=== PATIENT | male | born 1945 | race African-American/Black ===

== ENCOUNTER 2016-09-15 11:54 | Inpatient (IN) | payer MEDICARE, MEDICAID ==
[2016-09-15 14:48] VITALS: BP 134/75
[2016-09-15] MEDS ORDERED: ACETAMINOPHEN PO PRN (15:07)
[2016-09-15] MEDS ORDERED: HYDROCODONE PO PRN (15:07)
[2016-09-15] MEDS ORDERED: Non-Formulary Item 1 EA (Acetaminophen [Tylenol] 650 MG) PO PRN (15:07)
[2016-09-15] MEDS ORDERED: Albuterol/Ipratropium Neb 3 ML AERS HHN PRN (15:27)
[2016-09-15] MEDS ORDERED: LORAZEPAM 1 MG PO PRN (15:31)
[2016-09-15 15:50] LABS: % BASOPHILS 0.8 % (0.0-2.0); % EOSINOPHILS 6.5 % (0.0-5.0); % LYMPHOCYTES 47.7 % (20.0-50.0); % MONOCYTES 9.8 % (2.0-10.0); % NEUTROPHILS 35.2 % (40.0-80.0); MEAN CELL VOLUME 90.8 fl (80-99); MEAN CORPUSCULAR HEMOGLOBIN 29.9 pg (27.0-31.0); MEAN PLATELET VOLUME 8.1 fl; NEUTROPHILE ABSOLUTE 2.4 Th/cmm (1.8-8.0); RED BLOOD COUNT 4.49 Mil/cmm (3.80-5.80); RED CELL DISTRIBUTION WIDTH 15.2 % (11.5-20.0)
[2016-09-15 16:00] LABS: WHITE BLOOD COUNT 6.9 Th/cmm (4.8-10.8)
[2016-09-15] MEDS ORDERED: Ipratropium Neb 0.5 mg/2.5 mL UD HHN SCH (16:00)
[2016-09-15 16:01] LABS: HEMATOCRIT 40.8 % (39.0-49.0); HEMOGLOBIN 13.4 gm/dL (12.6-17.4); PLATELET COUNT 293 Th/cmm (150-400)
[2016-09-15 16:14] LABS: INR 1.03 (0.5-1.4); PROTHROMBIN TIME (TEST) 10.2 SECONDS (9.5-11.5)
[2016-09-15 16:16] LABS: ALB/GLOB RATIO 0.9 (1.0-1.8); BILIRUBIN,TOTAL 0.4 mg/dL (0.3-1.0); BUN/CREATININE RATIO 3.6; CALCIUM SERUM 9.9 mg/dL (8.6-10.3); CARBON DIOXIDE 31.9 mEq/L (21.0-31.0); POTASSIUM SERUM 3.9 mEq/L (3.5-5.1)
[2016-09-15] MEDS ORDERED: INSULIN ASPART RECOMBINANT 1 UNIT SUBQ SCH (16:30)
[2016-09-15 16:44] LABS: CREATININE - SERUM 6.7 mg/dL (0.7-1.3)
[2016-09-15] MEDS ORDERED: SEVELAMER 800 MG PO SCH (17:00)
[2016-09-15] MEDS: Hydrocodone/APAP 10 mg/325 mg Tab PO PRN ×2 (17:01→23:29)
[2016-09-15] MEDS ORDERED: [UNRECOGNIZED DRUG - OTHER] HHN SCH (19:00)
[2016-09-15] MEDS ORDERED: IPRATROPIUM HHN SCH (19:00)
[2016-09-15] MEDS ORDERED: Vancomycin HCl 1.5 GM in Sodium Chloride 0.9% 500 ML IV ONE (20:00)
[2016-09-15] MEDS: NIFEdipine 30 mg ER Tab PO SCH (20:59)
[2016-09-15] MEDS: Atorvastatin Calcium 10 MG TAB PO SCH (21:00)
[2016-09-15] MEDS ORDERED: GABAPENTIN 300 MG PO SCH (21:00)
[2016-09-15] MEDS: INSULIN ASPART SLIDING SCALE 100 UNITS/ML UNIT SUBQ SCH (21:24)
--- NOTE | 2016-09-16 04:54 | Consultation ---
This is a 71-year-old patient who is on chronic hemodialysis for more than 5 years, on maintenance hemodialysis, Monday, Monday and Monday, last dialysis was Monday, brought in here to the hospital because of a nonhealing stump on the right lower extremity, transmetatarsal amputation, which was previously done somewhere in 07/25/2016. He was cared for at an extended care facility and was noted to have poor healing of the amputation stump and was subsequently advised hospitalization. PAST MEDICAL HISTORY: Previous history of chronic renal failure more than 5 years of dialysis, peripheral vascular disease with multiple workup of the right lower extremity, subsequently ending up with amputation of transmetatarsal on 07/25/2016 here at this facility. Diet controlled diabetes mellitus, hyperlipidemia, underlying history of hypertension, cerebrovascular history, accident history with no residual dysfunction, COPD with history of smoking, still actively smoking, cardiac disease with previous ejection fraction between 40% to 45%. REVIEW OF SYSTEMS: HEENT: No complaints of headaches, no episodes of dizziness. CARDIOVASCULAR: Denies any history of shortness of breath, denies any history of chest pain. PULMONARY: Occasional episodes of coughing, nonproductive, although denies any history of respiratory difficulty. GASTROINTESTINAL: No history of hematochezia, no history of ____ or constipation or diarrhea. MUSCULOSKELETAL: The presence of transmetatarsal amputation of the right lower extremity, which has poor healing. PHYSICAL EXAMINATION: VITAL SIGNS: Blood pressure is 134/75, awake, alert, responsive. CHEST: Clear to auscultation. HEART: Regular sinus. ABDOMEN: Soft, bowel sounds are present. No organ enlargement. EXTREMITIES: No edema in both lower extremities. There is the presence of right transmetatarsal amputation, discoloration is noted almost to the ankle area with very poor healing of the stump. LABORATORY STUDIES: Reviewed, still pending at the present time. IMPRESSION: 1.Peripheral vascular disease with very poor healing in the right transmetatarsal amputation stump 2.Chronic kidney disease, on hemodialysis, Monday, Monday and Monday. We are anticipating that this patient will need dialysis after surgery tomorrow. 3.Previous history of cerebrovascular accident and this patient is on medication of Plavix on a daily basis for which we need coagulation profile prior to plan surgical intervention of this patient. 4.Status post cerebrovascular accident, hyperlipidemia, diet controlled diabetes. PLAN: At this time, we will continue his medication in terms of Coreg 6.25 mg daily, lisinopril 20 mg 3 times a day and Procardia 60 mg at bedtime for blood pressure control. ____ this will be adjusted to get serum phosphate during the hospital course of this patient ____ Renagel 800 mg 3 times a day. We will follow this patient with you. JOB# [id number]
[2016-09-16] MEDS: INSULIN ASPART SLIDING SCALE 100 UNITS/ML UNIT SUBQ SCH ×4 (06:37→20:45)
[2016-09-16] MEDS ORDERED: Midazolam 1mg/ml 2 ml vial IV ONE (07:31)
[2016-09-16] MEDS ORDERED: fentaNYL Citrate 100 mcg/2mL Vial ONE (07:46)
[2016-09-16] MEDS ORDERED: Meperidine 25 mg/mL 1mL Syr IVP PRN (08:27)
[2016-09-16] MEDS ORDERED: Lactated Ringer 1,000 ML IV SCH (08:30)
[2016-09-16] MEDS ORDERED: HYDROCODONE PO PRN (08:42)
[2016-09-16] MEDS ORDERED: NOREPINEPHRINE IV PRN (08:42)
[2016-09-16] MEDS ORDERED: ACETAMINOPHEN PO PRN (08:42)
[2016-09-16] MEDS ORDERED: Morphine Sulfate 2 mg/mL 1mL Syr IVP PRN ×2 (08:42→14:18)
[2016-09-16] MEDS ORDERED: PIPERACILLIN SODIUM IV SCH (08:45)
[2016-09-16] MEDS ORDERED: TAZOBACTAM IV SCH (08:45)
[2016-09-16] MEDS ORDERED: NIFEdipine 30 mg ER Tab PO SCH (09:00)
[2016-09-16] MEDS ORDERED: Non-Formulary Item 1 EA (Tiotropium Bromide [Spiriva] 18 MCG) IH SCH (09:00)
[2016-09-16] MEDS ORDERED: Non-Formulary Item 1 EA (Fluticasone/Vilanterol [Breo Ellipta 200-25 Mcg Inh] 1 EACH) IH SCH (09:00)
[2016-09-16] MEDS ORDERED: Aspirin 81mg Chewable Tab PO SCH (09:00)
[2016-09-16] MEDS ORDERED: Lactobacillus Rhamnosus 10 Billion CFU Capsule PO SCH (09:00)
[2016-09-16] MEDS ORDERED: Meperidine 25 mg/mL 1mL Syr ONE ×3 (09:10→09:46)
--- NOTE | 2016-09-16 09:34 | Diagnostic Imaging Report ---
CHEST X-RAY: AP view INDICATION: Cough, preop COMPARISON: Chest x-ray 07/25/2016 FINDINGS: Areas of scarring of the right lung are noted with mild chronic changes. No focal consolidation or pleural effusions. Heart size is normal. Atherosclerosis is noted. The osseous structures are intact. IMPRESSION: No focal airspace consolidation identified. Atherosclerotic vascular disease.
[2016-09-16] MEDS: Ascorbic Acid/Vit B Complex Tab PO SCH (09:55)
[2016-09-16] MEDS: Aspirin 81mg Chewable Tab PO SCH (09:55)
[2016-09-16] MEDS: NIFEdipine 30 mg ER Tab PO SCH ×2 (09:56→20:44)
[2016-09-16] MEDS: Lactobacillus Rhamnosus 10 Billion CFU Capsule PO SCH (09:56)
[2016-09-16] MEDS: FLUTICASONE PROPIONATE NS SCH (09:56)
--- NOTE | 2016-09-16 10:17 | History & Physical ---
CHIEF COMPLAINT: Poor healing of right transmetatarsal amputation with necrotic tissue. HISTORY OF PRESENT ILLNESS: A 71-year-old gentleman with multiple medical problems including PAD, diabetes, hyperlipidemia, CVA, end-stage renal disease on hemodialysis, history of COPD who was recently admitted to this facility where he underwent a transmetatarsal amputation of his right foot given poor healing of his recently done right fem-pop bypass, which was done a couple of months prior at [facility]. At the time of his previous admission, he was complaining of severe pain and the graft appeared to be somewhat infected. As mentioned above, he underwent the amputation and was then transferred to [facility] for LTAC where his hospital stay was unremarkable with healing of his stump. Apparently, the patient had a followup with Dr. Irizarry who sent the patient to be admitted given poor healing and necrotic tissue as mentioned above. He denies any other significant clinical symptomatology at this time. PAST MEDICAL HISTORY: As noted above. PAST SURGICAL HISTORY: As noted above. He underwent a fem-pop a few months back at [facility] and transmetatarsal amputation 2 months or so ago. He also has a history of AV shunt. FAMILY HISTORY: Noncontributory to this admission. SOCIAL HISTORY: Tobacco, does not smoke at this time. In the past, he was a heavy smoker, unable to quantify at this time. Denies any ETOH or any IVDA. He currently resides at [facility]. ALLERGIES: CLONIDINE AND CODEINE. OUTPATIENT MEDICATIONS: Tylenol 650 q. 12 p.r.n. for mild pain, [place] 10/325 one tab q. 4 p.r.n. for severe pain, DuoNeb 3 mL q. 4 hours p.r.n. for wheezing, Lipitor 10 at bedtime, Coreg 6.25 every day, Neurontin 300 mg t.i.d., insulin sliding scale, Atrovent 0.5 mg q. 6 p.r.n. for SOB, lactobacillus/Culturelle 1 tab every day, Zestril 20 mg t.i.d., Ativan 1 mg q. 8 p.r.n. for anxiety, Procardia 60 mg q. 12, Renagel 800 mg t.i.d., vitamin B complex 1 tab every day. REVIEW OF SYSTEMS: CONSTITUTIONAL: He denies any fever, chills, any headaches. CARDIAC: No chest pain, palpitations, angina type symptomatology. PULMONARY: He does have a history of chronic cough, but denies any shortness of breath. GASTROINTESTINAL: No bowel habit changes including no hematochezia, no melena, constipation or diarrhea. GENITOURINARY: He is not able to produce any urine. PHYSICAL EXAMINATION: VITAL SIGNS: Temperature 99.3, pulse 75, respirations 18, BP 154/84, satting 95% on room air. GENERAL: He is a well-developed, well-nourished gentleman in acute distress. Awake, alert and oriented x 3. CARDIAC: Regular rate and rhythm without any murmurs. LUNGS: Clear to auscultation bilaterally. ABDOMEN: Soft, supple. There is no organomegaly, nontender, nondistended, normoactive bowel sounds. EXTREMITIES: There is discoloration of the stump up to the ankle area. NEUROLOGIC: Grossly intact. LABORATORY DATA: White count 6.9, H and H 13/40 with a platelet count of 293. ESR 18. INR 1.03. Sodium 135, potassium 3.9, chloride 97, CO2 31, creatinine 6.7, glucose 129. LFTs were essentially within normal limits. C-reactive protein is 3. Albumin 3.6. DIAGNOSTICS: None currently. IMPRESSION: 1. Severe peripheral arterial disease with recent right transmetatarsal amputation with poor healing. 2. Recent history of fem-pop bypass, right lower extremity 3. History of cerebrovascular accident. 4. History of chronic renal disease, on hemodialysis. 5. History of dyslipidemia. 6. Hypertension. 7. Chronic obstructive pulmonary disease, currently stable. PLAN: The patient has been admitted to telemetry for further management and care. He has been placed on antibiotics, namely vancomycin and Zosyn as well as pain control. He has been scheduled for possible Syme's amputation vs. BKA later today by Dr. Irizarry. He will remain on his own medications schedule. The patient will be monitored post-op with labs and he will receive PT once stable JOB# [id number] [facility]
--- NOTE | 2016-09-16 10:42 | Operative Report ---
PREOPERATIVE DIAGNOSES: 1. Gangrene of the right foot transmetatarsal amputation stump. 2. End-stage renal disease, on dialysis. 3. Peripheral vascular disease. 4. Diabetes mellitus. 5. Hypertension. POSTOPERATIVE DIAGNOSES: 1. Gangrene of the right foot transmetatarsal amputation stump. 2. End-stage renal disease, on dialysis. 3. Peripheral vascular disease. 4. Diabetes mellitus. 5. Hypertension. OPERATION DONE: Syme's amputation. SURGEON: Juan C Cobos M.D. ANESTHESIA: General. ANESTHESIOLOGIST: Carol Ann Sr M.D. ESTIMATED BLOOD LOSS: 100 mL. Informed consent discussed with the patient and next of kin regarding the gangrene of the stump. We will require amputation for more proximal side. We will start with Syme's amputation, possible below knee amputation if blood supply is not adequate. OPERATIVE FINDINGS: The navicular bones were transected and part of the calcaneus was transected at its inferior margin to allow for closure of the stump. There appear to be decent blood supply at this level. DETAILS OF PROCEDURE: The patient was given general anesthesia. The right lower extremity was prepped with Betadine and draped in appropriate manner. The stump was isolated with OpSite. An incision was made on the dorsal aspect of the foot and this was carried all the way down to the fascia and the tendons and muscle transected sharply with knife. A posterior plantar incision was done in the similar fashion. The metatarsal bones were removed from the adjoining calcaneus and tibia and fibula. The inferior aspect of the calcaneus was transected with a saw to allow for a closure of the stump. Cautery was used for hemostasis and Grecia was further utilized for additional capillary bleeding. Tin-Castro drain was left in the operative site. The incision was closed with interrupted sutures of #1 Vicryl for the fascia and the skin was closed with moon. Compression dressing was used with Coban. The patient tolerated the procedure well. [facility]# [id number]
[2016-09-16] MEDS ORDERED: SEVELAMER CARBONATE 800 MG PO SCH (11:30)
[2016-09-16] MEDS ORDERED: VTE Chemical Prophylaxis Screen/Admission MC PRN (13:29)
--- NOTE | 2016-09-16 16:12 | General Progress Note ---
Subjective - Review of Systems Service Date: 09/16/16 (c/o painof the amputation site still with PRASANTH drain) Events since last encounter: Amputation of the stump above thr ankle right pain management isusse hemodialysis done regulasr dialysis schedule Mon and Mon Objective - Results Result Diagrams: 09/15/16 15:32 09/15/16 15:32 Recent Labs: Laboratory Last Values WBC 6.9 Th/cmm (4.8-10.8) D 09/15/16 15:32 RBC 4.49 Mil/cmm (3.80-5.80) 09/15/16 15:32 Hgb 13.4 gm/dL (12.6-17.4) D 09/15/16 15:32 Hct 40.8 % (39.0-49.0) D 09/15/16 15:32 MCV 90.8 fl (80-99) 09/15/16 15: MCH 29.9 pg (27.0-31.0) 09/15/16 15: MCHC Differential 33.0 pg (28.0-36.0) 09/15/16 15:32 RDW 15.2 % (11.5-20.0) 09/15/16 15:32 Plt Count 293 Th/cmm (150-400) D 09/15/16 15:32 MPV 8.1 fl 09/15/16 15:32 Neutrophils % 35.2 % (40.0-80.0) L 09/15/16 15: Lymphocytes % 47.7 % (20.0-50.0) 09/15/16 15: Monocytes % 9.8 % (2.0-10.0) 09/15/16 15:32 Eosinophils % 6.5 % (0.0-5.0) H 09/15/16 15:32 Basophils % 0.8 % (0.0-2.0) 09/15/16 15:32 ESR 18 mm/hr (0-20) 09/15/16 15:32 PT 10.2 SECONDS (9.5-11.5) 09/15/16 15:32 INR 1.03 (0.5-1.4) 09/15/16 15:32 PTT (Actin FS) 34.1 SECONDS (26.0-38.0) 09/15/16 15:32 Sodium 135 mEq/L (136-145) L 09/15/16 15:32 Potassium 3.9 mEq/L (3.5-5.1) 09/15/16 15:32 Chloride 97 mEq/L (98-107) L 09/15/16 15:32 Carbon Dioxide 31.9 mEq/L (21.0-31.0) H 09/15/16 15:32 Anion Gap 10.0 (7.0-16.0) 09/15/16 15:32 BUN 24 mg/dL (7-25) 09/15/16 15:32 Creatinine 6.7 mg/dL (0.7-1.3) H* 09/15/16 15:32 Est GFR ( Amer) 10.6 ml/min 09/15/16 15:32 Est GFR (Non-Af Amer) 8.8 ml/min 09/15/16 15:32 BUN/Creatinine Ratio 3.6 09/15/16 15:32 Glucose 129 mg/dL (70-105) H 09/15/16 15:32 POC Glucose 116 MG/DL (70 - 105) H 09/16/16 11:48 Calcium 9.9 mg/dL (8.6-10.3) 09/15/16 15:32 Magnesium 2.3 mg/dL (1.9-2.7) 09/15/16 15:32 Total Bilirubin 0.4 mg/dL (0.3-1.0) 09/15/16 15:32 AST 30 U/L (13-39) 09/15/16 15:32 ALT 24 U/L (7-52) 09/15/16 15:32 Alkaline Phosphatase 81 U/L (34-104) 09/15/16 15:32 C-Reactive Protein 3.00 mg/dL (0.00-1.00) H 09/15/16 15:32 Total Protein 7.7 gm/dL (6.0-8.3) 09/15/16 15:32 Albumin 3.6 gm/dL (4.2-5.5) L 09/15/16 15:32 Globulin 4.1 gm/dL 09/15/16 15:32 Albumin/Globulin Ratio 0.9 (1.0-1.8) L 09/15/16 15:32 - Physical Exam Vitals and I&O: Vital Signs Temp 96.6 F 09/16/16 12:00 Pulse 63 09/16/16 12:00 Resp 18 09/16/16 12:00 BP 142/83 09/16/16 12:00 Pulse Ox 18 09/16/16 12:00 Intake & Output 09/15/16 09/16/16 09/16/16 18:59 06:59 18:59 Intake Total 920 Output Total 2 Balance 918 Intake: Intake, IV Amount 600 Piperacillin Sodium/ 100 Tazobact 2.25 gm In Sodium Chloride 0.9% 50 ml @ 100 mls/hr IV Q8HR [facility] Rx#:[id number] Vancomycin HCl 1.5 gm In 500 Sodium Chloride 0.9% 500 ml @ 250 mls/hr IV 2000 ONE Rx#:[id number] Oral 320 Output: Stool 2 Other: # Voids 2 Stool Characteristics Soft Active Medications: Current Medications Acetaminophen (Tylenol) 650 mg PO Q12HR [facility] Stop: 11/14/16 20:59 Last Admin: 09/16/16 09:57 Dose: Not Given Acetaminophen/Hydrocodone Bitart ([place] 10 Mg/325 Mg) 1 tab PO Q4H PRN PRN Reason: PAIN Stop: 11/14/16 15:47 Last Admin: 09/15/16 23:29 Dose: 1 tab Albuterol Sulfate (Albuterol 2.5mg/3ml Neb Ud) 2.5 mg HHN Q6HRT [facility] Stop: 11/15/16 12:59 Albuterol/Ipratropium (Duoneb Neb) 3 ml HHN Q4H PRN PRN Reason: Wheezing Stop: 11/14/16 15:26 Aspirin (Aspirin Chewable) 81 mg PO DAILY [facility] Stop: 11/15/16 08:59 Last Admin: 09/16/16 09:55 Dose: Not Given Atorvastatin Calcium (Lipitor) 10 mg PO HS MELLISA PRN Reason: Protocol Stop: 11/14/16 20:59 Last Admin: 09/15/16 21:00 Dose: 10 mg Budesonide (Pulmicort) 0.5 mg HHN BIDRT [facility] Stop: 11/15/16 09:59 Carvedilol (Coreg) 3.125 mg PO DAILY [facility] Stop: 11/15/16 08:59 Last Admin: 09/16/16 09:55 Dose: Not Given Clopidogrel Bisulfate (Plavix) 75 mg PO DAILY [facility] Stop: 11/15/16 08:59 Last Admin: 09/16/16 09:56 Dose: Not Given Epoetin Kike (Epogen) 10,000 units SUBQ MoWeFr [facility] Stop: 11/18/16 11:59 Fluticasone Propionate (Flonase) 1 gm NS DAILY [facility] Stop: 11/15/16 08:59 Last Admin: 09/16/16 09:56 Dose: Not Given Gabapentin (Neurontin) 300 mg PO TID [facility] Stop: 11/14/16 20:59 Last Admin: 09/16/16 14:31 Dose: 300 mg Piperacillin Sod/Tazobactam (Sod 2.25 gm/ Sodium Chloride) 50 mls @ 100 mls/hr IV Q8HR [facility] Stop: 11/14/16 20:59 Last Admin: 09/16/16 14:34 Dose: 100 mls/hr Lactated Ringer's (Lactated Ringer) 1,000 mls @ 0 mls/hr IV .Q0M [facility] PRN Reason: TKO Stop: 09/17/16 08:29 Insulin Aspart (Novolog Insulin Sliding Scale) 0 units SUBQ ACHS [facility] PRN Reason: Protocol Stop: 11/14/16 20:59 Last Admin: 09/16/16 11:57 Dose: Not Given Ipratropium [place] (Atrovent Neb 0.5mg/2.5ml) 0.5 mg HHN Q6HRT [facility] Stop: 11/14/16 15:59 Lactobacillus Rhamnosus (Culturelle) 1 each PO DAILY [facility] Stop: 11/15/16 08:59 Last Admin: 09/16/16 09:56 Dose: Not Given Lisinopril (Zestril) 10 mg PO DAILY [facility] Stop: 11/15/16 08:59 Last Admin: 09/16/16 09:56 Dose: Not Given Lorazepam (Ativan) 1 mg PO Q8H PRN PRN Reason: ANXIETY Stop: 11/14/16 15:49 Meperidine HCl (Demerol) 25 mg IVP Q5MIN PRN PRN Reason: POST-OP PAIN Stop: 09/16/16 21:00 Last Admin: 09/16/16 09:48 Dose: 25 mg Miscellaneous (Vancomycin Iv Per Pharmacy) 1 ea MC PRN [facility] Stop: 11/14/16 16:59 Miscellaneous (Vte Chemical Prophylaxis Screen/ Admission) 1 ea PRN PRN PRN Reason: PROTOCOL Stop: 11/15/16 13:28 Morphine Sulfate (Morphine) 2 mg IVP Q4HR PRN PRN Reason: Pain (Severe) Stop: 11/15/16 14:17 Last Admin: 09/16/16 14:29 Dose: 2 mg Nifedipine (Procardia Xl) 60 mg PO Q12HR [facility] Stop: 11/14/16 20:59 Last Admin: 09/16/16 09:56 Dose: Not Given Ondansetron HCl (Zofran) 4 mg IV PRN PRN PRN Reason: Nausea / Vomiting Stop: 09/16/16 21:00 Sevelamer HCl (Renagel) 800 mg PO TID [facility] Stop: 11/14/16 20:59 Last Admin: 09/16/16 14:31 Dose: 800 mg Vitamin B Complex/Vitamin C (Vitamin B Complex W/C) 1 tab PO DAILY [facility] Stop: 11/15/16 08:59 Last Admin: 09/16/16 09:55 Dose: Not Given General: Alert Neck: Supple Cardiovascular: Regular rate Abdomen: Bowel sounds - Procedures Procedures: Procedures Procedure Code Date AMPUTATION OF FOOT AT ANKLE 80743 09/15/16 AMPUTATION THRU METATARSAL 76169 07/22/16 BYPASS L AXILLA VEIN TO UP VEIN W SYNTH SUB, OPEN [id number] 07/22/16 DETACHMENT AT RIGHT FOOT, COMPLETE, OPEN APPROACH [id number] 09/15/16 DETACHMENT AT RIGHT FOOT, PARTIAL 2ND RAY, OPEN APPROACH [id number] 07/22/16 DETACHMENT AT RIGHT FOOT, PARTIAL 3RD RAY, OPEN APPROACH [id number] 07/22/16 DETACHMENT AT RIGHT FOOT, PARTIAL 4TH RAY, OPEN APPROACH [id number] 07/22/16 DETACHMENT AT RIGHT FOOT, PARTIAL 5TH RAY, OPEN APPROACH [id number] 07/22/16 EXTIRPATION OF MATTER FROM LEFT AXILLARY VEIN, OPEN APPROACH [id number] 07/22/16 HEMODIALYSIS REPEATED EVAL [id number] 07/22/16 INSERT TUNNELED CV CATH [id number] 07/22/16 INSERTION OF INFUSION DEV INTO R SUBCLAV VEIN, PERC APPROACH [id number] 07/22/16 INSERTION OF INFUSION DEV INTO SUP VENA CAVA, PERC APPROACH [id number] 07/22/16 OPEN THROMBECT AV FISTULA 69846 07/22/16 PERFORMANCE OF URINARY FILTRATION, MULTIPLE [id number] 07/22/16 ULTRASONOGRAPHY OF RIGHT SUBCLAVIAN VEIN, GUIDANCE [id number] 07/22/16 ULTRASONOGRAPHY OF SUPERIOR VENA CAVA, GUIDANCE [id number] 07/22/16 US GUIDE VASCULAR ACCESS [id number] 07/22/16 Assessment/Plan - Problem List Patient Problems: All Active Problems Clotted dialysis access (Acute) T82.49XA Hypotension (Acute) clotted access (Acute) clotted access (Acute) resolved hypotensionn0 (Acute) transmetatarsal amputation right foot (Acute) - Plan Plan: to supiort hemo every MWF pain mangement
[2016-09-16] MEDS: HYDROmorphone 2 mg/mL 1mL Vial IVP PRN (17:13)
[2016-09-16] MEDS: Hydrocodone/APAP 10 mg/325 mg Tab PO PRN (20:43)
[2016-09-16] MEDS: Atorvastatin Calcium 10 MG TAB PO SCH (20:43)
[2016-09-17] MEDS: INSULIN ASPART SLIDING SCALE 100 UNITS/ML UNIT SUBQ SCH ×4 (06:37→20:42)
[2016-09-17 07:04] LABS: % BASOPHILS 0.3 % (0.0-2.0); % EOSINOPHILS 2.2 % (0.0-5.0); % NEUTROPHILS 58.5 % (40.0-80.0); HEMATOCRIT 38.7 % (39.0-49.0); HEMOGLOBIN 12.8 gm/dL (12.6-17.4); MEAN CELL VOLUME 89.9 fl (80-99); MEAN CORPUSCULAR HEMOGLOBIN 29.7 pg (27.0-31.0); MEAN CORPUSCULAR HGB CONC 33.1 pg (28.0-36.0); MEAN PLATELET VOLUME 8.1 fl; NEUTROPHILE ABSOLUTE 5.7 Th/cmm (1.8-8.0); PLATELET COUNT 309 Th/cmm (150-400); RED CELL DISTRIBUTION WIDTH 14.4 % (11.5-20.0)
[2016-09-17 07:20] LABS: WHITE BLOOD COUNT 9.7 Th/cmm (4.8-10.8)
[2016-09-17 07:31] LABS: ANION GAP 14.9 (7.0-16.0); BUN/CREATININE RATIO 3.5; CALCIUM SERUM 9.5 mg/dL (8.6-10.3); CARBON DIOXIDE 28.8 mEq/L (21.0-31.0); MAGNESIUM 1.9 mg/dL (1.9-2.7); POTASSIUM SERUM 4.7 mEq/L (3.5-5.1)
[2016-09-17 07:44] LABS: CREATININE - SERUM 5.7 mg/dL (0.7-1.3)
[2016-09-17] MEDS: FLUTICASONE PROPIONATE NS SCH (09:51)
[2016-09-17] MEDS: Ascorbic Acid/Vit B Complex Tab PO SCH (09:51)
[2016-09-17] MEDS: NIFEdipine 30 mg ER Tab PO SCH ×2 (09:52→20:38)
[2016-09-17] MEDS: Aspirin 81mg Chewable Tab PO SCH (09:52)
[2016-09-17] MEDS: Lactobacillus Rhamnosus 10 Billion CFU Capsule PO SCH (09:54)
[2016-09-17] MEDS: HYDROmorphone 2 mg/mL 1mL Vial IVP PRN (10:00)
--- NOTE | 2016-09-17 10:35 | General Progress Note ---
Subjective - Review of Systems Service Date: 09/17/16 Subjective: alert, still has right leg pain Objective - Results Result Diagrams: 09/17/16 06:28 09/17/16 06:28 Recent Labs: Laboratory Last Values WBC 9.7 Th/cmm (4.8-10.8) D 09/17/16 06:28 RBC 4.30 Mil/cmm (3.80-5.80) 09/17/16 06:28 Hgb 12.8 gm/dL (12.6-17.4) 09/17/16 06:28 Hct 38.7 % (39.0-49.0) L 09/17/16 06:28 MCV 89.9 fl (80-99) 09/17/16 06:28 MCH 29.7 pg (27.0-31.0) 09/17/16 06:28 MCHC Differential 33.1 pg (28.0-36.0) 09/17/16 06:28 RDW 14.4 % (11.5-20.0) 09/17/16 06:28 Plt Count 309 Th/cmm (150-400) 09/17/16 06:28 MPV 8.1 fl 09/17/16 06:28 Neutrophils % 58.5 % (40.0-80.0) 09/17/16 06:28 Lymphocytes % 30.0 % (20.0-50.0) 09/17/16 06:28 Monocytes % 9.0 % (2.0-10.0) 09/17/16 06:28 Eosinophils % 2.2 % (0.0-5.0) 09/17/16 06:28 Basophils % 0.3 % (0.0-2.0) 09/17/16 06:28 ESR 18 mm/hr (0-20) 09/15/16 15:32 PT 10.2 SECONDS (9.5-11.5) 09/15/16 15:32 INR 1.03 (0.5-1.4) 09/15/16 15:32 PTT (Actin FS) 34.1 SECONDS (26.0-38.0) 09/15/16 15:32 Sodium 138 mEq/L (136-145) 09/17/16 06:28 Potassium 4.7 mEq/L (3.5-5.1) 09/17/16 06:28 Chloride 99 mEq/L (98-107) 09/17/16 06:28 Carbon Dioxide 28.8 mEq/L (21.0-31.0) 09/17/16 06:28 Anion Gap 14.9 (7.0-16.0) 09/17/16 06:28 BUN 20 mg/dL (7-25) 09/17/16 06:28 Creatinine 5.7 mg/dL (0.7-1.3) H* 09/17/16 06:28 Est GFR ( Amer) 12.8 ml/min 09/17/16 06:28 Est GFR (Non-Af Amer) 10.6 ml/min 09/17/16 06:28 BUN/Creatinine Ratio 3.5 09/17/16 06:28 Glucose 100 mg/dL (70-105) 09/17/16 06:28 POC Glucose 91 MG/DL (70 - 105) 09/17/16 05:29 Calcium 9.5 mg/dL (8.6-10.3) 09/17/16 06:28 Magnesium 1.9 mg/dL (1.9-2.7) 09/17/16 06:28 Total Bilirubin 0.4 mg/dL (0.3-1.0) 09/15/16 15:32 AST 30 U/L (13-39) 09/15/16 15:32 ALT 24 U/L (7-52) 09/15/16 15:32 Alkaline Phosphatase 81 U/L (34-104) 09/15/16 15:32 C-Reactive Protein 3.00 mg/dL (0.00-1.00) H 09/15/16 15:32 Total Protein 7.7 gm/dL (6.0-8.3) 09/15/16 15:32 Albumin 3.6 gm/dL (4.2-5.5) L 09/15/16 15:32 Globulin 4.1 gm/dL 09/15/16 15:32 Albumin/Globulin Ratio 0.9 (1.0-1.8) L 09/15/16 15:32 Random Vancomycin 17.0 ug/mL (5.0-40.0) 09/17/16 06:28 - Physical Exam Vitals and I&O: Vital Signs Temp 99.9 F 09/17/16 04:00 Pulse 87 09/17/16 09:54 Resp 18 09/17/16 08:00 BP 143/85 09/17/16 09:54 Pulse Ox 97 09/17/16 08:00 Intake & Output 09/16/16 09/17/16 09/17/16 18:59 06:59 18:59 Intake Total 250 340 Output Total 130 110 Balance 120 230 Intake: Intake, IV Amount 50 100 Piperacillin Sodium/ 50 100 Tazobact 2.25 gm In Sodium Chloride 0.9% 50 ml @ 100 mls/hr IV Q8HR [facility] Rx#:[id number] Oral 200 240 Output: Drainage 130 110 Right Foot 130 110 Other: # Voids 2 2 Stool Characteristics Soft Soft Active Medications: Current Medications Acetaminophen (Tylenol) 650 mg PO Q12HR [facility] Stop: 11/14/16 20:59 Last Admin: 09/16/16 20:44 Dose: Not Given Acetaminophen/Hydrocodone Bitart ([place] 10 Mg/325 Mg) 1 tab PO Q4H PRN PRN Reason: PAIN Stop: 11/14/16 15:47 Last Admin: 09/16/16 20:43 Dose: 1 tab Albuterol Sulfate (Albuterol 2.5mg/3ml Neb Ud) 2.5 mg HHN Q6HRT [facility] Stop: 11/15/16 12:59 Albuterol/Ipratropium (Duoneb Neb) 3 ml HHN Q4H PRN PRN Reason: Wheezing Stop: 11/14/16 15:26 Aspirin (Aspirin Chewable) 81 mg PO DAILY [facility] Stop: 11/15/16 08:59 Last Admin: 09/17/16 09:52 Dose: 81 mg Atorvastatin Calcium (Lipitor) 10 mg PO HS [facility] PRN Reason: Protocol Stop: 11/14/16 20:59 Last Admin: 09/16/16 20:43 Dose: 10 mg Budesonide (Pulmicort) 0.5 mg HHN BIDRT [facility] Stop: 11/15/16 09:59 Carvedilol (Coreg) 3.125 mg PO DAILY [facility] Stop: 11/15/16 08:59 Last Admin: 09/17/16 09:54 Dose: 3.125 mg Clopidogrel Bisulfate (Plavix) 75 mg PO DAILY [facility] Stop: 11/15/16 08:59 Last Admin: 09/17/16 09:54 Dose: 75 mg Epoetin Kike (Epogen) 10,000 units SUBQ MoWeFr [facility] Stop: 11/18/16 11:59 Fluticasone Propionate (Flonase) 1 gm NS DAILY [facility] Stop: 11/15/16 08:59 Last Admin: 09/17/16 09:51 Dose: 1 gm Gabapentin (Neurontin) 300 mg PO TID [facility] Stop: 11/14/16 20:59 Last Admin: 09/17/16 09:52 Dose: 300 mg Hydromorphone HCl (Dilaudid) 2 mg IVP Q4HR PRN PRN Reason: Pain (Severe) Stop: 11/15/16 16:25 Last Admin: 09/17/16 10:00 Dose: 2 mg Piperacillin Sod/Tazobactam (Sod 2.25 gm/ Sodium Chloride) 50 mls @ 100 mls/hr IV Q8HR [facility] Stop: 11/14/16 20:59 Last Infusion: 09/17/16 06:09 Dose: Infused Vancomycin HCl 1.5 gm/ Sodium (Chloride) 500 mls @ 250 mls/hr IV Q24H [facility] Stop: 09/17/16 13:59 Insulin Aspart (Novolog Insulin Sliding Scale) 0 units SUBQ ACHS [facility] PRN Reason: Protocol Stop: 11/14/16 20:59 Last Admin: 09/17/16 06:37 Dose: Not Given Ipratropium [place] (Atrovent Neb 0.5mg/2.5ml) 0.5 mg HHN Q6HRT [facility] Stop: 11/14/16 15:59 Lactobacillus Rhamnosus (Culturelle) 1 each PO DAILY [facility] Stop: 11/15/16 08:59 Last Admin: 09/17/16 09:54 Dose: 1 each Lisinopril (Zestril) 10 mg PO DAILY [facility] Stop: 11/15/16 08:59 Last Admin: 09/17/16 09:53 Dose: 10 mg Lorazepam (Ativan) 1 mg PO Q8H PRN PRN Reason: ANXIETY Stop: 11/14/16 15:49 Miscellaneous (Vancomycin Iv Per Pharmacy) 1 ea [facility] PRN [facility] Stop: 11/14/16 16:59 Miscellaneous (Vte Chemical Prophylaxis Screen/ Admission) 1 ea PRN PRN PRN Reason: PROTOCOL Stop: 11/15/16 13:28 Nifedipine (Procardia Xl) 60 mg PO Q12HR [facility] Stop: 11/14/16 20:59 Last Admin: 09/17/16 09:52 Dose: 60 mg Sevelamer HCl (Renagel) 800 mg PO TID [facility] Stop: 11/14/16 20:59 Last Admin: 09/17/16 09:54 Dose: 800 mg Vitamin B Complex/Vitamin C (Vitamin B Complex W/C) 1 tab PO DAILY [facility] Stop: 11/15/16 08:59 Last Admin: 09/17/16 09:51 Dose: 1 tab General: Alert, Mild distress HEENT: Atraumatic, EOMI, Mucous membr. moist/pink Neck: Supple, +2 carotid pulse wo bruit Cardiovascular: Regular rate, Normal S1, Normal S2 Lungs: Clear to auscultation Abdomen: Bowel sounds, Soft Extremities: Other (dressing right leg, (+) PRASANTH drain), no Edema Neurological: Strength at 5/5 X4 ext, Sensation intact Skin: no Rash - Procedures Procedures: Procedures Procedure Code Date AMPUTATION OF FOOT AT ANKLE 64433 09/15/16 AMPUTATION THRU METATARSAL 06522 07/22/16 BYPASS L AXILLA VEIN TO UP VEIN W SYNTH SUB, OPEN [id number] 07/22/16 DETACHMENT AT RIGHT FOOT, COMPLETE, OPEN APPROACH [id number] 09/15/16 DETACHMENT AT RIGHT FOOT, PARTIAL 2ND RAY, OPEN APPROACH [id number] 07/22/16 DETACHMENT AT RIGHT FOOT, PARTIAL 3RD RAY, OPEN APPROACH [id number] 07/22/16 DETACHMENT AT RIGHT FOOT, PARTIAL 4TH RAY, OPEN APPROACH [id number] 07/22/16 DETACHMENT AT RIGHT FOOT, PARTIAL 5TH RAY, OPEN APPROACH [id number] 07/22/16 EXTIRPATION OF MATTER FROM LEFT AXILLARY VEIN, OPEN APPROACH [id number] 07/22/16 HEMODIALYSIS REPEATED EVAL 26317 07/22/16 INSERT TUNNELED CV CATH [id number] 07/22/16 INSERTION OF INFUSION DEV INTO R SUBCLAV VEIN, PERC APPROACH [id number] 07/22/16 INSERTION OF INFUSION DEV INTO SUP VENA CAVA, PERC APPROACH [id number] 07/22/16 OPEN THROMBECT AV FISTULA 21311 11/18/16 PERFORMANCE OF URINARY FILTRATION, MULTIPLE [id number] 07/22/16 ULTRASONOGRAPHY OF RIGHT SUBCLAVIAN VEIN, GUIDANCE [id number] 07/22/16 ULTRASONOGRAPHY OF SUPERIOR VENA CAVA, GUIDANCE [id number] 07/22/16 US GUIDE VASCULAR ACCESS [id number] 07/22/16 Assessment/Plan - Problem List Patient Problems: All Active Problems Clotted dialysis access (Acute) T82.49XA Hypotension (Acute) clotted access (Acute) clotted access (Acute) resolved hypotensionn0 (Acute) transmetatarsal amputation right foot (Acute) - Assessment Assessment: ESRD on HD PAD, S/P right Syme's amp ess htn COPD chf - Plan Plan: HD as scheduled wound care Dilip White
[2016-09-17] MEDS ORDERED: Vancomycin HCl 1.5 GM in Sodium Chloride 0.9% 500 ML IV ONE (12:00)
[2016-09-17] MEDS: Atorvastatin Calcium 10 MG TAB PO SCH (20:38)
[2016-09-18 05:42] LABS: % BASOPHILS 0.5 % (0.0-2.0); % EOSINOPHILS 2.2 % (0.0-5.0); % LYMPHOCYTES 27.1 % (20.0-50.0); % MONOCYTES 10.8 % (2.0-10.0); % NEUTROPHILS 59.4 % (40.0-80.0); HEMATOCRIT 35.6 % (39.0-49.0); MEAN CELL VOLUME 88.7 fl (80-99); MEAN CORPUSCULAR HGB CONC 33.8 pg (28.0-36.0); NEUTROPHILE ABSOLUTE 6.4 Th/cmm (1.8-8.0); PLATELET COUNT 286 Th/cmm (150-400); RED BLOOD COUNT 4.01 Mil/cmm (3.80-5.80); RED CELL DISTRIBUTION WIDTH 14.8 % (11.5-20.0); WHITE BLOOD COUNT 10.8 Th/cmm (4.8-10.8)
[2016-09-18 06:03] LABS: ALB/GLOB RATIO 0.8 (1.0-1.8); ANION GAP 15.8 (7.0-16.0); BILIRUBIN,TOTAL 0.5 mg/dL (0.3-1.0); BUN/CREATININE RATIO 3.9; CALCIUM SERUM 9.8 mg/dL (8.6-10.3); CARBON DIOXIDE 25.9 mEq/L (21.0-31.0); POTASSIUM SERUM 4.7 mEq/L (3.5-5.1)
[2016-09-18] MEDS: INSULIN ASPART SLIDING SCALE 100 UNITS/ML UNIT SUBQ SCH ×3 (06:32→17:30)
[2016-09-18 06:49] LABS: CREATININE - SERUM 7.9 mg/dL (0.7-1.3)
[2016-09-18] MEDS: Albuterol Nebulizer 2.5mg/3mL HHN SCH ×2 (07:52→12:17)
[2016-09-18] MEDS: Budesonide 0.5 Mg/2 mL Ud HHN SCH (07:52)
[2016-09-18] MEDS: Ipratropium Neb 0.5 mg/2.5 mL UD HHN SCH ×2 (07:52→12:18)
[2016-09-18] MEDS: HYDROmorphone 2 mg/mL 1mL Vial IVP PRN (09:18)
[2016-09-18] MEDS: NIFEdipine 30 mg ER Tab PO SCH ×2 (09:20→22:21)
[2016-09-18] MEDS: Lactobacillus Rhamnosus 10 Billion CFU Capsule PO SCH (09:20)
[2016-09-18] MEDS: Aspirin 81mg Chewable Tab PO SCH (09:21)
[2016-09-18] MEDS: Ascorbic Acid/Vit B Complex Tab PO SCH (09:22)
[2016-09-18] MEDS: FLUTICASONE PROPIONATE NS SCH (09:29)
--- NOTE | 2016-09-18 15:24 | General Progress Note ---
Subjective - Review of Systems Service Date: 09/18/16 Subjective: alert, still has right leg pain Objective - Results Result Diagrams: 09/18/16 05:10 09/18/16 05:10 Recent Labs: Laboratory Last Values WBC 10.8 Th/cmm (4.8-10.8) 09/18/16 05:10 RBC 4.01 Mil/cmm (3.80-5.80) 09/18/16 05:10 Hgb 12.0 gm/dL (12.6-17.4) L 09/18/16 05:10 Hct 35.6 % (39.0-49.0) L 09/18/16 05:10 MCV 88.7 fl (80-99) 09/18/16 05:10 MCH 30.0 pg (27.0-31.0) 09/18/16 05:10 MCHC Differential 33.8 pg (28.0-36.0) 09/18/16 05:10 RDW 14.8 % (11.5-20.0) 09/18/16 05:10 Plt Count 286 Th/cmm (150-400) 09/18/16 05:10 MPV 8.0 fl 09/18/16 05:10 Neutrophils % 59.4 % (40.0-80.0) 09/18/16 05:10 Lymphocytes % 27.1 % (20.0-50.0) 09/18/16 05:10 Monocytes % 10.8 % (2.0-10.0) H 09/18/16 05:10 Eosinophils % 2.2 % (0.0-5.0) 09/18/16 05:10 Basophils % 0.5 % (0.0-2.0) 09/18/16 05:10 ESR 18 mm/hr (0-20) 09/15/16 15:32 PT 10.2 SECONDS (9.5-11.5) 09/15/16 15:32 INR 1.03 (0.5-1.4) 09/15/16 15:32 PTT (Actin FS) 34.1 SECONDS (26.0-38.0) 09/15/16 15:32 Sodium 137 mEq/L (136-145) 09/18/16 05:10 Potassium 4.7 mEq/L (3.5-5.1) 09/18/16 05:10 Chloride 100 mEq/L (98-107) 09/18/16 05:10 Carbon Dioxide 25.9 mEq/L (21.0-31.0) 09/18/16 05:10 Anion Gap 15.8 (7.0-16.0) 09/18/16 05:10 BUN 31 mg/dL (7-25) H 09/18/16 05:10 Creatinine 7.9 mg/dL (0.7-1.3) H* 09/18/16 05:10 Est GFR ( Amer) 8.8 ml/min 09/18/16 05:10 Est GFR (Non-Af Amer) 7.3 ml/min 09/18/16 05:10 BUN/Creatinine Ratio 3.9 09/18/16 05:10 Glucose 95 mg/dL (70-105) 09/18/16 05:10 POC Glucose 113 MG/DL (70 - 105) H 09/18/16 11:56 Calcium 9.8 mg/dL (8.6-10.3) 09/18/16 05:10 Magnesium 1.9 mg/dL (1.9-2.7) 09/17/16 06:28 Total Bilirubin 0.5 mg/dL (0.3-1.0) 09/18/16 05:10 AST 29 U/L (13-39) 09/18/16 05:10 ALT 23 U/L (7-52) 09/18/16 05:10 Alkaline Phosphatase 60 U/L (34-104) 09/18/16 05:10 C-Reactive Protein 3.00 mg/dL (0.00-1.00) H 09/15/16 15:32 Total Protein 7.1 gm/dL (6.0-8.3) 09/18/16 05:10 Albumin 3.2 gm/dL (4.2-5.5) L 09/18/16 05:10 Globulin 3.9 gm/dL 09/18/16 05:10 Albumin/Globulin Ratio 0.8 (1.0-1.8) L 09/18/16 05:10 Random Vancomycin 17.0 ug/mL (5.0-40.0) 09/17/16 06:28 - Physical Exam Vitals and I&O: Vital Signs Temp 99.0 F 09/18/16 04:00 Pulse 85 09/18/16 12:19 Resp 16 09/18/16 12:19 BP 135/75 09/18/16 09:22 Pulse Ox 97 09/18/16 12:19 Intake & Output 09/17/16 09/18/16 09/18/16 18:59 06:59 18:59 Intake Total 50 520 Output Total 20 Balance 50 500 Intake: Intake, IV Amount 50 100 Piperacillin Sodium/ 50 100 Tazobact 2.25 gm In Sodium Chloride 0.9% 50 ml @ 100 mls/hr IV Q8HR [facility] Rx#:[id number] Oral 420 Output: Drainage 20 Right Foot 20 Other: # Voids 2 # Bowel Movements 1 Active Medications: Current Medications Acetaminophen (Tylenol) 650 mg PO Q12HR [facility] Stop: 11/14/16 20:59 Last Admin: 09/17/16 20:39 Dose: 650 mg Acetaminophen/Hydrocodone Bitart ([place] 10 Mg/325 Mg) 1 tab PO Q4H PRN PRN Reason: PAIN Stop: 11/14/16 15:47 Last Admin: 09/16/16 20:43 Dose: 1 tab Albuterol Sulfate (Albuterol 2.5mg/3ml Neb Ud) 2.5 mg HHN Q6HRT [facility] Stop: 11/15/16 12:59 Last Admin: 09/18/16 12:17 Dose: Not Given Albuterol/Ipratropium (Duoneb Neb) 3 ml HHN Q4H PRN PRN Reason: Wheezing Stop: 11/14/16 15:26 Aspirin (Aspirin Chewable) 81 mg PO DAILY [facility] Stop: 11/15/16 08:59 Last Admin: 09/18/16 09:21 Dose: 81 mg Atorvastatin Calcium (Lipitor) 10 mg PO HS [facility] PRN Reason: Protocol Stop: 11/14/16 20:59 Last Admin: 09/17/16 20:38 Dose: 10 mg Budesonide (Pulmicort) 0.5 mg HHN BIDRT [facility] Stop: 11/15/16 09:59 Last Admin: 09/18/16 07:52 Dose: Not Given Carvedilol (Coreg) 3.125 mg PO DAILY [facility] Stop: 11/15/16 08:59 Last Admin: 09/18/16 09:22 Dose: 3.125 mg Clopidogrel Bisulfate (Plavix) 75 mg PO DAILY [facility] Stop: 11/15/16 08:59 Last Admin: 09/18/16 09:21 Dose: 75 mg Epoetin [place] (Epogen) 10,000 units SUBQ MoWeFr [facility] Stop: 11/18/16 11:59 Fluticasone Propionate (Flonase) 1 gm NS DAILY [facility] Stop: 11/15/16 08:59 Last Admin: 09/18/16 09:29 Dose: 1 gm Gabapentin (Neurontin) 300 mg PO TID [facility] Stop: 11/14/16 20:59 Last Admin: 09/18/16 13:33 Dose: 300 mg Hydromorphone HCl (Dilaudid) 2 mg IVP Q4HR PRN PRN Reason: Pain (Severe) Stop: 11/15/16 16:25 Last Admin: 09/18/16 09:18 Dose: 2 mg Piperacillin Sod/Tazobactam (Sod 2.25 gm/ Sodium Chloride) 50 mls @ 100 mls/hr IV Q8HR [facility] Stop: 11/14/16 20:59 Last Admin: 09/18/16 13:33 Dose: 100 mls/hr Insulin Aspart (Novolog Insulin Sliding Scale) 0 units SUBQ ACHS [facility] PRN Reason: Protocol Stop: 11/14/16 20:59 Last Admin: 09/18/16 12:00 Dose: Not Given Ipratropium [place] (Atrovent Neb 0.5mg/2.5ml) 0.5 mg HHN Q6HRT [facility] Stop: 11/14/16 15:59 Last Admin: 09/18/16 12:18 Dose: Not Given Lactobacillus Rhamnosus (Culturelle) 1 each PO DAILY [facility] Stop: 11/15/16 08:59 Last Admin: 09/18/16 09:20 Dose: 1 each Lisinopril (Zestril) 10 mg PO DAILY [facility] Stop: 11/15/16 08:59 Last Admin: 09/18/16 09:21 Dose: 10 mg Lorazepam (Ativan) 1 mg PO Q8H PRN PRN Reason: ANXIETY Stop: 11/14/16 15:49 Miscellaneous (Vancomycin Iv Per Pharmacy) 1 ea MC PRN [facility] Stop: 11/14/16 16:59 Miscellaneous (Vte Chemical Prophylaxis Screen/ Admission) 1 [facility] PRN PRN PRN Reason: PROTOCOL Stop: 11/15/16 13:28 Nifedipine (Procardia Xl) 60 mg PO Q12HR [facility] Stop: 11/14/16 20:59 Last Admin: 09/18/16 09:20 Dose: 60 mg Sevelamer HCl (Renagel) 800 mg PO TID [facility] Stop: 11/14/16 20:59 Last Admin: 09/18/16 13:33 Dose: 800 mg Vitamin B Complex/Vitamin C (Vitamin B Complex W/C) 1 tab PO DAILY [facility] Stop: 11/15/16 08:59 Last Admin: 09/18/16 09:22 Dose: 1 tab General: Alert, Mild distress HEENT: Atraumatic, EOMI, Mucous membr. moist/pink Neck: Supple, +2 carotid pulse wo bruit Cardiovascular: Regular rate, Normal S1, Normal S2 Lungs: Clear to auscultation Abdomen: Bowel sounds, Soft Extremities: Other (right leg dressing intact), no Edema Neurological: Sensation intact Skin: no Rash - Procedures Procedures: Procedures Procedure Code Date AMPUTATION OF FOOT AT ANKLE 80602 09/15/16 AMPUTATION THRU METATARSAL 61887 07/22/16 BYPASS L AXILLA VEIN TO UP VEIN W SYNTH SUB, OPEN [id number] 07/22/16 DETACHMENT AT RIGHT FOOT, COMPLETE, OPEN APPROACH [id number] 09/15/16 DETACHMENT AT RIGHT FOOT, PARTIAL 2ND RAY, OPEN APPROACH [id number] 07/22/16 DETACHMENT AT RIGHT FOOT, PARTIAL 3RD RAY, OPEN APPROACH [id number] 07/22/16 DETACHMENT AT RIGHT FOOT, PARTIAL 4TH RAY, OPEN APPROACH [id number] 07/22/16 DETACHMENT AT RIGHT FOOT, PARTIAL 5TH RAY, OPEN APPROACH [id number] 07/22/16 EXTIRPATION OF MATTER FROM LEFT AXILLARY VEIN, OPEN APPROACH [id number] 07/22/16 HEMODIALYSIS REPEATED EVAL 44787 07/22/16 INSERT TUNNELED CV CATH [id number] 07/22/16 INSERTION OF INFUSION DEV INTO R SUBCLAV VEIN, PERC APPROACH [id number] 07/22/16 INSERTION OF INFUSION DEV INTO SUP VENA CAVA, PERC APPROACH [id number] 07/22/16 OPEN THROMBECT AV FISTULA 95398 07/22/16 PERFORMANCE OF URINARY FILTRATION, MULTIPLE [id number] 07/22/16 ULTRASONOGRAPHY OF RIGHT SUBCLAVIAN VEIN, GUIDANCE [id number] 07/22/16 ULTRASONOGRAPHY OF SUPERIOR VENA CAVA, GUIDANCE [id number] 07/22/16 US GUIDE VASCULAR ACCESS [id number] 07/22/16 Assessment/Plan - Problem List Patient Problems: All Active Problems Clotted dialysis access (Acute) T82.49XA Hypotension (Acute) clotted access (Acute) clotted access (Acute) resolved hypotensionn0 (Acute) transmetatarsal amputation right foot (Acute) - Assessment Assessment: ESRD on HD PAD, S/P right Syme's amp ess htn COPD chf - Plan Plan: HD scheduled for am wound care Dilip White
[2016-09-18] MEDS: Atorvastatin Calcium 10 MG TAB PO SCH (22:20)
[2016-09-19] MEDS: Hydrocodone/APAP 10 mg/325 mg Tab PO PRN (05:30)
[2016-09-19 06:47] LABS: % BASOPHILS 0.5 % (0.0-2.0); % EOSINOPHILS 5.2 % (0.0-5.0); % LYMPHOCYTES 30.5 % (20.0-50.0); % MONOCYTES 11.4 % (2.0-10.0); % NEUTROPHILS 52.4 % (40.0-80.0); HEMATOCRIT 32.5 % (39.0-49.0); HEMOGLOBIN 10.9 gm/dL (12.6-17.4); MEAN CELL VOLUME 89.6 fl (80-99); MEAN CORPUSCULAR HEMOGLOBIN 30.1 pg (27.0-31.0); MEAN CORPUSCULAR HGB CONC 33.6 pg (28.0-36.0); MEAN PLATELET VOLUME 8.2 fl; NEUTROPHILE ABSOLUTE 5.6 Th/cmm (1.8-8.0); PLATELET COUNT 254 Th/cmm (150-400); RED BLOOD COUNT 3.62 Mil/cmm (3.80-5.80); RED CELL DISTRIBUTION WIDTH 14.7 % (11.5-20.0); WHITE BLOOD COUNT 10.8 Th/cmm (4.8-10.8)
[2016-09-19 06:48] LABS: ANION GAP 15.9 (7.0-16.0); BUN/CREATININE RATIO 4.5; CALCIUM SERUM 9.4 mg/dL (8.6-10.3); CARBON DIOXIDE 24.9 mEq/L (21.0-31.0); POTASSIUM SERUM 4.8 mEq/L (3.5-5.1)
[2016-09-19 06:58] LABS: CREATININE - SERUM 9.9 mg/dL (0.7-1.3)
[2016-09-19] MEDS: Budesonide 0.5 Mg/2 mL Ud HHN SCH ×2 (07:17→19:25)
[2016-09-19] MEDS: Ipratropium Neb 0.5 mg/2.5 mL UD HHN SCH ×3 (07:17→19:24)
[2016-09-19] MEDS: Albuterol Nebulizer 2.5mg/3mL HHN SCH ×3 (07:17→19:22)
[2016-09-19] MEDS: HYDROmorphone 2 mg/mL 1mL Vial IVP PRN ×2 (08:54→23:04)
[2016-09-19] MEDS: Aspirin 81mg Chewable Tab PO SCH (11:22)
[2016-09-19] MEDS ORDERED: Epoetin Alfa 20000 Units/mL Vial SUBQ SCH (12:00)
[2016-09-19] MEDS: INSULIN ASPART SLIDING SCALE 100 UNITS/ML UNIT SUBQ SCH ×3 (12:15→22:58)
[2016-09-19] MEDS: FLUTICASONE PROPIONATE NS SCH (13:19)
[2016-09-19] MEDS: Ascorbic Acid/Vit B Complex Tab PO SCH (13:22)
[2016-09-19] MEDS: NIFEdipine 30 mg ER Tab PO SCH (13:24)
[2016-09-19] MEDS: metroNIDAZOLE 500mg/NS 100mL 500 MG/100 ML BAG IV SCH ×2 (13:33→22:54)
--- NOTE | 2016-09-19 14:21 | Diagnostic Imaging Report ---
Right lower extremity Doppler venous ultrasound exam HISTORY: Pain/swelling Sonographic sector images were obtained through the deep venous systems of the right leg. Associated Doppler data was obtained. The exam demonstrates patency of the common femoral, superficial femoral, popliteal, and posterior tibial veins. Specifically, no thrombus is seen. There are normal compressibility and augmentation responses. There is an approximate 3.2 x 1.0 x 1.3 cm sonolucent focus within the soft tissues near the junction of the right common femoral and proximal right superficial femoral veins. Findings suggest a fluid collection. Etiology uncertain. Clinical relation is needed. IMPRESSION: 1. No evidence of deep vein thrombophlebitis 2. Findings suggesting a loculated fluid collection within the soft tissues of the right thigh as noted above. Etiology uncertain. If necessary, a CT scan may provide additional assessment.
--- NOTE | 2016-09-19 16:39 | General Progress Note ---
Subjective - Review of Systems Service Date: 09/19/16 (no complaints other than pain and discomfort of stump) Subjective: no new complaints hemo sched today Objective - Results Result Diagrams: 09/19/16 05:40 09/19/16 05:40 Recent Labs: Laboratory Last Values WBC 10.8 Th/cmm (4.8-10.8) 09/19/16 05:40 RBC 3.62 Mil/cmm (3.80-5.80) L 09/19/16 05:40 Hgb 10.9 gm/dL (12.6-17.4) L 09/19/16 05:40 Hct 32.5 % (39.0-49.0) L 09/19/16 05:40 MCV 89.6 fl (80-99) 09/19/16 05:40 MCH 30.1 pg (27.0-31.0) 09/19/16 05:40 MCHC Differential 33.6 pg (28.0-36.0) 09/19/16 05:40 RDW 14.7 % (11.5-20.0) 09/19/16 05:40 Plt Count 254 Th/cmm (150-400) 09/19/16 05:40 MPV 8.2 fl 09/19/16 05:40 Neutrophils % 52.4 % (40.0-80.0) 09/19/16 05:40 Lymphocytes % 30.5 % (20.0-50.0) 09/19/16 05:40 Monocytes % 11.4 % (2.0-10.0) H 09/19/16 05:40 Eosinophils % 5.2 % (0.0-5.0) H 09/19/16 05:40 Basophils % 0.5 % (0.0-2.0) 09/19/16 05:40 ESR 18 mm/hr (0-20) 09/15/16 15:32 PT 10.2 SECONDS (9.5-11.5) 09/15/16 15:32 INR 1.03 (0.5-1.4) 09/15/16 15:32 PTT (Actin FS) 34.1 SECONDS (26.0-38.0) 09/15/16 15:32 Sodium 136 mEq/L (136-145) 09/19/16 05:40 Potassium 4.8 mEq/L (3.5-5.1) 09/19/16 05:40 Chloride 100 mEq/L (98-107) 09/19/16 05:40 Carbon Dioxide 24.9 mEq/L (21.0-31.0) 09/19/16 05:40 Anion Gap 15.9 (7.0-16.0) 09/19/16 05:40 BUN 45 mg/dL (7-25) H 09/19/16 05:40 Creatinine 9.9 mg/dL (0.7-1.3) H* 09/19/16 05:40 Est GFR ( Amer) 6.8 ml/min 09/19/16 05:40 Est GFR (Non-Af Amer) 5.6 ml/min 09/19/16 05:40 BUN/Creatinine Ratio 4.5 09/19/16 05:40 Glucose 90 mg/dL (70-105) 09/19/16 05:40 POC Glucose 112 MG/DL (70 - 105) H 09/19/16 12:09 Calcium 9.4 mg/dL (8.6-10.3) 09/19/16 05:40 Magnesium 2.3 mg/dL (1.9-2.7) 09/19/16 05:40 Total Bilirubin 0.5 mg/dL (0.3-1.0) 09/18/16 05:10 AST 29 U/L (13-39) 09/18/16 05:10 ALT 23 U/L (7-52) 09/18/16 05:10 Alkaline Phosphatase 60 U/L (34-104) 09/18/16 05:10 C-Reactive Protein 3.00 mg/dL (0.00-1.00) H 09/15/16 15:32 Total Protein 7.1 gm/dL (6.0-8.3) 09/18/16 05:10 Albumin 3.2 gm/dL (4.2-5.5) L 09/18/16 05:10 Globulin 3.9 gm/dL 09/18/16 05:10 Albumin/Globulin Ratio 0.8 (1.0-1.8) L 09/18/16 05:10 Random Vancomycin 29.6 ug/mL (5.0-40.0) 09/19/16 05:40 - Physical Exam Vitals and I&O: Vital Signs Temp 97.6 F 09/19/16 08:00 Pulse 76 09/19/16 13:24 Resp 16 09/19/16 12:49 BP 127/85 09/19/16 13:24 Pulse Ox 95 09/19/16 12:49 Intake & Output 09/18/16 09/19/16 09/19/16 18:59 06:59 18:59 Intake Total 450 50 Output Total 5 Balance 445 50 Intake: Intake, IV Amount 50 50 Piperacillin Sodium/ 50 50 Tazobact 2.25 gm In Sodium Chloride 0.9% 50 ml @ 100 mls/hr IV Q8HR [facility] Rx#:[id number] Oral 400 Output: Drainage 5 Right Foot 5 Urine 0 Other: # Voids 0 Stool Characteristics Soft Formed Brown Active Medications: Current Medications Acetaminophen (Tylenol) 650 mg PO Q12HR [facility] Stop: 11/14/16 20:59 Last Admin: 09/19/16 13:22 Dose: 650 mg Acetaminophen/Hydrocodone Bitart ([place] 10 Mg/325 Mg) 1 tab PO Q4H PRN PRN Reason: PAIN Stop: 11/14/16 15:47 Last Admin: 09/19/16 05:30 Dose: 1 tab Albuterol Sulfate (Albuterol 2.5mg/3ml Neb Ud) 2.5 mg HHN Q6HRT [facility] Stop: 11/15/16 12:59 Last Admin: 09/19/16 12:48 Dose: Not Given Albuterol/Ipratropium (Duoneb Neb) 3 ml HHN Q4H PRN PRN Reason: Wheezing Stop: 11/14/16 15:26 Aspirin (Aspirin Chewable) 81 mg PO DAILY [facility] Stop: 11/15/16 08:59 Last Admin: 09/19/16 11:22 Dose: 81 mg Atorvastatin Calcium (Lipitor) 10 mg PO HS [facility] PRN Reason: Protocol Stop: 11/14/16 20:59 Last Admin: 09/18/16 22:20 Dose: 10 mg Budesonide (Pulmicort) 0.5 mg HHN BIDRT [facility] Stop: 11/15/16 09:59 Last Admin: 09/19/16 07:17 Dose: Not Given Carvedilol (Coreg) 3.125 mg PO DAILY [facility] Stop: 11/15/16 08:59 Last Admin: 09/19/16 11:23 Dose: 3.125 mg Clopidogrel Bisulfate (Plavix) 75 mg PO DAILY [facility] Stop: 11/15/16 08:59 Last Admin: 09/19/16 11:22 Dose: 75 mg Epoetin Kike (Epogen) 10,000 units SUBQ MoWeFr [facility] Stop: 11/18/16 11:59 Fluticasone Propionate (Flonase) 1 gm NS DAILY [facility] Stop: 11/15/16 08:59 Last Admin: 09/19/16 13:19 Dose: 1 gm Gabapentin (Neurontin) 300 mg PO TID [facility] Stop: 11/14/16 20:59 Last Admin: 09/19/16 11:23 Dose: 300 mg Hydromorphone HCl (Dilaudid) 2 mg IVP Q4HR PRN PRN Reason: Pain (Severe) Stop: 11/15/16 16:25 Last Admin: 09/19/16 08:54 Dose: 2 mg Piperacillin Sod/Tazobactam (Sod 2.25 gm/ Sodium Chloride) 50 mls @ 100 mls/hr IV Q8HR [facility] Stop: 11/14/16 20:59 Last Admin: 09/19/16 05:22 Dose: 100 mls/hr Metronidazole (Flagyl) 500 mg in 100 mls @ 100 mls/hr IV Q8HR [facility] Stop: 11/18/16 12:59 Last Admin: 09/19/16 13:33 Dose: 100 mls/hr Insulin Aspart (Novolog Insulin Sliding Scale) 0 units SUBQ ACHS [facility] PRN Reason: Protocol Stop: 11/14/16 20:59 Last Admin: 09/19/16 12:15 Dose: Not Given Ipratropium [place] (Atrovent Neb 0.5mg/2.5ml) 0.5 mg HHN Q6HRT [facility] Stop: 11/14/16 15:59 Last Admin: 09/19/16 12:49 Dose: Not Given Lactobacillus Rhamnosus (Culturelle) 1 each PO DAILY [facility] Stop: 11/15/16 08:59 Last Admin: 09/18/16 09:20 Dose: 1 each Lisinopril (Zestril) 10 mg PO DAILY [facility] Stop: 11/15/16 08:59 Last Admin: 09/19/16 13:24 Dose: 10 mg Lorazepam (Ativan) 1 mg PO Q8H PRN PRN Reason: ANXIETY Stop: 11/14/16 15:49 Miscellaneous (Vancomycin Iv Per Pharmacy) 1 [facility] PRN [facility] Stop: 11/14/16 16:59 Miscellaneous (Vte Chemical Prophylaxis Screen/ Admission) 1 [facility] PRN PRN PRN Reason: PROTOCOL Stop: 11/15/16 13:28 Nifedipine (Procardia Xl) 60 mg PO Q12HR [facility] Stop: 11/14/16 20:59 Last Admin: 09/19/16 13:24 Dose: 60 mg Sevelamer HCl (Renagel) 800 mg PO TID [facility] Stop: 11/14/16 20:59 Last Admin: 09/19/16 13:32 Dose: 800 mg Vitamin B Complex/Vitamin C (Vitamin B Complex W/C) 1 tab PO DAILY [facility] Stop: 11/15/16 08:59 Last Admin: 09/19/16 13:22 Dose: 1 tab General: Alert, Oriented x3, Cooperative, No acute distress Neck: Supple Cardiovascular: Regular rate Lungs: Clear to auscultation Abdomen: Bowel sounds (normal ) Extremities: Other (access for dialysis left upper arm bruit audible) Psych/Mental Status: Mental status NL (normal cognitive function ok) - Procedures Procedures: Procedures Procedure Code Date AMPUTATION OF FOOT AT ANKLE 71425 09/15/16 AMPUTATION THRU METATARSAL 95022 07/22/16 BYPASS L AXILLA VEIN TO UP VEIN W SYNTH SUB, OPEN [id number] 07/22/16 DETACHMENT AT RIGHT FOOT, COMPLETE, OPEN APPROACH [id number] 09/15/16 DETACHMENT AT RIGHT FOOT, PARTIAL 2ND RAY, OPEN APPROACH [id number] 07/22/16 DETACHMENT AT RIGHT FOOT, PARTIAL 3RD RAY, OPEN APPROACH [id number] 07/22/16 DETACHMENT AT RIGHT FOOT, PARTIAL 4TH RAY, OPEN APPROACH [id number] 07/22/16 DETACHMENT AT RIGHT FOOT, PARTIAL 5TH RAY, OPEN APPROACH [id number] 07/22/16 EXTIRPATION OF MATTER FROM LEFT AXILLARY VEIN, OPEN APPROACH [id number] 07/22/16 HEMODIALYSIS REPEATED EVAL [id number] 07/22/16 INSERT TUNNELED CV CATH [id number] 07/22/16 INSERTION OF INFUSION DEV INTO R SUBCLAV VEIN, PERC APPROACH [id number] 07/22/16 INSERTION OF INFUSION DEV INTO SUP VENA CAVA, PERC APPROACH [id number] 07/22/16 OPEN THROMBECT AV FISTULA 43164 07/22/16 PERFORMANCE OF URINARY FILTRATION, MULTIPLE [id number] 07/22/16 ULTRASONOGRAPHY OF RIGHT SUBCLAVIAN VEIN, GUIDANCE [id number] 07/22/16 ULTRASONOGRAPHY OF SUPERIOR VENA CAVA, GUIDANCE [id number] 07/22/16 US GUIDE VASCULAR ACCESS [id number] 07/22/16 Assessment/Plan - Problem List Patient Problems: All Active Problems reamputation of the right leg above the (Acute) Clotted dialysis access (Acute) T82.49XA Hypotension (Acute) clotted access (Acute) clotted access (Acute) resolved hypotensionn0 (Acute) transmetatarsal amputation right foot (Acute) - Plan Plan: to supiort hemo every MWF pain mangement continued
[2016-09-19] MEDS: Atorvastatin Calcium 10 MG TAB PO SCH (22:55)
[2016-09-20] MEDS: Ipratropium Neb 0.5 mg/2.5 mL UD HHN SCH ×3 (00:33→19:50)
[2016-09-20] MEDS: Albuterol Nebulizer 2.5mg/3mL HHN SCH ×4 (00:33→19:50)
[2016-09-20] MEDS: NIFEdipine 30 mg ER Tab PO SCH ×3 (00:39→21:21)
[2016-09-20] MEDS: HYDROmorphone 2 mg/mL 1mL Vial IVP PRN (03:57)
[2016-09-20] MEDS: metroNIDAZOLE 500mg/NS 100mL 500 MG/100 ML BAG IV SCH ×2 (05:37→12:31)
[2016-09-20] MEDS: INSULIN ASPART SLIDING SCALE 100 UNITS/ML UNIT SUBQ SCH ×3 (06:45→16:49)
[2016-09-20] MEDS: Budesonide 0.5 Mg/2 mL Ud HHN SCH ×2 (07:15→19:51)
[2016-09-20 09:10] LABS: ANION GAP 18.5 (7.0-16.0); BUN/CREATININE RATIO 3.8; CARBON DIOXIDE 25.7 mEq/L (21.0-31.0); MAGNESIUM 1.9 mg/dL (1.9-2.7); POTASSIUM SERUM 4.2 mEq/L (3.5-5.1)
[2016-09-20 09:13] LABS: CREATININE - SERUM 7.7 mg/dL (0.7-1.3)
[2016-09-20] MEDS: Lactobacillus Rhamnosus 10 Billion CFU Capsule PO SCH (09:54)
[2016-09-20] MEDS: Ascorbic Acid/Vit B Complex Tab PO SCH (09:55)
[2016-09-20] MEDS: Aspirin 81mg Chewable Tab PO SCH (09:55)
[2016-09-20] MEDS: FLUTICASONE PROPIONATE NS SCH (09:56)
[2016-09-20] MEDS: Hydrocodone/APAP 10 mg/325 mg Tab PO PRN ×2 (11:25→15:11)
--- NOTE | 2016-09-20 12:53 | General Progress Note ---
Subjective - Review of Systems Service Date: 09/20/16 (no complaints wants to know plan post acute care ) Subjective: stump right lower extremity clear no drain wnating to onw post acute care plans Objective - Results Result Diagrams: 09/19/16 05:40 09/20/16 05:15 Recent Labs: Laboratory Last Values WBC 10.8 Th/cmm (4.8-10.8) 09/19/16 05:40 RBC 3.62 Mil/cmm (3.80-5.80) L 09/19/16 05:40 Hgb 10.9 gm/dL (12.6-17.4) L 09/19/16 05:40 Hct 32.5 % (39.0-49.0) L 09/19/16 05:40 MCV 89.6 fl (80-99) 09/19/16 05:40 MCH 30.1 pg (27.0-31.0) 09/19/16 05:40 MCHC Differential 33.6 pg (28.0-36.0) 09/19/16 05:40 RDW 14.7 % (11.5-20.0) 09/19/16 05:40 Plt Count 254 Th/cmm (150-400) 09/19/16 05:40 MPV 8.2 fl 09/19/16 05:40 Neutrophils % 52.4 % (40.0-80.0) 09/19/16 05:40 Lymphocytes % 30.5 % (20.0-50.0) 09/19/16 05:40 Monocytes % 11.4 % (2.0-10.0) H 09/19/16 05:40 Eosinophils % 5.2 % (0.0-5.0) H 09/19/16 05:40 Basophils % 0.5 % (0.0-2.0) 09/19/16 05:40 ESR 18 mm/hr (0-20) 09/15/16 15:32 PT 10.2 SECONDS (9.5-11.5) 09/15/16 15:32 INR 1.03 (0.5-1.4) 09/15/16 15:32 PTT (Actin FS) 34.1 SECONDS (26.0-38.0) 09/15/16 15:32 Sodium 137 mEq/L (136-145) 09/20/16 05:15 Potassium 4.2 mEq/L (3.5-5.1) 09/20/16 05:15 Chloride 97 mEq/L (98-107) L 09/20/16 05:15 Carbon Dioxide 25.7 mEq/L (21.0-31.0) 09/20/16 05:15 Anion Gap 18.5 (7.0-16.0) H 09/20/16 05:15 BUN 29 mg/dL (7-25) H 09/20/16 05:15 Creatinine 7.7 mg/dL (0.7-1.3) H* 09/20/16 05:15 Est GFR ( Amer) 9.0 ml/min 09/20/16 05:15 Est GFR (Non-Af Amer) 7.5 ml/min 09/20/16 05:15 BUN/Creatinine Ratio 3.8 09/20/16 05:15 Glucose 77 mg/dL (70-105) 09/20/16 05:15 POC Glucose 149 MG/DL (70 - 105) H 09/20/16 11:28 Calcium 9.0 mg/dL (8.6-10.3) 09/20/16 05:15 Magnesium 1.9 mg/dL (1.9-2.7) 09/20/16 05:15 Total Bilirubin 0.5 mg/dL (0.3-1.0) 09/18/16 05:10 AST 29 U/L (13-39) 09/18/16 05:10 ALT 23 U/L (7-52) 09/18/16 05:10 Alkaline Phosphatase 60 U/L (34-104) 09/18/16 05:10 C-Reactive Protein 3.00 mg/dL (0.00-1.00) H 09/15/16 15:32 Total Protein 7.1 gm/dL (6.0-8.3) 09/18/16 05:10 Albumin 3.2 gm/dL (4.2-5.5) L 09/18/16 05:10 Globulin 3.9 gm/dL 09/18/16 05:10 Albumin/Globulin Ratio 0.8 (1.0-1.8) L 09/18/16 05:10 Random Vancomycin 25.6 ug/mL (5.0-40.0) 09/20/16 05:15 - Physical Exam Vitals and I&O: Vital Signs Temp 97.4 F 09/20/16 08:00 Pulse 86 09/20/16 12:28 Resp 20 09/20/16 12:28 BP 125/76 09/20/16 09:57 Pulse Ox 95 09/20/16 12:28 Intake & Output 09/19/16 09/20/16 09/20/16 18:59 06:59 18:59 Intake Total 600 200 Output Total 300 Balance 300 200 Intake: Intake, IV Amount 100 200 metroNIDAZOLE 500mg/NS 100 200 100mL 500 mg In 100 ml @ 100 mls/hr IV Q8HR [facility] Rx #:[id number] Oral 500 Output: Urine 300 Active Medications: Current Medications Acetaminophen (Tylenol) 650 mg PO Q12HR [facility] Stop: 11/14/16 20:59 Last Admin: 09/20/16 09:52 Dose: 650 mg Acetaminophen/Hydrocodone Bitart ([place] 10 Mg/325 Mg) 1 tab PO Q4H PRN PRN Reason: PAIN Stop: 11/14/16 15:47 Last Admin: 09/20/16 11:25 Dose: 1 tab Albuterol Sulfate (Albuterol 2.5mg/3ml Neb Ud) 2.5 mg HHN Q6HRT [facility] Stop: 11/15/16 12:59 Last Admin: 09/20/16 12:20 Dose: 2.5 mg Albuterol/Ipratropium (Duoneb Neb) 3 ml HHN Q4H PRN PRN Reason: Wheezing Stop: 11/14/16 15:26 Last Admin: 09/20/16 07:15 Dose: 3 ml Aspirin (Aspirin Chewable) 81 mg PO DAILY [facility] Stop: 11/15/16 08:59 Last Admin: 09/20/16 09:55 Dose: 81 mg Atorvastatin Calcium (Lipitor) 10 mg PO HS [facility] PRN Reason: Protocol Stop: 11/14/16 20:59 Last Admin: 09/19/16 22:55 Dose: 10 mg Budesonide (Pulmicort) 0.5 mg HHN BIDRT [facility] Stop: 11/15/16 09:59 Last Admin: 09/20/16 07:15 Dose: 0.5 mg Carvedilol (Coreg) 3.125 mg PO DAILY [facility] Stop: 11/15/16 08:59 Last Admin: 09/20/16 09:56 Dose: 3.125 mg Clopidogrel Bisulfate (Plavix) 75 mg PO DAILY [facility] Stop: 11/15/16 08:59 Last Admin: 09/20/16 09:56 Dose: 75 mg Epoetin [place] (Epogen) 10,000 units SUBQ MoWeFr [facility] Stop: 11/18/16 11:59 Fluticasone Propionate (Flonase) 1 gm NS DAILY [facility] Stop: 11/15/16 08:59 Last Admin: 09/20/16 09:56 Dose: 1 gm Gabapentin (Neurontin) 300 mg PO TID [facility] Stop: 11/14/16 20:59 Last Admin: 09/20/16 09:54 Dose: 300 mg Hydromorphone HCl (Dilaudid) 2 mg IVP Q4HR PRN PRN Reason: Pain (Severe) Stop: 11/15/16 16:25 Last Admin: 09/20/16 03:57 Dose: 2 mg Piperacillin Sod/Tazobactam (Sod 2.25 gm/ Sodium Chloride) 50 mls @ 100 mls/hr IV Q8HR [facility] Stop: 11/14/16 20:59 Last Admin: 09/19/16 05:22 Dose: 100 mls/hr Metronidazole (Flagyl) 500 mg in 100 mls @ 100 mls/hr IV Q8HR [facility] Stop: 11/18/16 12:59 Last Admin: 09/20/16 12:31 Dose: 100 mls/hr Insulin Aspart (Novolog Insulin Sliding Scale) 0 units SUBQ ACHS [facility] PRN Reason: Protocol Stop: 11/14/16 20:59 Last Admin: 09/20/16 11:49 Dose: 2 units Ipratropium [place] (Atrovent Neb 0.5mg/2.5ml) 0.5 mg HHN Q6HRT [facility] Stop: 11/14/16 15:59 Last Admin: 09/20/16 12:19 Dose: 0.5 mg Lactobacillus Rhamnosus (Culturelle) 1 each PO DAILY [facility] Stop: 11/15/16 08:59 Last Admin: 09/20/16 09:54 Dose: 1 each Lisinopril (Zestril) 10 mg PO DAILY [facility] Stop: 11/15/16 08:59 Last Admin: 09/20/16 09:56 Dose: Not Given Lorazepam (Ativan) 1 mg PO Q8H PRN PRN Reason: ANXIETY Stop: 11/14/16 15:49 Miscellaneous (Vte Chemical Prophylaxis Screen/ Admission) 1 [facility] PRN PRN PRN Reason: PROTOCOL Stop: 11/15/16 13:28 Miscellaneous (Vancomycin Iv Per Pharmacy) 1 [facility] PRN [facility] Stop: 11/18/16 17:44 Nifedipine (Procardia Xl) 60 mg PO Q12HR [facility] Stop: 11/14/16 20:59 Last Admin: 09/20/16 09:57 Dose: 60 mg Sevelamer HCl (Renagel) 800 mg PO TID [facility] Stop: 11/14/16 20:59 Last Admin: 09/20/16 09:58 Dose: 800 mg Vitamin B Complex/Vitamin C (Vitamin B Complex W/C) 1 tab PO DAILY [facility] Stop: 11/15/16 08:59 Last Admin: 09/20/16 09:55 Dose: 1 tab General: Alert, Oriented x3, Cooperative, No acute distress Neck: Supple Cardiovascular: Regular rate Lungs: Clear to auscultation Abdomen: Soft Psych/Mental Status: Mental status NL - Procedures Procedures: Procedures Procedure Code Date AMPUTATION OF FOOT AT ANKLE 70119 09/15/16 AMPUTATION THRU METATARSAL 26526 07/22/16 BYPASS L AXILLA VEIN TO UP VEIN W SYNTH SUB, OPEN [id number] 07/22/16 DETACHMENT AT RIGHT FOOT, COMPLETE, OPEN APPROACH [id number] 09/15/16 DETACHMENT AT RIGHT FOOT, PARTIAL 2ND RAY, OPEN APPROACH [id number] 07/22/16 DETACHMENT AT RIGHT FOOT, PARTIAL 3RD RAY, OPEN APPROACH [id number] 07/22/16 DETACHMENT AT RIGHT FOOT, PARTIAL 4TH RAY, OPEN APPROACH [id number] 07/22/16 DETACHMENT AT RIGHT FOOT, PARTIAL 5TH RAY, OPEN APPROACH [id number] 07/22/16 EXTIRPATION OF MATTER FROM LEFT AXILLARY VEIN, OPEN APPROACH [id number] 07/22/16 HEMODIALYSIS REPEATED EVAL 53753 07/22/16 INSERT TUNNELED CV CATH [id number] 07/22/16 INSERTION OF INFUSION DEV INTO R SUBCLAV VEIN, PERC APPROACH [id number] 07/22/16 INSERTION OF INFUSION DEV INTO SUP VENA CAVA, PERC APPROACH [id number] 07/22/16 OPEN THROMBECT AV FISTULA 72757 07/22/16 PERFORMANCE OF URINARY FILTRATION, MULTIPLE [id number] 07/22/16 ULTRASONOGRAPHY OF RIGHT SUBCLAVIAN VEIN, GUIDANCE [id number] 07/22/16 ULTRASONOGRAPHY OF SUPERIOR VENA CAVA, GUIDANCE [id number] 07/22/16 US GUIDE VASCULAR ACCESS 77832 07/22/16 Assessment/Plan - Problem List Patient Problems: All Active Problems reamputation of the right leg above the (Acute) Clotted dialysis access (Acute) T82.49XA Hypotension (Acute) clotted access (Acute) clotted access (Acute) resolved hypotensionn0 (Acute) transmetatarsal amputation right foot (Acute) - Plan Plan: to supiort hemo every MWF pain mangement continued schedule for hemo here tomorrow
--- NOTE | 2016-09-20 14:19 | Pathology Report ---
[id number] Collection date: 09/16/16 Surgeon: Dr. Dee Dee Irizarry. Specimen Description: Right foot stump. Gross Description: Received from surgery without fixative is a revision of a right foot amputation specimen measuring 15 x 10 x 6 cm. There is a surgical staple line measuring 10 cm at the site of the prior transmetatarsal amputation. Dark telles and black gangrenous discoloration is seen surrounding this staple line, and there is a dusky grayish-purple discoloration seen throughout the remainder of the specimen. Sectioning shows partially ulcerated necrotic skin and subcutaneous soft tissues. Practice Lead sections are submitted in one cassette. Microscopic Description: The histologic sections show necrotic skin and subcutaneous tissue with extensive suppurative inflammation present consisting of large collections of neutrophils with a necrotic background. The peripheral vessels show calcification and narrowing consistent with peripheral vascular disease. Diagnosis: Necrotic skin and subcutaneous tissues consistent with gangrene (right foot stump). [facility]# [id number] [facility]
--- NOTE | 2016-09-20 21:10 | Admit Criteria Form ---
Admit Criteria Forms - Admit Criteria Diagnosis: VASCULAR DISEASE GR Clinical Indications for Admission to Inpatient Care (Place 'X' for any and all applicable criteria): Hospital admission is needed for appropriate care of the patient because of ANY ONE of the following (1)(2)(3)(4): [ ]I. Life-threatening or limb-threatening skin ulcer as indicated by ANY ONE of the following(5): [ ]a) Surrounding cellulitis unresponsive to outpatient treatment [ ]b) Wet gangrene [ ]c) Lymphangitis [ ]d) Bacteremia [ ]II. Gangrene requiring intensity and frequency of care not manageable to outpatient, emergency, or observation level of care(5) [x ]III. Severe pain requiring acute inpatient management [ ]IV. Interventional revascularization (eg, surgery, thrombolysis) needed (eg , critical limb ischemia)(21) [ ]V. Urgent inpatient IV anticoagulation needed due to ALL of the following: [ ]a) Temporary subtherapeutic anticoagulation unacceptable because of high risk of short-term venous or arterial thromboembolism due to ANY ONE of the following(7)(8)(9): [ ]i) Venous thromboembolism within the past 12 months [ ]ii) Underlying malignancy [ ]iii) Patient with mechanical cardiac valve(10)(11) [ ]iv) Underlying hypercoagulable state (eg, protein C or protein S deficiency, antithrombin deficiency, antiphospholipid antibodies) [ ]v) Patient at high risk of thromboembolism (eg, status post orthopedic surgery, history of recurrent venous thromboembolism) [ ]vi) Atrial fibrillation with rheumatic valvular heart disease [ ]vii) Atrial fibrillation with 3 or MORE of the following : [ ]1) Congestive heart failure [ ]2) Hypertension [ ]3) Age 65 years or older [ ]4) Diabetes mellitus [ ]5) History of thromboembolism (eg, stroke, TIA , or systemic embolization) more than 3 months ago [ ]6) Female gender [ ]b) Contraindications to outpatient use of "bridging" agent or alternative oral anticoagulant as indicated by ALL of the following: [ ]i) Contraindication to outpatient use of low-molecular -weight heparin as "bridging" agent as indicated by ANY ONE of the following(8) : [ ]1) Documented current or history of heparin- induced thrombocytopenia(12) [ ]2) Severe thrombocytopenia (eg, platelet count less than 50,000/mm3 (50 x109/L)) [ ]3) Documented allergy to heparin, low- molecular-weight heparin, or pork products [ ]4) Renal failure (creatinine clearance < 30 mL /min/1.73m2 (0.50 mL/sec/1.73m2) or on dialysis) [ ]5) Inability to manage self-injection (eg, by patient, caregiver, or visiting nurse) [ ]ii) Contraindication to outpatient use of fondaparinux as "bridging" agent as indicated by ANY ONE of the following(13)(14)(15)(16): [ ]1) Severe thrombocytopenia (eg, platelet count less than 50,000/mm3 (50 x109/L)) [ ]2) Hypersensitivity to fondaparinux, related drugs, or product components [ ]3) Renal failure (creatinine clearance less than 30 mL/min/1.73m2 (0.50 mL/sec/1.73m2) or on dialysis) [ ]4) Inability to manage self-injection (eg, by patient, caregiver, or visiting nurse) [ ]iii) Oral direct thrombin inhibitor (eg, dabigatran) or oral coagulation factor Xa inhibitor (eg, rivaroxaban) not appropriate as oral anticoagulation (eg, indication not appropriate) or contraindicated (eg, hypersensitivity, renal failure)(13)(16)(17)(18)(19)(20) [ ]. Suspected severe acute ischemia due to peripheral vascular disease as indicated by ANY ONE of the following(5)(6): [ ]a) Tissue necrosis [ ]b) Severe pain [ ]c) Acute pulselessness [ ]d) Other evidence of acute severe ischemia (eg, lactic acidosis, motor dysfunction) [ ]VII. Acute or newly diagnosed major vessel (eg, aorta) dissection, rupture, or leakage(5)(6)(22)(23) [ ]VIII.Vascular Disease and ALL of the following: [ ]a) Symptom or finding for which emergency and observation care have failed or are not considered appropriate (Use General Criteria: Observation Care as appropriate) [ ]b) Presence of ANY ONE of the following: [ ]i) A General Admission Criteria [ ]ii) A Pediatric General Admission Criteria The original [facility] content created by [facility] has been revised. The portions of the content which have been revised are identified through the use of italic text or in bold, and [facility] has neither reviewed nor approved the modified material. All other unmodified content is copyright [facility]. Please see references footnoted in the original [facility] edition 2016 Admit Criteria Met?: Yes
[2016-09-20] MEDS: Atorvastatin Calcium 10 MG TAB PO SCH (21:27)
--- NOTE | 2016-09-21 00:49 | Consultation ---
PRIMARY CARE PHYSICIAN: Ha Sampson M.D. HISTORY OF PRESENT ILLNESS: This is a 71-year-old male who was brought to the Emergency Room with complaint of wound on the right transmetatarsal site with necrotic tissue. The patient was seen by Dr. Irizarry and underwent Syme's amputation, and infectious consultation was called for further treatment. PAST MEDICAL HISTORY: Diabetes, hypertension, hyperlipidemia, CVA, and peripheral vascular disease. FAMILY HISTORY: Negative. SOCIAL HISTORY: Ex-smoker. ALLERGIES: CODEINE AND CLONIDINE. REVIEW OF SYSTEMS: A 14-point review of systems negative except above. PHYSICAL EXAMINATION: GENERAL: The patient is alert and awake, underlying dialysis. VITAL SIGNS: Temperature 97.4, maximum temperature 100.2, pulse 78, respirations 18, blood pressure . HEENT: Mild pallor. No icterus. No plaque. NECK: Supple. LUNGS: Breath sounds bilateral vesicular. CARDIOVASCULAR: S1, S2. ABDOMEN: Soft, bowel sounds present. EXTREMITIES: The patient's right leg has cellulitis. LYMPHATIC: No thyroid, no cervical lymph nodes. LABORATORY DATA: White count 10,000, hemoglobin is 10 g, and platelets 254,000. DIAGNOSES: 1. Right leg cellulitis. The patient was started on Zosyn, vancomycin. Pharmacy to adjust the dose. Supportive care. 2. End-stage renal disease, dialysis with AV fistula left. 3. Diabetes and hypertension, stable at this time. 4. Peripheral vascular disease. Thank you Dr. Sampson for this consultation. JOB# [id number]
[2016-09-21] MEDS: Albuterol Nebulizer 2.5mg/3mL HHN SCH ×4 (01:22→19:23)
[2016-09-21] MEDS: Ipratropium Neb 0.5 mg/2.5 mL UD HHN SCH ×4 (01:22→19:23)
[2016-09-21] MEDS: INSULIN ASPART SLIDING SCALE 100 UNITS/ML UNIT SUBQ SCH ×4 (01:30→22:13)
[2016-09-21] MEDS: metroNIDAZOLE 500mg/NS 100mL 500 MG/100 ML BAG IV SCH ×2 (01:52→12:54)
[2016-09-21] MEDS: HYDROmorphone 2 mg/mL 1mL Vial IVP PRN ×3 (06:56→22:02)
[2016-09-21] MEDS: Budesonide 0.5 Mg/2 mL Ud HHN SCH ×2 (07:06→19:23)
[2016-09-21 07:33] LABS: % BASOPHILS 0.1 % (0.0-2.0); % EOSINOPHILS 4.5 % (0.0-5.0); % LYMPHOCYTES 29.4 % (20.0-50.0); % MONOCYTES 8.4 % (2.0-10.0); % NEUTROPHILS 57.6 % (40.0-80.0); HEMATOCRIT 35.4 % (39.0-49.0); HEMOGLOBIN 11.8 gm/dL (12.6-17.4); MEAN CELL VOLUME 89.2 fl (80-99); MEAN CORPUSCULAR HEMOGLOBIN 29.6 pg (27.0-31.0); MEAN CORPUSCULAR HGB CONC 33.2 pg (28.0-36.0); MEAN PLATELET VOLUME 8.4 fl; NEUTROPHILE ABSOLUTE 6.3 Th/cmm (1.8-8.0); RED BLOOD COUNT 3.97 Mil/cmm (3.80-5.80); RED CELL DISTRIBUTION WIDTH 14.7 % (11.5-20.0); WHITE BLOOD COUNT 10.9 Th/cmm (4.8-10.8)
[2016-09-21 07:39] LABS: PLATELET COUNT 393 Th/cmm (150-400)
[2016-09-21 07:44] LABS: ANION GAP 19.7 (7.0-16.0); BUN/CREATININE RATIO 4.3; CALCIUM SERUM 9.5 mg/dL (8.6-10.3); CARBON DIOXIDE 26.8 mEq/L (21.0-31.0); POTASSIUM SERUM 4.5 mEq/L (3.5-5.1)
[2016-09-21 07:55] LABS: CREATININE - SERUM 9.5 mg/dL (0.7-1.3)
[2016-09-21] MEDS: NIFEdipine 30 mg ER Tab PO SCH ×2 (09:42→22:12)
[2016-09-21] MEDS: Lactobacillus Rhamnosus 10 Billion CFU Capsule PO SCH (09:44)
[2016-09-21] MEDS: Aspirin 81mg Chewable Tab PO SCH (09:44)
[2016-09-21] MEDS: FLUTICASONE PROPIONATE NS SCH (09:59)
[2016-09-21] MEDS: Ascorbic Acid/Vit B Complex Tab PO SCH (09:59)
[2016-09-21] MEDS: Piperacillin/Tazobact 2.25 gm in 0.9% NS 50 ML IV SCH ×2 (10:00→17:20)
--- NOTE | 2016-09-21 10:00 | Diagnostic Imaging Report ---
CHEST X-RAY: AP view INDICATION: Fever COMPARISON: Chest x-ray 09/15/2016 FINDINGS: Right midlung subsegmental atelectasis is noted. Left basal atelectasis is also noted. No focal consolidation identified. Heart size is borderline prominent. Note the patient is rotated. IMPRESSION: Right mid lung subsegmental atelectasis. Pneumonia in this region is considered less likely. Left basal atelectasis.
[2016-09-21] MEDS: Hydrocodone/APAP 10 mg/325 mg Tab PO PRN (14:54)
--- NOTE | 2016-09-21 16:27 | General Progress Note ---
Subjective - Review of Systems Service Date: 09/21/16 Events since last encounter: no complaints anxious re post acute hospital care Subjective: stump right lower extremity clear no drain wnating to onw post acute care plans Objective - Results Result Diagrams: 09/21/16 06:45 09/21/16 06:45 Recent Labs: Laboratory Last Values WBC 10.9 Th/cmm (4.8-10.8) H 09/21/16 06:45 RBC 3.97 Mil/cmm (3.80-5.80) 09/21/16 06:45 Hgb 11.8 gm/dL (12.6-17.4) L 09/21/16 06:45 Hct 35.4 % (39.0-49.0) L 09/21/16 06:45 MCV 89.2 fl (80-99) 09/21/16 06:45 MCH 29.6 pg (27.0-31.0) 09/21/16 06:45 MCHC Differential 33.2 pg (28.0-36.0) 09/21/16 06:45 RDW 14.7 % (11.5-20.0) 09/21/16 06:45 Plt Count 393 Th/cmm (150-400) D 09/21/16 06:45 MPV 8.4 fl 09/21/16 06:45 Neutrophils % 57.6 % (40.0-80.0) 09/21/16 06:45 Lymphocytes % 29.4 % (20.0-50.0) 09/21/16 06:45 Monocytes % 8.4 % (2.0-10.0) 09/21/16 06:45 Eosinophils % 4.5 % (0.0-5.0) 09/21/16 06:45 Basophils % 0.1 % (0.0-2.0) 09/21/16 06:45 ESR 18 mm/hr (0-20) 09/15/16 15:32 PT 10.2 SECONDS (9.5-11.5) 09/15/16 15:32 INR 1.03 (0.5-1.4) 09/15/16 15:32 PTT (Actin FS) 34.1 SECONDS (26.0-38.0) 09/15/16 15:32 Sodium 139 mEq/L (136-145) 09/21/16 06:45 Potassium 4.5 mEq/L (3.5-5.1) 09/21/16 06:45 Chloride 97 mEq/L (98-107) L 09/21/16 06:45 Carbon Dioxide 26.8 mEq/L (21.0-31.0) 09/21/16 06:45 Anion Gap 19.7 (7.0-16.0) H 09/21/16 06:45 BUN 41 mg/dL (7-25) H 09/21/16 06:45 Creatinine 9.5 mg/dL (0.7-1.3) H* 09/21/16 06:45 Est GFR ( Amer) 7.1 ml/min 09/21/16 06:45 Est GFR (Non-Af Amer) 5.9 ml/min 09/21/16 06:45 BUN/Creatinine Ratio 4.3 09/21/16 06:45 Glucose 93 mg/dL (70-105) 09/21/16 06:45 POC Glucose 81 MG/DL (70 - 105) 09/21/16 06:48 Calcium 9.5 mg/dL (8.6-10.3) 09/21/16 06:45 Magnesium 1.9 mg/dL (1.9-2.7) 09/20/16 05:15 Total Bilirubin 0.5 mg/dL (0.3-1.0) 09/18/16 05:10 AST 29 U/L (13-39) 09/18/16 05:10 ALT 23 U/L (7-52) 09/18/16 05:10 Alkaline Phosphatase 60 U/L (34-104) 09/18/16 05:10 C-Reactive Protein 3.00 mg/dL (0.00-1.00) H 09/15/16 15:32 Total Protein 7.1 gm/dL (6.0-8.3) 09/18/16 05:10 Albumin 3.2 gm/dL (4.2-5.5) L 09/18/16 05:10 Globulin 3.9 gm/dL 09/18/16 05:10 Albumin/Globulin Ratio 0.8 (1.0-1.8) L 09/18/16 05:10 Random Vancomycin 25.6 ug/mL (5.0-40.0) 09/20/16 05:15 - Physical Exam Vitals and I&O: Vital Signs Temp 97.3 F 09/21/16 12:06 Pulse 98 09/21/16 12:06 Resp 18 09/21/16 12:06 BP 139/87 09/21/16 12:06 Pulse Ox 99 09/21/16 12:06 Intake & Output 09/20/16 09/21/16 09/21/16 18:59 06:59 18:59 Intake Total 1300 400 Output Total 500 Balance 1300 -100 Intake: Intake, IV Amount 150 100 Piperacillin Sodium/ 50 Tazobact 2.25 gm In Sodium Chloride 0.9% 50 ml @ 100 mls/hr IV Q8HR [facility] Rx#:[id number] metroNIDAZOLE 500mg/NS 100 100 100mL 500 mg In 100 ml @ 100 mls/hr IV Q8HR [facility] Rx #:[id number] Oral 1000 300 Other 150 Output: Urine 500 Active Medications: Current Medications Acetaminophen (Tylenol) 650 mg PO Q12HR [facility] Stop: 11/14/16 20:59 Last Admin: 09/21/16 09:43 Dose: 650 mg Acetaminophen/Hydrocodone Bitart ([place] 10 Mg/325 Mg) 1 tab PO Q4H PRN PRN Reason: PAIN Stop: 11/14/16 15:47 Last Admin: 09/21/16 14:54 Dose: 1 tab Albuterol Sulfate (Albuterol 2.5mg/3ml Neb Ud) 2.5 mg HHN Q6HRT [facility] Stop: 11/15/16 12:59 Last Admin: 09/21/16 13:00 Dose: Not Given Albuterol/Ipratropium (Duoneb Neb) 3 ml HHN Q4H PRN PRN Reason: Wheezing Stop: 11/14/16 15:26 Last Admin: 09/20/16 07:15 Dose: 3 ml Aspirin (Aspirin Chewable) 81 mg PO DAILY [facility] Stop: 11/15/16 08:59 Last Admin: 09/21/16 09:44 Dose: 81 mg Atorvastatin Calcium (Lipitor) 10 mg PO HS [facility] PRN Reason: Protocol Stop: 11/14/16 20:59 Last Admin: 09/20/16 21:27 Dose: 10 mg Budesonide (Pulmicort) 0.5 mg HHN BIDRT [facility] Stop: 11/15/16 09:59 Last Admin: 09/21/16 07:06 Dose: 0.5 mg Carvedilol (Coreg) 3.125 mg PO DAILY [facility] Stop: 11/15/16 08:59 Last Admin: 09/21/16 09:44 Dose: Not Given Clopidogrel Bisulfate (Plavix) 75 mg PO DAILY [facility] Stop: 11/15/16 08:59 Last Admin: 09/21/16 09:44 Dose: 75 mg Epoetin Kike (Epogen) 10,000 units SUBQ MoWeFr [facility] Stop: 11/18/16 11:59 Fluticasone Propionate (Flonase) 1 gm NS DAILY [facility] Stop: 11/15/16 08:59 Last Admin: 09/21/16 09:59 Dose: 1 gm Gabapentin (Neurontin) 300 mg PO TID [facility] Stop: 11/14/16 20:59 Last Admin: 09/21/16 14:54 Dose: 300 mg Hydromorphone HCl (Dilaudid) 2 mg IVP Q4HR PRN PRN Reason: Pain (Severe) Stop: 11/15/16 16:25 Last Admin: 09/21/16 06:56 Dose: 2 mg Metronidazole (Flagyl) 500 mg in 100 mls @ 100 mls/hr IV Q8HR [facility] Stop: 11/18/16 12:59 Last Admin: 09/21/16 12:54 Dose: 100 mls/hr Piperacillin Sod/Tazobactam (Sod 2.25 gm/ Sodium Chloride) 50 mls @ 100 mls/hr IV Q8H [facility] Stop: 11/20/16 09:59 Last Admin: 09/21/16 10:00 Dose: 100 mls/hr Insulin Aspart (Novolog Insulin Sliding Scale) 0 units SUBQ ACHS [facility] PRN Reason: Protocol Stop: 11/14/16 20:59 Last Admin: 09/21/16 12:15 Dose: Not Given Ipratropium [place] (Atrovent Neb 0.5mg/2.5ml) 0.5 mg HHN Q6HRT [facility] Stop: 11/14/16 15:59 Last Admin: 09/21/16 13:00 Dose: Not Given Lactobacillus Rhamnosus (Culturelle) 1 each PO DAILY [facility] Stop: 11/15/16 08:59 Last Admin: 09/21/16 09:44 Dose: 1 each Lisinopril (Zestril) 10 mg PO DAILY [facility] Stop: 11/15/16 08:59 Last Admin: 09/21/16 09:42 Dose: Not Given Lorazepam (Ativan) 1 mg PO Q8H PRN PRN Reason: ANXIETY Stop: 11/14/16 15:49 Last Admin: 09/20/16 15:11 Dose: 1 mg Miscellaneous (Vte Chemical Prophylaxis Screen/ Admission) 1 [facility] PRN PRN PRN Reason: PROTOCOL Stop: 11/15/16 13:28 Miscellaneous (Vancomycin Iv Per Pharmacy) 1 [facility] PRN [facility] Stop: 11/18/16 17:44 Miscellaneous (Clinical Monitoring) 1 [facility] PRN PRN PRN Reason: RENAL DOSING Stop: 11/20/16 08:10 Nifedipine (Procardia Xl) 60 mg PO Q12HR [facility] Stop: 11/14/16 20:59 Last Admin: 09/21/16 09:42 Dose: Not Given Sevelamer HCl (Renagel) 800 mg PO TID [facility] Stop: 11/14/16 20:59 Last Admin: 09/21/16 14:53 Dose: 800 mg Vitamin B Complex/Vitamin C (Vitamin B Complex W/C) 1 tab PO DAILY [facility] Stop: 11/15/16 08:59 Last Admin: 09/21/16 09:59 Dose: 1 tab General: Alert, Oriented x3, Cooperative HEENT: Atraumatic Neck: Supple Cardiovascular: Regular rate Abdomen: Bowel sounds (normal) Psych/Mental Status: Mental status NL (ok cognitive function ok) - Procedures Procedures: Procedures Procedure Code Date AMPUTATION OF FOOT AT ANKLE 57276 09/15/16 AMPUTATION THRU METATARSAL 21347 07/22/16 BYPASS L AXILLA VEIN TO UP VEIN W SYNTH SUB, OPEN [id number] 07/22/16 DETACHMENT AT RIGHT FOOT, COMPLETE, OPEN APPROACH [id number] 09/15/16 DETACHMENT AT RIGHT FOOT, PARTIAL 2ND RAY, OPEN APPROACH [id number] 07/22/16 DETACHMENT AT RIGHT FOOT, PARTIAL 3RD RAY, OPEN APPROACH [id number] 07/22/16 DETACHMENT AT RIGHT FOOT, PARTIAL 4TH RAY, OPEN APPROACH [id number] 07/22/16 DETACHMENT AT RIGHT FOOT, PARTIAL 5TH RAY, OPEN APPROACH [id number] 07/22/16 EXTIRPATION OF MATTER FROM LEFT AXILLARY VEIN, OPEN APPROACH [id number] 07/22/16 HEMODIALYSIS REPEATED EVAL 52401 07/22/16 INSERT TUNNELED CV CATH [id number] 07/22/16 INSERTION OF INFUSION DEV INTO R SUBCLAV VEIN, PERC APPROACH [id number] 07/22/16 INSERTION OF INFUSION DEV INTO SUP VENA CAVA, PERC APPROACH [id number] 07/22/16 OPEN THROMBECT AV FISTULA 42706 07/22/16 PERFORMANCE OF URINARY FILTRATION, MULTIPLE [id number] 07/22/16 ULTRASONOGRAPHY OF RIGHT SUBCLAVIAN VEIN, GUIDANCE [id number] 07/22/16 ULTRASONOGRAPHY OF SUPERIOR VENA CAVA, GUIDANCE [id number] 07/22/16 US GUIDE VASCULAR ACCESS [id number] 07/22/16 Assessment/Plan - Problem List Patient Problems: All Active Problems reamputation of the right leg above the (Acute) Clotted dialysis access (Acute) T82.49XA Hypotension (Acute) clotted access (Acute) clotted access (Acute) resolved hypotensionn0 (Acute) transmetatarsal amputation right foot (Acute) - Plan Plan: to supiort hemo every MWF pain mangement continued schedule for hemo today antibiotice coverage with vancomycin
[2016-09-21] MEDS: Atorvastatin Calcium 10 MG TAB PO SCH (22:09)
[2016-09-22] MEDS: Albuterol Nebulizer 2.5mg/3mL HHN SCH ×4 (01:12→19:34)
[2016-09-22] MEDS: Piperacillin/Tazobact 2.25 gm in 0.9% NS 50 ML IV SCH ×3 (01:53→18:28)
[2016-09-22] MEDS: Ipratropium Neb 0.5 mg/2.5 mL UD HHN SCH ×4 (04:12→19:34)
[2016-09-22] MEDS: metroNIDAZOLE 500mg/NS 100mL 500 MG/100 ML BAG IV SCH ×2 (05:34→12:45)
[2016-09-22] MEDS: HYDROmorphone 2 mg/mL 1mL Vial IVP PRN ×2 (06:29→14:19)
[2016-09-22] MEDS: INSULIN ASPART SLIDING SCALE 100 UNITS/ML UNIT SUBQ SCH ×3 (06:31→17:38)
[2016-09-22 07:37] LABS: % BASOPHILS 0.3 % (0.0-2.0); % EOSINOPHILS 4.6 % (0.0-5.0); % LYMPHOCYTES 32.2 % (20.0-50.0); % MONOCYTES 10.5 % (2.0-10.0); % NEUTROPHILS 52.4 % (40.0-80.0); HEMATOCRIT 34.8 % (39.0-49.0); HEMOGLOBIN 11.6 gm/dL (12.6-17.4); MEAN CELL VOLUME 90.1 fl (80-99); MEAN CORPUSCULAR HGB CONC 33.3 pg (28.0-36.0); NEUTROPHILE ABSOLUTE 4.8 Th/cmm (1.8-8.0); PLATELET COUNT 388 Th/cmm (150-400); RED BLOOD COUNT 3.87 Mil/cmm (3.80-5.80); RED CELL DISTRIBUTION WIDTH 14.3 % (11.5-20.0); WHITE BLOOD COUNT 9.2 Th/cmm (4.8-10.8)
[2016-09-22 07:55] LABS: ANION GAP 15.4 (7.0-16.0); BUN/CREATININE RATIO 3.5; CALCIUM SERUM 8.8 mg/dL (8.6-10.3); CARBON DIOXIDE 26.2 mEq/L (21.0-31.0); POTASSIUM SERUM 3.6 mEq/L (3.5-5.1)
[2016-09-22 08:04] LABS: CREATININE - SERUM 6.5 mg/dL (0.7-1.3)
[2016-09-22] MEDS: Budesonide 0.5 Mg/2 mL Ud HHN SCH ×2 (08:24→19:34)
[2016-09-22] MEDS: Lactobacillus Rhamnosus 10 Billion CFU Capsule PO SCH (09:56)
[2016-09-22] MEDS: Aspirin 81mg Chewable Tab PO SCH (09:57)
[2016-09-22] MEDS: NIFEdipine 30 mg ER Tab PO SCH (09:58)
[2016-09-22] MEDS: FLUTICASONE PROPIONATE NS SCH (09:58)
[2016-09-22] MEDS: Ascorbic Acid/Vit B Complex Tab PO SCH (10:01)
[2016-09-22] MEDS: Hydrocodone/APAP 10 mg/325 mg Tab PO PRN (10:41)
--- NOTE | 2016-09-22 18:19 | General Progress Note ---
Subjective - Review of Systems Service Date: 09/22/16 (no new complaints) Subjective: stump right lower extremity clear no drain wnating to onw post acute care plans Objective - Results Result Diagrams: 09/22/16 07:00 09/22/16 07:00 Recent Labs: Laboratory Last Values WBC 9.2 Th/cmm (4.8-10.8) 09/22/16 07:00 RBC 3.87 Mil/cmm (3.80-5.80) 09/22/16 07:00 Hgb 11.6 gm/dL (12.6-17.4) L 09/22/16 07:00 Hct 34.8 % (39.0-49.0) L 09/22/16 07:00 MCV 90.1 fl (80-99) 09/22/16 07:00 MCH 30.0 pg (27.0-31.0) 09/22/16 07:00 MCHC Differential 33.3 pg (28.0-36.0) 09/22/16 07:00 RDW 14.3 % (11.5-20.0) 09/22/16 07:00 Plt Count 388 Th/cmm (150-400) 09/22/16 07:00 MPV 8.0 fl 09/22/16 07:00 Neutrophils % 52.4 % (40.0-80.0) 09/22/16 07:00 Lymphocytes % 32.2 % (20.0-50.0) 09/22/16 07:00 Monocytes % 10.5 % (2.0-10.0) H 09/22/16 07:00 Eosinophils % 4.6 % (0.0-5.0) 09/22/16 07:00 Basophils % 0.3 % (0.0-2.0) 09/22/16 07:00 ESR 18 mm/hr (0-20) 09/15/16 15:32 PT 10.2 SECONDS (9.5-11.5) 09/15/16 15:32 INR 1.03 (0.5-1.4) 09/15/16 15:32 PTT (Actin FS) 34.1 SECONDS (26.0-38.0) 09/15/16 15:32 Sodium 138 mEq/L (136-145) 09/22/16 07:00 Potassium 3.6 mEq/L (3.5-5.1) 09/22/16 07:00 Chloride 100 mEq/L (98-107) 09/22/16 07:00 Carbon Dioxide 26.2 mEq/L (21.0-31.0) 09/22/16 07:00 Anion Gap 15.4 (7.0-16.0) 09/22/16 07:00 BUN 23 mg/dL (7-25) 09/22/16 07:00 Creatinine 6.5 mg/dL (0.7-1.3) H* 09/22/16 07:00 Est GFR ( Amer) 11.0 ml/min 09/22/16 07:00 Est GFR (Non-Af Amer) 9.1 ml/min 09/22/16 07:00 BUN/Creatinine Ratio 3.5 09/22/16 07:00 Glucose 77 mg/dL (70-105) 09/22/16 07:00 POC Glucose 86 MG/DL (70 - 105) 09/22/16 17:29 Calcium 8.8 mg/dL (8.6-10.3) 09/22/16 07:00 Magnesium 1.9 mg/dL (1.9-2.7) 09/20/16 05:15 Total Bilirubin 0.5 mg/dL (0.3-1.0) 09/18/16 05:10 AST 29 U/L (13-39) 09/18/16 05:10 ALT 23 U/L (7-52) 09/18/16 05:10 Alkaline Phosphatase 60 U/L (34-104) 09/18/16 05:10 C-Reactive Protein 3.00 mg/dL (0.00-1.00) H 09/15/16 15:32 Total Protein 7.1 gm/dL (6.0-8.3) 09/18/16 05:10 Albumin 3.2 gm/dL (4.2-5.5) L 09/18/16 05:10 Globulin 3.9 gm/dL 09/18/16 05:10 Albumin/Globulin Ratio 0.8 (1.0-1.8) L 09/18/16 05:10 Random Vancomycin 25.6 ug/mL (5.0-40.0) 09/20/16 05:15 - Physical Exam Vitals and I&O: Vital Signs Temp 98.2 F 09/22/16 11:24 Pulse 85 09/22/16 12:33 Resp 18 09/22/16 12:33 BP 132/76 09/22/16 11:24 Pulse Ox 95 09/22/16 12:33 Intake & Output 09/21/16 09/22/16 09/22/16 18:59 06:59 18:59 Intake Total 200 100 50 Output Total 2600 Balance 200 -2500 50 Intake: Intake, IV Amount 200 100 50 Piperacillin Sodium/ 100 50 Tazobact 2.25 gm In Sodium Chloride 0.9% 50 ml @ 100 mls/hr IV Q8H [facility] Rx#:[id number] metroNIDAZOLE 500mg/NS 100 100 100mL 500 mg In 100 ml @ 100 mls/hr IV Q8HR [facility] Rx #:[id number] Output: Hemodialysis 2600 Active Medications: Current Medications Acetaminophen (Tylenol) 650 mg PO Q12HR [facility] Stop: 11/14/16 20:59 Last Admin: 09/21/16 22:06 Dose: 650 mg Acetaminophen/Hydrocodone Bitart ([place] 10 Mg/325 Mg) 1 tab PO Q4H PRN PRN Reason: PAIN Stop: 11/14/16 15:47 Last Admin: 09/22/16 10:41 Dose: 1 tab Albuterol Sulfate (Albuterol 2.5mg/3ml Neb Ud) 2.5 mg HHN Q6HRT [facility] Stop: 11/15/16 12:59 Last Admin: 09/22/16 12:32 Dose: Not Given Albuterol/Ipratropium (Duoneb Neb) 3 ml HHN Q4H PRN PRN Reason: Wheezing Stop: 11/14/16 15:26 Last Admin: 09/20/16 07:15 Dose: 3 ml Aspirin (Aspirin Chewable) 81 mg PO DAILY [facility] Stop: 11/15/16 08:59 Last Admin: 09/22/16 09:57 Dose: 81 mg Atorvastatin Calcium (Lipitor) 10 mg PO HS [facility] PRN Reason: Protocol Stop: 11/14/16 20:59 Last Admin: 09/21/16 22:09 Dose: 10 mg Budesonide (Pulmicort) 0.5 mg HHN BIDRT [facility] Stop: 11/15/16 09:59 Last Admin: 09/22/16 08:24 Dose: Not Given Carvedilol (Coreg) 3.125 mg PO DAILY [facility] Stop: 11/15/16 08:59 Last Admin: 09/22/16 09:57 Dose: Not Given Clopidogrel Bisulfate (Plavix) 75 mg PO DAILY [facility] Stop: 11/15/16 08:59 Last Admin: 09/22/16 09:56 Dose: 75 mg Epoetin [place] (Epogen) 10,000 units SUBQ MoWeFr [facility] Stop: 11/18/16 11:59 Last Admin: 09/21/16 16:00 Dose: Not Given Fluticasone Propionate (Flonase) 1 gm NS DAILY [facility] Stop: 11/15/16 08:59 Last Admin: 09/22/16 09:58 Dose: 1 gm Gabapentin (Neurontin) 300 mg PO TID [facility] Stop: 11/14/16 20:59 Last Admin: 09/22/16 14:17 Dose: 300 mg Hydromorphone HCl (Dilaudid) 2 mg IVP Q4HR PRN PRN Reason: Pain (Severe) Stop: 11/15/16 16:25 Last Admin: 09/22/16 14:19 Dose: 2 mg Metronidazole (Flagyl) 500 mg in 100 mls @ 100 mls/hr IV Q8HR [facility] Stop: 11/18/16 12:59 Last Admin: 09/22/16 12:45 Dose: 100 mls/hr Piperacillin Sod/Tazobactam (Sod 2.25 gm/ Sodium Chloride) 50 mls @ 100 mls/hr IV Q8H [facility] Stop: 11/20/16 09:59 Last Admin: 09/22/16 09:59 Dose: 100 mls/hr Insulin Aspart (Novolog Insulin Sliding Scale) 0 units SUBQ ACHS [facility] PRN Reason: Protocol Stop: 11/14/16 20:59 Last Admin: 09/22/16 17:38 Dose: Not Given Ipratropium [place] (Atrovent Neb 0.5mg/2.5ml) 0.5 mg HHN Q6HRT [facility] Stop: 11/14/16 15:59 Last Admin: 09/22/16 12:32 Dose: Not Given Lactobacillus Rhamnosus (Culturelle) 1 each PO DAILY [facility] Stop: 11/15/16 08:59 Last Admin: 09/22/16 09:56 Dose: 1 each Lisinopril (Zestril) 10 mg PO DAILY [facility] Stop: 11/15/16 08:59 Last Admin: 09/22/16 09:58 Dose: Not Given Lorazepam (Ativan) 1 mg PO Q8H PRN PRN Reason: ANXIETY Stop: 11/14/16 15:49 Last Admin: 09/20/16 15:11 Dose: 1 mg Miscellaneous (Vte Chemical Prophylaxis Screen/ Admission) 1 [facility] PRN PRN PRN Reason: PROTOCOL Stop: 11/15/16 13:28 Miscellaneous (Vancomycin Iv Per Pharmacy) 1 [facility] PRN [facility] Stop: 11/18/16 17:44 Miscellaneous (Clinical Monitoring) 1 [facility] PRN PRN PRN Reason: RENAL DOSING Stop: 11/20/16 08:10 Nifedipine (Procardia Xl) 60 mg PO Q12HR [facility] Stop: 11/14/16 20:59 Last Admin: 09/22/16 09:58 Dose: Not Given Sevelamer HCl (Renagel) 800 mg PO TID [facility] Stop: 11/14/16 20:59 Last Admin: 09/22/16 14:14 Dose: 800 mg Vitamin B Complex/Vitamin C (Vitamin B Complex W/C) 1 tab PO DAILY [facility] Stop: 11/15/16 08:59 Last Admin: 09/22/16 10:01 Dose: 1 tab General: Alert HEENT: Atraumatic Neck: Supple Cardiovascular: Regular rate Lungs: Clear to auscultation Abdomen: Bowel sounds (normal) - Procedures Procedures: Procedures Procedure Code Date AMPUTATION OF FOOT AT ANKLE 36907 09/15/16 AMPUTATION THRU METATARSAL 01184 07/22/16 BYPASS L AXILLA VEIN TO UP VEIN W SYNTH SUB, OPEN [id number] 07/22/16 DETACHMENT AT RIGHT FOOT, COMPLETE, OPEN APPROACH [id number] 09/15/16 DETACHMENT AT RIGHT FOOT, PARTIAL 2ND RAY, OPEN APPROACH [id number] 07/22/16 DETACHMENT AT RIGHT FOOT, PARTIAL 3RD RAY, OPEN APPROACH [id number] 07/22/16 DETACHMENT AT RIGHT FOOT, PARTIAL 4TH RAY, OPEN APPROACH [id number] 07/22/16 DETACHMENT AT RIGHT FOOT, PARTIAL 5TH RAY, OPEN APPROACH [id number] 07/22/16 EXTIRPATION OF MATTER FROM LEFT AXILLARY VEIN, OPEN APPROACH [id number] 07/22/16 HEMODIALYSIS REPEATED EVAL 36119 07/22/16 INSERT TUNNELED CV CATH [id number] 07/22/16 INSERTION OF INFUSION DEV INTO R SUBCLAV VEIN, PERC APPROACH [id number] 07/22/16 INSERTION OF INFUSION DEV INTO SUP VENA CAVA, PERC APPROACH [id number] 07/22/16 OPEN THROMBECT AV FISTULA 36530 07/22/16 PERFORMANCE OF URINARY FILTRATION, MULTIPLE [id number] 07/22/16 ULTRASONOGRAPHY OF RIGHT SUBCLAVIAN VEIN, GUIDANCE [id number] 07/22/16 ULTRASONOGRAPHY OF SUPERIOR VENA CAVA, GUIDANCE [id number] 07/22/16 US GUIDE VASCULAR ACCESS [id number] 07/22/16 Assessment/Plan - Problem List Patient Problems: All Active Problems reamputation of the right leg above the (Acute) Clotted dialysis access (Acute) T82.49XA Hypotension (Acute) clotted access (Acute) clotted access (Acute) resolved hypotensionn0 (Acute) transmetatarsal amputation right foot (Acute) - Plan Plan: to supiort hemo every MWF pain mangement continued schedule for hemo tomorrow will do at [facility] antibiotice coverage with vancomycin
--- NOTE | 2016-09-23 21:59 | Discharge Summary ---
ADMITTING DIAGNOSES: 1. Right transmetatarsal stump necrosis/infection. 2. Recent history of transmetatarsal amputation, secondary to severe peripheral artery disease. 3. Recent history of a fem-pop bypass. 4. History of peripheral artery disease. SECONDARY DIAGNOSES: 1. History of cerebrovascular accident. 2. History of chronic renal insufficiency, on hemodialysis. 3. History of hypertension. 4. History of dyslipidemia. 5. History of chronic obstructive pulmonary disease. DISCHARGE DIAGNOSES: 1. Status post Syme's amputation of the right foot. 2. Right transmetatarsal stump necrosis/infection. 3. Recent history of transmetatarsal amputation, secondary to severe peripheral artery disease. 4. Recent history of a fem-pop bypass. 5. History of peripheral artery disease. CONSULTANTS: Dr. Irizarry of Surgery, Dr. Amrit Holt of ID, and Dr. Temple of Renal. PROCEDURES: On 09/16/2016. the patient had a Syme's amputation with no complications. On 09/19/2016, he had a right lower extremity duplex venous ultrasound showing no evidence of DVT, findings suggestive of loculated fluid collection within the soft tissues of the right thigh, etiology uncertain. It is approximately 3.2 x 1.0 x 1.3 cm sonolucent foci within the soft tissues near the junction of the right common femoral and proximal right superficial femoral veins. BRIEF HOSPITAL COURSE: A 71-year-old gentleman who presented from [facility] after being seen by General Surgery, i.e., Dr. Irizarry, for a followup. As mentioned above, he recently underwent a transmetatarsal amputation given necrosis and poor healing. Apparently, the stump had necrotic tissue and the patient was electively admitted to the Telemetry for further management and care. He was placed on broad-spectrum IV antibiotics and underwent the above-mentioned procedure without any difficulties. He has had low-grade fevers postop, but overall his course has been uncomplicated. He was also seen initially by Nephrology for his hemodialysis, which has remained in schedule and was also eventually seen by ID for further management and care. On the stump, there was a small amount of discharge, which has been cultured. CONDITION ON DISCHARGE: Stable. DISPOSITION: The patient was transferred to [facility] for long-term acute care. JOB# [id number]
== END 2016-09-22 20:30 | DRG 474 ==
LOC: MSI 11:54 → MERGE 11:54
PROVIDERS: ADMIT Internal Medicine; ATTEND Internal Medicine
PROC: 0Y6M0Z0 Detachment at Right Foot, Complete, Open Approach (ICD-10-PCS; principal; 2016-09-16)
PROC: 5A1D60Z (ICD-10-PCS; 2016-09-16)
DX: T87.53 Necrosis of amputation stump, right lower extremity (principal); N18.6 End stage renal disease; I13.2 Hypertensive heart and chronic kidney disease with heart failure and with stage 5 chronic kidney disease, or end stage renal disease; E11.22 Type 2 diabetes mellitus with diabetic chronic kidney disease; I95.9 Hypotension, unspecified; E11.52 Type 2 diabetes mellitus with diabetic peripheral angiopathy with gangrene; L03.115 Cellulitis of right lower limb; J44.9 Chronic obstructive pulmonary disease, unspecified; Z86.73 Personal history of transient ischemic attack (TIA), and cerebral infarction without residual deficits; E78.5 Hyperlipidemia, unspecified; D63.1 Anemia in chronic kidney disease; I50.9 Heart failure, unspecified; Y83.8 Other surgical procedures as the cause of abnormal reaction of the patient, or of later complication, without mention of misadventure at the time of the procedure; Y92.89 Other specified places as the place of occurrence of the external cause; Z87.891 Personal history of nicotine dependence; Z88.8 Allergy status to other drugs, medicaments and biological substances; Z88.5 Allergy status to narcotic agent; Z99.2 Dependence on renal dialysis
CPT/HCPCS: 36415-UA; 71010-TC; 80048-TC; 80053-TC; 80202-TC; 82948-90; 83735-TC; 85025-TC; 85610-TC; 85652-TC; 86141-TC; 87070-90; 87075-90; 87205-90; 88304-TC; 90779; 90799; 90937; 93005; 93971-TC-RT; 94760; 97530; J0885; J1170; J1815; J2001; J2250; J2270; J2543; J2704; J3370; J7030; J7040; J7613; X3904; X6026; X6206; Z7610

== ENCOUNTER 2016-10-31 13:45 | Inpatient (IN) | payer MEDICARE, MEDICAID ==
[2016-10-31 14:46] VITALS: BP 160/61
[2016-10-31] MEDS ORDERED: DARBEPOETIN ALFA IN POLYSORBAT 40 MCG SUBQ SCH (16:30)
[2016-10-31] MEDS: Ipratropium Neb 0.5 mg/2.5 mL UD HHN ONE ×2 (16:35)
[2016-10-31] MEDS ORDERED: Lactulose 10 Gm/15 mL 30mL UDC PO PRN (17:00)
[2016-10-31] MEDS: INSULIN ASPART SLIDING SCALE 100 UNITS/ML UNIT SUBQ SCH ×2 (17:39→20:41)
[2016-10-31] MEDS: NIFEdipine 30 mg ER Tab PO SCH (17:40)
--- NOTE | 2016-10-31 17:59 | General Progress Note ---
Subjective - Review of Systems Service Date: 10/31/16 Subjective: labs not all in informed consent for right BKA discussed POA to sign consent Objective - Results Recent Labs: Laboratory Last Values POC Glucose 181 MG/DL (70 - 105) H 10/31/16 16:44 - Physical Exam Vitals and I&O: Vital Signs Temp Pulse 88 10/31/16 17:41 Resp 14 10/31/16 16:41 BP 187/98 10/31/16 17:41 Pulse Ox 99 10/31/16 16:40 Intake & Output 10/30/16 10/31/16 10/31/16 18:59 06:59 18:59 Weight (lbs) 71.214 kg Active Medications: Current Medications Acetaminophen (Tylenol) 650 mg PO Q6HR PRN PRN Reason: MILD PAIN Stop: 12/30/16 17:59 Acetaminophen/Hydrocodone Bitart ([place] 10 Mg/325 Mg) 1 tab PO Q4H PRN PRN Reason: Severe Pain Stop: 12/30/16 16:17 Acetaminophen/Hydrocodone Bitart ([place] 5mg/325mg) 1 tab PO Q6H PRN PRN Reason: Pain (Moderate) Stop: 12/30/16 16:17 Ascorbic Acid (Vitamin C) 500 mg PO DAILY [facility] Stop: 12/31/16 08:59 Aspirin (Aspirin Chewable) 81 mg PO DAILY [facility] Stop: 12/31/16 08:59 Atorvastatin Calcium (Lipitor) 10 mg PO HS [facility] PRN Reason: Protocol Stop: 12/30/16 20:59 Bisacodyl (Dulcolax 10 Mg Supp) 10 mg RC DAILY PRN PRN Reason: Constipation Stop: 12/30/16 16:17 Carvedilol (Coreg) 3.125 mg PO BID [facility] Stop: 12/30/16 16:59 Last Admin: 10/31/16 17:40 Dose: 3.125 mg Clopidogrel Bisulfate (Plavix) 75 mg PO DAILY [facility] Stop: 12/31/16 08:59 Docusate Sodium (Colace) 250 mg PO BID [facility] Stop: 12/30/16 16:59 Last Admin: 10/31/16 17:40 Dose: 250 mg Gabapentin (Neurontin) 300 mg PO Q8H [facility] Stop: 12/30/16 15:59 Last Admin: 10/31/16 17:40 Dose: 300 mg Hydralazine HCl (Apresoline) 10 mg PO Q6H PRN PRN Reason: SBP ABOVE 160 Stop: 12/30/16 16:17 Hydralazine HCl (Apresoline) 25 mg PO Q12H [facility] Stop: 12/30/16 16:59 Last Admin: 10/31/16 17:40 Dose: 25 mg Insulin Aspart (Novolog Insulin Sliding Scale) 0 units SUBQ ACHS [facility] PRN Reason: Protocol Stop: 12/30/16 16:29 Last Admin: 10/31/16 17:39 Dose: 3 units Ipratropium [place] (Atrovent Neb 0.5mg/2.5ml) 0.5 mg HHN Q6HRT MELLISA Stop: 12/30/16 18:59 Lactobacillus Rhamnosus (Culturelle) 1 each PO DAILY [facility] Stop: 12/31/16 08:59 Lactulose (Cephulac) 30 gm PO DAILY PRN PRN Reason: Constipation Stop: 12/30/16 16:59 Linezolid (Zyvox) mg PO BID [facility] Stop: 12/30/16 16:59 Lisinopril (Zestril) 20 mg PO BID MELLISA Stop: 12/30/16 16:59 Last Admin: 10/31/16 17:41 Dose: 20 mg Lorazepam (Ativan) 1 mg PO Q12HR PRN; Protocol PRN Reason: Anxiety Stop: 12/30/16 16:17 Miscellaneous (Darbepoetin [place] [Aranesp]) 40 mcg SUBQ QFRI MELLISA Stop: 12/30/16 16:29 Miscellaneous (Lanthanum Carbonate [Fosrenol]) 1 cap PO TID MELLISA Stop: 12/30/16 20:59 Miscellaneous (Tiotropium [place] [Spiriva]) 1 cap INH DAILY MELLISA Stop: 12/31/16 08:59 Nifedipine (Procardia Xl) 60 mg PO Q12H MELLISA Stop: 12/30/16 16:59 Last Admin: 10/31/16 17:40 Dose: 60 mg Vitamin B Complex/Vit C/Folic Acid (Vitamin B Complex W/Vitamin C) 1 tab PO DAILY MELLISA Stop: 12/31/16 08:59 Zinc Sulfate (Zinc Sulfate) 220 mg PO DAILY MELLISA Stop: 12/31/16 08:59
[2016-10-31] MEDS: Ipratropium Neb 0.5 mg/2.5 mL UD HHN SCH (19:10)
[2016-10-31] MEDS: Atorvastatin Calcium 10 MG TAB PO SCH (20:40)
[2016-10-31] MEDS: Hydrocodone/APAP 10 mg/325 mg Tab PO PRN (20:45)
[2016-10-31] MEDS ORDERED: LANTHANUM CARBONATE PO SCH (21:00)
[2016-10-31 22:32] LABS: % BASOPHILS 0.3 % (0.0-2.0); % EOSINOPHILS 3.5 % (0.0-5.0); % MONOCYTES 4.8 % (2.0-10.0); % NEUTROPHILS 68.4 % (40.0-80.0); HEMATOCRIT 31.9 % (39.0-49.0); HEMOGLOBIN 10.6 gm/dL (12.6-17.4); MEAN CELL VOLUME 88.4 fl (80-99); MEAN CORPUSCULAR HEMOGLOBIN 29.2 pg (27.0-31.0); MEAN CORPUSCULAR HGB CONC 33.1 pg (28.0-36.0); MEAN PLATELET VOLUME 6.6 fl; NEUTROPHILE ABSOLUTE 7.9 Th/cmm (1.8-8.0); PLATELET COUNT 229 Th/cmm (150-400); RED BLOOD COUNT 3.61 Mil/cmm (3.80-5.80); WHITE BLOOD COUNT 11.5 Th/cmm (4.8-10.8)
[2016-10-31 22:42] LABS: INR 0.98 (0.5-1.4); PROTHROMBIN TIME (TEST) 9.7 SECONDS (9.5-11.5)
[2016-10-31 22:46] LABS: ALB/GLOB RATIO 0.9 (1.0-1.8); ANION GAP 12.7 (7.0-16.0); BILIRUBIN,TOTAL 0.4 mg/dL (0.3-1.0); BUN/CREATININE RATIO 4.4; CALCIUM SERUM 9.3 mg/dL (8.6-10.3); MAGNESIUM 2.2 mg/dL (1.9-2.7); POTASSIUM SERUM 3.7 mEq/L (3.5-5.1)
[2016-10-31 23:09] LABS: CREATININE - SERUM 7.9 mg/dL (0.7-1.3)
[2016-11-01] MEDS: Ipratropium Neb 0.5 mg/2.5 mL UD HHN SCH ×6 (00:51→19:10)
[2016-11-01] MEDS: NIFEdipine 30 mg ER Tab PO SCH (04:26)
[2016-11-01] MEDS: INSULIN ASPART SLIDING SCALE 100 UNITS/ML UNIT SUBQ SCH ×3 (06:34→20:37)
[2016-11-01 07:23] LABS: % BASOPHILS 0.3 % (0.0-2.0); % EOSINOPHILS 2.4 % (0.0-5.0); % LYMPHOCYTES 27.2 % (20.0-50.0); % MONOCYTES 6.2 % (2.0-10.0); % NEUTROPHILS 63.9 % (40.0-80.0); HEMATOCRIT 29.5 % (39.0-49.0); HEMOGLOBIN 9.9 gm/dL (12.6-17.4); MEAN CELL VOLUME 87.9 fl (80-99); MEAN CORPUSCULAR HEMOGLOBIN 29.5 pg (27.0-31.0); MEAN CORPUSCULAR HGB CONC 33.6 pg (28.0-36.0); NEUTROPHILE ABSOLUTE 6.7 Th/cmm (1.8-8.0); PLATELET COUNT 213 Th/cmm (150-400); RED BLOOD COUNT 3.36 Mil/cmm (3.80-5.80); RED CELL DISTRIBUTION WIDTH 17.5 % (11.5-20.0); WHITE BLOOD COUNT 10.3 Th/cmm (4.8-10.8)
[2016-11-01 07:26] LABS: ALB/GLOB RATIO 0.8 (1.0-1.8); ANION GAP 16.8 (7.0-16.0); BILIRUBIN,TOTAL 0.4 mg/dL (0.3-1.0); BUN/CREATININE RATIO 4.4; CALCIUM SERUM 9.2 mg/dL (8.6-10.3); CARBON DIOXIDE 28.3 mEq/L (21.0-31.0); MAGNESIUM 2.3 mg/dL (1.9-2.7); POTASSIUM SERUM 4.1 mEq/L (3.5-5.1)
[2016-11-01 07:44] LABS: CREATININE - SERUM 8.4 mg/dL (0.7-1.3)
[2016-11-01] MEDS ORDERED: Non-Formulary Item 1 EA (Arginine/Ascorbate Sod/Vite Ac [Arginaid Powder] 1 PACKET) PO SCH (09:00)
[2016-11-01] MEDS ORDERED: TIOTROPIUM BROMIDE INH SCH (09:00)
[2016-11-01] MEDS ORDERED: Midazolam 1mg/ml 2 ml vial IV ONE (09:21)
[2016-11-01] MEDS ORDERED: Meperidine 50 mg/mL 1mL Syr ONE (09:22)
[2016-11-01] MEDS ORDERED: Lidocaine 2% Gel 5 mL TP ONE (09:22)
[2016-11-01] MEDS ORDERED: Vancomycin HCl 1.5 GM in Sodium Chloride 0.9% 500 ML IV ONE (10:00)
[2016-11-01] MEDS ORDERED: Lactated Ringer 1,000 ML IV SCH (10:30)
--- NOTE | 2016-11-01 10:44 | Diagnostic Imaging Report ---
CHEST X-RAY: AP view INDICATION: pain COMPARISON: None FINDINGS: Mild chronic lung changes are seen with no focal consolidation identified. Right lower lung zone linear marking is noted. No gross effusions. Heart size is normal. Atherosclerotic vascular disease is noted. IMPRESSION: Mild chronic lung changes with right lower lung zone subsegmental atelectasis versus scarring. No focal consolidation identified Atherosclerosis.
--- NOTE | 2016-11-01 10:50 | Diagnostic Imaging Report ---
Right foot 2 views Indication: Infection Comparison: none Findings: There is evidence of amputation of the level of the hindfoot with associated postsurgical changes. Assessment for fracture is limited on this exam. Severe atherosclerotic vascular disease noted. Osteopenia is noted. Impression: Evidence of prior amputation at level of the hindfoot with postsurgical changes noted in this region. If there is clinical concern for recurrent osteomyelitis, MRI may be obtained for further assessment. Severe atherosclerotic vascular disease. In the setting of trauma, if clinical symptoms persist and there is continued concern for an occult fracture, follow up exams in 5-7 days is suggested.
--- NOTE | 2016-11-01 10:52 | History & Physical ---
CHIEF COMPLAINT: Nonhealing right Syme's amputation. HISTORY OF PRESENT ILLNESS: This is a 71-year-old -[place] gentleman who has a history of severe PAD, end-stage renal disease, chronic kidney disease on hemodialysis, diabetes, hypertension, COPD, who has been admitted to this facility couple times in the last perhaps 4-6 months for right foot gangrene and PAD. He had a fem-pop bypass a few months ago at [facility], but soon after started developing some necrosis on his toes, eventually requiring a transmetatarsal amputation; however, this did not improve postop given that his stump was noted to be necrotic and eventually required Syme's amputation done at this facility roughly about a month ago. The patient is currently residing at [facility] where followup visit with Dr. Irizarry showed recurrence of the necrotic tissue. The patient has been treated extensively with IV antibiotics and has received wound care. He denies any fever or chills. He denies any severe pain and now he has been admitted for a BKA. PAST MEDICAL HISTORY: As noted above. PAST SURGICAL HISTORY: He underwent a right transmetatarsal surgery and right Syme's surgery. As noted above, previously he had a fem-pop bypass a few months ago. He also has had AV shunt placed. FAMILY HISTORY: Noncontributory to this admission. ALLERGIES: CODEINE AND PENICILLIN. OUTPATIENT MEDICATIONS: Tylenol 650 q. 6 p.r.n. for moderate pain, alginate powder daily, ascorbic acid 1 tablet every day, aspirin 81 every day, atorvastatin 10 every day, bisacodyl suppository 10 mg every day, Coreg 3.125 b.i.d., Plavix 75 daily, Aranesp 40 mcg subcu every Monday, docusate sodium 250 b.i.d., gabapentin 300 mg q. 8, hydralazine 10 mg q. 6, [place] 5/325 one tab q. 6 for moderate pain and 10/325 for severe pain, insulin sliding scale, Atrovent nebulizer q. 6 p.r.n. for SOB, lactobacillus acidophilus 1 tab every day, lactulose 30 mL every day p.r.n. for constipation, Fosrenol 500 mg t.i.d., Zyvox 600 mg b.i.d., lisinopril 20 b.i.d., lorazepam 1 mg q. 12 p.r.n. for anxiety, nifedipine 60 mg q. 12, Spiriva inhaler 1-2 puffs every day, multivitamins every day, zinc sulfate 220 mg every day. REVIEW OF SYSTEMS: CONSTITUTIONAL: He denies any fever or chills. CARDIOVASCULAR: No chest pain, palpitations. PULMONARY: No cough or phlegm production. GASTROINTESTINAL: No bowel habit changes including no diarrhea, constipation, abdominal pain, nausea, vomiting. GENITOURINARY: Denies any suprapubic abdominal pain. NEUROLOGIC: No changes in vision, no headaches. PHYSICAL EXAMINATION: VITAL SIGNS: Temperature 97.6, pulse 72, respirations 19, BP 122/70, satting 97% on room air. GENERAL: He is a well-developed, well-nourished male, awake, alert and oriented x 3, not in acute distress. HEAD AND NECK: Normocephalic, atraumatic. Pupils reactive to light. Extraocular movements are intact. Oropharynx is moist and clear. CARDIAC: Regular rate and rhythm with distant sounds. S1 and S2 are present. LUNGS: Clear to auscultation bilaterally, decreased at the bases. ABDOMEN: Soft, supple, nontender, nondistended, normoactive bowel sounds. EXTREMITIES: Lower extremities, on the right lower extremity, he has a low level BKA consistent with Syme's that has necrotic tissue on the stump. NEUROLOGIC: Nonfocal. Cranial nerves within normal. LABORATORY DATA: On admission, white count 11.5, H and H 10/31 and a platelet count of 229. Sodium 134, potassium 3.7, chloride 97, BUN 35, creatinine 7.9 and glucose level 117. LFTs were essentially within normal limits. Albumin 3.2. IMPRESSION: 1. Failed right-sided amputation. 2. Severe peripheral arterial disease. 3. Leukocytosis. 4. End-stage renal disease, on hemodialysis. 5. History of hypertension. 6. History of diabetes. 7. History of chronic obstructive pulmonary disease. PLAN: The patient has been admitted electively to the medical/surgical floor for right BKA, which the patient is agreeable to have. Vascular or Surgical consult has already been done and the patient has been cleared for the proposed above-mentioned surgery. The patient has been placed on IV antibiotics and will receive postop care including wound care. He will be kept on his other medications as scheduled and will anticipate SNF placement for continuation of PT and rehab. [facility]# [id number]
[2016-11-01] MEDS ORDERED: Meperidine 25 mg/mL 1mL Syr ONE ×2 (11:41→12:34)
[2016-11-01] MEDS: Meperidine 25 mg/mL 1mL Syr IVP PRN ×3 (11:42→12:34)
[2016-11-01] MEDS: Hydrocodone/APAP 10 mg/325 mg Tab PO PRN (15:05)
--- NOTE | 2016-11-01 16:55 | Operative Report ---
PREOPERATIVE DIAGNOSES: 1. Gangrene of right Syme's amputation stump. 2. Peripheral vascular disease, severe. 3. Diabetes mellitus. 4. End-stage renal disease. POSTOPERATIVE DIAGNOSES: 1. Gangrene of right Syme's amputation stump. 2. Peripheral vascular disease, severe. 3. Diabetes mellitus. 4. End-stage renal disease. OPERATION DONE: 1. Right below knee amputation. 2. Application of a posterior split. SURGEON: Juan C Cobos MD ANESTHESIA: General. ANESTHESIOLOGIST: Carol Ann Sr M.D. ESTIMATED BLOOD LOSS: 50 mL. INDICATIONS FOR SURGERY: The patient with previous fem-pop bypass and Syme's amputation, which did not heal. DESCRIPTION OF PROCEDURE: The patient was given general anesthesia. The right lower extremity was prepped with Betadine and draped in appropriate manner. An incision was made on the anterior aspect of the proximal one-third of the leg below the knee. This incision was carried all the way down to the fascia and the muscles. The tibia was transected 1-inch above the initial skin incision and the fibula 1 cm above this. The posterior muscle layers, were then transected with a knife. There were dense calcifications of arterial vessels. Bleeders were suture ligated with #1 Vicryl. Additional hemostasis was achieved with cautery. Following satisfactory hemostasis and the reshaping of the anterior aspect of the tibia and irrigation, the incision was closed with interrupted sutures of #1 Vicryl for the fascia. A Tin-Castro drain was left in the operative site. The skin was closed with moon. Compression dressing with Coban was applied over the stump. Posterior split was held in place to prevent contracture. The patient tolerated the procedure well. JOB# [id number]
--- NOTE | 2016-11-01 18:36 | Consultation ---
HISTORY OF PRESENT ILLNESS: This 71-year-old patient who has been on chronic hemodialysis for more than 5 years, on maintenance dialysis, Monday, and Monday, last dialyzed Monday and subsequently brought in here to the hospital because of a non-healing stump on the right lower extremity. Note, this patient had a transmetatarsal amputation, which was done somewhere in 07/25/2016, cared for at an extended care facility and was subsequently noted to have poor healing of the amputation stump and the same reason why the patient was brought in here to the hospital for further evaluation and treatment. This patient was evaluated multiple times at [facility] in the later part of 2015, where he had a history of femoral popliteal bypass that was done up at that hospital, which was not successful and did have multiple vascular workup in the past from November to July with angiographic studies done with stenosis of bilateral iliac and high grade stenosis at the long segment of the right superficial femoral on this patient. With these findings the patient was treated conservatively up to a point that he ended up for ischemic changes of the right lower extremity. PAST MEDICAL HISTORY: Previous chronic kidney failure 5 years duration, on dialysis; peripheral vascular disease, workup since 07/24 and the last amputation of this patient was on 09/15/2016, transmetatarsal; diabetes mellitus; hypertension; cerebrovascular accident with ____ no residual dysfunction; COPD with history of smoking actively in the presence cardiac disease with poor ejection fraction between 40% to 45%. PHYSICAL EXAMINATION: VITAL SIGNS: Temperature is 97.2, pulse rate of 72, 108/82 blood pressure, respiratory rate of 17, O2 sat of 98%. HEENT: Normocephalic, ____ tenderness, there is no evidence of external trauma. CHEST: Resonant. LUNG: Rodriguez normal parameters, no rales heard on auscultation. HEART: Regular sinus. ABDOMEN: Soft. Bowel sounds are present. No organ enlargement. EXTREMITIES: No edema, both lower extremities. There is a presence of re-amputation of the right lower extremity below the knee at the present time. IMPRESSION: 1.Chronic kidney disease, on maintenance hemodialysis, dialysis schedule is Monday, and Monday. He is scheduled for dialysis today postoperatively. 2.Status post amputation below the knee of the right lower extremity after failure of healing of the transmetatarsal amputation of the right lower extremity. 3.Diabetes mellitus. 4.Hypertension. 5.Chronic obstructive pulmonary disease with history of chronic smoking, active. PLAN: At this time, we will have to continue to manage ____ stump at this point whether healing is potential. He will probably need intensive physical therapy which we will try to consider placement for intensive physical therapy as an inpatient or outpatient, antibiotic coverage empirically at this time and maintenance hemodialysis will be continued and be done during his hospital course. [facility]# [id number]
[2016-11-01] MEDS: Morphine Sulfate 2 mg/mL 1mL Syr IVP PRN (20:27)
[2016-11-01] MEDS: Atorvastatin Calcium 10 MG TAB PO SCH (20:28)
[2016-11-01] MEDS: HYDROmorphone 1 mg/mL 1mL Syr IVP PRN (23:33)
--- NOTE | 2016-11-01 23:34 | Admit Criteria Form ---
Admit Criteria Forms - Admit Criteria Admit Criteria Met?: Yes
[2016-11-02] MEDS: Ipratropium Neb 0.5 mg/2.5 mL UD HHN SCH ×4 (03:48→19:25)
[2016-11-02] MEDS: NIFEdipine 30 mg ER Tab PO SCH ×2 (05:42→17:30)
[2016-11-02] MEDS: HYDROmorphone 1 mg/mL 1mL Syr IVP PRN ×2 (05:43→11:41)
[2016-11-02] MEDS: INSULIN ASPART SLIDING SCALE 100 UNITS/ML UNIT SUBQ SCH ×4 (06:50→23:40)
[2016-11-02 07:37] LABS: % BASOPHILS 0.5 % (0.0-2.0); % LYMPHOCYTES 21.8 % (20.0-50.0); % MONOCYTES 5.8 % (2.0-10.0); % NEUTROPHILS 69.9 % (40.0-80.0); HEMATOCRIT 27.5 % (39.0-49.0); HEMOGLOBIN 9.1 gm/dL (12.6-17.4); MEAN CELL VOLUME 87.5 fl (80-99); MEAN CORPUSCULAR HGB CONC 33.2 pg (28.0-36.0); MEAN PLATELET VOLUME 6.9 fl; NEUTROPHILE ABSOLUTE 7.2 Th/cmm (1.8-8.0); PLATELET COUNT 200 Th/cmm (150-400); RED BLOOD COUNT 3.15 Mil/cmm (3.80-5.80); RED CELL DISTRIBUTION WIDTH 17.2 % (11.5-20.0); WHITE BLOOD COUNT 10.4 Th/cmm (4.8-10.8)
[2016-11-02 07:39] LABS: ANION GAP 13.7 (7.0-16.0); CALCIUM SERUM 8.9 mg/dL (8.6-10.3); CARBON DIOXIDE 31.1 mEq/L (21.0-31.0); MAGNESIUM 1.9 mg/dL (1.9-2.7); POTASSIUM SERUM 3.8 mEq/L (3.5-5.1)
[2016-11-02 07:56] LABS: VANCOMYCIN RANDOM 10.8 ug/mL (5.0-40.0)
[2016-11-02] MEDS: Lactobacillus Rhamnosus 10 Billion CFU Capsule PO SCH (09:09)
[2016-11-02] MEDS: Aspirin 81mg Chewable Tab PO SCH (09:10)
[2016-11-02] MEDS: Vitamin B Complex w/Vitamin C Tab PO SCH (09:36)
--- NOTE | 2016-11-02 11:16 | General Progress Note ---
Subjective - Review of Systems Service Date: 11/02/16 Events since last encounter: POD # 1 labs ok vs stable pain control good PRASANTH drainage minimal change dressings in AM Subjective: labs not all in informed consent for right BKA discussed POA to sign consent Objective - Results Result Diagrams: 11/02/16 06:38 11/02/16 06:38 Recent Labs: Laboratory Last Values WBC 10.4 Th/cmm (4.8-10.8) 11/02/16 06:38 RBC 3.15 Mil/cmm (3.80-5.80) L 11/02/16 06:38 Hgb 9.1 gm/dL (12.6-17.4) L 11/02/16 06:38 Hct 27.5 % (39.0-49.0) L 11/02/16 06:38 MCV 87.5 fl (80-99) 11/02/16 06:38 MCH 29.0 pg (27.0-31.0) 11/02/16 06:38 MCHC Differential 33.2 pg (28.0-36.0) 11/02/16 06:38 RDW 17.2 % (11.5-20.0) 11/02/16 06:38 Plt Count 200 Th/cmm (150-400) 11/02/16 06:38 MPV 6.9 fl 11/02/16 06:38 Neutrophils % 69.9 % (40.0-80.0) 11/02/16 06:38 Lymphocytes % 21.8 % (20.0-50.0) 11/02/16 06:38 Monocytes % 5.8 % (2.0-10.0) 11/02/16 06:38 Eosinophils % 2.0 % (0.0-5.0) 11/02/16 06:38 Basophils % 0.5 % (0.0-2.0) 11/02/16 06:38 PT 9.7 SECONDS (9.5-11.5) 10/31/16 22:23 INR 0.98 (0.5-1.4) 10/31/16 22:23 PTT (Actin FS) 31.0 SECONDS (26.0-38.0) 10/31/16 22:23 Sodium 140 mEq/L (136-145) 11/02/16 06:38 Potassium 3.8 mEq/L (3.5-5.1) 11/02/16 06:38 Chloride 99 mEq/L (98-107) 11/02/16 06:38 Carbon Dioxide 31.1 mEq/L (21.0-31.0) H 11/02/16 06:38 Anion Gap 13.7 (7.0-16.0) 11/02/16 06:38 BUN 24 mg/dL (7-25) 11/02/16 06:38 Creatinine 6.0 mg/dL (0.7-1.3) H* 11/02/16 06:38 Est GFR ( Amer) 12.1 ml/min (>90) 11/02/16 06:38 Est GFR (Non-Af Amer) 10.0 ml/min 11/02/16 06:38 BUN/Creatinine Ratio 4.0 11/02/16 06:38 Glucose 85 mg/dL (70-105) 11/02/16 06:38 POC Glucose 91 MG/DL (70 - 105) 11/02/16 06:47 Hemoglobin A1c % 5.2 % (4.0-6.0) 10/31/16 22:23 Calcium 8.9 mg/dL (8.6-10.3) 11/02/16 06:38 Magnesium 1.9 mg/dL (1.9-2.7) 11/02/16 06:38 Total Bilirubin 0.4 mg/dL (0.3-1.0) 11/01/16 05:55 AST 23 U/L (13-39) 11/01/16 05:55 ALT 28 U/L (7-52) 11/01/16 05:55 Alkaline Phosphatase 71 U/L (34-104) 11/01/16 05:55 Total Protein 6.6 gm/dL (6.0-8.3) 11/01/16 05:55 Albumin 3.0 gm/dL (4.2-5.5) L 11/01/16 05:55 Globulin 3.6 gm/dL 11/01/16 05:55 Albumin/Globulin Ratio 0.8 (1.0-1.8) L 11/01/16 05:55 Random Vancomycin 10.8 ug/mL (5.0-40.0) 11/02/16 06:38 - Physical Exam Vitals and I&O: Vital Signs Temp 98.8 F 11/02/16 08:00 Pulse 92 11/02/16 09:10 Resp 20 11/02/16 08:06 BP 154/79 11/02/16 09:10 Pulse Ox 97 11/02/16 08:06 Active Medications: Current Medications Acetaminophen (Tylenol) 650 mg PO Q6HR PRN PRN Reason: MILD PAIN Stop: 12/30/16 17:59 Last Admin: 11/01/16 04:31 Dose: 650 mg Acetaminophen/Hydrocodone Bitart ([place] 10 Mg/325 Mg) 1 tab PO Q4H PRN PRN Reason: Severe Pain Stop: 12/30/16 16:17 Last Admin: 11/01/16 15:05 Dose: 1 tab Acetaminophen/Hydrocodone Bitart ([place] 5mg/325mg) 1 tab PO Q6H PRN PRN Reason: Pain (Moderate) Stop: 12/30/16 16:17 Ascorbic Acid (Vitamin C) 500 mg PO DAILY [facility] Stop: 12/31/16 08:59 Last Admin: 11/02/16 09:09 Dose: 500 mg Aspirin (Aspirin Chewable) 81 mg PO DAILY [facility] Stop: 12/31/16 08:59 Last Admin: 11/02/16 09:10 Dose: 81 mg Atorvastatin Calcium (Lipitor) 10 mg PO HS [facility] PRN Reason: Protocol Stop: 12/30/16 20:59 Last Admin: 11/01/16 20:28 Dose: 10 mg Bisacodyl (Dulcolax 10 Mg Supp) 10 mg RC DAILY PRN PRN Reason: Constipation Stop: 12/30/16 16:17 Carvedilol (Coreg) 3.125 mg PO BID [facility] Stop: 12/30/16 16:59 Last Admin: 11/02/16 09:10 Dose: 3.125 mg Clonidine HCl (Catapres) 0.1 mg PO Q6HR PRN PRN Reason: SBP >160 Stop: 12/30/16 21:42 Clopidogrel Bisulfate (Plavix) 75 mg PO DAILY [facility] Stop: 12/31/16 08:59 Last Admin: 11/02/16 09:09 Dose: 75 mg Docusate Sodium (Colace) 250 mg PO BID [facility] Stop: 12/30/16 16:59 Last Admin: 11/02/16 09:09 Dose: 250 mg Epoetin Kike (Epogen) 10,000 units SUBQ QFRI [facility] Stop: 01/03/17 14:59 Gabapentin (Neurontin) 300 mg PO Q8H [facility] Stop: 12/30/16 15:59 Last Admin: 11/02/16 09:09 Dose: 300 mg Hydralazine HCl (Apresoline) 10 mg PO Q6H PRN PRN Reason: SBP ABOVE 160 Stop: 12/30/16 16:17 Last Admin: 10/31/16 21:57 Dose: 10 mg Hydralazine HCl (Apresoline) 25 mg PO Q12H [facility] Stop: 12/30/16 16:59 Last Admin: 11/02/16 05:43 Dose: 25 mg Hydromorphone HCl (Dilaudid) 1 mg IVP Q6HR PRN PRN Reason: Pain (Severe) Stop: 12/31/16 16:07 Last Admin: 11/02/16 05:43 Dose: 1 mg Piperacillin Sod/Tazobactam (Sod 2.25 gm/ Sodium Chloride) 50 mls @ 100 mls/hr IV Q8HR [facility] Stop: 12/31/16 12:59 Vancomycin HCl 1.25 gm/ Sodium (Chloride) 250 mls @ 165 mls/hr IV ONCE ONE Stop: 11/02/16 11:30 Last Admin: 11/02/16 10:20 Dose: 165 mls/hr Insulin Aspart (Novolog Insulin Sliding Scale) 0 units SUBQ ACHS [facility] PRN Reason: Protocol Stop: 12/30/16 16:29 Last Admin: 11/02/16 06:50 Dose: Not Given Ipratropium [place] (Atrovent Neb 0.5mg/2.5ml) 0.5 mg HHN Q6HRT [facility] Stop: 12/30/16 18:59 Last Admin: 11/02/16 08:05 Dose: 0.5 mg Lactobacillus Rhamnosus (Culturelle) 1 each PO DAILY [facility] Stop: 12/31/16 08:59 Last Admin: 11/02/16 09:09 Dose: 1 each Lactulose (Cephulac) 30 gm PO DAILY PRN PRN Reason: Constipation Stop: 12/30/16 16:59 Linezolid (Zyvox) 600 mg PO BID [facility] Stop: 12/30/16 16:59 Last Admin: 11/02/16 09:09 Dose: 600 mg Lisinopril (Zestril) 20 mg PO BID [facility] Stop: 12/30/16 16:59 Last Admin: 11/02/16 09:10 Dose: 20 mg Lorazepam (Ativan) 1 mg PO Q12HR PRN; Protocol PRN Reason: Anxiety Stop: 12/30/16 16:17 Miscellaneous (Vancomycin Iv Per Pharmacy) 1 ea [facility] PRN PRN PRN Reason: VANCOMYCIN Stop: 12/31/16 09:35 Morphine Sulfate (Morphine) 1 mg IVP Q3HR PRN PRN Reason: Pain (Moderate) Stop: 12/31/16 16:05 Last Admin: 11/01/16 20:27 Dose: 1 mg Nifedipine (Procardia Xl) 60 mg PO Q12H [facility] Stop: 12/30/16 16:59 Last Admin: 11/02/16 05:42 Dose: 60 mg Sevelamer HCl (Renagel) 800 mg PO TID [facility] Stop: 12/31/16 09:59 Last Admin: 11/02/16 09:09 Dose: 800 mg Vitamin B Complex/Vit C/Folic Acid (Vitamin B Complex W/Vitamin C) 1 tab PO DAILY [facility] Stop: 12/31/16 08:59 Zinc Sulfate (Zinc Sulfate) 220 mg PO DAILY [facility] Stop: 12/31/16 08:59 Last Admin: 11/02/16 09:09 Dose: 220 mg - Procedures Procedures: Procedures Procedure Code Date AMPUTATION OF FOOT AT ANKLE 28457 09/15/16 AMPUTATION THRU METATARSAL 38178 07/22/16 BYPASS L AXILLA VEIN TO UP VEIN W SYNTH SUB, OPEN [id number] 07/22/16 DETACHMENT AT RIGHT FOOT, COMPLETE, OPEN APPROACH [id number] 09/15/16 DETACHMENT AT RIGHT FOOT, PARTIAL 2ND RAY, OPEN APPROACH [id number] 07/22/16 DETACHMENT AT RIGHT FOOT, PARTIAL 3RD RAY, OPEN APPROACH [id number] 07/22/16 DETACHMENT AT RIGHT FOOT, PARTIAL 4TH RAY, OPEN APPROACH [id number] 07/22/16 DETACHMENT AT RIGHT FOOT, PARTIAL 5TH RAY, OPEN APPROACH [id number] 07/22/16 EXTIRPATION OF MATTER FROM LEFT AXILLARY VEIN, OPEN APPROACH [id number] 07/22/16 HEMODIALYSIS 39.95 07/31/12 HEMODIALYSIS REPEATED EVAL 93047 07/22/16 INSERT TUNNELED CV CATH 30251 07/22/16 INSERTION OF INFUSION DEV INTO R SUBCLAV VEIN, PERC APPROACH [id number] 07/22/16 INSERTION OF INFUSION DEV INTO SUP VENA CAVA, PERC APPROACH [id number] 07/22/16 OPEN THROMBECT AV FISTULA 64842 07/22/16 PERFORMANCE OF URINARY FILTRATION, MULTIPLE [id number] 09/15/16 ULTRASONOGRAPHY OF RIGHT SUBCLAVIAN VEIN, GUIDANCE [id number] 07/22/16 ULTRASONOGRAPHY OF SUPERIOR VENA CAVA, GUIDANCE [id number] 07/22/16 US GUIDE VASCULAR ACCESS [id number] 07/22/16 Assessment/Plan - Problem List Patient Problems: All Active Problems Clotted dialysis access (Acute) T82.49XA Hypotension (Acute) clotted access (Acute) clotted access (Acute) reamputation of the right leg above the (Acute) resolved hypotensionn0 (Acute) transmetatarsal amputation right foot (Acute) Nutritional Asmnt/Malnutr-PDOC - Dietary Evaluation Malnutrition Findings (Please click <Entered> for more info): Nutritional Asmnt/Malnutrition Start: 11/01/16 12: 46 Text: Status: Complete Freq: Document 11/01/16 12:46 GSUN (Rec: 11/01/16 12:52 GSUN [id number]) Nutritional Asmnt/Malnutrition Patient General Information Nutritional Screening Consult Diagnosis Failed right-sided amputation Pertinent Medical Hx/Surgical Hx Severe PAD, ESRD, CKD on HD, DM, HTN, COPD Subjective Information 71 year old male on HD. RD consult for wound. 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 Discussed with Dr. Sampson regarding diet recommendations . Current Diet Order/ Nutrition Support Renal, 1 Arginaid, 1 Prosource Pertinent Medications Vitamin C, Lipitor, Dulcolax, Catapres, Colace, Epogen, Novolog sliding scale, Culturelle, Cephulac, Vancomycin, Renagel, Vitamin B Complex W/Vitamin C, Zinc Sulfate Pertinent Labs 10/31: A1c 5.2, glucose 117H, BUN 35H, creatomome 7.9H 11/01: BUN 37H, creatinine 8.4H , potassium 4.1 Nutritional Hx/Data Height 1.75 m Height (Calculated Centimeters) 175.3 Current Weight (lbs) 71.214 kg Weight (Calculated Kilograms) 71.2 Weight (Calculated Grams) 53063.0 [place] Body Weight 160lb Weight Status Approriate GI Symptoms Cultural/Ethnic/Sikhism Belief Unknown. Usual diet at home Unknown. Skin Integrity/Comment: Marco Reyes. nurse practitioner home assessments: left food decubitus ulcer, right foot amputation Estimated Nutritional Goals BEE in Kcals: Using Current wt Calories/Kcals/Kg 25-30kcal/kg Kcals Calculated 1780-2136kcal Protein: Using Current wt Protein g/k.2-1.6g/kg Protein Calculated 85-114g Fluid: ml Per MD (on HD) Nutritional Problem 2. Problem Problem Impaired nutrient utilization related to Etiology renal dysfunction aeb Signs/Symptoms: BUN 37H, creatinine 8.4H, HD dependent 1. Problem Problem Increased protein needs related to Etiology hypermetabolic stated aeb Signs/Symptoms: on HD, R BKA, left foot ulceration Intervention/Recommendation Comments 1. Recommend Renal diet to aid in renal dysfunction. 2. Recommend 1 Prosource and 1 Arginaid to aid in wound healing. Expected Outcomes/Goals Expected Outcomes/Goals 1. PO intake to meet 100% of estimated nutritional needs. 2. Improved skin integrity. Physician Parameters for PEM Serum Albumin (g/dl) 2.4 - 3.0 (Moderate)
--- NOTE | 2016-11-02 14:45 | General Progress Note ---
Subjective - Review of Systems Service Date: 11/02/16 (complaining of pain of the right leg stump) Events since last encounter: healing Objective - Results Result Diagrams: 11/02/16 06:38 11/02/16 06:38 Recent Labs: Laboratory Last Values WBC 10.4 Th/cmm (4.8-10.8) 11/02/16 06:38 RBC 3.15 Mil/cmm (3.80-5.80) L 11/02/16 06:38 Hgb 9.1 gm/dL (12.6-17.4) L 11/02/16 06:38 Hct 27.5 % (39.0-49.0) L 11/02/16 06:38 MCV 87.5 fl (80-99) 11/02/16 06:38 MCH 29.0 pg (27.0-31.0) 11/02/16 06:38 MCHC Differential 33.2 pg (28.0-36.0) 11/02/16 06:38 RDW 17.2 % (11.5-20.0) 11/02/16 06:38 Plt Count 200 Th/cmm (150-400) 11/02/16 06:38 MPV 6.9 fl 11/02/16 06:38 Neutrophils % 69.9 % (40.0-80.0) 11/02/16 06:38 Lymphocytes % 21.8 % (20.0-50.0) 11/02/16 06:38 Monocytes % 5.8 % (2.0-10.0) 11/02/16 06:38 Eosinophils % 2.0 % (0.0-5.0) 11/02/16 06:38 Basophils % 0.5 % (0.0-2.0) 11/02/16 06:38 PT 9.7 SECONDS (9.5-11.5) 10/31/16 22:23 INR 0.98 (0.5-1.4) 10/31/16 22:23 PTT (Actin FS) 31.0 SECONDS (26.0-38.0) 10/31/16 22:23 Sodium 140 mEq/L (136-145) 11/02/16 06:38 Potassium 3.8 mEq/L (3.5-5.1) 11/02/16 06:38 Chloride 99 mEq/L (98-107) 11/02/16 06:38 Carbon Dioxide 31.1 mEq/L (21.0-31.0) H 11/02/16 06:38 Anion Gap 13.7 (7.0-16.0) 11/02/16 06:38 BUN 24 mg/dL (7-25) 11/02/16 06:38 Creatinine 6.0 mg/dL (0.7-1.3) H* 11/02/16 06:38 Est GFR ( Amer) 12.1 ml/min (>90) 11/02/16 06:38 Est GFR (Non-Af Amer) 10.0 ml/min 11/02/16 06:38 BUN/Creatinine Ratio 4.0 11/02/16 06:38 Glucose 85 mg/dL (70-105) 11/02/16 06:38 POC Glucose 116 MG/DL (70 - 105) H 11/02/16 12:31 Hemoglobin A1c % 5.2 % (4.0-6.0) 10/31/16 22:23 Calcium 8.9 mg/dL (8.6-10.3) 11/02/16 06:38 Magnesium 1.9 mg/dL (1.9-2.7) 11/02/16 06:38 Total Bilirubin 0.4 mg/dL (0.3-1.0) 11/01/16 05:55 AST 23 U/L (13-39) 11/01/16 05:55 ALT 28 U/L (7-52) 11/01/16 05:55 Alkaline Phosphatase 71 U/L (34-104) 11/01/16 05:55 Total Protein 6.6 gm/dL (6.0-8.3) 11/01/16 05:55 Albumin 3.0 gm/dL (4.2-5.5) L 11/01/16 05:55 Globulin 3.6 gm/dL 11/01/16 05:55 Albumin/Globulin Ratio 0.8 (1.0-1.8) L 11/01/16 05:55 Random Vancomycin 10.8 ug/mL (5.0-40.0) 11/02/16 06:38 - Physical Exam Vitals and I&O: Vital Signs Temp 98.8 F 11/02/16 08:00 Pulse 92 11/02/16 12:18 Resp 20 11/02/16 12:18 BP 154/79 11/02/16 09:10 Pulse Ox 97 11/02/16 12:18 Active Medications: Current Medications Acetaminophen (Tylenol) 650 mg PO Q6HR PRN PRN Reason: MILD PAIN Stop: 12/30/16 17:59 Last Admin: 11/01/16 04:31 Dose: 650 mg Acetaminophen/Hydrocodone Bitart ([place] 10 Mg/325 Mg) 1 tab PO Q4H PRN PRN Reason: Severe Pain Stop: 12/30/16 16:17 Last Admin: 11/01/16 15:05 Dose: 1 tab Acetaminophen/Hydrocodone Bitart ([place] 5mg/325mg) 1 tab PO Q6H PRN PRN Reason: Pain (Moderate) Stop: 12/30/16 16:17 Ascorbic Acid (Vitamin C) 500 mg PO DAILY [facility] Stop: 12/31/16 08:59 Last Admin: 11/02/16 09:09 Dose: 500 mg Aspirin (Aspirin Chewable) 81 mg PO DAILY [facility] Stop: 12/31/16 08:59 Last Admin: 11/02/16 09:10 Dose: 81 mg Atorvastatin Calcium (Lipitor) 10 mg PO HS [facility] PRN Reason: Protocol Stop: 12/30/16 20:59 Last Admin: 11/01/16 20:28 Dose: 10 mg Bisacodyl (Dulcolax 10 Mg Supp) 10 mg RC DAILY PRN PRN Reason: Constipation Stop: 12/30/16 16:17 Carvedilol (Coreg) 3.125 mg PO BID [facility] Stop: 12/30/16 16:59 Last Admin: 11/02/16 09:10 Dose: 3.125 mg Clonidine HCl (Catapres) 0.1 mg PO Q6HR PRN PRN Reason: SBP >160 Stop: 12/30/16 21:42 Clopidogrel Bisulfate (Plavix) 75 mg PO DAILY [facility] Stop: 12/31/16 08:59 Last Admin: 11/02/16 09:09 Dose: 75 mg Docusate Sodium (Colace) 250 mg PO BID [facility] Stop: 12/30/16 16:59 Last Admin: 11/02/16 09:09 Dose: 250 mg Epoetin Kike (Epogen) 10,000 units SUBQ QFRI [facility] Stop: 01/03/17 14:59 Gabapentin (Neurontin) 300 mg PO Q8H [facility] Stop: 12/30/16 15:59 Last Admin: 11/02/16 09:09 Dose: 300 mg Hydralazine HCl (Apresoline) 10 mg PO Q6H PRN PRN Reason: SBP ABOVE 160 Stop: 12/30/16 16:17 Last Admin: 10/31/16 21:57 Dose: 10 mg Hydralazine HCl (Apresoline) 25 mg PO Q12H [facility] Stop: 12/30/16 16:59 Last Admin: 11/02/16 05:43 Dose: 25 mg Hydromorphone HCl (Dilaudid) 1 mg IVP Q6HR PRN PRN Reason: Pain (Severe) Stop: 12/31/16 16:07 Last Admin: 11/02/16 11:41 Dose: 1 mg Piperacillin Sod/Tazobactam (Sod 2.25 gm/ Sodium Chloride) 50 mls @ 100 mls/hr IV Q8HR [facility] Stop: 12/31/16 12:59 Last Admin: 11/02/16 14:09 Dose: 100 mls/hr Insulin Aspart (Novolog Insulin Sliding Scale) 0 units SUBQ ACHS [facility] PRN Reason: Protocol Stop: 12/30/16 16:29 Last Admin: 11/02/16 06:50 Dose: Not Given Ipratropium [place] (Atrovent Neb 0.5mg/2.5ml) 0.5 mg HHN Q6HRT [facility] Stop: 12/30/16 18:59 Last Admin: 11/02/16 12:18 Dose: Not Given Lactobacillus Rhamnosus (Culturelle) 1 each PO DAILY [facility] Stop: 12/31/16 08:59 Last Admin: 11/02/16 09:09 Dose: 1 each Lactulose (Cephulac) 30 gm PO DAILY PRN PRN Reason: Constipation Stop: 12/30/16 16:59 Linezolid (Zyvox) 600 mg PO BID [facility] Stop: 12/30/16 16:59 Last Admin: 11/02/16 09:09 Dose: 600 mg Lisinopril (Zestril) 20 mg PO BID [facility] Stop: 12/30/16 16:59 Last Admin: 11/02/16 09:10 Dose: 20 mg Lorazepam (Ativan) 1 mg PO Q12HR PRN; Protocol PRN Reason: Anxiety Stop: 12/30/16 16:17 Miscellaneous (Vancomycin Iv Per Pharmacy) 1 ea MC PRN PRN PRN Reason: VANCOMYCIN Stop: 12/31/16 09:35 Morphine Sulfate (Morphine) 1 mg IVP Q3HR PRN PRN Reason: Pain (Moderate) Stop: 12/31/16 16:05 Last Admin: 11/01/16 20:27 Dose: 1 mg Nifedipine (Procardia Xl) 60 mg PO Q12H [facility] Stop: 12/30/16 16:59 Last Admin: 11/02/16 05:42 Dose: 60 mg Sevelamer HCl (Renagel) 800 mg PO TID [facility] Stop: 12/31/16 09:59 Last Admin: 11/02/16 09:09 Dose: 800 mg Vitamin B Complex/Vit C/Folic Acid (Vitamin B Complex W/Vitamin C) 1 tab PO DAILY [facility] Stop: 12/31/16 08:59 Zinc Sulfate (Zinc Sulfate) 220 mg PO DAILY [facility] Stop: 12/31/16 08:59 Last Admin: 11/02/16 09:09 Dose: 220 mg General: Alert, Oriented x3, Cooperative, Mild distress HEENT: Atraumatic Neck: Supple Cardiovascular: Regular rate Lungs: Clear to auscultation - Procedures Procedures: Procedures Procedure Code Date AMPUTATION FOLLOW-UP SURGERY 06177 10/31/16 AMPUTATION OF FOOT AT ANKLE 04686 09/15/16 AMPUTATION THRU METATARSAL 32778 07/22/16 BYPASS L AXILLA VEIN TO UP VEIN W SYNTH SUB, OPEN [id number] 07/22/16 DETACHMENT AT RIGHT FOOT, COMPLETE, OPEN APPROACH [id number] 09/15/16 DETACHMENT AT RIGHT FOOT, PARTIAL 2ND RAY, OPEN APPROACH [id number] 07/22/16 DETACHMENT AT RIGHT FOOT, PARTIAL 3RD RAY, OPEN APPROACH [id number] 07/22/16 DETACHMENT AT RIGHT FOOT, PARTIAL 4TH RAY, OPEN APPROACH [id number] 07/22/16 DETACHMENT AT RIGHT FOOT, PARTIAL 5TH RAY, OPEN APPROACH [id number] 07/22/16 DETACHMENT AT RIGHT LOWER LEG, HIGH, OPEN APPROACH [id number] 10/31/16 EXTIRPATION OF MATTER FROM LEFT AXILLARY VEIN, OPEN APPROACH [id number] 07/22/16 HEMODIALYSIS 39.95 07/31/12 HEMODIALYSIS REPEATED EVAL 07195 07/22/16 INSERT TUNNELED CV CATH 58363 07/22/16 INSERTION OF INFUSION DEV INTO R SUBCLAV VEIN, PERC APPROACH [id number] 07/22/16 INSERTION OF INFUSION DEV INTO SUP VENA CAVA, PERC APPROACH [id number] 07/22/16 OPEN THROMBECT AV FISTULA 51411 07/22/16 PERFORMANCE OF URINARY FILTRATION, MULTIPLE [id number] 09/15/16 ULTRASONOGRAPHY OF RIGHT SUBCLAVIAN VEIN, GUIDANCE [id number] 07/22/16 ULTRASONOGRAPHY OF SUPERIOR VENA CAVA, GUIDANCE [id number] 07/22/16 US GUIDE VASCULAR ACCESS [id number] 07/22/16 Assessment/Plan - Problem List Patient Problems: All Active Problems Clotted dialysis access (Acute) T82.49XA Hypotension (Acute) clotted access (Acute) clotted access (Acute) reamputation of the right leg above the (Acute) resolved hypotensionn0 (Acute) transmetatarsal amputation right foot (Acute) - Assessment Assessment: hemodialysis tomorrow Nutritional Asmnt/Malnutr-PDOC - Dietary Evaluation Malnutrition Findings (Please click <Entered> for more info): Nutritional Asmnt/Malnutrition Start: 11/01/16 12: 46 Text: Status: Complete Freq: Document 11/01/16 12:46 GSUN (Rec: 11/01/16 12:52 GSUN [email or web address]) Nutritional Asmnt/Malnutrition Patient General Information Nutritional Screening Consult Diagnosis Failed right-sided amputation Pertinent Medical Hx/Surgical Hx Severe PAD, ESRD, CKD on HD, DM, HTN, COPD Subjective Information 71 year old male on HD. RD consult for wound. 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 Discussed with Dr. Sampson regarding diet recommendations . Current Diet Order/ Nutrition Support Renal, 1 Arginaid, 1 Prosource Pertinent Medications Vitamin C, Lipitor, Dulcolax, Catapres, Colace, Epogen, Novolog sliding scale, Culturelle, Cephulac, Vancomycin, Renagel, Vitamin B Complex W/Vitamin C, Zinc Sulfate Pertinent Labs 10/31: A1c 5.2, glucose 117H, BUN 35H, creatomome 7.9H 11/01: BUN 37H, creatinine 8.4H , potassium 4.1 Nutritional Hx/Data Height 1.75 m Height (Calculated Centimeters) 175.3 Current Weight (lbs) 71.214 kg Weight (Calculated Kilograms) 71.2 Weight (Calculated Grams) 17196.0 [place] Body Weight 160lb Weight Status Approriate GI Symptoms Cultural/Ethnic/Advent Belief Unknown. Usual diet at home Unknown. Skin Integrity/Comment: Marco Reyes. glory hole tender: left food decubitus ulcer, right foot amputation Estimated Nutritional Goals BEE in Kcals: Using Current wt Calories/Kcals/Kg 25-30kcal/kg Kcals Calculated 1780-2136kcal Protein: Using Current wt Protein g/k.2-1.6g/kg Protein Calculated 85-114g Fluid: ml Per MD (on HD) Nutritional Problem 2. Problem Problem Impaired nutrient utilization related to Etiology renal dysfunction aeb Signs/Symptoms: BUN 37H, creatinine 8.4H, HD dependent 1. Problem Problem Increased protein needs related to Etiology hypermetabolic stated aeb Signs/Symptoms: on HD, R BKA, left foot ulceration Intervention/Recommendation Comments 1. Recommend Renal diet to aid in renal dysfunction. 2. Recommend 1 Prosource and 1 Arginaid to aid in wound healing. Expected Outcomes/Goals Expected Outcomes/Goals 1. PO intake to meet 100% of estimated nutritional needs. 2. Improved skin integrity. Physician Parameters for PEM Serum Albumin (g/dl) 2.4 - 3.0 (Moderate)
[2016-11-02] MEDS: Hydrocodone/APAP 10 mg/325 mg Tab PO PRN (17:29)
[2016-11-02] MEDS: Atorvastatin Calcium 10 MG TAB PO SCH (20:10)
[2016-11-03] MEDS: Ipratropium Neb 0.5 mg/2.5 mL UD HHN SCH ×4 (00:44→19:26)
[2016-11-03] MEDS: HYDROmorphone 1 mg/mL 1mL Syr IVP PRN ×4 (01:10→20:55)
[2016-11-03] MEDS: NIFEdipine 30 mg ER Tab PO SCH ×2 (05:20→17:39)
[2016-11-03 07:12] LABS: % BASOPHILS 0.2 % (0.0-2.0); % EOSINOPHILS 1.8 % (0.0-5.0); % LYMPHOCYTES 20.6 % (20.0-50.0); % MONOCYTES 8.1 % (2.0-10.0); % NEUTROPHILS 69.3 % (40.0-80.0); HEMOGLOBIN 8.6 gm/dL (12.6-17.4); MEAN CELL VOLUME 87.7 fl (80-99); MEAN CORPUSCULAR HEMOGLOBIN 29.1 pg (27.0-31.0); MEAN CORPUSCULAR HGB CONC 33.2 pg (28.0-36.0); MEAN PLATELET VOLUME 7.2 fl; NEUTROPHILE ABSOLUTE 8.1 Th/cmm (1.8-8.0); PLATELET COUNT 182 Th/cmm (150-400); RED BLOOD COUNT 2.96 Mil/cmm (3.80-5.80); RED CELL DISTRIBUTION WIDTH 16.7 % (11.5-20.0); WHITE BLOOD COUNT 11.6 Th/cmm (4.8-10.8)
[2016-11-03 07:25] LABS: ANION GAP 16.8 (7.0-16.0); BUN/CREATININE RATIO 4.2; CARBON DIOXIDE 29.6 mEq/L (21.0-31.0); POTASSIUM SERUM 4.4 mEq/L (3.5-5.1)
[2016-11-03 07:39] LABS: CREATININE - SERUM 7.9 mg/dL (0.7-1.3)
[2016-11-03] MEDS: INSULIN ASPART SLIDING SCALE 100 UNITS/ML UNIT SUBQ SCH ×4 (07:40→21:25)
[2016-11-03] MEDS: Lactobacillus Rhamnosus 10 Billion CFU Capsule PO SCH (08:56)
[2016-11-03] MEDS: Aspirin 81mg Chewable Tab PO SCH (08:57)
--- NOTE | 2016-11-03 13:58 | General Progress Note ---
Subjective - Review of Systems Service Date: 11/03/16 Events since last encounter: redressed, PRASANTH drain out stump healing appears good start PT Subjective: labs not all in informed consent for right BKA discussed POA to sign consent Objective - Results Result Diagrams: 11/03/16 06:30 11/03/16 06:30 Recent Labs: Laboratory Last Values WBC 11.6 Th/cmm (4.8-10.8) H 11/03/16 06:30 RBC 2.96 Mil/cmm (3.80-5.80) L 11/03/16 06:30 Hgb 8.6 gm/dL (12.6-17.4) L 11/03/16 06:30 Hct 26.0 % (39.0-49.0) L 11/03/16 06:30 MCV 87.7 fl (80-99) 11/03/16 06:30 MCH 29.1 pg (27.0-31.0) 11/03/16 06:30 MCHC Differential 33.2 pg (28.0-36.0) 11/03/16 06:30 RDW 16.7 % (11.5-20.0) 11/03/16 06:30 Plt Count 182 Th/cmm (150-400) 11/03/16 06:30 MPV 7.2 fl 11/03/16 06:30 Neutrophils % 69.3 % (40.0-80.0) 11/03/16 06:30 Lymphocytes % 20.6 % (20.0-50.0) 11/03/16 06:30 Monocytes % 8.1 % (2.0-10.0) 11/03/16 06:30 Eosinophils % 1.8 % (0.0-5.0) 11/03/16 06:30 Basophils % 0.2 % (0.0-2.0) 11/03/16 06:30 PT 9.7 SECONDS (9.5-11.5) 10/31/16 22:23 INR 0.98 (0.5-1.4) 10/31/16 22:23 PTT (Actin FS) 31.0 SECONDS (26.0-38.0) 10/31/16 22:23 Sodium 141 mEq/L (136-145) 11/03/16 06:30 Potassium 4.4 mEq/L (3.5-5.1) 11/03/16 06:30 Chloride 99 mEq/L (98-107) 11/03/16 06:30 Carbon Dioxide 29.6 mEq/L (21.0-31.0) 11/03/16 06:30 Anion Gap 16.8 (7.0-16.0) H 11/03/16 06:30 BUN 33 mg/dL (7-25) H 11/03/16 06:30 Creatinine 7.9 mg/dL (0.7-1.3) H* 11/03/16 06:30 Est GFR ( Amer) 8.8 ml/min (>90) 11/03/16 06:30 Est GFR (Non-Af Amer) 7.3 ml/min 11/03/16 06:30 BUN/Creatinine Ratio 4.2 11/03/16 06:30 Glucose 105 mg/dL (70-105) 11/03/16 06:30 POC Glucose 140 MG/DL (70 - 105) H 11/03/16 11:59 Hemoglobin A1c % 5.2 % (4.0-6.0) 10/31/16 22:23 Calcium 9.0 mg/dL (8.6-10.3) 11/03/16 06:30 Magnesium 1.9 mg/dL (1.9-2.7) 11/02/16 06:38 Total Bilirubin 0.4 mg/dL (0.3-1.0) 11/01/16 05:55 AST 23 U/L (13-39) 11/01/16 05:55 ALT 28 U/L (7-52) 11/01/16 05:55 Alkaline Phosphatase 71 U/L (34-104) 11/01/16 05:55 Total Protein 6.6 gm/dL (6.0-8.3) 11/01/16 05:55 Albumin 3.0 gm/dL (4.2-5.5) L 11/01/16 05:55 Globulin 3.6 gm/dL 11/01/16 05:55 Albumin/Globulin Ratio 0.8 (1.0-1.8) L 11/01/16 05:55 Random Vancomycin 10.8 ug/mL (5.0-40.0) 11/02/16 06:38 - Physical Exam Vitals and I&O: Vital Signs Temp 99.7 F 11/03/16 11:44 Pulse 93 11/03/16 13:36 Resp 18 11/03/16 13:36 BP 155/81 11/03/16 11:44 Pulse Ox 95 11/03/16 13:36 Intake & Output 11/02/16 11/03/16 11/03/16 18:59 06:59 18:59 Intake Total 1020 200 100 Output Total 20 Balance 1000 200 100 Intake: Intake, IV Amount 300 50 Piperacillin Sodium/ 50 50 Tazobact 2.25 gm In Sodium Chloride 0.9% 50 ml @ 100 mls/hr IV Q8HR [facility] Rx#:[id number] Oral 720 150 100 Output: Other 20 Other: # Voids 0 3 # Bowel Movements 1 1 Active Medications: Current Medications Acetaminophen (Tylenol) 650 mg PO Q6HR PRN PRN Reason: MILD PAIN Stop: 12/30/16 17:59 Last Admin: 11/02/16 20:16 Dose: 650 mg Acetaminophen/Hydrocodone Bitart ([place] 10 Mg/325 Mg) 1 tab PO Q4H PRN PRN Reason: Severe Pain Stop: 12/30/16 16:17 Last Admin: 11/02/16 17:29 Dose: 1 tab Acetaminophen/Hydrocodone Bitart ([place] 5mg/325mg) 1 tab PO Q6H PRN PRN Reason: Pain (Moderate) Stop: 12/30/16 16:17 Ascorbic Acid (Vitamin C) 500 mg PO DAILY [facility] Stop: 12/31/16 08:59 Last Admin: 11/03/16 08:58 Dose: 500 mg Aspirin (Aspirin Chewable) 81 mg PO DAILY [facility] Stop: 12/31/16 08:59 Last Admin: 11/03/16 08:57 Dose: 81 mg Atorvastatin Calcium (Lipitor) 10 mg PO HS [facility] PRN Reason: Protocol Stop: 12/30/16 20:59 Last Admin: 11/02/16 20:10 Dose: 10 mg Bisacodyl (Dulcolax 10 Mg Supp) 10 mg RC DAILY PRN PRN Reason: Constipation Stop: 12/30/16 16:17 Carvedilol (Coreg) 3.125 mg PO BID [facility] Stop: 12/30/16 16:59 Last Admin: 11/03/16 08:58 Dose: Not Given Clonidine HCl (Catapres) 0.1 mg PO Q6HR PRN PRN Reason: SBP >160 Stop: 12/30/16 21:42 Clopidogrel Bisulfate (Plavix) 75 mg PO DAILY [facility] Stop: 12/31/16 08:59 Last Admin: 11/03/16 08:56 Dose: 75 mg Docusate Sodium (Colace) 250 mg PO BID [facility] Stop: 12/30/16 16:59 Last Admin: 11/02/16 17:29 Dose: 250 mg Epoetin [place] (Epogen) 10,000 units SUBQ QFRI [facility] Stop: 01/03/17 14:59 Gabapentin (Neurontin) 300 mg PO Q8H [facility] Stop: 12/30/16 15:59 Last Admin: 11/03/16 08:57 Dose: 300 mg Hydralazine HCl (Apresoline) 10 mg PO Q6H PRN PRN Reason: SBP ABOVE 160 Stop: 12/30/16 16:17 Last Admin: 10/31/16 21:57 Dose: 10 mg Hydralazine HCl (Apresoline) 25 mg PO Q12H [facility] Stop: 12/30/16 16:59 Last Admin: 11/02/16 17:30 Dose: 25 mg Hydromorphone HCl (Dilaudid) 1 mg IVP Q6HR PRN PRN Reason: Pain (Severe) Stop: 12/31/16 16:07 Last Admin: 11/03/16 08:53 Dose: 1 mg Piperacillin Sod/Tazobactam (Sod 2.25 gm/ Sodium Chloride) 50 mls @ 100 mls/hr IV Q8HR [facility] Stop: 12/31/16 12:59 Last Admin: 11/03/16 05:00 Dose: 100 mls/hr Insulin Aspart (Novolog Insulin Sliding Scale) 0 units SUBQ ACHS [facility] PRN Reason: Protocol Stop: 12/30/16 16:29 Last Admin: 11/03/16 07:40 Dose: Not Given Ipratropium [place] (Atrovent Neb 0.5mg/2.5ml) 0.5 mg HHN Q6HRT [facility] Stop: 12/30/16 18:59 Last Admin: 11/03/16 13:35 Dose: Not Given Lactobacillus Rhamnosus (Culturelle) 1 each PO DAILY [facility] Stop: 12/31/16 08:59 Last Admin: 11/03/16 08:56 Dose: 1 each Lactulose (Cephulac) 30 gm PO DAILY PRN PRN Reason: Constipation Stop: 12/30/16 16:59 Linezolid (Zyvox) 600 mg PO BID [facility] Stop: 12/30/16 16:59 Last Admin: 11/03/16 08:57 Dose: 600 mg Lisinopril (Zestril) 20 mg PO BID [facility] Stop: 12/30/16 16:59 Last Admin: 11/03/16 08:57 Dose: 20 mg Lorazepam (Ativan) 1 mg PO Q12HR PRN; Protocol PRN Reason: Anxiety Stop: 12/30/16 16:17 Miscellaneous (Vancomycin Iv Per Pharmacy) 1 ea [facility] PRN PRN PRN Reason: VANCOMYCIN Stop: 12/31/16 09:35 Morphine Sulfate (Morphine) 1 mg IVP Q3HR PRN PRN Reason: Pain (Moderate) Stop: 12/31/16 16:05 Last Admin: 11/01/16 20:27 Dose: 1 mg Nifedipine (Procardia Xl) 60 mg PO Q12H [facility] Stop: 12/30/16 16:59 Last Admin: 11/03/16 05:20 Dose: 60 mg Sevelamer HCl (Renagel) 800 mg PO TID [facility] Stop: 12/31/16 09:59 Last Admin: 11/03/16 08:56 Dose: 800 mg Vitamin B Complex/Vit C/Folic Acid (Vitamin B Complex W/Vitamin C) 1 tab PO DAILY [facility] Stop: 12/31/16 08:59 Last Admin: 11/02/16 09:36 Dose: 1 tab Zinc Sulfate (Zinc Sulfate) 220 mg PO DAILY [facility] Stop: 12/31/16 08:59 Last Admin: 11/03/16 08:57 Dose: 220 mg - Procedures Procedures: Procedures Procedure Code Date AMPUTATION FOLLOW-UP SURGERY 44509 10/31/16 AMPUTATION OF FOOT AT ANKLE 11883 09/15/16 AMPUTATION THRU METATARSAL 87918 07/22/16 BYPASS L AXILLA VEIN TO UP VEIN W SYNTH SUB, OPEN [id number] 07/22/16 DETACHMENT AT RIGHT FOOT, COMPLETE, OPEN APPROACH [id number] 09/15/16 DETACHMENT AT RIGHT FOOT, PARTIAL 2ND RAY, OPEN APPROACH [id number] 07/22/16 DETACHMENT AT RIGHT FOOT, PARTIAL 3RD RAY, OPEN APPROACH [id number] 07/22/16 DETACHMENT AT RIGHT FOOT, PARTIAL 4TH RAY, OPEN APPROACH [id number] 07/22/16 DETACHMENT AT RIGHT FOOT, PARTIAL 5TH RAY, OPEN APPROACH [id number] 07/22/16 DETACHMENT AT RIGHT LOWER LEG, HIGH, OPEN APPROACH [id number] 10/31/16 EXTIRPATION OF MATTER FROM LEFT AXILLARY VEIN, OPEN APPROACH [id number] 07/22/16 HEMODIALYSIS 39.95 07/31/12 HEMODIALYSIS REPEATED EVAL 31888 07/22/16 INSERT TUNNELED CV CATH [id number] 07/22/16 INSERTION OF INFUSION DEV INTO R SUBCLAV VEIN, PERC APPROACH [id number] 07/22/16 INSERTION OF INFUSION DEV INTO SUP VENA CAVA, PERC APPROACH [id number] 07/22/16 OPEN THROMBECT AV FISTULA 62210 07/22/16 PERFORMANCE OF URINARY FILTRATION, MULTIPLE [id number] 09/15/16 ULTRASONOGRAPHY OF RIGHT SUBCLAVIAN VEIN, GUIDANCE [id number] 07/22/16 ULTRASONOGRAPHY OF SUPERIOR VENA CAVA, GUIDANCE [id number] 07/22/16 US GUIDE VASCULAR ACCESS [id number] 07/22/16 Assessment/Plan - Problem List Patient Problems: All Active Problems Clotted dialysis access (Acute) T82.49XA Hypotension (Acute) clotted access (Acute) clotted access (Acute) reamputation of the right leg above the (Acute) resolved hypotensionn0 (Acute) transmetatarsal amputation right foot (Acute) Nutritional Asmnt/Malnutr-PDOC - Dietary Evaluation Malnutrition Findings (Please click <Entered> for more info): Nutritional Asmnt/Malnutrition Start: 11/01/16 12: 46 Text: Status: Complete Freq: Document 11/01/16 12:46 GSUN (Rec: 11/01/16 12:52 GSUN [id number]) Nutritional Asmnt/Malnutrition Patient General Information Nutritional Screening Consult Diagnosis Failed right-sided amputation Pertinent Medical Hx/Surgical Hx Severe PAD, ESRD, CKD on HD, DM, HTN, COPD Subjective Information 71 year old male on HD. RD consult for wound. 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 Discussed with Dr. Sampson regarding diet recommendations . Current Diet Order/ Nutrition Support Renal, 1 Arginaid, 1 Prosource Pertinent Medications Vitamin C, Lipitor, Dulcolax, Catapres, Colace, Epogen, Novolog sliding scale, Culturelle, Cephulac, Vancomycin, Renagel, Vitamin B Complex W/Vitamin C, Zinc Sulfate Pertinent Labs 10/31: A1c 5.2, glucose 117H, BUN 35H, creatomome 7.9H 11/01: BUN 37H, creatinine 8.4H , potassium 4.1 Nutritional Hx/Data Height 1.75 m Height (Calculated Centimeters) 175.3 Current Weight (lbs) 71.214 kg Weight (Calculated Kilograms) 71.2 Weight (Calculated Grams) 60168.0 [place] Body Weight 160lb Weight Status Approriate GI Symptoms 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 Usual diet at home Unknown. 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 Problem Problem Impaired nutrient utilization related to Etiology renal dysfunction aeb Signs/Symptoms: BUN 37H, creatinine 8.4H, HD dependent 1. Problem Problem Increased protein needs related to Etiology hypermetabolic stated aeb Signs/Symptoms: on HD, R BKA, left foot ulceration Intervention/Recommendation Comments 1. Recommend Renal diet to aid in renal dysfunction. 2. Recommend 1 Prosource and 1 Arginaid to aid in wound healing. Expected Outcomes/Goals Expected Outcomes/Goals 1. PO intake to meet 100% of estimated nutritional needs. 2. Improved skin integrity. Physician Parameters for PEM Serum Albumin (g/dl) 2.4 - 3.0 (Moderate)
--- NOTE | 2016-11-03 14:15 | Pathology Report ---
[id number] Collection date: 11/01/2016 Surgeon: Dr. Dee Dee Irizarry Specimen Description: Right below the knee amputation Gross Description: Received in the unfixed state is a partial right below the knee amputation specimen consisting of a prior amputation stump and the distal lower leg with both fibula and tibia bones seen at the proximal margin. The skin and soft tissue at the proximal margin is intact and shows no evidence for gangrene. The prior surgical site and stump does show extensive brownish black discoloration surrounding the prior surgical staple line, which measures 11 cm in length. Sectioning of this area shows necrotic appearing ulcerated skin and soft tissue. Examination of the proximal blood vessels shows calcification and narrowing of the arteries. [employer] sections are submitted in two cassettes labeled A1 and A2. Microscopic Description: The histologic sections show ulcerated necrotic skin and soft tissue consistent with gangrene. The skin and soft tissue at the margins is intact without degenerative changes. The arterial vessels show calcification and narrowing of the lumen. Diagnosis: 1. Prior surgical stump with ulcerated skin and necrosis consistent with gangrene (right leg below the knee amputation). 2. The arterial vessels show calcification and narrowing, consistent with peripheral vascular disease. [facility]# [id number]
--- NOTE | 2016-11-03 15:03 | General Progress Note ---
Subjective - Review of Systems Service Date: 11/03/16 (low grade temp no distress comfortable) Objective - Results Result Diagrams: 11/03/16 06:30 11/03/16 06:30 Recent Labs: Laboratory Last Values WBC 11.6 Th/cmm (4.8-10.8) H 11/03/16 06:30 RBC 2.96 Mil/cmm (3.80-5.80) L 11/03/16 06:30 Hgb 8.6 gm/dL (12.6-17.4) L 11/03/16 06:30 Hct 26.0 % (39.0-49.0) L 11/03/16 06:30 MCV 87.7 fl (80-99) 11/03/16 06:30 MCH 29.1 pg (27.0-31.0) 11/03/16 06:30 MCHC Differential 33.2 pg (28.0-36.0) 11/03/16 06:30 RDW 16.7 % (11.5-20.0) 11/03/16 06:30 Plt Count 182 Th/cmm (150-400) 11/03/16 06:30 MPV 7.2 fl 11/03/16 06:30 Neutrophils % 69.3 % (40.0-80.0) 11/03/16 06:30 Lymphocytes % 20.6 % (20.0-50.0) 11/03/16 06:30 Monocytes % 8.1 % (2.0-10.0) 11/03/16 06:30 Eosinophils % 1.8 % (0.0-5.0) 11/03/16 06:30 Basophils % 0.2 % (0.0-2.0) 11/03/16 06:30 PT 9.7 SECONDS (9.5-11.5) 10/31/16 22:23 INR 0.98 (0.5-1.4) 10/31/16 22:23 PTT (Actin FS) 31.0 SECONDS (26.0-38.0) 10/31/16 22:23 Sodium 141 mEq/L (136-145) 11/03/16 06:30 Potassium 4.4 mEq/L (3.5-5.1) 11/03/16 06:30 Chloride 99 mEq/L (98-107) 11/03/16 06:30 Carbon Dioxide 29.6 mEq/L (21.0-31.0) 11/03/16 06:30 Anion Gap 16.8 (7.0-16.0) H 11/03/16 06:30 BUN 33 mg/dL (7-25) H 11/03/16 06:30 Creatinine 7.9 mg/dL (0.7-1.3) H* 11/03/16 06:30 Est GFR ( Amer) 8.8 ml/min (>90) 11/03/16 06:30 Est GFR (Non-Af Amer) 7.3 ml/min 11/03/16 06:30 BUN/Creatinine Ratio 4.2 11/03/16 06:30 Glucose 105 mg/dL (70-105) 11/03/16 06:30 POC Glucose 140 MG/DL (70 - 105) H 11/03/16 11:59 Hemoglobin A1c % 5.2 % (4.0-6.0) 10/31/16 22:23 Calcium 9.0 mg/dL (8.6-10.3) 11/03/16 06:30 Magnesium 1.9 mg/dL (1.9-2.7) 11/02/16 06:38 Total Bilirubin 0.4 mg/dL (0.3-1.0) 11/01/16 05:55 AST 23 U/L (13-39) 11/01/16 05:55 ALT 28 U/L (7-52) 11/01/16 05:55 Alkaline Phosphatase 71 U/L (34-104) 11/01/16 05:55 Total Protein 6.6 gm/dL (6.0-8.3) 11/01/16 05:55 Albumin 3.0 gm/dL (4.2-5.5) L 11/01/16 05:55 Globulin 3.6 gm/dL 11/01/16 05:55 Albumin/Globulin Ratio 0.8 (1.0-1.8) L 11/01/16 05:55 Random Vancomycin 10.8 ug/mL (5.0-40.0) 11/02/16 06:38 - Physical Exam Vitals and I&O: Vital Signs Temp 99.7 F 11/03/16 11:44 Pulse 93 11/03/16 13:36 Resp 18 11/03/16 13:36 BP 155/81 11/03/16 11:44 Pulse Ox 95 11/03/16 13:36 Intake & Output 11/02/16 11/03/16 11/03/16 18:59 06:59 18:59 Intake Total 1020 200 150 Output Total 20 Balance 1000 200 150 Intake: Intake, IV Amount 300 50 50 Piperacillin Sodium/ 50 50 50 Tazobact 2.25 gm In Sodium Chloride 0.9% 50 ml @ 100 mls/hr IV Q8HR [facility] Rx#:[id number] Oral 720 150 100 Output: Other 20 Other: # Voids 0 3 # Bowel Movements 1 1 Active Medications: Current Medications Acetaminophen (Tylenol) 650 mg PO Q6HR PRN PRN Reason: MILD PAIN Stop: 12/30/16 17:59 Last Admin: 11/02/16 20:16 Dose: 650 mg Acetaminophen/Hydrocodone Bitart ([place] 10 Mg/325 Mg) 1 tab PO Q4H PRN PRN Reason: Severe Pain Stop: 12/30/16 16:17 Last Admin: 11/02/16 17:29 Dose: 1 tab Acetaminophen/Hydrocodone Bitart ([place] 5mg/325mg) 1 tab PO Q6H PRN PRN Reason: Pain (Moderate) Stop: 12/30/16 16:17 Ascorbic Acid (Vitamin C) 500 mg PO DAILY [facility] Stop: 12/31/16 08:59 Last Admin: 11/03/16 08:58 Dose: 500 mg Aspirin (Aspirin Chewable) 81 mg PO DAILY [facility] Stop: 12/31/16 08:59 Last Admin: 11/03/16 08:57 Dose: 81 mg Atorvastatin Calcium (Lipitor) 10 mg PO HS [facility] PRN Reason: Protocol Stop: 12/30/16 20:59 Last Admin: 11/02/16 20:10 Dose: 10 mg Bisacodyl (Dulcolax 10 Mg Supp) 10 mg RC DAILY PRN PRN Reason: Constipation Stop: 12/30/16 16:17 Carvedilol (Coreg) 3.125 mg PO BID [facility] Stop: 12/30/16 16:59 Last Admin: 11/03/16 08:58 Dose: Not Given Clonidine HCl (Catapres) 0.1 mg PO Q6HR PRN PRN Reason: SBP >160 Stop: 12/30/16 21:42 Clopidogrel Bisulfate (Plavix) 75 mg PO DAILY [facility] Stop: 12/31/16 08:59 Last Admin: 11/03/16 08:56 Dose: 75 mg Docusate Sodium (Colace) 250 mg PO BID [facility] Stop: 12/30/16 16:59 Last Admin: 11/03/16 09:08 Dose: Not Given Epoetin Kike (Epogen) 10,000 units SUBQ QFRI [facility] Stop: 01/03/17 14:59 Gabapentin (Neurontin) 300 mg PO Q8H [facility] Stop: 12/30/16 15:59 Last Admin: 11/03/16 08:57 Dose: 300 mg Hydralazine HCl (Apresoline) 10 mg PO Q6H PRN PRN Reason: SBP ABOVE 160 Stop: 12/30/16 16:17 Last Admin: 10/31/16 21:57 Dose: 10 mg Hydralazine HCl (Apresoline) 25 mg PO Q12H [facility] Stop: 12/30/16 16:59 Last Admin: 11/02/16 17:30 Dose: 25 mg Hydromorphone HCl (Dilaudid) 1 mg IVP Q6HR PRN PRN Reason: Pain (Severe) Stop: 12/31/16 16:07 Last Admin: 11/03/16 14:00 Dose: 1 mg Piperacillin Sod/Tazobactam (Sod 2.25 gm/ Sodium Chloride) 50 mls @ 100 mls/hr IV Q8HR [facility] Stop: 12/31/16 12:59 Last Admin: 11/03/16 14:06 Dose: 100 mls/hr Insulin Aspart (Novolog Insulin Sliding Scale) 0 units SUBQ ACHS [facility] PRN Reason: Protocol Stop: 12/30/16 16:29 Last Admin: 11/03/16 12:30 Dose: Not Given Ipratropium [place] (Atrovent Neb 0.5mg/2.5ml) 0.5 mg HHN Q6HRT [facility] Stop: 12/30/16 18:59 Last Admin: 11/03/16 13:35 Dose: Not Given Lactobacillus Rhamnosus (Culturelle) 1 each PO DAILY [facility] Stop: 12/31/16 08:59 Last Admin: 11/03/16 08:56 Dose: 1 each Lactulose (Cephulac) 30 gm PO DAILY PRN PRN Reason: Constipation Stop: 12/30/16 16:59 Lisinopril (Zestril) 20 mg PO BID [facility] Stop: 12/30/16 16:59 Last Admin: 11/03/16 08:57 Dose: 20 mg Lorazepam (Ativan) 1 mg PO Q12HR PRN; Protocol PRN Reason: Anxiety Stop: 12/30/16 16:17 Miscellaneous (Vancomycin Iv Per Pharmacy) 1 ea MC PRN PRN PRN Reason: VANCOMYCIN Stop: 12/31/16 09:35 Morphine Sulfate (Morphine) 1 mg IVP Q3HR PRN PRN Reason: Pain (Moderate) Stop: 12/31/16 16:05 Last Admin: 11/01/16 20:27 Dose: 1 mg Nifedipine (Procardia Xl) 60 mg PO Q12H [facility] Stop: 12/30/16 16:59 Last Admin: 11/03/16 05:20 Dose: 60 mg Sevelamer HCl (Renagel) 800 mg PO TID [facility] Stop: 12/31/16 09:59 Last Admin: 11/03/16 14:09 Dose: Not Given Vitamin B Complex/Vit C/Folic Acid (Vitamin B Complex W/Vitamin C) 1 tab PO DAILY [facility] Stop: 12/31/16 08:59 Last Admin: 11/02/16 09:36 Dose: 1 tab Zinc Sulfate (Zinc Sulfate) 220 mg PO DAILY [facility] Stop: 12/31/16 08:59 Last Admin: 11/03/16 08:57 Dose: 220 mg General: Alert, Oriented x3, Cooperative Neck: Supple Cardiovascular: Regular rate Lungs: Clear to auscultation Abdomen: Bowel sounds Extremities: Cyanosis - Procedures Procedures: Procedures Procedure Code Date AMPUTATION FOLLOW-UP SURGERY 77002 10/31/16 AMPUTATION OF FOOT AT ANKLE 92002 09/15/16 AMPUTATION THRU METATARSAL 39390 07/22/16 BYPASS L AXILLA VEIN TO UP VEIN W SYNTH SUB, OPEN [id number] 07/22/16 DETACHMENT AT RIGHT FOOT, COMPLETE, OPEN APPROACH [id number] 09/15/16 DETACHMENT AT RIGHT FOOT, PARTIAL 2ND RAY, OPEN APPROACH [id number] 07/22/16 DETACHMENT AT RIGHT FOOT, PARTIAL 3RD RAY, OPEN APPROACH [id number] 07/22/16 DETACHMENT AT RIGHT FOOT, PARTIAL 4TH RAY, OPEN APPROACH [id number] 07/22/16 DETACHMENT AT RIGHT FOOT, PARTIAL 5TH RAY, OPEN APPROACH [id number] 07/22/16 DETACHMENT AT RIGHT LOWER LEG, HIGH, OPEN APPROACH [id number] 10/31/16 EXTIRPATION OF MATTER FROM LEFT AXILLARY VEIN, OPEN APPROACH [id number] 07/22/16 HEMODIALYSIS 39.95 07/31/12 HEMODIALYSIS REPEATED EVAL 58629 07/22/16 INSERT TUNNELED CV CATH 06133 07/22/16 INSERTION OF INFUSION DEV INTO R SUBCLAV VEIN, PERC APPROACH [id number] 07/22/16 INSERTION OF INFUSION DEV INTO SUP VENA CAVA, PERC APPROACH [id number] 07/22/16 OPEN THROMBECT AV FISTULA 84139 07/22/16 PERFORMANCE OF URINARY FILTRATION, MULTIPLE [id number] 09/15/16 ULTRASONOGRAPHY OF RIGHT SUBCLAVIAN VEIN, GUIDANCE [id number] 07/22/16 ULTRASONOGRAPHY OF SUPERIOR VENA CAVA, GUIDANCE [id number] 07/22/16 US GUIDE VASCULAR ACCESS [id number] 07/22/16 Assessment/Plan - Problem List Patient Problems: All Active Problems Clotted dialysis access (Acute) T82.49XA Hypotension (Acute) clotted access (Acute) clotted access (Acute) reamputation of the right leg above the (Acute) resolved hypotensionn0 (Acute) transmetatarsal amputation right foot (Acute) - Assessment Assessment: hemodialysis just finish sytble foe the whole dialysis monitor low grade temperature m if persist reculture and reevaluate cultures antibiotic review Nutritional Asmnt/Malnutr-PDOC - Dietary Evaluation Malnutrition Findings (Please click <Entered> for more info): Nutritional Asmnt/Malnutrition Start: 11/01/16 12: 46 Text: Status: Complete Freq: Document 11/01/16 12:46 GSUN (Rec: 11/01/16 12:52 GSUN [id number]) Nutritional Asmnt/Malnutrition Patient General Information Nutritional Screening Consult Diagnosis Failed right-sided amputation Pertinent Medical Hx/Surgical Hx Severe PAD, ESRD, CKD on HD, DM, HTN, COPD Subjective Information 71 year old male on HD. RD consult for wound. 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 Discussed with Dr. Sampson regarding diet recommendations . Current Diet Order/ Nutrition Support Renal, 1 Arginaid, 1 Prosource Pertinent Medications Vitamin C, Lipitor, Dulcolax, Catapres, Colace, Epogen, Novolog sliding scale, Culturelle, Cephulac, Vancomycin, Renagel, Vitamin B Complex W/Vitamin C, Zinc Sulfate Pertinent Labs 10/31: A1c 5.2, glucose 117H, BUN 35H, creatomome 7.9H 11/01: BUN 37H, creatinine 8.4H , potassium 4.1 Nutritional Hx/Data Height 1.75 m Height (Calculated Centimeters) 175.3 Current Weight (lbs) 71.214 kg Weight (Calculated Kilograms) 71.2 Weight (Calculated Grams) 92659.0 [place] Body Weight 160lb Weight Status Approriate GI Symptoms 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 Usual diet at home Unknown. 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 Problem Problem Impaired nutrient utilization related to Etiology renal dysfunction aeb Signs/Symptoms: BUN 37H, creatinine 8.4H, HD dependent 1. Problem Problem Increased protein needs related to Etiology hypermetabolic stated aeb Signs/Symptoms: on HD, R BKA, left foot ulceration Intervention/Recommendation Comments 1. Recommend Renal diet to aid in renal dysfunction. 2. Recommend 1 Prosource and 1 Arginaid to aid in wound healing. Expected Outcomes/Goals Expected Outcomes/Goals 1. PO intake to meet 100% of estimated nutritional needs. 2. Improved skin integrity. Physician Parameters for PEM Serum Albumin (g/dl) 2.4 - 3.0 (Moderate)
[2016-11-03] MEDS: Vitamin B Complex w/Vitamin C Tab PO SCH (15:24)
[2016-11-03] MEDS: Atorvastatin Calcium 10 MG TAB PO SCH (20:54)
[2016-11-04] MEDS: Ipratropium Neb 0.5 mg/2.5 mL UD HHN SCH ×6 (01:15→19:36)
[2016-11-04] MEDS: HYDROmorphone 1 mg/mL 1mL Syr IVP PRN (01:20)
[2016-11-04 06:52] LABS: % BASOPHILS 0.3 % (0.0-2.0)
[2016-11-04 07:03] LABS: ALB/GLOB RATIO 0.8 (1.0-1.8); ANION GAP 12.3 (7.0-16.0); BILIRUBIN,TOTAL 0.3 mg/dL (0.3-1.0); BUN/CREATININE RATIO 3.8; CALCIUM SERUM 8.9 mg/dL (8.6-10.3); CARBON DIOXIDE 30.6 mEq/L (21.0-31.0); POTASSIUM SERUM 3.9 mEq/L (3.5-5.1)
[2016-11-04 07:11] LABS: % EOSINOPHILS 1.3 % (0.0-5.0); % LYMPHOCYTES 22.9 % (20.0-50.0); % MONOCYTES 10.4 % (2.0-10.0); % NEUTROPHILS 65.1 % (40.0-80.0); HEMATOCRIT 24.1 % (39.0-49.0); HEMOGLOBIN 8.1 gm/dL (12.6-17.4); MEAN CELL VOLUME 87.5 fl (80-99); MEAN CORPUSCULAR HEMOGLOBIN 29.5 pg (27.0-31.0); MEAN CORPUSCULAR HGB CONC 33.7 pg (28.0-36.0); MEAN PLATELET VOLUME 7.5 fl; NEUTROPHILE ABSOLUTE 6.7 Th/cmm (1.8-8.0); PLATELET COUNT 178 Th/cmm (150-400); RED BLOOD COUNT 2.75 Mil/cmm (3.80-5.80); RED CELL DISTRIBUTION WIDTH 17.1 % (11.5-20.0); WHITE BLOOD COUNT 10.2 Th/cmm (4.8-10.8)
[2016-11-04 07:22] LABS: CREATININE - SERUM 5.3 mg/dL (0.7-1.3); VANCOMYCIN RANDOM 19.1 ug/mL (5.0-40.0)
[2016-11-04] MEDS: Vitamin B Complex w/Vitamin C Tab PO SCH (09:25)
[2016-11-04] MEDS: Lactobacillus Rhamnosus 10 Billion CFU Capsule PO SCH (09:26)
[2016-11-04] MEDS: Aspirin 81mg Chewable Tab PO SCH (09:26)
[2016-11-04] MEDS: INSULIN ASPART SLIDING SCALE 100 UNITS/ML UNIT SUBQ SCH ×4 (09:27→21:58)
[2016-11-04] MEDS ORDERED: Epoetin Alfa 20000 Units/mL Vial SUBQ SCH (15:00)
[2016-11-04] MEDS: NIFEdipine 30 mg ER Tab PO SCH (16:34)
--- NOTE | 2016-11-04 17:39 | General Progress Note ---
Subjective - Review of Systems Service Date: 11/04/16 (complaining of pain of the stump given pain meds now sleepy) Objective - Results Result Diagrams: 11/04/16 05:40 11/04/16 05:40 Recent Labs: Laboratory Last Values WBC 10.2 Th/cmm (4.8-10.8) 11/04/16 05:40 RBC 2.75 Mil/cmm (3.80-5.80) L 11/04/16 05:40 Hgb 8.1 gm/dL (12.6-17.4) L 11/04/16 05:40 Hct 24.1 % (39.0-49.0) L 11/04/16 05:40 MCV 87.5 fl (80-99) 11/04/16 05:40 MCH 29.5 pg (27.0-31.0) 11/04/16 05:40 MCHC Differential 33.7 pg (28.0-36.0) 11/04/16 05:40 RDW 17.1 % (11.5-20.0) 11/04/16 05:40 Plt Count 178 Th/cmm (150-400) 11/04/16 05:40 MPV 7.5 fl 11/04/16 05:40 Neutrophils % 65.1 % (40.0-80.0) 11/04/16 05:40 Lymphocytes % 22.9 % (20.0-50.0) 11/04/16 05:40 Monocytes % 10.4 % (2.0-10.0) H 11/04/16 05:40 Eosinophils % 1.3 % (0.0-5.0) 11/04/16 05:40 Basophils % 0.3 % (0.0-2.0) 11/04/16 05:40 PT 9.7 SECONDS (9.5-11.5) 10/31/16 22:23 INR 0.98 (0.5-1.4) 10/31/16 22:23 PTT (Actin FS) 31.0 SECONDS (26.0-38.0) 10/31/16 22:23 Sodium 140 mEq/L (136-145) 11/04/16 05:40 Potassium 3.9 mEq/L (3.5-5.1) 11/04/16 05:40 Chloride 101 mEq/L (98-107) 11/04/16 05:40 Carbon Dioxide 30.6 mEq/L (21.0-31.0) 11/04/16 05:40 Anion Gap 12.3 (7.0-16.0) 11/04/16 05:40 BUN 20 mg/dL (7-25) 11/04/16 05:40 Creatinine 5.3 mg/dL (0.7-1.3) H* 11/04/16 05:40 Est GFR ( Amer) 13.9 ml/min (>90) 11/04/16 05:40 Est GFR (Non-Af Amer) 11.5 ml/min 11/04/16 05:40 BUN/Creatinine Ratio 3.8 11/04/16 05:40 Glucose 133 mg/dL (70-105) H 11/04/16 05:40 POC Glucose 114 MG/DL (70 - 105) H 11/04/16 16:08 Hemoglobin A1c % 5.2 % (4.0-6.0) 10/31/16 22:23 Calcium 8.9 mg/dL (8.6-10.3) 11/04/16 05:40 Phosphorus 3.0 mg/dL (2.5-5.0) 11/04/16 05:40 Magnesium 1.9 mg/dL (1.9-2.7) 11/02/16 06:38 Total Bilirubin 0.3 mg/dL (0.3-1.0) 11/04/16 05:40 AST 26 U/L (13-39) 11/04/16 05:40 ALT 20 U/L (7-52) 11/04/16 05:40 Alkaline Phosphatase 52 U/L (34-104) 11/04/16 05:40 Total Protein 6.7 gm/dL (6.0-8.3) 11/04/16 05:40 Albumin 2.9 gm/dL (4.2-5.5) L 11/04/16 05:40 Globulin 3.8 gm/dL 11/04/16 05:40 Albumin/Globulin Ratio 0.8 (1.0-1.8) L 11/04/16 05:40 Random Vancomycin 19.1 ug/mL (5.0-40.0) 11/04/16 05:40 - Physical Exam Vitals and I&O: Vital Signs Temp 97.9 F 11/04/16 17:00 Pulse 83 11/04/16 17:00 Resp 20 11/04/16 17:00 BP 120/58 11/04/16 17:00 Pulse Ox 97 11/04/16 17:00 Intake & Output 11/03/16 11/04/16 11/04/16 18:59 06:59 18:59 Intake Total 680 250 Output Total 1 Balance 680 249 Intake: Intake, IV Amount 100 50 Piperacillin Sodium/ 100 50 Tazobact 2.25 gm In Sodium Chloride 0.9% 50 ml @ 100 mls/hr IV Q8HR [facility] Rx#:[id number] Oral 580 200 Output: Stool 1 Other: # Voids 0 1 # Bowel Movements 1 Active Medications: Current Medications Acetaminophen (Tylenol) 650 mg PO Q6HR PRN PRN Reason: MILD PAIN Stop: 12/30/16 17:59 Last Admin: 11/02/16 20:16 Dose: 650 mg Acetaminophen/Hydrocodone Bitart ([place] 10 Mg/325 Mg) 1 tab PO Q4H PRN PRN Reason: Severe Pain Stop: 12/30/16 16:17 Last Admin: 11/02/16 17:29 Dose: 1 tab Acetaminophen/Hydrocodone Bitart ([place] 5mg/325mg) 1 tab PO Q6H PRN PRN Reason: Pain (Moderate) Stop: 12/30/16 16:17 Ascorbic Acid (Vitamin C) 500 mg PO DAILY [facility] Stop: 12/31/16 08:59 Last Admin: 11/04/16 09:26 Dose: 500 mg Aspirin (Aspirin Chewable) 81 mg PO DAILY [facility] Stop: 12/31/16 08:59 Last Admin: 11/04/16 09:26 Dose: 81 mg Atorvastatin Calcium (Lipitor) 10 mg PO HS [facility] PRN Reason: Protocol Stop: 12/30/16 20:59 Last Admin: 11/03/16 20:54 Dose: 10 mg Bisacodyl (Dulcolax 10 Mg Supp) 10 mg RC DAILY PRN PRN Reason: Constipation Stop: 12/30/16 16:17 Carvedilol (Coreg) 3.125 mg PO BID [facility] Stop: 12/30/16 16:59 Last Admin: 11/04/16 16:34 Dose: 3.125 mg Clonidine HCl (Catapres) 0.1 mg PO Q6HR PRN PRN Reason: SBP >160 Stop: 12/30/16 21:42 Last Admin: 11/04/16 02:57 Dose: 0.1 mg Clopidogrel Bisulfate (Plavix) 75 mg PO DAILY [facility] Stop: 12/31/16 08:59 Last Admin: 11/04/16 09:26 Dose: 75 mg Docusate Sodium (Colace) 250 mg PO BID [facility] Stop: 12/30/16 16:59 Last Admin: 11/04/16 16:32 Dose: 250 mg Epoetin [place] (Epogen) 10,000 units SUBQ QFRI [facility] Stop: 01/03/17 14:59 Last Admin: 11/04/16 16:38 Dose: 10,000 units Gabapentin (Neurontin) 300 mg PO Q8H [facility] Stop: 12/30/16 15:59 Last Admin: 11/04/16 16:32 Dose: 300 mg Hydralazine HCl (Apresoline) 10 mg PO Q6H PRN PRN Reason: SBP ABOVE 160 Stop: 12/30/16 16:17 Last Admin: 10/31/16 21:57 Dose: 10 mg Hydralazine HCl (Apresoline) 25 mg PO Q12H [facility] Stop: 12/30/16 16:59 Last Admin: 11/04/16 16:37 Dose: Not Given Hydromorphone HCl (Dilaudid) 1 mg IVP Q6HR PRN PRN Reason: Pain (Severe) Stop: 12/31/16 16:07 Last Admin: 11/04/16 01:20 Dose: 1 mg Piperacillin Sod/Tazobactam (Sod 2.25 gm/ Sodium Chloride) 50 mls @ 100 mls/hr IV Q8HR [facility] Stop: 12/31/16 12:59 Last Admin: 11/04/16 12:26 Dose: 100 mls/hr Vancomycin HCl 1 gm/ Sodium (Chloride) 250 mls @ 165 mls/hr IV ONCE ONE Stop: 11/04/16 22:30 Insulin Aspart (Novolog Insulin Sliding Scale) 0 units SUBQ ACHS [facility] PRN Reason: Protocol Stop: 12/30/16 16:29 Last Admin: 11/04/16 16:34 Dose: Not Given Ipratropium [place] (Atrovent Neb 0.5mg/2.5ml) 0.5 mg HHN Q6HRT [facility] Stop: 12/30/16 18:59 Last Admin: 11/04/16 14:45 Dose: Not Given Lactobacillus Rhamnosus (Culturelle) 1 each PO DAILY [facility] Stop: 12/31/16 08:59 Last Admin: 11/04/16 09:26 Dose: 1 each Lactulose (Cephulac) 30 gm PO DAILY PRN PRN Reason: Constipation Stop: 12/30/16 16:59 Lisinopril (Zestril) 20 mg PO BID [facility] Stop: 12/30/16 16:59 Last Admin: 11/04/16 16:33 Dose: 20 mg Lorazepam (Ativan) 1 mg PO Q12HR PRN; Protocol PRN Reason: Anxiety Stop: 12/30/16 16:17 Miscellaneous (Vancomycin Iv Per Pharmacy) 1 ea [facility] PRN PRN PRN Reason: VANCOMYCIN Stop: 12/31/16 09:35 Morphine Sulfate (Morphine) 1 mg IVP Q3HR PRN PRN Reason: Pain (Moderate) Stop: 12/31/16 16:05 Last Admin: 11/01/16 20:27 Dose: 1 mg Nifedipine (Procardia Xl) 60 mg PO Q12H [facility] Stop: 12/30/16 16:59 Last Admin: 11/04/16 16:34 Dose: Not Given Sevelamer HCl (Renagel) 800 mg PO TID [facility] Stop: 12/31/16 09:59 Last Admin: 11/04/16 14:48 Dose: 800 mg Vitamin B Complex/Vit C/Folic Acid (Vitamin B Complex W/Vitamin C) 1 tab PO DAILY [facility] Stop: 12/31/16 08:59 Last Admin: 11/04/16 09:25 Dose: 1 tab Zinc Sulfate (Zinc Sulfate) 220 mg PO DAILY [facility] Stop: 12/31/16 08:59 Last Admin: 11/04/16 09:25 Dose: 220 mg General: Alert, Oriented x3, Cooperative, Other (sleepy med induced) HEENT: Atraumatic Neck: Supple Cardiovascular: Regular rate Lungs: Clear to auscultation Abdomen: Bowel sounds Neurological: Normal speech Psych/Mental Status: Mental status NL, Mood NL - Procedures Procedures: Procedures Procedure Code Date AMPUTATION FOLLOW-UP SURGERY 55479 10/31/16 AMPUTATION OF FOOT AT ANKLE 06590 09/15/16 AMPUTATION THRU METATARSAL 33065 07/22/16 BYPASS L AXILLA VEIN TO UP VEIN W SYNTH SUB, OPEN [id number] 07/22/16 DETACHMENT AT RIGHT FOOT, COMPLETE, OPEN APPROACH [id number] 09/15/16 DETACHMENT AT RIGHT FOOT, PARTIAL 2ND RAY, OPEN APPROACH [id number] 07/22/16 DETACHMENT AT RIGHT FOOT, PARTIAL 3RD RAY, OPEN APPROACH [id number] 07/22/16 DETACHMENT AT RIGHT FOOT, PARTIAL 4TH RAY, OPEN APPROACH [id number] 07/22/16 DETACHMENT AT RIGHT FOOT, PARTIAL 5TH RAY, OPEN APPROACH [id number] 07/22/16 DETACHMENT AT RIGHT LOWER LEG, HIGH, OPEN APPROACH [id number] 10/31/16 EXTIRPATION OF MATTER FROM LEFT AXILLARY VEIN, OPEN APPROACH [id number] 07/22/16 HEMODIALYSIS 39.95 07/31/12 HEMODIALYSIS REPEATED EVAL 97976 07/22/16 INSERT TUNNELED CV CATH 95085 07/22/16 INSERTION OF INFUSION DEV INTO R SUBCLAV VEIN, PERC APPROACH [id number] 07/22/16 INSERTION OF INFUSION DEV INTO SUP VENA CAVA, PERC APPROACH [id number] 07/22/16 OPEN THROMBECT AV FISTULA 06367 07/22/16 PERFORMANCE OF URINARY FILTRATION, MULTIPLE [id number] 09/15/16 ULTRASONOGRAPHY OF RIGHT SUBCLAVIAN VEIN, GUIDANCE [id number] 07/22/16 ULTRASONOGRAPHY OF SUPERIOR VENA CAVA, GUIDANCE [id number] 07/22/16 US GUIDE VASCULAR ACCESS 03254 07/22/16 Assessment/Plan - Problem List Patient Problems: All Active Problems Clotted dialysis access (Acute) T82.49XA Hypotension (Acute) clotted access (Acute) clotted access (Acute) reamputation of the right leg above the (Acute) resolved hypotensionn0 (Acute) transmetatarsal amputation right foot (Acute) - Assessment Assessment: hemodialysis for tomorrow afebrile better on multiple duplicate antibi antibiotic review will D/czyvox Nutritional Asmnt/Malnutr-PDOC - Dietary Evaluation Malnutrition Findings (Please click <Entered> for more info): Nutritional Asmnt/Malnutrition Start: 11/01/16 12: 46 Text: Status: Complete Freq: Document 11/01/16 12:46 GSUN (Rec: 11/01/16 12:52 GSUN [email or web address]) Nutritional Asmnt/Malnutrition Patient General Information Nutritional Screening Consult Diagnosis Failed right-sided amputation Pertinent Medical Hx/Surgical Hx Severe PAD, ESRD, CKD on HD, DM, HTN, COPD Subjective Information 71 year old male on HD. RD consult for wound. 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 Discussed with Dr. Sampson regarding diet recommendations . Current Diet Order/ Nutrition Support Renal, 1 Arginaid, 1 Prosource Pertinent Medications Vitamin C, Lipitor, Dulcolax, Catapres, Colace, Epogen, Novolog sliding scale, Culturelle, Cephulac, Vancomycin, Renagel, Vitamin B Complex W/Vitamin C, Zinc Sulfate Pertinent Labs 10/31: A1c 5.2, glucose 117H, BUN 35H, creatomome 7.9H 11/01: BUN 37H, creatinine 8.4H , potassium 4.1 Nutritional Hx/Data Height 1.75 m Height (Calculated Centimeters) 175.3 Current Weight (lbs) 71.214 kg Weight (Calculated Kilograms) 71.2 Weight (Calculated Grams) 10607.0 [place] Body Weight 160lb Weight Status Approriate GI Symptoms Cultural/Ethnic/Sabianism Belief Unknown. Usual diet at home Unknown. 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 Problem Problem Impaired nutrient utilization related to Etiology renal dysfunction aeb Signs/Symptoms: BUN 37H, creatinine 8.4H, HD dependent 1. Problem Problem Increased protein needs related to Etiology hypermetabolic stated aeb Signs/Symptoms: on HD, R BKA, left foot ulceration Intervention/Recommendation Comments 1. Recommend Renal diet to aid in renal dysfunction. 2. Recommend 1 Prosource and 1 Arginaid to aid in wound healing. Expected Outcomes/Goals Expected Outcomes/Goals 1. PO intake to meet 100% of estimated nutritional needs. 2. Improved skin integrity. Physician Parameters for PEM Serum Albumin (g/dl) 2.4 - 3.0 (Moderate)
[2016-11-04] MEDS: Atorvastatin Calcium 10 MG TAB PO SCH (21:56)
[2016-11-05] MEDS: NIFEdipine 30 mg ER Tab PO SCH ×2 (05:37→17:36)
[2016-11-05] MEDS: Ipratropium Neb 0.5 mg/2.5 mL UD HHN SCH ×4 (05:44→19:07)
[2016-11-05] MEDS: INSULIN ASPART SLIDING SCALE 100 UNITS/ML UNIT SUBQ SCH ×4 (06:40→22:00)
[2016-11-05 07:19] LABS: WHITE BLOOD COUNT 9.2 Th/cmm (4.8-10.8)
[2016-11-05 07:30] LABS: MEAN CELL VOLUME 87.8 fl (80-99); MEAN CORPUSCULAR HEMOGLOBIN 29.2 pg (27.0-31.0); MEAN CORPUSCULAR HGB CONC 33.2 pg (28.0-36.0); MEAN PLATELET VOLUME 7.2 fl; PLATELET COUNT 180 Th/cmm (150-400); RED BLOOD COUNT 2.62 Mil/cmm (3.80-5.80); RED CELL DISTRIBUTION WIDTH 17.2 % (11.5-20.0)
[2016-11-05 07:39] LABS: BUN/CREATININE RATIO 4.3; CARBON DIOXIDE 27.3 mEq/L (21.0-31.0); MAGNESIUM 2.1 mg/dL (1.9-2.7); POTASSIUM SERUM 4.3 mEq/L (3.5-5.1)
[2016-11-05 08:00] LABS: CREATININE - SERUM 6.7 mg/dL (0.7-1.3)
[2016-11-05 08:03] LABS: HEMOGLOBIN 7.7 gm/dL (12.6-17.4)
[2016-11-05 08:44] LABS: TOTAL CELLS COUNTED 100
[2016-11-05 08:45] LABS: ANISOCYTOSIS 1+; EOSINOPHIL 4 % (0-5); NEUTROPHILS 63 % (40-80); PLATELET ESTIMATE ADEQUATE (NORMAL); PLATELET MORPHOLOGY NORMAL (NORMAL)
[2016-11-05] MEDS: Vitamin B Complex w/Vitamin C Tab PO SCH (09:19)
[2016-11-05] MEDS: Lactobacillus Rhamnosus 10 Billion CFU Capsule PO SCH (09:19)
[2016-11-05] MEDS: Aspirin 81mg Chewable Tab PO SCH (09:20)
--- NOTE | 2016-11-05 10:08 | General Progress Note ---
Subjective - Review of Systems Service Date: 11/05/16 Events since last encounter: dressings dry on HD Subjective: labs not all in informed consent for right BKA discussed POA to sign consent Objective - Results Result Diagrams: 11/05/16 06:42 11/05/16 06:42 Recent Labs: Laboratory Last Values WBC 9.2 Th/cmm (4.8-10.8) 11/05/16 06:42 RBC 2.62 Mil/cmm (3.80-5.80) L 11/05/16 06:42 Hgb 7.7 gm/dL (12.6-17.4) L* 11/05/16 06:42 Hct 23.0 % (39.0-49.0) L* 11/05/16 06:42 MCV 87.8 fl (80-99) 11/05/16 06:42 MCH 29.2 pg (27.0-31.0) 11/05/16 06:42 MCHC Differential 33.2 pg (28.0-36.0) 11/05/16 06:42 RDW 17.2 % (11.5-20.0) 11/05/16 06:42 Plt Count 180 Th/cmm (150-400) 11/05/16 06:42 MPV 7.2 fl 11/05/16 06:42 Neutrophils % 65.1 % (40.0-80.0) 11/04/16 05:40 Lymphocytes % 22.9 % (20.0-50.0) 11/04/16 05:40 Monocytes % 10.4 % (2.0-10.0) H 11/04/16 05:40 Eosinophils % 1.3 % (0.0-5.0) 11/04/16 05:40 Basophils % 0.3 % (0.0-2.0) 11/04/16 05:40 Neutrophils (Manual) 63 % (40-80) 11/05/16 06:42 Lymphocytes 24 % (20-50) 11/05/16 06:42 Monocytes 9 % (2-10) 11/05/16 06:42 Eosinophils 4 % (0-5) 11/05/16 06:42 Nucleated RBCs 1.0 % (0-0) H 11/05/16 06:42 Platelet Estimate ADEQUATE (NORMAL) 11/05/16 06:42 Platelet Morphology NORMAL (NORMAL) 11/05/16 06:42 Anisocytosis 1+ 11/05/16 06:42 RBC Morph Micro Appear ABNORMAL (NORMAL) 11/05/16 06:42 PT 9.7 SECONDS (9.5-11.5) 10/31/16 22:23 INR 0.98 (0.5-1.4) 10/31/16 22:23 PTT (Actin FS) 31.0 SECONDS (26.0-38.0) 10/31/16 22:23 Sodium 139 mEq/L (136-145) 11/05/16 06:42 Potassium 4.3 mEq/L (3.5-5.1) 11/05/16 06:42 Chloride 101 mEq/L (98-107) 11/05/16 06:42 Carbon Dioxide 27.3 mEq/L (21.0-31.0) 11/05/16 06:42 Anion Gap 15.0 (7.0-16.0) 11/05/16 06:42 BUN 29 mg/dL (7-25) H 11/05/16 06:42 Creatinine 6.7 mg/dL (0.7-1.3) H* 03 06:42 Est GFR ( Amer) 10.6 ml/min (>90) 11/05/16 06:42 Est GFR (Non-Af Amer) 8.8 ml/min 11/05/16 06:42 BUN/Creatinine Ratio 4.3 11/05/16 06:42 Glucose 90 mg/dL (70-105) 11/05/16 06:42 POC Glucose 83 MG/DL (70 - 105) 11/05/16 05:22 Hemoglobin A1c % 5.2 % (4.0-6.0) 10/31/16 22:23 Calcium 9.0 mg/dL (8.6-10.3) 11/05/16 06:42 Phosphorus 3.0 mg/dL (2.5-5.0) 11/04/16 05:40 Magnesium 2.1 mg/dL (1.9-2.7) 11/05/16 06:42 Total Bilirubin 0.3 mg/dL (0.3-1.0) 11/04/16 05:40 AST 26 U/L (13-39) 11/04/16 05:40 ALT 20 U/L (7-52) 11/04/16 05:40 Alkaline Phosphatase 52 U/L (34-104) 11/04/16 05:40 Total Protein 6.7 gm/dL (6.0-8.3) 11/04/16 05:40 Albumin 2.9 gm/dL (4.2-5.5) L 11/04/16 05:40 Globulin 3.8 gm/dL 11/04/16 05:40 Albumin/Globulin Ratio 0.8 (1.0-1.8) L 11/04/16 05:40 Random Vancomycin 19.1 ug/mL (5.0-40.0) 11/04/16 05:40 - Physical Exam Vitals and I&O: Vital Signs Temp 97.5 F 11/05/16 04:00 Pulse 85 11/05/16 07:30 Resp 14 11/05/16 07:30 BP 136/72 11/05/16 05:38 Pulse Ox 94 11/05/16 07:30 Intake & Output 11/04/16 11/05/16 11/05/16 18:59 06:59 18:59 Intake Total 350 250 Output Total 0 Balance 350 250 Weight (lbs) 78.925 kg Intake: Intake, IV Amount 50 50 Piperacillin Sodium/ 50 50 Tazobact 2.25 gm In Sodium Chloride 0.9% 50 ml @ 100 mls/hr IV Q8HR [facility] Rx#:[id number] Oral 300 200 Output: Urine 0 Other: # Voids 2 2 # Bowel Movements 1 Active Medications: Current Medications Acetaminophen (Tylenol) 650 mg PO Q6HR PRN PRN Reason: MILD PAIN Stop: 12/30/16 17:59 Last Admin: 11/05/16 09:18 Dose: 650 mg Acetaminophen/Hydrocodone Bitart ([place] 5mg/325mg) 1 tab PO Q6H PRN PRN Reason: Pain (Moderate) Stop: 12/30/16 16:17 Ascorbic Acid (Vitamin C) 500 mg PO DAILY [facility] Stop: 12/31/16 08:59 Last Admin: 11/05/16 09:19 Dose: 500 mg Aspirin (Aspirin Chewable) 81 mg PO DAILY [facility] Stop: 12/31/16 08:59 Last Admin: 11/05/16 09:20 Dose: 81 mg Atorvastatin Calcium (Lipitor) 10 mg PO HS MELLISA PRN Reason: Protocol Stop: 12/30/16 20:59 Last Admin: 11/04/16 21:56 Dose: 10 mg Bisacodyl (Dulcolax 10 Mg Supp) 10 mg RC DAILY PRN PRN Reason: Constipation Stop: 12/30/16 16:17 Carvedilol (Coreg) 3.125 mg PO BID [facility] Stop: 12/30/16 16:59 Last Admin: 11/05/16 09:20 Dose: Not Given Clonidine HCl (Catapres) 0.1 mg PO Q6HR PRN PRN Reason: SBP >160 Stop: 12/30/16 21:42 Last Admin: 11/04/16 02:57 Dose: 0.1 mg Clopidogrel Bisulfate (Plavix) 75 mg PO DAILY [facility] Stop: 12/31/16 08:59 Last Admin: 11/05/16 09:19 Dose: 75 mg Docusate Sodium (Colace) 250 mg PO BID [facility] Stop: 12/30/16 16:59 Last Admin: 11/05/16 09:20 Dose: 250 mg Epoetin Kike (Epogen) 10,000 units SUBQ QFRI [facility] Stop: 01/03/17 14:59 Last Admin: 11/04/16 16:38 Dose: 10,000 units Gabapentin (Neurontin) 300 mg PO Q8H [facility] Stop: 12/30/16 15:59 Last Admin: 11/05/16 09:23 Dose: 300 mg Hydralazine HCl (Apresoline) 10 mg PO Q6H PRN PRN Reason: SBP ABOVE 160 Stop: 12/30/16 16:17 Last Admin: 10/31/16 21:57 Dose: 10 mg Hydralazine HCl (Apresoline) 25 mg PO Q12H [facility] Stop: 12/30/16 16:59 Last Admin: 11/05/16 05:38 Dose: Not Given Piperacillin Sod/Tazobactam (Sod 2.25 gm/ Sodium Chloride) 50 mls @ 100 mls/hr IV Q8HR [facility] Stop: 12/31/16 12:59 Last Admin: 11/05/16 04:39 Dose: 100 mls/hr Insulin Aspart (Novolog Insulin Sliding Scale) 0 units SUBQ ACHS MELLISA PRN Reason: Protocol Stop: 12/30/16 16:29 Last Admin: 11/05/16 06:40 Dose: Not Given Ipratropium [place] (Atrovent Neb 0.5mg/2.5ml) 0.5 mg HHN Q6HRT [facility] Stop: 12/30/16 18:59 Last Admin: 11/05/16 07:33 Dose: Not Given Lactobacillus Rhamnosus (Culturelle) 1 each PO DAILY [facility] Stop: 12/31/16 08:59 Last Admin: 11/05/16 09:19 Dose: 1 each Lactulose (Cephulac) 30 gm PO DAILY PRN PRN Reason: Constipation Stop: 12/30/16 16:59 Lisinopril (Zestril) 20 mg PO BID [facility] Stop: 12/30/16 16:59 Last Admin: 11/05/16 09:23 Dose: Not Given Lorazepam (Ativan) 1 mg PO Q12HR PRN; Protocol PRN Reason: Anxiety Stop: 12/30/16 16:17 Miscellaneous (Vancomycin Iv Per Pharmacy) 1 ea MC PRN PRN PRN Reason: VANCOMYCIN Stop: 12/31/16 09:35 Morphine Sulfate (Morphine) 1 mg IVP Q3HR PRN PRN Reason: Pain (Moderate) Stop: 12/31/16 16:05 Last Admin: 11/01/16 20:27 Dose: 1 mg Nifedipine (Procardia Xl) 60 mg PO Q12H [facility] Stop: 12/30/16 16:59 Last Admin: 11/05/16 05:37 Dose: Not Given Sevelamer HCl (Renagel) 800 mg PO TID [facility] Stop: 12/31/16 09:59 Last Admin: 11/05/16 09:20 Dose: 800 mg Vitamin B Complex/Vit C/Folic Acid (Vitamin B Complex W/Vitamin C) 1 tab PO DAILY [facility] Stop: 12/31/16 08:59 Last Admin: 11/05/16 09:19 Dose: 1 tab Zinc Sulfate (Zinc Sulfate) 220 mg PO DAILY [facility] Stop: 12/31/16 08:59 Last Admin: 11/05/16 09:19 Dose: 220 mg - Procedures Procedures: Procedures Procedure Code Date AMPUTATION FOLLOW-UP SURGERY 73524 10/31/16 AMPUTATION OF FOOT AT ANKLE 11636 09/15/16 AMPUTATION THRU METATARSAL 23307 07/22/16 BYPASS L AXILLA VEIN TO UP VEIN W SYNTH SUB, OPEN [id number] 07/22/16 DETACHMENT AT RIGHT FOOT, COMPLETE, OPEN APPROACH [id number] 09/15/16 DETACHMENT AT RIGHT FOOT, PARTIAL 2ND RAY, OPEN APPROACH [id number] 07/22/16 DETACHMENT AT RIGHT FOOT, PARTIAL 3RD RAY, OPEN APPROACH [id number] 07/22/16 DETACHMENT AT RIGHT FOOT, PARTIAL 4TH RAY, OPEN APPROACH [id number] 07/22/16 DETACHMENT AT RIGHT FOOT, PARTIAL 5TH RAY, OPEN APPROACH [id number] 07/22/16 DETACHMENT AT RIGHT LOWER LEG, HIGH, OPEN APPROACH [id number] 10/31/16 EXTIRPATION OF MATTER FROM LEFT AXILLARY VEIN, OPEN APPROACH [id number] 07/22/16 HEMODIALYSIS 39.95 07/31/12 HEMODIALYSIS REPEATED EVAL 35744 07/22/16 INSERT TUNNELED CV CATH 36506 07/22/16 INSERTION OF INFUSION DEV INTO R SUBCLAV VEIN, PERC APPROACH [id number] 07/22/16 INSERTION OF INFUSION DEV INTO SUP VENA CAVA, PERC APPROACH [id number] 07/22/16 OPEN THROMBECT AV FISTULA 69201 07/22/16 PERFORMANCE OF URINARY FILTRATION, MULTIPLE [id number] 09/15/16 ULTRASONOGRAPHY OF RIGHT SUBCLAVIAN VEIN, GUIDANCE C187MTH 07/22/16 ULTRASONOGRAPHY OF SUPERIOR VENA CAVA, GUIDANCE [id number] 07/22/16 US GUIDE VASCULAR ACCESS [id number] 07/22/16 Assessment/Plan - Problem List Patient Problems: All Active Problems Clotted dialysis access (Acute) T82.49XA Hypotension (Acute) clotted access (Acute) clotted access (Acute) reamputation of the right leg above the (Acute) resolved hypotensionn0 (Acute) transmetatarsal amputation right foot (Acute) Nutritional Asmnt/Malnutr-PDOC - Dietary Evaluation Malnutrition Findings (Please click <Entered> for more info): Nutritional Asmnt/Malnutrition Start: 11/01/16 12: 46 Text: Status: Complete Freq: Document 11/01/16 12:46 GSUN (Rec: 11/01/16 12:52 [email or web address] [email or web address]) Nutritional Asmnt/Malnutrition Patient General Information Nutritional Screening Consult Diagnosis Failed right-sided amputation Pertinent Medical Hx/Surgical Hx Severe PAD, ESRD, CKD on HD, DM, HTN, COPD Subjective Information 71 year old male on HD. RD consult for wound. 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 Discussed with Dr. Sampson regarding diet recommendations . Current Diet Order/ Nutrition Support Renal, 1 Arginaid, 1 Prosource Pertinent Medications Vitamin C, Lipitor, Dulcolax, Catapres, Colace, Epogen, Novolog sliding scale, Culturelle, Cephulac, Vancomycin, Renagel, Vitamin B Complex W/Vitamin C, Zinc Sulfate Pertinent Labs 10/31: A1c 5.2, glucose 117H, BUN 35H, creatomome 7.9H 11/01: BUN 37H, creatinine 8.4H , potassium 4.1 Nutritional Hx/Data Height 1.75 m Height (Calculated Centimeters) 175.3 Current Weight (lbs) 71.214 kg Weight (Calculated Kilograms) 71.2 Weight (Calculated Grams) 06048.0 [place] Body Weight 160lb Weight Status Approriate GI Symptoms Cultural/Ethnic/Alevism Belief Unknown. Usual diet at home Unknown. 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 Problem Problem Impaired nutrient utilization related to Etiology renal dysfunction aeb Signs/Symptoms: BUN 37H, creatinine 8.4H, HD dependent 1. Problem Problem Increased protein needs related to Etiology hypermetabolic stated aeb Signs/Symptoms: on HD, R BKA, left foot ulceration Intervention/Recommendation Comments 1. Recommend Renal diet to aid in renal dysfunction. 2. Recommend 1 Prosource and 1 Arginaid to aid in wound healing. Expected Outcomes/Goals Expected Outcomes/Goals 1. PO intake to meet 100% of estimated nutritional needs. 2. Improved skin integrity. Physician Parameters for PEM Serum Albumin (g/dl) 2.4 - 3.0 (Moderate)
[2016-11-05] MEDS: Atorvastatin Calcium 10 MG TAB PO SCH (21:32)
[2016-11-05] MEDS: Morphine Sulfate 2 mg/mL 1mL Syr IVP PRN (22:27)
[2016-11-06] MEDS: Hydrocodone/APAP 5mg/325mg Tab PO PRN (00:42)
[2016-11-06] MEDS: NIFEdipine 30 mg ER Tab PO SCH ×2 (05:37→16:24)
[2016-11-06] MEDS: Morphine Sulfate 2 mg/mL 1mL Syr IVP PRN ×4 (05:38→21:48)
[2016-11-06 07:13] LABS: HEMOGLOBIN 8.5 gm/dL (12.6-17.4); RED CELL DISTRIBUTION WIDTH 17.3 % (11.5-20.0)
[2016-11-06] MEDS: INSULIN ASPART SLIDING SCALE 100 UNITS/ML UNIT SUBQ SCH ×3 (07:13→16:29)
[2016-11-06] MEDS: Ipratropium Neb 0.5 mg/2.5 mL UD HHN SCH ×3 (07:24→19:42)
[2016-11-06 07:26] LABS: % BASOPHILS 0.5 % (0.0-2.0); % EOSINOPHILS 3.1 % (0.0-5.0); % LYMPHOCYTES 30.6 % (20.0-50.0); % MONOCYTES 14.3 % (2.0-10.0); % NEUTROPHILS 51.5 % (40.0-80.0); MEAN CELL VOLUME 88.5 fl (80-99); MEAN CORPUSCULAR HEMOGLOBIN 29.2 pg (27.0-31.0); MEAN CORPUSCULAR HGB CONC 33.1 pg (28.0-36.0); MEAN PLATELET VOLUME 7.6 fl; NEUTROPHILE ABSOLUTE 4.8 Th/cmm (1.8-8.0); PLATELET COUNT 198 Th/cmm (150-400); WHITE BLOOD COUNT 9.2 Th/cmm (4.8-10.8)
[2016-11-06 07:29] LABS: ANION GAP 12.8 (7.0-16.0); BUN/CREATININE RATIO 3.9; CALCIUM SERUM 9.1 mg/dL (8.6-10.3); CARBON DIOXIDE 28.8 mEq/L (21.0-31.0); POTASSIUM SERUM 3.6 mEq/L (3.5-5.1)
[2016-11-06 08:16] LABS: CREATININE - SERUM 5.1 mg/dL (0.7-1.3)
[2016-11-06] MEDS: Aspirin 81mg Chewable Tab PO SCH (08:35)
[2016-11-06] MEDS: Lactobacillus Rhamnosus 10 Billion CFU Capsule PO SCH (08:35)
[2016-11-06] MEDS: Vitamin B Complex w/Vitamin C Tab PO SCH (08:50)
[2016-11-06 09:06] LABS: HEMATOCRIT 25.7 % (39.0-49.0)
[2016-11-06] MEDS: Atorvastatin Calcium 10 MG TAB PO SCH (21:31)
[2016-11-07] MEDS: Ipratropium Neb 0.5 mg/2.5 mL UD HHN SCH ×4 (01:30→19:48)
[2016-11-07] MEDS: Morphine Sulfate 2 mg/mL 1mL Syr IVP PRN ×3 (02:53→17:03)
[2016-11-07] MEDS: Hydrocodone/APAP 5mg/325mg Tab PO PRN (02:59)
[2016-11-07] MEDS: NIFEdipine 30 mg ER Tab PO SCH ×3 (05:12→17:02)
[2016-11-07 07:33] LABS: MEAN CELL VOLUME 88.7 fl (80-99); MEAN CORPUSCULAR HEMOGLOBIN 30.1 pg (27.0-31.0); MEAN PLATELET VOLUME 7.4 fl; PLATELET COUNT 244 Th/cmm (150-400); RED BLOOD COUNT 2.59 Mil/cmm (3.80-5.80); RED CELL DISTRIBUTION WIDTH 17.7 % (11.5-20.0); WHITE BLOOD COUNT 9.9 Th/cmm (4.8-10.8)
[2016-11-07 07:59] LABS: ANION GAP 16.5 (7.0-16.0); BUN/CREATININE RATIO 4.6; CALCIUM SERUM 8.9 mg/dL (8.6-10.3); CARBON DIOXIDE 27.2 mEq/L (21.0-31.0); POTASSIUM SERUM 3.7 mEq/L (3.5-5.1)
[2016-11-07] MEDS: INSULIN ASPART SLIDING SCALE 100 UNITS/ML UNIT SUBQ SCH ×3 (08:03→21:05)
[2016-11-07 08:06] LABS: HEMOGLOBIN 7.8 gm/dL (12.6-17.4)
[2016-11-07 08:26] LABS: CREATININE - SERUM 6.8 mg/dL (0.7-1.3)
[2016-11-07] MEDS: Aspirin 81mg Chewable Tab PO SCH (08:29)
[2016-11-07] MEDS: Vitamin B Complex w/Vitamin C Tab PO SCH (08:30)
[2016-11-07] MEDS: Lactobacillus Rhamnosus 10 Billion CFU Capsule PO SCH (08:32)
[2016-11-07 09:32] LABS: ANISOCYTOSIS 1+; BAND NEUTROPHILE 5 % (0-10); EOSINOPHIL 1 % (0-5); NEUTROPHILS 55 % (40-80); PLATELET ESTIMATE ADEQUATE (NORMAL); PLATELET MORPHOLOGY NORMAL (NORMAL); TOTAL CELLS COUNTED 100
--- NOTE | 2016-11-07 14:01 | General Progress Note ---
Subjective - Review of Systems Service Date: 11/07/16 Objective - Results Result Diagrams: 11/07/16 07:00 11/07/16 07:00 Recent Labs: Laboratory Last Values WBC 9.9 Th/cmm (4.8-10.8) 11/07/16 07:00 RBC 2.59 Mil/cmm (3.80-5.80) L 11/07/16 07:00 Hgb 7.8 gm/dL (12.6-17.4) L* 11/07/16 07:00 Hct 23.0 % (39.0-49.0) L* D 11/07/16 07:00 MCV 88.7 fl (80-99) 11/07/16 07:00 MCH 30.1 pg (27.0-31.0) 11/07/16 07:00 MCHC Differential 34.0 pg (28.0-36.0) 11/07/16 07:00 RDW 17.7 % (11.5-20.0) 11/07/16 07:00 Plt Count 244 Th/cmm (150-400) D 11/07/16 07:00 MPV 7.4 fl 11/07/16 07:00 Neutrophils % 51.5 % (40.0-80.0) 11/06/16 06:51 Band Neutrophils % 5 % (0-10) 11/07/16 07:00 Lymphocytes % 30.6 % (20.0-50.0) 11/06/16 06:51 Monocytes % 14.3 % (2.0-10.0) H 11/06/16 06:51 Eosinophils % 3.1 % (0.0-5.0) 11/06/16 06:51 Basophils % 0.5 % (0.0-2.0) 11/06/16 06:51 Neutrophils (Manual) 55 % (40-80) 11/07/16 07:00 Lymphocytes 24 % (20-50) 11/07/16 07:00 Monocytes 11 % (2-10) H 11/07/16 07:00 Eosinophils 1 % (0-5) 11/07/16 07:00 Nucleated RBCs 1.0 % (0-0) H 11/05/16 06:42 Atypical Lymphocytes 4 % 11/07/16 07:00 Platelet Estimate ADEQUATE (NORMAL) 11/07/16 07:00 Platelet Morphology NORMAL (NORMAL) 11/07/16 07:00 Anisocytosis 1+ 11/07/16 07:00 RBC Morph Micro Appear ABNORMAL (NORMAL) 11/07/16 07:00 PT 9.7 SECONDS (9.5-11.5) 10/31/16 22:23 INR 0.98 (0.5-1.4) 10/31/16 22:23 PTT (Actin FS) 31.0 SECONDS (26.0-38.0) 10/31/16 22:23 Sodium 138 mEq/L (136-145) 11/07/16 07:00 Potassium 3.7 mEq/L (3.5-5.1) 11/07/16 07:00 Chloride 98 mEq/L (98-107) 11/07/16 07:00 Carbon Dioxide 27.2 mEq/L (21.0-31.0) 11/07/16 07:00 Anion Gap 16.5 (7.0-16.0) H 11/07/16 07:00 BUN 31 mg/dL (7-25) H 11/07/16 07:00 Creatinine 6.8 mg/dL (0.7-1.3) H* 11/07/16 07:00 Est GFR ( Amer) 10.4 ml/min (>90) 11/07/16 07:00 Est GFR (Non-Af Amer) 8.6 ml/min 11/07/16 07:00 BUN/Creatinine Ratio 4.6 11/07/16 07:00 Glucose 107 mg/dL (70-105) H 11/07/16 07:00 POC Glucose 123 MG/DL (70 - 105) H 11/07/16 11:25 Hemoglobin A1c % 5.2 % (4.0-6.0) 10/31/16 22:23 Calcium 8.9 mg/dL (8.6-10.3) 11/07/16 07:00 Phosphorus 3.0 mg/dL (2.5-5.0) 11/04/16 05:40 Magnesium 2.1 mg/dL (1.9-2.7) 11/05/16 06:42 Total Bilirubin 0.3 mg/dL (0.3-1.0) 11/04/16 05:40 AST 26 U/L (13-39) 11/04/16 05:40 ALT 20 U/L (7-52) 11/04/16 05:40 Alkaline Phosphatase 52 U/L (34-104) 11/04/16 05:40 Total Protein 6.7 gm/dL (6.0-8.3) 11/04/16 05:40 Albumin 2.9 gm/dL (4.2-5.5) L 11/04/16 05:40 Globulin 3.8 gm/dL 11/04/16 05:40 Albumin/Globulin Ratio 0.8 (1.0-1.8) L 11/04/16 05:40 Stool Occult Blood NEGATIVE (NEGATIVE) 11/05/16 17:15 Random Vancomycin 20.4 ug/mL (5.0-40.0) 11/07/16 07:00 - Physical Exam Vitals and I&O: Vital Signs Temp 98 F 11/07/16 11:59 Pulse 75 11/07/16 12:15 Resp 16 11/07/16 12:15 BP 131/69 11/07/16 11:59 Pulse Ox 96 11/07/16 12:15 Intake & Output 11/06/16 11/07/16 11/07/16 18:59 06:59 18:59 Intake Total 800 550 120 Balance 800 550 120 Intake: Intake, IV Amount 50 Piperacillin Sodium/ 50 Tazobact 2.25 gm In Sodium Chloride 0.9% 50 ml @ 100 mls/hr IV Q8HR [facility] Rx#:[id number] Oral 800 500 120 Other: # Voids 0 0 # Bowel Movements 0 0 Active Medications: Current Medications Acetaminophen (Tylenol) 650 mg PO Q6HR PRN PRN Reason: MILD PAIN Stop: 12/30/16 17:59 Last Admin: 11/05/16 17:09 Dose: 650 mg Acetaminophen/Hydrocodone Bitart ([place] 5mg/325mg) 1 tab PO Q6H PRN PRN Reason: Pain (Moderate) Stop: 12/30/16 16:17 Last Admin: 11/07/16 02:59 Dose: 1 tab Ascorbic Acid (Vitamin C) 500 mg PO DAILY [facility] Stop: 12/31/16 08:59 Last Admin: 11/07/16 08:30 Dose: 500 mg Aspirin (Aspirin Chewable) 81 mg PO DAILY [facility] Stop: 12/31/16 08:59 Last Admin: 11/07/16 08:29 Dose: 81 mg Atorvastatin Calcium (Lipitor) 10 mg PO HS MELLISA PRN Reason: Protocol Stop: 12/30/16 20:59 Last Admin: 11/06/16 21:31 Dose: 10 mg Bisacodyl (Dulcolax 10 Mg Supp) 10 mg RC DAILY PRN PRN Reason: Constipation Stop: 12/30/16 16:17 Carvedilol (Coreg) 3.125 mg PO BID [facility] Stop: 12/30/16 16:59 Last Admin: 11/07/16 08:31 Dose: 3.125 mg Clonidine HCl (Catapres) 0.1 mg PO Q6HR PRN PRN Reason: SBP >160 Stop: 12/30/16 21:42 Last Admin: 11/04/16 02:57 Dose: 0.1 mg Clopidogrel Bisulfate (Plavix) 75 mg PO DAILY [facility] Stop: 12/31/16 08:59 Last Admin: 11/07/16 08:31 Dose: 75 mg Docusate Sodium (Colace) 250 mg PO BID [facility] Stop: 12/30/16 16:59 Last Admin: 11/07/16 08:32 Dose: Not Given Epoetin [place] (Epogen) 10,000 units SUBQ QFRI [facility] Stop: 01/03/17 14:59 Last Admin: 11/04/16 16:38 Dose: 10,000 units Gabapentin (Neurontin) 300 mg PO Q8H [facility] Stop: 12/30/16 15:59 Last Admin: 11/07/16 08:28 Dose: 300 mg Hydralazine HCl (Apresoline) 10 mg PO Q6H PRN PRN Reason: SBP ABOVE 160 Stop: 12/30/16 16:17 Last Admin: 11/06/16 01:07 Dose: 10 mg Hydralazine HCl (Apresoline) 25 mg PO Q12H [facility] Stop: 12/30/16 16:59 Last Admin: 11/07/16 05:11 Dose: 25 mg Piperacillin Sod/Tazobactam (Sod 2.25 gm/ Sodium Chloride) 50 mls @ 100 mls/hr IV Q8HR [facility] Stop: 12/31/16 12:59 Last Admin: 11/07/16 05:11 Dose: 100 mls/hr Insulin Aspart (Novolog Insulin Sliding Scale) 0 units SUBQ ACHS MELL[facility] PRN Reason: Protocol Stop: 12/30/16 16:29 Last Admin: 11/07/16 12:18 Dose: 2 units Ipratropium [place] (Atrovent Neb 0.5mg/2.5ml) 0.5 mg HHN Q6HRT [facility] Stop: 12/30/16 18:59 Last Admin: 11/07/16 12:14 Dose: Not Given Lactobacillus Rhamnosus (Culturelle) 1 each PO DAILY [facility] Stop: 12/31/16 08:59 Last Admin: 11/07/16 08:32 Dose: 1 each Lactulose (Cephulac) 30 gm PO DAILY PRN PRN Reason: Constipation Stop: 12/30/16 16:59 Lisinopril (Zestril) 20 mg PO BID [facility] Stop: 12/30/16 16:59 Last Admin: 11/07/16 08:31 Dose: 20 mg Lorazepam (Ativan) 1 mg PO Q12HR PRN; Protocol PRN Reason: Anxiety Stop: 12/30/16 16:17 Miscellaneous (Vancomycin Iv Per Pharmacy) 1 ea [facility] PRN PRN PRN Reason: VANCOMYCIN Stop: 12/31/16 09:35 Morphine Sulfate (Morphine) 1 mg IVP Q3HR PRN PRN Reason: Pain (Moderate) Stop: 12/31/16 16:05 Last Admin: 11/07/16 08:37 Dose: 1 mg Nifedipine (Procardia Xl) 60 mg PO Q12H [facility] Stop: 12/30/16 16:59 Last Admin: 11/07/16 05:13 Dose: 60 mg Sevelamer HCl (Renagel) 800 mg PO TID [facility] Stop: 12/31/16 09:59 Last Admin: 11/07/16 13:03 Dose: 800 mg Vitamin B Complex/Vit C/Folic Acid (Vitamin B Complex W/Vitamin C) 1 tab PO DAILY [facility] Stop: 12/31/16 08:59 Last Admin: 11/07/16 08:30 Dose: 1 tab Zinc Sulfate (Zinc Sulfate) 220 mg PO DAILY [facility] Stop: 12/31/16 08:59 Last Admin: 11/07/16 08:29 Dose: 220 mg General: Alert, Oriented x3, Cooperative HEENT: Atraumatic Cardiovascular: Regular rate Abdomen: Bowel sounds, Rebound Neurological: Normal gait, Normal tone (s/p amputation of the stump non healing) - Procedures Procedures: Procedures Procedure Code Date AMPUTATION FOLLOW-UP SURGERY 60146 10/31/16 AMPUTATION OF FOOT AT ANKLE 45810 09/15/16 AMPUTATION THRU METATARSAL 47652 07/22/16 BYPASS L AXILLA VEIN TO UP VEIN W SYNTH SUB, OPEN 61734TH 07/22/16 DETACHMENT AT RIGHT FOOT, COMPLETE, OPEN APPROACH [id number] 09/15/16 DETACHMENT AT RIGHT FOOT, PARTIAL 2ND RAY, OPEN APPROACH [id number] 07/22/16 DETACHMENT AT RIGHT FOOT, PARTIAL 3RD RAY, OPEN APPROACH [id number] 07/22/16 DETACHMENT AT RIGHT FOOT, PARTIAL 4TH RAY, OPEN APPROACH [id number] 07/22/16 DETACHMENT AT RIGHT FOOT, PARTIAL 5TH RAY, OPEN APPROACH [id number] 07/22/16 DETACHMENT AT RIGHT LOWER LEG, HIGH, OPEN APPROACH 8G4M6B8 10/31/16 EXTIRPATION OF MATTER FROM LEFT AXILLARY VEIN, OPEN APPROACH [id number] 07/22/16 HEMODIALYSIS 39.95 07/31/12 HEMODIALYSIS REPEATED EVAL 97682 07/22/16 INSERT TUNNELED CV CATH 43896 07/22/16 INSERTION OF INFUSION DEV INTO R SUBCLAV VEIN, PERC APPROACH [id number] 07/22/16 INSERTION OF INFUSION DEV INTO SUP VENA CAVA, PERC APPROACH [id number] 07/22/16 OPEN THROMBECT AV FISTULA 64952 07/22/16 PERFORMANCE OF URINARY FILTRATION, MULTIPLE [id number] 09/15/16 ULTRASONOGRAPHY OF RIGHT SUBCLAVIAN VEIN, GUIDANCE [id number] 07/22/16 ULTRASONOGRAPHY OF SUPERIOR VENA CAVA, GUIDANCE [id number] 07/22/16 US GUIDE VASCULAR ACCESS [id number] 07/22/16 Assessment/Plan - Problem List Patient Problems: All Active Problems Clotted dialysis access (Acute) T82.49XA Hypotension (Acute) clotted access (Acute) clotted access (Acute) reamputation of the right leg above the (Acute) resolved hypotensionn0 (Acute) transmetatarsal amputation right foot (Acute) - Assessment Assessment: hemodialysis for tomorrow will arrange for out patient for discharge to [facility] Nutritional Asmnt/Malnutr-PDOC - Dietary Evaluation Malnutrition Findings (Please click <Entered> for more info): Nutritional Asmnt/Malnutrition Start: 11/01/16 12: 46 Text: Status: Complete Freq: Document 11/01/16 12:46 GSUN (Rec: 11/01/16 12:52 [email or web address] [email or web address]) Nutritional Asmnt/Malnutrition Patient General Information Nutritional Screening Consult Diagnosis Failed right-sided amputation Pertinent Medical Hx/Surgical Hx Severe PAD, ESRD, CKD on HD, DM, HTN, COPD Subjective Information 71 year old male on HD. RD consult for wound. 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 Discussed with Dr. Sampson regarding diet recommendations . Current Diet Order/ Nutrition Support Renal, 1 Arginaid, 1 Prosource Pertinent Medications Vitamin C, Lipitor, Dulcolax, Catapres, Colace, Epogen, Novolog sliding scale, Culturelle, Cephulac, Vancomycin, Renagel, Vitamin B Complex W/Vitamin C, Zinc Sulfate Pertinent Labs 10/31: A1c 5.2, glucose 117H, BUN 35H, creatomome 7.9H 11/01: BUN 37H, creatinine 8.4H , potassium 4.1 Nutritional Hx/Data Height 1.75 m Height (Calculated Centimeters) 175.3 Current Weight (lbs) 71.214 kg Weight (Calculated Kilograms) 71.2 Weight (Calculated Grams) 79179.0 [place]es Body Weight 160lb Weight Status Approriate GI Symptoms Cultural/Ethnic/[employer] Belief Unknown. Usual diet at home Unknown. Skin Integrity/Comment: Marco Castro clinical assessment manager: left food decubitus ulcer, right foot amputation Estimated Nutritional Goals BEE in Kcals: Using Current wt Calories/Kcals/Kg 25-30kcal/kg Kcals Calculated 1780-2136kcal Protein: Using Current wt Protein g/k.2-1.6g/kg Protein Calculated 85-114g Fluid: ml Per MD (on HD) Nutritional Problem 2. Problem Problem Impaired nutrient utilization related to Etiology renal dysfunction aeb Signs/Symptoms: BUN 37H, creatinine 8.4H, HD dependent 1. Problem Problem Increased protein needs related to Etiology hypermetabolic stated aeb Signs/Symptoms: on HD, R BKA, left foot ulceration Intervention/Recommendation Comments 1. Recommend Renal diet to aid in renal dysfunction. 2. Recommend 1 Prosource and 1 Arginaid to aid in wound healing. Expected Outcomes/Goals Expected Outcomes/Goals 1. PO intake to meet 100% of estimated nutritional needs. 2. Improved skin integrity. Physician Parameters for PEM Serum Albumin (g/dl) 2.4 - 3.0 (Moderate)
--- NOTE | 2016-11-07 23:52 | Discharge Summary ---
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 SECONDARY DIAGNOSES: Include history of right transmetatarsal amputation; history of peripheral arterial disease, status post femoropopliteal bypass; end-stage renal disease; chronic anemia; chronic obstructive pulmonary disease; hypertension; diabetes; chronic kidney disease, on hemodialysis. DISCHARGE DIAGNOSES: Status post below-knee amputation and non-healing right Syme amputation with necrotic tissue formation. CONSULTANTS: Dr. Temple, Nephrology and Dr. Irizarry, Surgery. MAJOR PROCEDURES: On 11/01/2016, he underwent a right [id number] amputation and application of a posterior splint, this was done by Dr. Irizarry with no complications. BRIEF HOSPITAL COURSE: A 71-year-old gentleman with the above-mentioned conditions, who a few months ago underwent a fem-pop bypass at [facility] with no improvement of his right necrotic toes. He was transferred to this facility and eventually underwent a transmetatarsal amputation and this did not improve as well and he had to undergo a low BKA/Syme amputation and has been residing at [facility] with IV antibiotics, but again he started developing necrotic tissue and he was referred by Dr. Irizarry's clinic to have a [id number] amputation. Therefore, he was admitted on the above-mentioned date and underwent a BKA without any complications. He has been kept on vancomycin IV as well as Zosyn and Zyvox. He has remained stable throughout his hospital stay and has actually received hemodialysis as scheduled. His vital signs and his labs have also remained stable. He has been able to receive physical therapy and at this time, the patient is ready to go back to a usp facility for further management and care. CONDITION ON DISCHARGE: Stable. DISPOSITION: The patient will be transferred back to [facility] under the care of Dr. Beach. He will follow up with Dr. Irizarry as an outpatient within the next couple of weeks. His hemodialysis will be scheduled accordingly as well. MEDICATIONS ON DISCHARGE: Acetaminophen p.r.n.; Arginaid powder daily; vitamin C daily; aspirin 81 daily; atorvastatin 10 daily; bisacodyl 10 mg daily; Coreg 3.125 b.i.d.; Plavix 75 daily; Aranesp 400 mcg q. Monday; docusate sodium 250 b.i.d.; gabapentin 100mg every 8 hours; hydralazine 10 mg p.r.n., q.6 p.r.n. for SBP greater than 160; [place] 10/325 q.4 p.r.n. for severe pain; insulin sliding scale; Atrovent q.4 p.r.n.; Lactobacillus acidophilus 1 tablet daily; Zyvox 600 b.i.d. x 10 more days; lisinopril 20 mg b.i.d.; lorazepam 1 mg q.12; nifedipine 60 mg every 24 hours; Spiriva 18 mcg daily; Ashley-Micah daily; zinc sulfate 220 daily; vancomycin 1 g q.24 hours x 2 more weeks; Zosyn 2.275 q.8 hours x 14 days. OVIDIO# [id number] [facility]
[2016-11-08] MEDS: Ipratropium Neb 0.5 mg/2.5 mL UD HHN SCH ×4 (01:08→20:02)
[2016-11-08] MEDS: NIFEdipine 30 mg ER Tab PO SCH ×2 (05:35→16:19)
[2016-11-08 07:24] LABS: HEMOGLOBIN 8.4 gm/dL (12.6-17.4)
[2016-11-08] MEDS: Vitamin B Complex w/Vitamin C Tab PO SCH (08:33)
[2016-11-08] MEDS: Lactobacillus Rhamnosus 10 Billion CFU Capsule PO SCH (08:34)
[2016-11-08] MEDS: Aspirin 81mg Chewable Tab PO SCH (08:34)
[2016-11-08] MEDS: Morphine Sulfate 2 mg/mL 1mL Syr IVP PRN ×2 (08:35→18:30)
[2016-11-08] MEDS: INSULIN ASPART SLIDING SCALE 100 UNITS/ML UNIT SUBQ SCH (12:20)
== END 2016-11-08 18:55 | DRG 474 ==
LOC: MERGE 13:45 → MSI 13:45
PROVIDERS: ADMIT Internal Medicine; ATTEND Internal Medicine
PROC: 0Y6H0Z1 Detachment at Right Lower Leg, High, Open Approach (ICD-10-PCS; principal; 2016-11-01)
PROC: 5A1D60Z (ICD-10-PCS; 2016-11-01)
PROC: 30233N1 Transfusion of Nonautologous Red Blood Cells into Peripheral Vein, Percutaneous Approach (ICD-10-PCS; 2016-11-08)
DX: T87.53 Necrosis of amputation stump, right lower extremity (principal); N18.6 End stage renal disease; I12.0 Hypertensive chronic kidney disease with stage 5 chronic kidney disease or end stage renal disease; E11.22 Type 2 diabetes mellitus with diabetic chronic kidney disease; J44.9 Chronic obstructive pulmonary disease, unspecified; F17.210 Nicotine dependence, cigarettes, uncomplicated; Y83.8 Other surgical procedures as the cause of abnormal reaction of the patient, or of later complication, without mention of misadventure at the time of the procedure; Y92.89 Other specified places as the place of occurrence of the external cause; Z88.5 Allergy status to narcotic agent; Z88.0 Allergy status to penicillin; Z99.2 Dependence on renal dialysis; Z88.8 Allergy status to other drugs, medicaments and biological substances
CPT/HCPCS: 36415-UA; 71010-TC; 73620-TC-RT; 80048-TC; 80053-TC; 80202-TC; 82270-TC; 82948-90; 83036-90; 83735-TC; 84100-TC; 85007-TC; 85014-TC; 85018-TC; 85025-TC; 85027-TC; 85610-TC; 86850-TC; 86870-TC; 86900-TC; 86901-TC; 86905-TC; 86922-TC; 88305-90; 90779; 90937; 93005; 94640; 94760; 97530; J0885; J1170; J1815; J2001; J2250; J2270; J2543; J2704; J3370; J7030; J7040; P9016; V2790; X3904; X6024; X6026; Z7610

== ENCOUNTER 2017-01-05 08:50 | Inpatient (IN) | payer MEDICARE, MEDICAID ==
[2017-01-05] MEDS ORDERED: Non-Formulary Item 1 EA (Lactulose [Lactulose] 30 ML) PO PRN (10:01)
[2017-01-05] MEDS: Ipratropium Neb 0.5 mg/2.5 mL UD HHN SCH ×2 (12:06→18:57)
[2017-01-05] MEDS: INSULIN ASPART SLIDING SCALE 100 UNITS/ML UNIT SUBQ SCH ×3 (13:00→20:25)
[2017-01-05] MEDS ORDERED: Venelex 60gm Tube TP ONE (13:17)
[2017-01-05] MEDS: Vitamin B Complex w/Vitamin C Tab PO SCH (13:28)
[2017-01-05] MEDS: Lactobacillus Rhamnosus 10 Billion CFU Capsule PO SCH (13:28)
[2017-01-05] MEDS: NIFEdipine 30 mg ER Tab PO SCH ×2 (13:28→21:27)
--- NOTE | 2017-01-05 15:14 | History & Physical ---
ADMIT DATE: 01/05/2017 CHIEF COMPLAINT: Left heel decubitus ulcer. HISTORY OF PRESENT ILLNESS: This is a 71-year-old -[place] gentleman with history of end-stage renal disease, hypertension, COPD, nicotine dependence, and history of severe PAD. He has over the last few months undergone a right trans-metatarsal amputation f/b Syme's amputation,and eventually BKA Dr. Irizarry at this facility a few months ago. He also underwent a fem-pop bypass at [facility] few months prior to that. The patient presented to Dr. Irizarry's office last week for a left heel ulcer and the patient now has been admitted to the hospital for debridement. The patient states that the ulcer started perhaps 2-4 weeks ago, but is not quite sure. He denies any other complaints of fever, chills or claudication symptomatology. PAST MEDICAL HISTORY: As noted above. He has also of end-stage renal disease, on hemodialysis. PAST SURGICAL HISTORY: Includes AV shunts and the above-mentioned procedures done recently. FAMILY HISTORY: Noncontributory. SOCIAL HISTORY: He smokes occasionally, unable to quantify and is currently living at [facility] under the care of Dr. Beach. ALLERGIES: CLONIDINE, CODEINE AND IODINE. MEDICATIONS: Currently not available. Please refer to the MAR. PHYSICAL EXAMINATION: VITAL SIGNS: BP 162/80, temperature 97.4, pulse 68, respirations 19, satting 98% on room air. GENERAL: Well developed, well nourished, not in acute distress. CARDIOVASCULAR: Regular rate and rhythm without any murmurs. LUNGS: Decreased @ bases, clear to auscultation bilaterally. ABDOMEN: Soft, supple, nontender, nondistended, normoactive bowel sounds. The right stump looks clean, dry and intact. The left heel area is currently covered with gauze. There is 1+ pedal pulse. LABORATORY DATA: No current episode available. DIAGNOSTICS: No diagnostics are available. IMPRESSION: 1. Left heel decubitus ulcer. 2. History of severe peripheral arterial disease. 3. History of right BKA. 4. End-stage renal disease, on hemodialysis. 5. History of hypertension. 6. History of chronic obstructive pulmonary disease. PLAN: The patient has been admitted to the medical/surgical floor for further management and care. He will be kept on his current medications as scheduled. I will add vancomycin and Rocephin for coverage and consult with Dr. Irizarry has been asked for. Preop labs and EKGs will also be ordered. JOB# [id number] MTDD
[2017-01-05] MEDS: cefTRIAXone 1 GM in Sodium Chloride 0.9% 50 ML IV SCH (15:26)
--- NOTE | 2017-01-05 16:34 | Admit Criteria Form ---
Admit Criteria Forms - Admit Criteria Diagnosis: SKIN AND WOUND CARE Clinical Indications for Inpatient Care (Place 'X' for any and all applicable criteria): Ongoing inpatient care may be indicated for pressure, venous, arterial, or neuropathic ulcers, with ANY ONE of the following (2)(3)(8)(9)(21)(25): [X ]I. Need for ANY ONE of the following(26) [ ]a) Pressure ulcer closure procedures [ ]b) Skin grafting [X ]c) Wound debridement [ ]d) Dressing change under general anesthesia [ ]e) Arterial revascularization procedures(19) (Also use Aortofemoral or Aortoiliac Bypass or Femoral Popliteal Bypass Criteria as appropriate) [ ]f) Amputation (Also use Foot: Transmetatarsal Amputation or Knee: Amputation Above or Below Knee Criteria as appropriate) [ ]g) Diverting colostomy [ ]h) Other significant surgical treatment [ ]II. Infection requiring inpatient care as indicated by ALL of the following( 27) [ ]a) ANY ONE of the following signs of infection: [ ]i) Poorly approximated incision line. [ ]ii) Excessive drainage [ ]iii) Foul odor [ ]iv) Pus [ ]v) Increased redness [ ]vi) Breakdown in tissue after suture removal [ ]vii) Fever [ ]b) ANY ONE of the following findings: [ ]i) Mental status changes [ ]ii) Dehydration [ ]iii) Bacteremia [ ]iv) Perineal infection [ ]v) Hemodynamic instability [ ]vi) High-risk conditions, such as ANY ONE of the following: [ ]1) Poorly controlled diabetes [ ]2) Cirrhosis [ ]3) Neutropenia [ ]4) Asplenia [ ]5) HIV infection [ ]6) Immunosuppression Extended stay beyond goal length of stay for primary condition may be needed until ALL of the following are present(1)(2)(13)(21)(27): [ ]a) Tissue necrosis absent or treatment plan manageable at lower level of care [ ]b) Fistulas, tunneling, or underlying deep tissue infection absent or treated [ ]c) Purulence and tissue breakdown absent or improved [ ]d) Ulcer surgical repair absent or healing without complications [ ]e) Wound infection absent or manageable at lower level of care [ ]f) Comorbidities absent or manageable at lower level of care The original [facility] [employer] content created by Nolberto Nettles has been revised. The portions of the content which have been revised are identified through the use of italic text or in bold, and Nolberto Nettles has neither reviewed nor approved the modified material. All other unmodified content is copyright [employer]olber[employer] Nettles. Please see references footnoted in the original [employer]ettles edition 2016 Admit Criteria Met?: Yes
[2017-01-05] MEDS: Morphine Sulfate 2 mg/mL 1mL Syr IVP PRN ×2 (18:30→21:33)
--- NOTE | 2017-01-05 18:56 | Operative Report ---
DATE OF SURGERY: 01/05/2017 PREOPERATIVE DIAGNOSES: Decubitus ulcer, left heel, size 8 x 6 cm depth, two subcutaneous tissues. POSTOPERATIVE DIAGNOSES: Decubitus ulcer, left heel, size 8 x 6 cm depth, two subcutaneous tissues. OPERATION DONE: 1. Excisional debridement of left heel ulcer. 2. Culture and sensitivity. 3. Application of Venelex ointment. SURGEON: Juan C Cobos MD ANESTHESIA: MAC. ANESTHESIOLOGIST: Carol Ann Sr M.D. DESCRIPTION OF PROCEDURE: The patient was given IV sedation. The left heel was prepped with Betadine and draped in appropriate manner. A 1% lidocaine was used to infiltrate around the area of the ulcer. Excisional debridement was done removing all necrotic tissues. ____Venelex was applied following culture. A sterile dressing was placed over this. The patient tolerated the procedure well. JOB# [id number]
[2017-01-05] MEDS: Atorvastatin Calcium 10 MG TAB PO SCH (20:19)
[2017-01-06] MEDS: Ipratropium Neb 0.5 mg/2.5 mL UD HHN SCH ×3 (00:59→13:12)
[2017-01-06] MEDS: Morphine Sulfate 2 mg/mL 1mL Syr IVP PRN (05:41)
[2017-01-06 06:46] LABS: % BASOPHILS 0.1 % (0.0-2.0); % EOSINOPHILS 3.4 % (0.0-5.0); % LYMPHOCYTES 31.8 % (20.0-50.0); % MONOCYTES 6.9 % (2.0-10.0); % NEUTROPHILS 57.8 % (40.0-80.0); HEMATOCRIT 40.1 % (39.0-49.0); MEAN CELL VOLUME 88.2 fl (80-99); MEAN CORPUSCULAR HEMOGLOBIN 28.7 pg (27.0-31.0); MEAN CORPUSCULAR HGB CONC 32.6 pg (28.0-36.0); MEAN PLATELET VOLUME 8.5 fl; NEUTROPHILE ABSOLUTE 3.9 Th/cmm (1.8-8.0); PLATELET COUNT 284 Th/cmm (150-400); RED BLOOD COUNT 4.54 Mil/cmm (3.80-5.80); WHITE BLOOD COUNT 6.7 Th/cmm (4.8-10.8)
[2017-01-06] MEDS: INSULIN ASPART SLIDING SCALE 100 UNITS/ML UNIT SUBQ SCH ×4 (06:58→20:20)
[2017-01-06 07:05] LABS: ANION GAP 13.3 (7.0-16.0); BUN/CREATININE RATIO 5.4; CALCIUM SERUM 9.6 mg/dL (8.6-10.3); CARBON DIOXIDE 26.3 mEq/L (21.0-31.0); POTASSIUM SERUM 4.6 mEq/L (3.5-5.1)
[2017-01-06] MEDS: Lactobacillus Rhamnosus 10 Billion CFU Capsule PO SCH (08:19)
[2017-01-06 08:20] LABS: HEMOGLOBIN 13.1 gm/dL (12.6-17.4)
[2017-01-06] MEDS: Vitamin B Complex w/Vitamin C Tab PO SCH (08:20)
[2017-01-06] MEDS: cefTRIAXone 1 GM in Sodium Chloride 0.9% 50 ML IV SCH (10:09)
[2017-01-06] MEDS ORDERED: Lactulose 10 Gm/15 mL 30mL UDC PO PRN (10:40)
[2017-01-06] MEDS: NIFEdipine 30 mg ER Tab PO SCH ×2 (10:56→21:17)
[2017-01-06] MEDS ORDERED: VTE Chemical Prophylaxis Screen/Admission MC PRN (14:03)
--- NOTE | 2017-01-06 16:36 | General Progress Note ---
Subjective - Review of Systems Service Date: 01/06/17 Events since last encounter: local wound care ordered may DC back to SNF Objective - Results Result Diagrams: 01/06/17 06:25 01/06/17 06:25 Recent Labs: Laboratory Last Values WBC 6.7 Th/cmm (4.8-10.8) D 01/06/17 06:25 RBC 4.54 Mil/cmm (3.80-5.80) 01/06/17 06:25 Hgb 13.1 gm/dL (12.6-17.4) D 01/06/17 06:25 Hct 40.1 % (39.0-49.0) D 01/06/17 06:25 MCV 88.2 fl (80-99) 01/06/17 06:25 MCH 28.7 pg (27.0-31.0) 01/06/17 06:25 MCHC Differential 32.6 pg (28.0-36.0) 01/06/17 06:25 RDW 18.0 % (11.5-20.0) 01/06/17 06:25 Plt Count 284 Th/cmm (150-400) 01/06/17 06:25 MPV 8.5 fl 01/06/17 06:25 Neutrophils % 57.8 % (40.0-80.0) 01/06/17 06:25 Lymphocytes % 31.8 % (20.0-50.0) 01/06/17 06:25 Monocytes % 6.9 % (2.0-10.0) 01/06/17 06:25 Eosinophils % 3.4 % (0.0-5.0) 01/06/17 06:25 Basophils % 0.1 % (0.0-2.0) 01/06/17 06:25 Sodium 136 mEq/L (136-145) 01/06/17 06:25 Potassium 4.6 mEq/L (3.5-5.1) 01/06/17 06:25 Chloride 101 mEq/L (98-107) 01/06/17 06:25 Carbon Dioxide 26.3 mEq/L (21.0-31.0) 01/06/17 06:25 Anion Gap 13.3 (7.0-16.0) 01/06/17 06:25 BUN 43 mg/dL (7-25) H 01/06/17 06:25 Creatinine 8.0 mg/dL (0.7-1.3) H* 01/06/17 06:25 Est GFR ( Amer) 8.6 ml/min (>90) 01/06/17 06:25 Est GFR (Non-Af Amer) 7.1 ml/min 01/06/17 06:25 BUN/Creatinine Ratio 5.4 01/06/17 06:25 Glucose 93 mg/dL (70-105) 01/06/17 06:25 POC Glucose 104 MG/DL (70 - 105) 01/06/17 05:32 Calcium 9.6 mg/dL (8.6-10.3) 01/06/17 06:25 Magnesium 2.5 mg/dL (1.9-2.7) 01/06/17 06:25 - Physical Exam Vitals and I&O: Vital Signs Temp 98.5 F 01/06/17 11:54 Pulse 67 01/06/17 11:54 Resp 18 01/06/17 11:54 BP 132/70 01/06/17 11:54 Pulse Ox 99 01/06/17 11:54 Intake & Output 01/05/17 01/06/17 01/06/17 18:59 06:59 18:59 Intake Total 1500 Balance 1500 Intake: Intake, IV Amount 300 Vancomycin HCl 1 gm In 250 Sodium Chloride 0.9% 250 ml @ 166.667 mls/hr IV Q24H [facility] Rx#:[id number] cefTRIAXone 1 gm In 50 Sodium Chloride 0.9% 50 ml @ 100 mls/hr IV Q24HR [facility] Rx#:[id number] Oral 1200 Other: # Voids 1 1 # Bowel Movements 1 1 Active Medications: Current Medications Acetaminophen (Tylenol) 650 mg PO Q6HR PRN PRN Reason: MILD PAIN Stop: 03/06/17 10:00 Ascorbic Acid (Vitamin C) 500 mg PO DAILY MELLISA Stop: 03/06/17 10:14 Last Admin: 01/06/17 08:19 Dose: 500 mg Atorvastatin Calcium (Lipitor) 10 mg PO HS MELLISA PRN Reason: Protocol Stop: 03/06/17 20:59 Last Admin: 01/05/17 20:19 Dose: 10 mg Bisacodyl (Dulcolax 10 Mg Supp) 10 mg RC DAILY PRN PRN Reason: Constipation Stop: 03/06/17 10:00 Carvedilol (Coreg) 3.125 mg PO BID [facility] Stop: 03/06/17 10:14 Last Admin: 01/06/17 08:21 Dose: Not Given Docusate Sodium (Colace) 250 mg PO BID [facility] Stop: 03/06/17 16:59 Last Admin: 01/06/17 08:19 Dose: 250 mg Gabapentin (Neurontin) 300 mg PO Q8H [facility] Stop: 03/06/17 10:14 Last Admin: 01/06/17 10:10 Dose: 300 mg Heparin Sodium (Porcine) (Heparin) 5,000 units SUBQ Q12HR [facility] Stop: 03/07/17 20:59 Hydralazine HCl (Apresoline) 10 mg PO Q6H PRN PRN Reason: SBP ABOVE 160 Stop: 03/06/17 10:00 Hydralazine HCl (Apresoline) 25 mg PO Q12H [facility] Stop: 03/06/17 10:14 Last Admin: 01/06/17 10:56 Dose: Not Given Piperacillin Sod/Tazobactam (Sod 2.25 gm/ Sodium Chloride) 50 mls @ 100 mls/hr IV Q8HR [facility] Stop: 03/07/17 12:59 Last Admin: 01/06/17 14:08 Dose: 100 mls/hr Vancomycin HCl 500 mg/ Sodium (Chloride) 100 mls @ 100 mls/hr IV ONCE ONE Stop: 01/06/17 18:59 Insulin Aspart (Novolog Insulin Sliding Scale) 0 units SUBQ ACHS [facility] PRN Reason: Protocol Stop: 03/06/17 11:29 Last Admin: 01/06/17 12:01 Dose: Not Given Ipratropium [place] (Atrovent Neb 0.5mg/2.5ml) 0.5 mg HHN Q6HRT [facility] Stop: 03/06/17 12:59 Last Admin: 01/06/17 13:12 Dose: Not Given Lactobacillus Rhamnosus (Culturelle) 1 each PO DAILY [facility] Stop: 03/06/17 10:14 Last Admin: 01/06/17 08:19 Dose: 1 each Lactulose (Cephulac) 20 gm PO DAILY PRN PRN Reason: Constipation Lisinopril (Zestril) 20 mg PO BID [facility] Stop: 03/06/17 10:14 Last Admin: 01/06/17 08:20 Dose: Not Given Miscellaneous (Vancomycin Iv Per Pharmacy) 1 ea PRN PRN PRN Reason: VANCOMYCIN PER RX Stop: 03/07/17 10:45 Miscellaneous (Vte Chemical Prophylaxis Screen/ Admission) 1 ea PRN PRN PRN Reason: PROTOCOL Stop: 03/07/17 14:02 Morphine Sulfate (Morphine) 1 mg IVP Q3HR PRN PRN Reason: Pain (Moderate) Stop: 03/06/17 10:00 Last Admin: 01/06/17 05:41 Dose: 1 mg Nifedipine (Procardia Xl) 60 mg PO Q12H [facility] Stop: 03/06/17 10:14 Last Admin: 01/06/17 10:56 Dose: Not Given Sevelamer HCl (Renagel) 800 mg PO TID [facility] Stop: 03/06/17 13:59 Last Admin: 01/06/17 13:41 Dose: 800 mg Vitamin B Complex/Vit C/Folic Acid (Vitamin B Complex W/Vitamin C) 1 tab PO DAILY [facility] Stop: 03/06/17 10:14 Last Admin: 01/06/17 08:20 Dose: 1 tab Zinc Sulfate (Zinc Sulfate) 220 mg PO DAILY [facility] Stop: 03/06/17 10:14 Last Admin: 01/06/17 08:19 Dose: 220 mg - Procedures Procedures: Procedures Procedure Code Date AMPUTATION FOLLOW-UP SURGERY 21765 10/31/16 AMPUTATION OF FOOT AT ANKLE 88973 09/15/16 AMPUTATION THRU METATARSAL 82037 07/22/16 BYPASS L AXILLA VEIN TO UP VEIN W SYNTH SUB, OPEN [id number] 07/22/16 DETACHMENT AT RIGHT FOOT, COMPLETE, OPEN APPROACH [id number] 09/15/16 DETACHMENT AT RIGHT FOOT, PARTIAL 2ND RAY, OPEN APPROACH [id number] 07/22/16 DETACHMENT AT RIGHT FOOT, PARTIAL 3RD RAY, OPEN APPROACH [id number] 07/22/16 DETACHMENT AT RIGHT FOOT, PARTIAL 4TH RAY, OPEN APPROACH [id number] 07/22/16 DETACHMENT AT RIGHT FOOT, PARTIAL 5TH RAY, OPEN APPROACH [id number] 07/22/16 DETACHMENT AT RIGHT LOWER LEG, HIGH, OPEN APPROACH [id number] 10/31/16 EXTIRPATION OF MATTER FROM LEFT AXILLARY VEIN, OPEN APPROACH [id number] 07/22/16 HEMODIALYSIS 39.95 07/31/12 HEMODIALYSIS REPEATED EVAL 10546 07/22/16 INSERT TUNNELED CV CATH 12123 07/22/16 INSERTION OF INFUSION DEV INTO R SUBCLAV VEIN, PERC APPROACH [id number] 07/22/16 INSERTION OF INFUSION DEV INTO SUP VENA CAVA, PERC APPROACH [id number] 07/22/16 OPEN THROMBECT AV FISTULA 11384 07/22/16 PERFORMANCE OF URINARY FILTRATION, MULTIPLE [id number] 10/31/16 TRANSFUSE NONAUT RED BLOOD CELLS IN PERIPH VEIN, PERC [id number] 10/31/16 ULTRASONOGRAPHY OF RIGHT SUBCLAVIAN VEIN, GUIDANCE [id number] 07/22/16 ULTRASONOGRAPHY OF SUPERIOR VENA CAVA, GUIDANCE [id number] 07/22/16 US GUIDE VASCULAR ACCESS [id number] 07/22/16 Assessment/Plan - Problem List Patient Problems: All Active Problems Clotted dialysis access (Acute) T82.49XA Hypotension (Acute) clotted access (Acute) clotted access (Acute) reamputation of the right leg above the (Acute) resolved hypotensionn0 (Acute) transmetatarsal amputation right foot (Acute) Nutritional Asmnt/Malnutr-PDOC - Dietary Evaluation Malnutrition Findings (Please click <Entered> for more info): Nutritional Asmnt/Malnutrition Start: 01/05/17 16: 50 Text: Status: Complete Freq: Document 01/05/17 16:50 GSUN (Rec: 01/05/17 17:05 GSUN [email or web address]) Nutritional Asmnt/Malnutrition Patient General Information Nutritional Screening Consult Diagnosis Left heel decubitus ulcer Pertinent Medical Hx/Surgical Hx ESRD on HD, HTN, COPD, nicotine dependence, hx severe PAD, hx right BKA Subjective Information 71 year old male from SNF. RD consult for wounds, debridement compelted today. Pt has been admitted to this hospital 3 times within past [address] has spoken to pt several times. CBW via bedscale 164.3lb, pt stated recent weight around 160lb. RD noted pt has lost weight since previous adms this year 2016, pt stated he is not sure but he smight have. Explained curret diet order to pt, offered further edu on diet, pt refused at this time. Pt expressed hunger. Blankets covered up to neck, no significant wasting noted to face. Current Diet Order/ Nutrition Support [id number], low sodium Pertinent Medications Vitamin C, Lipitor, Dulcolax, Colace, Novolog, Culturelle, Morphine, Renagel, Vancomycin, Vitamin B Complex w/Vitamin C , Zinc Sulfate Pertinent Labs POC 123H Nutritional Hx/Data Height 1.75 m Height (Calculated Centimeters) 175.3 Current Weight (lbs) 74.525 kg Weight (Calculated Kilograms) 74.5 Weight (Calculated Grams) 78646.2 Usual body Weight (lbs) 175 [place] Body Weight 160 Recent Weight Change Yes Weight Status Approriate GI Symptoms Skin Integrity/Comment: Left medial heel chronic unstageable pressure ulcer Estimated Nutritional Goals BEE in Kcals: Using Current wt Calories/Kcals/Kg CBW 74.5kg, ESRD on HD, pressure ulcer Kcals Calculated 2235-2608kcal (30-35kcal/kg) Protein: Using Current wt Protein Calculated 89-112g (1.2-1.5g/kg) Fluid: ml 2235-2608ml (1ml/kcal) Nutritional Problem 1. Problem Problem Increase kcal and prot needs related to Etiology hypermetabolic state, possible recent weight loss aeb Signs/Symptoms: ESRD on HD, ulcers, 178.8lb on 11/03/16 admission Intervention/Recommendation Comments 1. Continue with current diet order. 2. Offered nutrition edu on renal and [facility] diet, pt declined at this time. 3. Monitor weight, possible weight loss since previous admissions. 01/05/17: 164.3lb, : 178.8lb, 09/16/16: 175. 5lb. Expected Outcomes/Goals Expected Outcomes/Goals 1. PO intake to meet at least 75% of estimated nutritional needs.
[2017-01-06] MEDS: Vancomycin HCl 500 MG in Sodium Chloride 0.9% 100 ML IV ONE ×2 (18:10→18:29)
[2017-01-06] MEDS: Atorvastatin Calcium 10 MG TAB PO SCH (20:18)
--- NOTE | 2017-01-06 23:10 | Discharge Summary ---
DATE OF DISCHARGE: 01/09/2017 ADMITTING DIAGNOSIS: Left heel infected decubitus ulcer. DISCHARGE DIAGNOSIS: Status post excisional debridement of the left heel ulcer. MRSA positive screen SECONDARY DIAGNOSES: Include; 1. History of peripheral artery disease, status post right below the knee amputation. 2. End-stage renal disease, on hemodialysis. 3. History of hypertension. 4. History of chronic obstructive pulmonary disease. 5. History of nicotine dependence. CONSULTANTS: Dr. Irizarry. MAJOR PROCEDURES: As noted above, he underwent an excisional debridement of the left heel decubitus ulcer on 01/05/2017 without any complications. BRIEF HOSPITAL COURSE: A 71-year-old -[place] gentleman with the above-mentioned past medical history, who was diagnosed with a left heel ulcer which appeared to be necrotic few weeks ago by Dr. Irizarry. 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 He has been residing at [facility] and doing relatively well until about 2-3 weeks ago when he first noticed a left heel ulcer for which Dr. Irizarry saw him and schedule him to be admitted here for the resection. He has remained stable since admission. He will undergo dialysis as scheduled and he will be discharged home. DISCHARGE MEDICATIONS: Zosyn per pharm; aspirin 81 every day; Plavix 75 every day; clonidine p.r.n.; Tylenol p.r.n.; ascorbic acid 500 mg every day; atorvastatin 10 mg every day; Dulcolax 10 mg per rectum p.r.n. for severe constipation; Coreg 3.125 b.i.d.; docusate sodium 250 b.i.d.; gabapentin 300 mg q.8h; hydralazine 10 mg q. 6h p.r.n. for SBP greater than 160; insulin sliding scale; DuoNeb p.r.n. for SOB; lactulose 30 mL every day; lisinopril 20 b.i.d.; morphine sulfate 1 mg q.3h. p.r.n. for severe pain; nifedipine 30 mg q.12h; vitamin B and C one tab every day; zinc sulfate 220 every day; and vancomycin 1 g every day for 2 weeks. Bactroban oinment bid x 7 days CONDITION ON DISCHARGE: Stable. DISPOSITION: The patient will be discharged back to [facility]. [facility]# [id number] MTDSterling
[2017-01-07] MEDS: INSULIN ASPART SLIDING SCALE 100 UNITS/ML UNIT SUBQ SCH ×4 (06:30→21:06)
[2017-01-07 06:48] LABS: % BASOPHILS 0.4 % (0.0-2.0); % EOSINOPHILS 2.8 % (0.0-5.0); % MONOCYTES 9.6 % (2.0-10.0); % NEUTROPHILS 56.2 % (40.0-80.0); HEMATOCRIT 38.3 % (39.0-49.0); HEMOGLOBIN 12.5 gm/dL (12.6-17.4); MEAN CELL VOLUME 88.5 fl (80-99); MEAN CORPUSCULAR HEMOGLOBIN 28.9 pg (27.0-31.0); MEAN CORPUSCULAR HGB CONC 32.7 pg (28.0-36.0); MEAN PLATELET VOLUME 8.1 fl; NEUTROPHILE ABSOLUTE 3.9 Th/cmm (1.8-8.0); PLATELET COUNT 253 Th/cmm (150-400); RED BLOOD COUNT 4.32 Mil/cmm (3.80-5.80); RED CELL DISTRIBUTION WIDTH 18.1 % (11.5-20.0)
[2017-01-07] MEDS: Ipratropium Neb 0.5 mg/2.5 mL UD HHN SCH ×3 (07:00→19:00)
[2017-01-07 07:31] LABS: ANION GAP 9.8 (7.0-16.0); BUN/CREATININE RATIO 5.3; CALCIUM SERUM 9.1 mg/dL (8.6-10.3); CARBON DIOXIDE 27.9 mEq/L (21.0-31.0); POTASSIUM SERUM 3.7 mEq/L (3.5-5.1)
[2017-01-07 08:16] LABS: CREATININE - SERUM 6.2 mg/dL (0.7-1.3)
--- NOTE | 2017-01-07 08:32 | Consultation ---
DATE OF CONSULTATION: 01/06/2017 This is a 71-year-old patient -[place] with chronic renal failure, on maintenance hemodialysis, was brought in here, depressed at times, for decubitus ulcer of the left heel, size 8 x 6 cm to the subcutaneous tissue for debridement. He has had outpatient culture and sensitivity, excision and debridement of left heel to be done on application of Venelex ointment. The patient indeed had surgical intervention on 01/05/2017, excision, did very well, ____ hemodialysis treatment during this hospital course. PAST MEDICAL HISTORY: Chronic renal failure, on maintenance hemodialysis, underlying history of hypertension, precipitating renal insufficiency, previous problems of decubitus ulcer, previous problems of peripheral vascular disease, previous amputation of the right lower extremity. PHYSICAL EXAMINATION: VITAL SIGNS: Blood pressure is 132/70, temperature is 98.5, pulse rate of 67. CHEST: Clear to auscultation. HEART: Regular sinus. ABDOMEN: Soft, bowel sounds are present, no organ enlargement. EXTREMITIES: No edema in both lower extremities ____ for hemodialysis treatment. His regular dialysis is Monday, Monday, and Monday, anticipated dialysis today prior to discharge. Administration of antibiotics in the form of vancomycin, which will be scheduled every ____ dialysis treatment. Hemodialysis orders were given. Medications have been reviewed. He will continue his blood pressure medicine in the form of nifedipine and hydralazine to control his blood pressure; he will have phosphate binders in the form of Renagel which he has been taking prior to hospital admission, 800 mL 3 times a day. JOB# [id number]
[2017-01-07] MEDS: Lactobacillus Rhamnosus 10 Billion CFU Capsule PO SCH (08:49)
[2017-01-07] MEDS: Vitamin B Complex w/Vitamin C Tab PO SCH (08:56)
[2017-01-07] MEDS: NIFEdipine 30 mg ER Tab PO SCH ×2 (10:17→21:31)
[2017-01-07 12:11] LABS: HEP B CORE IGM Negative (Negative); HEP C ANTIBODY >11.0 s/co ratio (0.0-0.9)
--- NOTE | 2017-01-07 12:41 | General Progress Note ---
Subjective - Review of Systems Service Date: 01/07/17 Subjective: alert, refused any peripheral line or PICC Objective - Results Result Diagrams: 01/07/17 06:18 01/07/17 06:18 Recent Labs: Laboratory Last Values WBC 7.0 Th/cmm (4.8-10.8) 01/07/17 06:18 RBC 4.32 Mil/cmm (3.80-5.80) 01/07/17 06:18 Hgb 12.5 gm/dL (12.6-17.4) L 01/07/17 06:18 Hct 38.3 % (39.0-49.0) L 01/07/17 06:18 MCV 88.5 fl (80-99) 01/07/17 06:18 MCH 28.9 pg (27.0-31.0) 01/07/17 06:18 MCHC Differential 32.7 pg (28.0-36.0) 01/07/17 06:18 RDW 18.1 % (11.5-20.0) 01/07/17 06:18 Plt Count 253 Th/cmm (150-400) 01/07/17 06:18 MPV 8.1 fl 01/07/17 06:18 Neutrophils % 56.2 % (40.0-80.0) 01/07/17 06:18 Lymphocytes % 31.0 % (20.0-50.0) 01/07/17 06:18 Monocytes % 9.6 % (2.0-10.0) 01/07/17 06:18 Eosinophils % 2.8 % (0.0-5.0) 01/07/17 06:18 Basophils % 0.4 % (0.0-2.0) 01/07/17 06:18 Sodium 137 mEq/L (136-145) 01/07/17 06:18 Potassium 3.7 mEq/L (3.5-5.1) 01/07/17 06:18 Chloride 103 mEq/L (98-107) 01/07/17 06:18 Carbon Dioxide 27.9 mEq/L (21.0-31.0) 01/07/17 06:18 Anion Gap 9.8 (7.0-16.0) 01/07/17 06:18 BUN 33 mg/dL (7-25) H 01/07/17 06:18 Creatinine 6.2 mg/dL (0.7-1.3) H* 01/07/17 06:18 Est GFR ( Amer) 11.6 ml/min (>90) 01/07/17 06:18 Est GFR (Non-Af Amer) 9.6 ml/min 01/07/17 06:18 BUN/Creatinine Ratio 5.3 01/07/17 06:18 Glucose 85 mg/dL (70-105) 01/07/17 06:18 POC Glucose 92 MG/DL (70 - 105) 01/07/17 11:53 Calcium 9.1 mg/dL (8.6-10.3) 01/07/17 06:18 Magnesium 2.5 mg/dL (1.9-2.7) 01/06/17 06:25 Hepatitis A IgM Ab Negative (Negative) 01/06/17 06:25 Hep Bs Antigen Negative (Negative) 01/06/17 06:25 Hep B Core IgM Ab Negative (Negative) 01/06/17 06:25 Hepatitis C Antibody >11.0 s/co ratio (0.0-0.9) H 01/06/17 06:25 - Physical Exam Vitals and I&O: Vital Signs Temp 98.5 F 01/07/17 12:00 Pulse 76 01/07/17 12:04 Resp 12 01/07/17 12:04 BP 128/69 01/07/17 12:00 Pulse Ox 93 01/07/17 12:04 Intake & Output 01/06/17 01/07/17 01/07/17 18:59 06:59 18:59 Intake Total 50 530 Output Total 2200 Balance 50 -1670 Intake: Intake, IV Amount 50 50 Piperacillin Sodium/ 50 50 Tazobact 2.25 gm In Sodium Chloride 0.9% 50 ml @ 100 mls/hr IV Q8HR [facility] Rx#:[id number] Oral 480 Output: Hemodialysis 2200 Other: # Voids 2 # Bowel Movements 1 Stool Characteristics Soft Soft Active Medications: Current Medications Acetaminophen (Tylenol) 650 mg PO Q6HR PRN PRN Reason: MILD PAIN Stop: 03/06/17 10:00 Ascorbic Acid (Vitamin C) 500 mg PO DAILY [facility] Stop: 03/06/17 10:14 Last Admin: 01/07/17 08:48 Dose: 500 mg Atorvastatin Calcium (Lipitor) 10 mg PO HS [facility] PRN Reason: Protocol Stop: 03/06/17 20:59 Last Admin: 01/06/17 20:18 Dose: 10 mg Bisacodyl (Dulcolax 10 Mg Supp) 10 mg RC DAILY PRN PRN Reason: Constipation Stop: 03/06/17 10:00 Carvedilol (Coreg) 3.125 mg PO BID [facility] Stop: 03/06/17 10:14 Last Admin: 01/07/17 08:49 Dose: 3.125 mg Docusate Sodium (Colace) 250 mg PO BID [facility] Stop: 03/06/17 16:59 Last Admin: 01/07/17 08:56 Dose: Not Given Gabapentin (Neurontin) 300 mg PO Q8H [facility] Stop: 03/06/17 10:14 Last Admin: 01/07/17 10:17 Dose: 300 mg Heparin Sodium (Porcine) (Heparin) 5,000 units SUBQ Q12HR [facility] Stop: 03/07/17 20:59 Last Admin: 01/07/17 08:56 Dose: 5,000 units Hydralazine HCl (Apresoline) 10 mg PO Q6H PRN PRN Reason: SBP ABOVE 160 Stop: 03/06/17 10:00 Hydralazine HCl (Apresoline) 25 mg PO Q12H [facility] Stop: 03/06/17 10:14 Last Admin: 01/07/17 10:17 Dose: 25 mg Piperacillin Sod/Tazobactam (Sod 2.25 gm/ Sodium Chloride) 50 mls @ 100 mls/hr IV Q8HR [facility] Stop: 03/07/17 12:59 Last Admin: 01/07/17 12:19 Dose: Not Given Insulin Aspart (Novolog Insulin Sliding Scale) 0 units SUBQ ACHS [facility] PRN Reason: Protocol Stop: 03/06/17 11:29 Last Admin: 01/07/17 12:18 Dose: Not Given Ipratropium [place] (Atrovent Neb 0.5mg/2.5ml) 0.5 mg HHN Q6HRT [facility] Stop: 03/06/17 12:59 Last Admin: 01/07/17 12:04 Dose: Not Given Lactobacillus Rhamnosus (Culturelle) 1 each PO DAILY [facility] Stop: 03/06/17 10:14 Last Admin: 01/07/17 08:49 Dose: 1 each Lactulose (Cephulac) 20 gm PO DAILY PRN PRN Reason: Constipation Lisinopril (Zestril) 20 mg PO BID [facility] Stop: 03/06/17 10:14 Last Admin: 01/07/17 08:49 Dose: 20 mg Miscellaneous (Vancomycin Iv Per Pharmacy) 1 ea PRN PRN PRN Reason: VANCOMYCIN PER RX Stop: 03/07/17 10:45 Miscellaneous (Vte Chemical Prophylaxis Screen/ Admission) 1 ea PRN PRN PRN Reason: PROTOCOL Stop: 03/07/17 14:02 Morphine Sulfate (Morphine) 1 mg IVP Q3HR PRN PRN Reason: Pain (Moderate) Stop: 03/06/17 10:00 Last Admin: 01/06/17 05:41 Dose: 1 mg Mupirocin (Bactroban Oint) 1 appl NS BID [facility] Stop: 01/12/17 09:01 Nifedipine (Procardia Xl) 60 mg PO Q12H [facility] Stop: 03/06/17 10:14 Last Admin: 01/07/17 10:17 Dose: 60 mg Sevelamer HCl (Renagel) 800 mg PO TID [facility] Stop: 03/06/17 13:59 Last Admin: 01/07/17 08:56 Dose: 800 mg Vitamin B Complex/Vit C/Folic Acid (Vitamin B Complex W/Vitamin C) 1 tab PO DAILY [facility] Stop: 03/06/17 10:14 Last Admin: 01/07/17 08:56 Dose: 1 tab Zinc Sulfate (Zinc Sulfate) 220 mg PO DAILY [facility] Stop: 03/06/17 10:14 Last Admin: 01/07/17 08:56 Dose: 220 mg General: Alert, No acute distress HEENT: Atraumatic, Mucous membr. moist/pink Neck: Supple, +2 carotid pulse wo bruit Cardiovascular: Regular rate, Normal S1, Normal S2 Lungs: Clear to auscultation Abdomen: Bowel sounds, Soft Extremities: no Edema Neurological: Sensation intact Skin: no Rash Psych/Mental Status: Mood NL - Procedures Procedures: Procedures Procedure Code Date AMPUTATION FOLLOW-UP SURGERY 48068 10/31/16 AMPUTATION OF FOOT AT ANKLE 97673 09/15/16 AMPUTATION THRU METATARSAL 20612 07/22/16 BYPASS L AXILLA VEIN TO UP VEIN W SYNTH SUB, OPEN [id number] 07/22/16 LAITH SUBQ TISSUE 20 SQ CM/< 08651 01/05/17 DETACHMENT AT RIGHT FOOT, COMPLETE, OPEN APPROACH [id number] 09/15/16 DETACHMENT AT RIGHT FOOT, PARTIAL 2ND RAY, OPEN APPROACH [id number] 07/22/16 DETACHMENT AT RIGHT FOOT, PARTIAL 3RD RAY, OPEN APPROACH [id number] 07/22/16 DETACHMENT AT RIGHT FOOT, PARTIAL 4TH RAY, OPEN APPROACH [id number] 07/22/16 DETACHMENT AT RIGHT FOOT, PARTIAL 5TH RAY, OPEN APPROACH [id number] 07/22/16 DETACHMENT AT RIGHT LOWER LEG, HIGH, OPEN APPROACH [id number] 10/31/16 EXCISION OF L FOOT SUBCU/FASCIA, OPEN APPROACH [id number] 01/05/17 EXTIRPATION OF MATTER FROM LEFT AXILLARY VEIN, OPEN APPROACH [id number] 07/22/16 HEMODIALYSIS 39.95 07/31/12 HEMODIALYSIS REPEATED EVAL 85256 07/22/16 INSERT TUNNELED CV CATH 07471 07/22/16 INSERTION OF INFUSION DEV INTO R SUBCLAV VEIN, PERC APPROACH [id number] 07/22/16 INSERTION OF INFUSION DEV INTO SUP VENA CAVA, PERC APPROACH [id number] 07/22/16 OPEN THROMBECT AV FISTULA 32960 07/22/16 PERFORMANCE OF URINARY FILTRATION, MULTIPLE [id number] 10/31/16 TRANSFUSE NONAUT RED BLOOD CELLS IN PERIPH VEIN, PERC [id number] 10/31/16 ULTRASONOGRAPHY OF RIGHT SUBCLAVIAN VEIN, GUIDANCE [id number] 07/22/16 ULTRASONOGRAPHY OF SUPERIOR VENA CAVA, GUIDANCE [id number] 07/22/16 US GUIDE VASCULAR ACCESS 58280 07/22/16 Assessment/Plan - Problem List Patient Problems: All Active Problems Clotted dialysis access (Acute) T82.49XA Hypotension (Acute) clotted access (Acute) clotted access (Acute) reamputation of the right leg above the (Acute) resolved hypotensionn0 (Acute) transmetatarsal amputation right foot (Acute) - Assessment Assessment: ESRD on HD Right BKA PAD Ess HTN w/ CKD COPD Infected left heel ulcer - Plan Plan: Lab - Result Diagrams 01/07/17 06:18 01/07/17 06:18 Current Medications Acetaminophen (Tylenol) 650 mg PO Q6HR PRN PRN Reason: MILD PAIN Stop: 03/06/17 10:00 Ascorbic Acid (Vitamin C) 500 mg PO DAILY [facility] Stop: 03/06/17 10:14 Last Admin: 01/07/17 08:48 Dose: 500 mg Atorvastatin Calcium (Lipitor) 10 mg PO HS [facility] PRN Reason: Protocol Stop: 03/06/17 20:59 Last Admin: 01/06/17 20:18 Dose: 10 mg Bisacodyl (Dulcolax 10 Mg Supp) 10 mg RC DAILY PRN PRN Reason: Constipation Stop: 03/06/17 10:00 Carvedilol (Coreg) 3.125 mg PO BID [facility] Stop: 03/06/17 10:14 Last Admin: 01/07/17 08:49 Dose: 3.125 mg Docusate Sodium (Colace) 250 mg PO BID [facility] Stop: 03/06/17 16:59 Last Admin: 01/07/17 08:56 Dose: Not Given Gabapentin (Neurontin) 300 mg PO Q8H [facility] Stop: 03/06/17 10:14 Last Admin: 01/07/17 10:17 Dose: 300 mg Heparin Sodium (Porcine) (Heparin) 5,000 units SUBQ Q12HR [facility] Stop: 03/07/17 20:59 Last Admin: 01/07/17 08:56 Dose: 5,000 units Hydralazine HCl (Apresoline) 10 mg PO Q6H PRN PRN Reason: SBP ABOVE 160 Stop: 03/06/17 10:00 Hydralazine HCl (Apresoline) 25 mg PO Q12H [facility] Stop: 03/06/17 10:14 Last Admin: 01/07/17 10:17 Dose: 25 mg Piperacillin Sod/Tazobactam (Sod 2.25 gm/ Sodium Chloride) 50 mls @ 100 mls/hr IV Q8HR [facility] Stop: 03/07/17 12:59 Last Admin: 01/07/17 12:19 Dose: Not Given Insulin Aspart (Novolog Insulin Sliding Scale) 0 units SUBQ ACHS [facility] PRN Reason: Protocol Stop: 03/06/17 11:29 Last Admin: 01/07/17 12:18 Dose: Not Given Ipratropium [place] (Atrovent Neb 0.5mg/2.5ml) 0.5 mg HHN Q6HRT [facility] Stop: 03/06/17 12:59 Last Admin: 01/07/17 12:04 Dose: Not Given Lactobacillus Rhamnosus (Culturelle) 1 each PO DAILY [facility] Stop: 03/06/17 10:14 Last Admin: 01/07/17 08:49 Dose: 1 each Lactulose (Cephulac) 20 gm PO DAILY PRN PRN Reason: Constipation Lisinopril (Zestril) 20 mg PO BID [facility] Stop: 03/06/17 10:14 Last Admin: 01/07/17 08:49 Dose: 20 mg Miscellaneous (Vancomycin Iv Per Pharmacy) 1 ea PRN PRN PRN Reason: VANCOMYCIN PER RX Stop: 03/07/17 10:45 Miscellaneous (Vte Chemical Prophylaxis Screen/ Admission) 1 [facility] PRN PRN PRN Reason: PROTOCOL Stop: 03/07/17 14:02 Morphine Sulfate (Morphine) 1 mg IVP Q3HR PRN PRN Reason: Pain (Moderate) Stop: 03/06/17 10:00 Last Admin: 01/06/17 05:41 Dose: 1 mg Mupirocin (Bactroban Oint) 1 appl NS BID [facility] Stop: 01/12/17 09:01 Nifedipine (Procardia Xl) 60 mg PO Q12H [facility] Stop: 03/06/17 10:14 Last Admin: 01/07/17 10:17 Dose: 60 mg Sevelamer HCl (Renagel) 800 mg PO TID [facility] Stop: 03/06/17 13:59 Last Admin: 01/07/17 08:56 Dose: 800 mg Vitamin B Complex/Vit C/Folic Acid (Vitamin B Complex W/Vitamin C) 1 tab PO DAILY [facility] Stop: 03/06/17 10:14 Last Admin: 01/07/17 08:56 Dose: 1 tab Zinc Sulfate (Zinc Sulfate) 220 mg PO DAILY [facility] Stop: 03/06/17 10:14 Last Admin: 01/07/17 08:56 Dose: 220 mg Pt. 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 RD consult for wounds, debridement compelted today. Pt has been admitted to this hospital 3 times within past [address] has spoken to pt several times. CBW via bedscale 164.3lb, pt stated recent weight around 160lb. RD noted pt has lost weight since previous adms this year 2016, pt stated he is not sure but he smight have. Explained curret diet order to pt, offered further edu on diet, pt refused at this time. Pt expressed hunger. Blankets covered up to neck, no significant wasting noted to face. Current Diet Order/ Nutrition Support [id number], low sodium Pertinent Medications Vitamin C, Lipitor, Dulcolax, Colace, Novolog, Culturelle, Morphine, Renagel, Vancomycin, Vitamin B Complex w/Vitamin C , Zinc Sulfate Pertinent Labs POC 123H Nutritional Hx/Data Height 1.75 m Height (Calculated Centimeters) 175.3 Current Weight (lbs) 74.525 kg Weight (Calculated Kilograms) 74.5 Weight (Calculated Grams) 02406.2 Usual body Weight (lbs) 175 Panacea Body Weight 160 Recent Weight Change Yes Weight Status Approriate GI Symptoms Skin Integrity/Comment: Left medial heel chronic unstageable pressure ulcer Estimated Nutritional Goals BEE in Kcals: Using Current wt Calories/Kcals/Kg CBW 74.5kg, ESRD on HD, pressure ulcer Kcals Calculated 2235-2608kcal (30-35kcal/kg) Protein: Using Current wt Protein Calculated 89-112g (1.2-1.5g/kg) Fluid: ml 2235-2608ml (1ml/kcal) Nutritional Problem 1. Problem Problem Increase kcal and prot needs related to Etiology hypermetabolic state, possible recent weight loss aeb Signs/Symptoms: ESRD on HD, ulcers, 178.8lb on 11/03/16 admission Intervention/Recommendation Comments 1. Continue with current diet order. 2. Offered nutrition edu on renal and CCHO diet, pt declined at this time. 3. Monitor weight, possible weight loss since previous admissions. 01/05/17: 164.3lb, : 178.8lb, 09/16/16: 175. 5lb. Expected Outcomes/Goals Expected Outcomes/Goals 1. PO intake to meet at least 75% of estimated nutritional needs.
[2017-01-07] MEDS: Aspirin 81mg Chewable Tab PO SCH (14:37)
[2017-01-07] MEDS: Amoxicillin/Clavulanate 500/125 Tab PO SCH (14:38)
[2017-01-07] MEDS: Atorvastatin Calcium 10 MG TAB PO SCH (21:02)
[2017-01-07] MEDS: Morphine Sulfate 2 mg/mL 1mL Syr IVP PRN (21:31)
[2017-01-08] MEDS: Ipratropium Neb 0.5 mg/2.5 mL UD HHN SCH ×4 (01:00→19:53)
[2017-01-08 05:27] LABS: ANION GAP 14.8 (7.0-16.0); BUN/CREATININE RATIO 5.7; POTASSIUM SERUM 3.8 mEq/L (3.5-5.1)
[2017-01-08 05:33] LABS: % BASOPHILS 0.2 % (0.0-2.0); % EOSINOPHILS 3.5 % (0.0-5.0); % LYMPHOCYTES 39.9 % (20.0-50.0); % MONOCYTES 10.8 % (2.0-10.0); % NEUTROPHILS 45.6 % (40.0-80.0); HEMATOCRIT 36.9 % (39.0-49.0); HEMOGLOBIN 12.1 gm/dL (12.6-17.4); MEAN CELL VOLUME 88.7 fl (80-99); MEAN CORPUSCULAR HEMOGLOBIN 29.2 pg (27.0-31.0); MEAN CORPUSCULAR HGB CONC 32.9 pg (28.0-36.0); MEAN PLATELET VOLUME 8.8 fl; NEUTROPHILE ABSOLUTE 3.3 Th/cmm (1.8-8.0); PLATELET COUNT 263 Th/cmm (150-400); RED BLOOD COUNT 4.16 Mil/cmm (3.80-5.80); RED CELL DISTRIBUTION WIDTH 18.1 % (11.5-20.0); WHITE BLOOD COUNT 7.3 Th/cmm (4.8-10.8)
[2017-01-08] MEDS: INSULIN ASPART SLIDING SCALE 100 UNITS/ML UNIT SUBQ SCH ×4 (06:31→21:40)
[2017-01-08 06:37] LABS: CREATININE - SERUM 7.9 mg/dL (0.7-1.3)
[2017-01-08] MEDS: Vitamin B Complex w/Vitamin C Tab PO SCH (08:44)
[2017-01-08] MEDS: Aspirin 81mg Chewable Tab PO SCH (08:45)
[2017-01-08] MEDS: Lactobacillus Rhamnosus 10 Billion CFU Capsule PO SCH (08:45)
[2017-01-08] MEDS: Amoxicillin/Clavulanate 500/125 Tab PO SCH (08:46)
[2017-01-08] MEDS: NIFEdipine 30 mg ER Tab PO SCH (10:15)
--- NOTE | 2017-01-08 13:50 | General Progress Note ---
Subjective - Review of Systems Service Date: 01/08/17 Subjective: alert, refused any peripheral line or PICC Objective - Results Result Diagrams: 01/08/17 04:40 01/08/17 04:40 Recent Labs: Laboratory Last Values WBC 7.3 Th/cmm (4.8-10.8) 01/08/17 04:40 RBC 4.16 Mil/cmm (3.80-5.80) 01/08/17 04:40 Hgb 12.1 gm/dL (12.6-17.4) L 01/08/17 04:40 Hct 36.9 % (39.0-49.0) L 01/08/17 04:40 MCV 88.7 fl (80-99) 01/08/17 04:40 MCH 29.2 pg (27.0-31.0) 01/08/17 04:40 MCHC Differential 32.9 pg (28.0-36.0) 01/08/17 04:40 RDW 18.1 % (11.5-20.0) 01/08/17 04:40 Plt Count 263 Th/cmm (150-400) 01/08/17 04:40 MPV 8.8 fl 01/08/17 04:40 Neutrophils % 45.6 % (40.0-80.0) 01/08/17 04:40 Lymphocytes % 39.9 % (20.0-50.0) 01/08/17 04:40 Monocytes % 10.8 % (2.0-10.0) H 01/08/17 04:40 Eosinophils % 3.5 % (0.0-5.0) 01/08/17 04:40 Basophils % 0.2 % (0.0-2.0) 01/08/17 04:40 Sodium 137 mEq/L (136-145) 01/08/17 04:40 Potassium 3.8 mEq/L (3.5-5.1) 01/08/17 04:40 Chloride 101 mEq/L (98-107) 01/08/17 04:40 Carbon Dioxide 25.0 mEq/L (21.0-31.0) 01/08/17 04:40 Anion Gap 14.8 (7.0-16.0) 01/08/17 04:40 BUN 45 mg/dL (7-25) H 01/08/17 04:40 Creatinine 7.9 mg/dL (0.7-1.3) H* 01/08/17 04:40 Est GFR ( Amer) 8.8 ml/min (>90) 01/08/17 04:40 Est GFR (Non-Af Amer) 7.3 ml/min 01/08/17 04:40 BUN/Creatinine Ratio 5.7 01/08/17 04:40 Glucose 84 mg/dL (70-105) 01/08/17 04:40 POC Glucose 124 MG/DL (70 - 105) H 01/08/17 11:11 Calcium 9.0 mg/dL (8.6-10.3) 01/08/17 04:40 Magnesium 2.5 mg/dL (1.9-2.7) 01/06/17 06:25 Random Vancomycin 13.7 ug/mL (5.0-40.0) 01/08/17 04:40 Hepatitis A IgM Ab Negative (Negative) 01/06/17 06:25 Hep Bs Antigen Negative (Negative) 01/06/17 06:25 Hep B Core IgM Ab Negative (Negative) 01/06/17 06:25 Hepatitis C Antibody >11.0 s/co ratio (0.0-0.9) H 01/06/17 06:25 - Physical Exam Vitals and I&O: Vital Signs Temp 98.0 F 01/08/17 04:00 Pulse 74 01/08/17 12:04 Resp 16 01/08/17 12:04 BP 170/82 01/08/17 10:15 Pulse Ox 97 01/08/17 12:04 Intake & Output 01/07/17 01/08/17 01/08/17 18:59 06:59 18:59 Intake Total 400 240 Balance 400 240 Intake: Oral 400 240 Other: # Voids 3 2 # Bowel Movements 0 1 Stool Characteristics Soft Active Medications: Current Medications Acetaminophen (Tylenol) 650 mg PO Q6HR PRN PRN Reason: MILD PAIN Stop: 03/06/17 10:00 Amoxicillin/Clavulanate Potassium (Augmentin 500-125mg) 1 tab PO DAILY [facility] Stop: 03/08/17 12:44 Last Admin: 01/08/17 08:46 Dose: 1 tab Ascorbic Acid (Vitamin C) 500 mg PO DAILY MELL[facility] Stop: 03/06/17 10:14 Last Admin: 01/08/17 08:45 Dose: 500 mg Aspirin (Aspirin Chewable) 81 mg PO DAILY [facility] Stop: 03/08/17 13:44 Last Admin: 01/08/17 08:45 Dose: 81 mg Atorvastatin Calcium (Lipitor) 10 mg PO HS MELLISA PRN Reason: Protocol Stop: 03/06/17 20:59 Last Admin: 01/07/17 21:02 Dose: 10 mg Bisacodyl (Dulcolax 10 Mg Supp) 10 mg RC DAILY PRN PRN Reason: Constipation Stop: 03/06/17 10:00 Carvedilol (Coreg) 3.125 mg PO BID [facility] Stop: 03/06/17 10:14 Last Admin: 01/08/17 08:45 Dose: 3.125 mg Clopidogrel Bisulfate (Plavix) 75 mg PO DAILY [facility] Stop: 03/08/17 13:44 Last Admin: 01/08/17 08:44 Dose: 75 mg Docusate Sodium (Colace) 250 mg PO BID [facility] Stop: 03/06/17 16:59 Last Admin: 01/08/17 08:45 Dose: 250 mg Gabapentin (Neurontin) 300 mg PO Q8H [facility] Stop: 03/09/17 05:59 Last Admin: 01/08/17 05:49 Dose: 300 mg Heparin Sodium (Porcine) (Heparin) 5,000 units SUBQ Q12HR [facility] Stop: 03/07/17 20:59 Last Admin: 01/08/17 08:46 Dose: 5,000 units Hydralazine HCl (Apresoline) 10 mg PO Q6H PRN PRN Reason: SBP ABOVE 160 Stop: 03/06/17 10:00 Hydralazine HCl (Apresoline) 25 mg PO Q12H [facility] Stop: 03/06/17 10:14 Last Admin: 01/08/17 10:15 Dose: 25 mg Insulin Aspart (Novolog Insulin Sliding Scale) 0 units SUBQ ACHS MELLISA PRN Reason: Protocol Stop: 03/06/17 11:29 Last Admin: 01/08/17 11:53 Dose: 2 units Ipratropium [place] (Atrovent Neb 0.5mg/2.5ml) 0.5 mg HHN Q6HRT [facility] Stop: 03/06/17 12:59 Last Admin: 01/08/17 12:04 Dose: Not Given Lactobacillus Rhamnosus (Culturelle) 1 each PO DAILY [facility] Stop: 03/06/17 10:14 Last Admin: 01/08/17 08:45 Dose: 1 each Lactulose (Cephulac) 20 gm PO DAILY PRN PRN Reason: Constipation Linezolid (Zyvox) 600 mg PO BID [facility] Stop: 03/08/17 16:59 Last Admin: 01/08/17 08:45 Dose: 600 mg Lisinopril (Zestril) 20 mg PO BID [facility] Stop: 03/06/17 10:14 Last Admin: 01/08/17 08:44 Dose: 20 mg Miscellaneous (Vte Chemical Prophylaxis Screen/ Admission) 1 ea [facility] PRN PRN PRN Reason: PROTOCOL Stop: 03/07/17 14:02 Morphine Sulfate (Morphine) 1 mg IVP Q3HR PRN PRN Reason: Pain (Moderate) Stop: 03/06/17 10:00 Last Admin: 01/06/17 05:41 Dose: 1 mg Mupirocin (Bactroban Oint) 1 appl NS BID [facility] Stop: 01/12/17 09:01 Last Admin: 01/08/17 08:46 Dose: 1 appl Nifedipine (Procardia Xl) 60 mg PO Q12H [facility] Stop: 03/06/17 10:14 Last Admin: 01/08/17 10:15 Dose: 60 mg Sevelamer HCl (Renagel) 800 mg PO TID [facility] Stop: 03/06/17 13:59 Last Admin: 01/08/17 08:44 Dose: 800 mg Vitamin B Complex/Vit C/Folic Acid (Vitamin B Complex W/Vitamin C) 1 tab PO DAILY [facility] Stop: 03/06/17 10:14 Last Admin: 01/08/17 08:44 Dose: 1 tab Zinc Sulfate (Zinc Sulfate) 220 mg PO DAILY [facility] Stop: 03/06/17 10:14 Last Admin: 01/08/17 08:45 Dose: 220 mg General: Alert, No acute distress HEENT: Atraumatic, Mucous membr. moist/pink Neck: Supple, +2 carotid pulse wo bruit Cardiovascular: Regular rate, Normal S1, Normal S2 Lungs: Clear to auscultation Abdomen: Bowel sounds, Soft Extremities: no Edema Neurological: Sensation intact Skin: no Rash Psych/Mental Status: Mood NL - Procedures Procedures: Procedures Procedure Code Date AMPUTATION FOLLOW-UP SURGERY 73242 10/31/16 AMPUTATION OF FOOT AT ANKLE 25650 09/15/16 AMPUTATION THRU METATARSAL 37503 07/22/16 BYPASS L AXILLA VEIN TO UP VEIN W SYNTH SUB, OPEN [id number] 07/22/16 LAITH SUBQ TISSUE 20 SQ CM/< [id number] 01/05/17 DETACHMENT AT RIGHT FOOT, COMPLETE, OPEN APPROACH [id number] 09/15/16 DETACHMENT AT RIGHT FOOT, PARTIAL 2ND RAY, OPEN APPROACH [id number] 07/22/16 DETACHMENT AT RIGHT FOOT, PARTIAL 3RD RAY, OPEN APPROACH [id number] 07/22/16 DETACHMENT AT RIGHT FOOT, PARTIAL 4TH RAY, OPEN APPROACH [id number] 07/22/16 DETACHMENT AT RIGHT FOOT, PARTIAL 5TH RAY, OPEN APPROACH [id number] 07/22/16 DETACHMENT AT RIGHT LOWER LEG, HIGH, OPEN APPROACH [id number] 10/31/16 EXCISION OF L FOOT SUBCU/FASCIA, OPEN APPROACH [id number] 01/05/17 EXTIRPATION OF MATTER FROM LEFT AXILLARY VEIN, OPEN APPROACH [id number] 07/22/16 HEMODIALYSIS 39.95 07/31/12 HEMODIALYSIS REPEATED EVAL 74165 07/22/16 INSERT TUNNELED CV CATH 58068 07/22/16 INSERTION OF INFUSION DEV INTO R SUBCLAV VEIN, PERC APPROACH [id number] 07/22/16 INSERTION OF INFUSION DEV INTO SUP VENA CAVA, PERC APPROACH [id number] 07/22/16 OPEN THROMBECT AV FISTULA 15019 07/22/16 PERFORMANCE OF URINARY FILTRATION, MULTIPLE [id number] 10/31/16 TRANSFUSE NONAUT RED BLOOD CELLS IN PERIPH VEIN, PERC 08316N9 10/31/16 ULTRASONOGRAPHY OF RIGHT SUBCLAVIAN VEIN, GUIDANCE [id number] 07/22/16 ULTRASONOGRAPHY OF SUPERIOR VENA CAVA, GUIDANCE [id number] 07/22/16 US GUIDE VASCULAR ACCESS [id number] 07/22/16 Assessment/Plan - Problem List Patient Problems: All Active Problems Clotted dialysis access (Acute) T82.49XA Hypotension (Acute) clotted access (Acute) clotted access (Acute) reamputation of the right leg above the (Acute) resolved hypotensionn0 (Acute) transmetatarsal amputation right foot (Acute) - Assessment Assessment: ESRD on HD Right BKA PAD Ess HTN w/ CKD COPD Infected left heel ulcer - Plan Plan: Lab - Result Diagrams 01/07/17 06:18 01/07/17 06:18 Current Medications Acetaminophen (Tylenol) 650 mg PO Q6HR PRN PRN Reason: MILD PAIN Stop: 03/06/17 10:00 Ascorbic Acid (Vitamin C) 500 mg PO DAILY [facility] Stop: 03/06/17 10:14 Last Admin: 01/07/17 08:48 Dose: 500 mg Atorvastatin Calcium (Lipitor) 10 mg PO HS [facility] PRN Reason: Protocol Stop: 03/06/17 20:59 Last Admin: 01/06/17 20:18 Dose: 10 mg Bisacodyl (Dulcolax 10 Mg Supp) 10 mg RC DAILY PRN PRN Reason: Constipation Stop: 03/06/17 10:00 Carvedilol (Coreg) 3.125 mg PO BID [facility] Stop: 03/06/17 10:14 Last Admin: 01/07/17 08:49 Dose: 3.125 mg Docusate Sodium (Colace) 250 mg PO BID [facility] Stop: 03/06/17 16:59 Last Admin: 01/07/17 08:56 Dose: Not Given Gabapentin (Neurontin) 300 mg PO Q8H [facility] Stop: 03/06/17 10:14 Last Admin: 01/07/17 10:17 Dose: 300 mg Heparin Sodium (Porcine) (Heparin) 5,000 units SUBQ Q12HR [facility] Stop: 03/07/17 20:59 Last Admin: 01/07/17 08:56 Dose: 5,000 units Hydralazine HCl (Apresoline) 10 mg PO Q6H PRN PRN Reason: SBP ABOVE 160 Stop: 03/06/17 10:00 Hydralazine HCl (Apresoline) 25 mg PO Q12H [facility] Stop: 03/06/17 10:14 Last Admin: 01/07/17 10:17 Dose: 25 mg Piperacillin Sod/Tazobactam (Sod 2.25 gm/ Sodium Chloride) 50 mls @ 100 mls/hr IV Q8HR [facility] Stop: 03/07/17 12:59 Last Admin: 01/07/17 12:19 Dose: Not Given Insulin Aspart (Novolog Insulin Sliding Scale) 0 units SUBQ ACHS [facility] PRN Reason: Protocol Stop: 03/06/17 11:29 Last Admin: 01/07/17 12:18 Dose: Not Given Ipratropium [place] (Atrovent Neb 0.5mg/2.5ml) 0.5 mg HHN Q6HRT [facility] Stop: 03/06/17 12:59 Last Admin: 01/07/17 12:04 Dose: Not Given Lactobacillus Rhamnosus (Culturelle) 1 each PO DAILY [facility] Stop: 03/06/17 10:14 Last Admin: 01/07/17 08:49 Dose: 1 each Lactulose (Cephulac) 20 gm PO DAILY PRN PRN Reason: Constipation Lisinopril (Zestril) 20 mg PO BID [facility] Stop: 03/06/17 10:14 Last Admin: 01/07/17 08:49 Dose: 20 mg Miscellaneous (Vancomycin Iv Per Pharmacy) 1 [facility] PRN PRN PRN Reason: VANCOMYCIN PER RX Stop: 03/07/17 10:45 Miscellaneous (Vte Chemical Prophylaxis Screen/ Admission) 1 [facility] PRN PRN PRN Reason: PROTOCOL Stop: 03/07/17 14:02 Morphine Sulfate (Morphine) 1 mg IVP Q3HR PRN PRN Reason: Pain (Moderate) Stop: 03/06/17 10:00 Last Admin: 01/06/17 05:41 Dose: 1 mg Mupirocin (Bactroban Oint) 1 appl NS BID [facility] Stop: 01/12/17 09:01 Nifedipine (Procardia Xl) 60 mg PO Q12H [facility] Stop: 03/06/17 10:14 Last Admin: 01/07/17 10:17 Dose: 60 mg Sevelamer HCl (Renagel) 800 mg PO TID [facility] Stop: 03/06/17 13:59 Last Admin: 01/07/17 08:56 Dose: 800 mg Vitamin B Complex/Vit C/Folic Acid (Vitamin B Complex W/Vitamin C) 1 tab PO DAILY [facility] Stop: 03/06/17 10:14 Last Admin: 01/07/17 08:56 Dose: 1 tab Zinc Sulfate (Zinc Sulfate) 220 mg PO DAILY [facility] Stop: 03/06/17 10:14 Last Admin: 01/07/17 08:56 Dose: 220 mg schedule for HD in am refused any peripheral line nor PICC line switch to Augmentin for now w/ Vanco dc held due to MRSA smileyes Nutritional Asmnt/Malnutr-PDOC - Dietary Evaluation Malnutrition Findings (Please click <Entered> for more info): Nutritional Asmnt/Malnutrition Start: 01/05/17 16: 50 Text: Status: Complete Freq: Document 01/05/17 16:50 GASPER (Rec: 01/05/17 17:05 [email or web address] [id number]) Nutritional Asmnt/Malnutrition Patient General Information Nutritional Screening Consult Diagnosis Left heel decubitus ulcer Pertinent Medical Hx/Surgical Hx ESRD on HD, HTN, COPD, nicotine dependence, hx severe PAD, hx right BKA Subjective Information 71 year old male from SNF. RD consult for wounds, debridement compelted today. Pt has been admitted to this hospital 3 times within past [address] has spoken to pt several times. CBW via bedscale 164.3lb, pt stated recent weight around 160lb. RD noted pt has lost weight since previous adms this year 2016, pt stated he is not sure but he smight have. Explained curret diet order to pt, offered further edu on diet, pt refused at this time. Pt expressed hunger. Blankets covered up to neck, no significant wasting noted to face. Current Diet Order/ Nutrition Support [id number], low sodium Pertinent Medications Vitamin C, Lipitor, Dulcolax, Colace, Novolog, Culturelle, Morphine, Renagel, Vancomycin, Vitamin B Complex w/Vitamin C , Zinc Sulfate Pertinent Labs POC 123H Nutritional Hx/Data Height 1.75 m Height (Calculated Centimeters) 175.3 Current Weight (lbs) 74.525 kg Weight (Calculated Kilograms) 74.5 Weight (Calculated Grams) 04842.2 Usual body Weight (lbs) 175 [place] Body Weight 160 Recent Weight Change Yes Weight Status Approriate GI Symptoms Skin Integrity/Comment: Left medial heel chronic unstageable pressure ulcer Estimated Nutritional Goals BEE in Kcals: Using Current wt Calories/Kcals/Kg CBW 74.5kg, ESRD on HD, pressure ulcer Kcals Calculated 2235-2608kcal (30-35kcal/kg) Protein: Using Current wt Protein Calculated 89-112g (1.2-1.5g/kg) Fluid: ml 2235-2608ml (1ml/kcal) Nutritional Problem 1. Problem Problem Increase kcal and prot needs related to Etiology hypermetabolic state, possible recent weight loss aeb Signs/Symptoms: ESRD on HD, ulcers, 178.8lb on 11/03/16 admission Intervention/Recommendation Comments 1. Continue with current diet order. 2. Offered nutrition edu on renal and CCHO diet, pt declined at this time. 3. Monitor weight, possible weight loss since previous admissions. 01/05/17: 164.3lb, : 178.8lb, 09/16/16: 175. 5lb. Expected Outcomes/Goals Expected Outcomes/Goals 1. PO intake to meet at least 75% of estimated nutritional needs.
[2017-01-08] MEDS: Atorvastatin Calcium 10 MG TAB PO SCH (20:57)
[2017-01-09] MEDS: Ipratropium Neb 0.5 mg/2.5 mL UD HHN SCH ×3 (01:02→12:54)
[2017-01-09] MEDS: Vitamin B Complex w/Vitamin C Tab PO SCH (09:42)
[2017-01-09] MEDS: Lactobacillus Rhamnosus 10 Billion CFU Capsule PO SCH (09:42)
[2017-01-09] MEDS: Aspirin 81mg Chewable Tab PO SCH (09:43)
[2017-01-09] MEDS: Amoxicillin/Clavulanate 500/125 Tab PO SCH (09:47)
[2017-01-09] MEDS: INSULIN ASPART SLIDING SCALE 100 UNITS/ML UNIT SUBQ SCH ×2 (09:47→11:54)
[2017-01-09] MEDS: NIFEdipine 30 mg ER Tab PO SCH (09:48)
--- NOTE | 2017-01-09 13:52 | Pathology Report ---
[id number] Collection Date: 01/05/2017 Surgeon: Dr. Dee Dee Irizarry Specimen Description: Necrotic debrided tissue, left heel Gross Description: Received in formalin is a 4.5 x 2.5 x 0.8 cm excision of dark brown necrotic appearing skin with attached subcutaneous soft tissue. Sectioning shows the dark brown discoloration to extend through the entire specimen. Information Tech sections are submitted in one cassette. Microscopic Description: The histologic sections show ulcerated skin with extensive necrosis and suppurative inflammation present consisting of large collections of neutrophils within a very necrotic background. Diagnosis: Necrotic skin and soft tissue consistent with debridement (left heel). [facility]# [id number] [facility]
== END 2017-01-09 14:50 | DRG 570 ==
LOC: MSI 08:50
PROVIDERS: ADMIT Internal Medicine; ATTEND Internal Medicine
PROC: 0JBR0ZZ Excision of Left Foot Subcutaneous Tissue and Fascia, Open Approach (ICD-10-PCS; principal; 2017-01-05)
PROC: 5A1D60Z (ICD-10-PCS; 2017-01-06)
DX: L89.622 Pressure ulcer of left heel, stage 2 (principal); N18.6 End stage renal disease; I12.0 Hypertensive chronic kidney disease with stage 5 chronic kidney disease or end stage renal disease; J44.9 Chronic obstructive pulmonary disease, unspecified; I73.9 Peripheral vascular disease, unspecified; F17.210 Nicotine dependence, cigarettes, uncomplicated; G62.9 Polyneuropathy, unspecified; Z99.2 Dependence on renal dialysis; Z89.511 Acquired absence of right leg below knee; Z91.041 Radiographic dye allergy status; Z88.5 Allergy status to narcotic agent
CPT/HCPCS: 36415-UA; 80048-TC; 80074-90; 80202-TC; 82948-90; 83735-TC; 85025-TC; 87070-90; 87075-90; 87205-90; 88304-TC; 90779; 90937; 93005; 94640; 94760; J0690; J0696; J1644; J1815; J2270; J2543; J3370; J7030; Z7610

== ENCOUNTER 2018-08-23 15:35 | Inpatient (IN) | payer MEDICARE, MEDICAID ==
--- NOTE | 2018-08-23 16:01 | ED Physician Chart ---
ED Chief Complaint/HPI - Patient Information Date Seen:: 08/23/18 Time Seen:: 15:50 Chief Complaint:: right hip pain History of Present Illness:: Patient's had a right below-knee amputation so he uses a wheelchair. 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 He complains of right hip pain but no other injuries. X-ray was taken at his extended care facility which shows a subcapital fracture of the right hip. Allergies:: Allergies Allergy/AdvReac Type Severity Reaction Status Date / Time clonidine Allergy Verified 08/23/18 15:50 codeine Allergy Verified 08/23/18 15:50 Vitals:: Vital Signs - 8 hr 08/23/18 15:51 Temp 99.2 F HR 83 RR 18 BP 149/46 O2 Sat % 94 Historian:: Patient Review:: Transfer documents Reviewed ED Review of Systems - Review of Systems General/Constitutional: No fever, No chills, No weight loss, No weakness, No diaphoresis, No edema, No loss of appetite Skin: No skin lesions, No rash, No bruising Head: No headache, No light-headedness Eyes: No loss of vision, No pain, No diplopia ENT: No earache, No nasal drainage, No sore throat, No tinnitus Neck: No neck pain, No swelling, No thyromegaly, No stiffness, No mass noted Cardio Vascular: No chest pain, No palpitations, No PND, No orthopnea, No edema Pulmonary: No SOB, No cough, No sputum, No wheezing GI: No nausea, No vomiting, No diarrhea, No pain, No melena, No hematochezia, No constipation, No hematemesis G/U: No dysuria, No frequency, No hematuria Musculoskeletal: Bone or joint pain, No back pain, No muscle pain, Other (right hip pain) Endocrine: No polyuria, No polydipsia Psychiatric: No prior psych history, No depression, No anxiety, No suicidal ideation Hematopoietic: No bruising, No lymphadenopathy Allergic/Immuno: No urticaria, No angioedema Neurological: No syncope, No focal symptoms, No weakness, No paresthesia, No headache, No seizure, No dizziness, No confusion, No vertigo ED Past Medical History - Past Medical History Past Medical History: HTN, DM, Other (renal failure on dialysis Monday; diabetic neuropathy; anxiety; pressure ulcer left heel) Family History: Cancer Social History: Smoker, Care Facility Surgical History: other (right below-knee amputation; dialysis shunt; left eye for presumed diabetic retinopathy;) Psychiatricy History: Other (anxiety) Medication: Reviewed Family Medical History - Family Member Mother History Unknown: Yes Ethnicity: Non- Living Status: Hx Family Cancer: No Hx Family Coronary Artery Disease: No Hx Family Congestive Heart Failure: No Hx Family Hypertension: No Hx Family Stroke: No Hx Family Diabetes: No Hx Family Seizures: No Hx Family Dementia: No Hx Family AIDS: No Hx Family HIV: No Hx Family COPD: No Hx Family Hepatitis: Yes (patient self) Hx Family Psychiatric Problems: No Hx Family Tuberculosis: No ED Physical Exam - Physical Examination General/Constitutional: Awake, Well-developed, well-nourished, Alert, No distress, GCS 15, Non-toxic appearing, Ambulatory Head: Atraumatic Other Eyes comments:: 3 out of 4 conjunctival redness left eye Skin: Nl inspection, No rash, No ecchymosis ENMT: External ears, nose nl Other ENMT comments:: Full dentures Neck: No nuchal rigidity Respiratory: Nl effort/Exclusion, Clear to Auscultation Cardio Vascular: RRR, No murmur, gallop, rubs, NL S1 S2 GI: No tenderness/rebounding/guarding, No organomegaly Other Extremities comments:: Right below-knee amputation Neuro/Psych: No focal deficits ED Labs/Radiology/EKG Results - Lab Results Results: Abnormal Lab Results 08/23/18 08/23/18 08/23/18 16:00 16:00 16:00 WBC 10.1 RBC 3.80 Hgb 12.3 Hct 37.0 L MCV 97.4 MCH 32.2 H MCHC Differential 33.1 RDW 13.2 Plt Count 254 MPV 8.0 Neutrophils % 75.4 Lymphocytes % 18.8 L Monocytes % 4.9 Eosinophils % 0.9 Basophils % 0.0 PT 10.6 INR 1.02 PTT (Actin FS) 27.6 Sodium 139 Potassium 5.6 H Chloride 99 Carbon Dioxide 27.8 Anion Gap 17.8 H BUN 52 H Creatinine 11.9 H* Est GFR ( Amer) TNP Est GFR (Non-Af Amer) TNP BUN/Creatinine Ratio 4.4 Glucose 186 H Calcium 9.6 - Radiology Results Results: Chest x-ray showed calcification of the aortic arch; otherwise negative. Right hip x-ray showed sub-capitate fracture and osteopenia - EKG Interpretations Rate & Rhythm: normal sinus rhythm with a rate of 84 [place]: left axis deviation ED Assessment - Assessment General Assessment: Patient states he can take morphine without having an allergic reaction ED Septic Shock - . Is Septic Shock (SBP<90, OR Lactate>4 mmol\L) present?: No - <6hrs of presentation: Vital Signs: Vital Signs - 8 hr 08/23/ 15:51 Temp 99.2 F HR 83 RR 18 BP 149/46 O2 Sat % 94 ED Reassessment (Disposition) - Reassessment Reassessment Condition:: Unchanged - Diagnosis Diagnosis:: Sub-capitate fracture right hip; status post right below-knee amputation; diabetes mellitus; diabetic retinopathy; hyperkalemia - Patient Disposition Admitted to:: Telemetry Spoke to:: [facility] Admitting Medical Physician:: Ha Sampson Condition at Disposition:: Stable, Improved
[2018-08-23 16:06] LABS: % EOSINOPHILS 0.9 % (0.0-5.0); % LYMPHOCYTES 18.8 % (20.0-50.0); % MONOCYTES 4.9 % (2.0-10.0); % NEUTROPHILS 75.4 % (40.0-80.0); EOSINOPHILE ABSOLUTE 0.1 Th/cmm (0.1-0.4); HEMOGLOBIN 12.3 gm/dL (12-16); LYMPHOCYTE ABSOLUTE 1.9 Th/cmm (1.5-3.0); MEAN CELL VOLUME 97.4 fl (80-99); MEAN CORPUSCULAR HEMOGLOBIN 32.2 pg (27.0-31.0); MEAN CORPUSCULAR HGB CONC 33.1 pg (28.0-36.0); MONOCYTE ABSOLUTE 0.5 Th/cmm (0.3-1.0); NEUTROPHILE ABSOLUTE 7.6 Th/cmm (1.8-8.0); PLATELET COUNT 254 Th/cmm (150-400); RED CELL DISTRIBUTION WIDTH 13.2 % (11.5-20.0); WHITE BLOOD COUNT 10.1 Th/cmm (4.8-10.8)
[2018-08-23] MEDS ORDERED: Morphine Sulfate 4 mg/mL 1mL Syr IV STA (16:17)
[2018-08-23 16:22] LABS: ANION GAP 17.8 (7.0-16.0); BUN - UREA NITROGEN 52 mg/dL (7-25); CALCIUM SERUM 9.6 mg/dL (8.6-10.3); CARBON DIOXIDE 27.8 mEq/L (21.0-31.0); CHLORIDE 99 mEq/L (98-107); GLUCOSE 186 mg/dL (70-105); POTASSIUM SERUM 5.6 mEq/L (3.5-5.1); SODIUM SERUM 139 mEq/L (136-145)
[2018-08-23 16:24] LABS: CREATININE - SERUM 11.9 mg/dL (0.7-1.3); INR 1.02 (0.5-1.4); PROTHROMBIN TIME (TEST) 10.6 SECONDS (9.5-11.5)
[2018-08-23] MEDS ORDERED: Morphine Sulfate 4 mg/mL 1mL Syr ONE (16:34)
[2018-08-23] MEDS ORDERED: INSULIN ASPART SLIDING SCALE 100 UNITS/ML UNIT SUBQ SCH (21:00)
[2018-08-23] MEDS: HYDROmorphone 1 mg/mL 1mL Syr IVP PRN (21:27)
[2018-08-23] MEDS: INSULIN ASPART SLIDING SCALE 100 UNITS/ML UNIT SUBQ SCH (21:29)
[2018-08-23] MEDS ORDERED: Hydrocodone/APAP 5mg/325mg Tab PO PRN (21:48)
[2018-08-23] MEDS ORDERED: Non-Formulary Item 1 EA (Lactulose [Lactulose] 30 ML) PO PRN (21:48)
[2018-08-23 21:59] VITALS: BP 171/61
[2018-08-23] MEDS ORDERED: CYCLOSPORINE OP SCH (22:00)
[2018-08-23] MEDS ORDERED: Non-Formulary Item 1 EA (Gabapentin [Gabapentin] 600 MG) PO SCH (22:00)
[2018-08-24] MEDS ORDERED: Lactulose 10 Gm/15 mL 30mL UDC PO PRN (00:11)
[2018-08-24] MEDS: Ipratropium Neb 0.5 mg/2.5 mL UD HHN SCH ×4 (00:48→18:53)
[2018-08-24 05:26] LABS: INR 0.95 (0.5-1.4); PROTHROMBIN TIME (TEST) 9.9 SECONDS (9.5-11.5)
[2018-08-24 06:18] LABS: % BASOPHILS 0.2 % (0.0-2.0); % EOSINOPHILS 2.3 % (0.0-5.0); % LYMPHOCYTES 36.3 % (20.0-50.0); % MONOCYTES 8.5 % (2.0-10.0); % NEUTROPHILS 52.7 % (40.0-80.0); EOSINOPHILE ABSOLUTE 0.2 Th/cmm (0.1-0.4); HEMATOCRIT 36.3 % (41.0-60); HEMOGLOBIN 11.9 gm/dL (12-16); LYMPHOCYTE ABSOLUTE 3.1 Th/cmm (1.5-3.0); MEAN CELL VOLUME 98.7 fl (80-99); MEAN CORPUSCULAR HEMOGLOBIN 32.4 pg (27.0-31.0); MEAN CORPUSCULAR HGB CONC 32.9 pg (28.0-36.0); MEAN PLATELET VOLUME 7.9 fl; MONOCYTE ABSOLUTE 0.7 Th/cmm (0.3-1.0); NEUTROPHILE ABSOLUTE 4.5 Th/cmm (1.8-8.0); PLATELET COUNT 246 Th/cmm (150-400); RED BLOOD COUNT 3.68 Mil/cmm (3.80-5.80); RED CELL DISTRIBUTION WIDTH 13.3 % (11.5-20.0); WHITE BLOOD COUNT 8.5 Th/cmm (4.8-10.8)
[2018-08-24] MEDS: INSULIN ASPART SLIDING SCALE 100 UNITS/ML UNIT SUBQ SCH ×4 (06:31→22:19)
[2018-08-24 07:13] LABS: ALB/GLOB RATIO 1.1 (1.0-1.8); ALBUMIN 3.7 gm/dL (4.2-5.5); ALKALINE PHOSPHATASE 95 U/L (34-104); BILIRUBIN,TOTAL 0.5 mg/dL (0.3-1.0); BUN - UREA NITROGEN 57 mg/dL (7-25); CALCIUM SERUM 9.7 mg/dL (8.6-10.3); CARBON DIOXIDE 28.9 mEq/L (21.0-31.0); CHLORIDE 98 mEq/L (98-107); CHOLESTEROL 95 mg/dL (<200); HDL -HIGH DENSITY LIPOPROTEIN 34 mg/dL (23-92); MAGNESIUM 2.8 mg/dL (1.9-2.7); POTASSIUM SERUM 5.9 mEq/L (3.5-5.1); SGOT 17 U/L (13-39); SGPT/ALT 20 U/L (7-52); SODIUM SERUM 137 mEq/L (136-145); TOTAL PROTEIN,SERUM 7.2 gm/dL (6.0-8.3); TRIGLYCERIDES 112 mg/dL (<150)
[2018-08-24 07:38] LABS: CREATININE - SERUM 12.1 mg/dL (0.7-1.3); GLUCOSE 75 mg/dL (70-105)
[2018-08-24] MEDS: Vitamin B Complex w/Vitamin C Tab PO SCH (08:47)
[2018-08-24] MEDS: Lactobacillus Rhamnosus GG 15 Billion CFU CAP.SPRINK PO SCH (08:47)
[2018-08-24] MEDS: Enoxaparin 30 mg/0.3 mL 0.3mL Syr SUBQ SCH (08:48)
[2018-08-24] MEDS: NIFEdipine 30 mg ER Tab PO SCH ×2 (08:48→22:15)
--- NOTE | 2018-08-24 08:52 | Diagnostic Imaging Report ---
Portable chest x-ray HISTORY: Cough, preoperative The heart size appears somewhat generous. Atherosclerotic calcination seen in the aorta. No acute focal pulmonary processes. Atherosclerotic calcification noted in the region of the carotid arteries. IMPRESSION: 1. No definite acute focal pulmonary processes 2. Cardiomegaly with atherosclerotic vascular changes
--- NOTE | 2018-08-24 08:57 | Diagnostic Imaging Report ---
Right hip (2 views) HISTORY: Pain Views are suboptimal. There appears to be mildly displaced fracture across the right femoral neck. The femoral head remains located within the acetabulum. Generalized joint space narrowing. Extensive atherosclerotic vascular calcification noted. IMPRESSION: 1. Mildly displaced right femoral neck fracture 2. Extensive atherosclerotic vascular changes
[2018-08-24] MEDS ORDERED: Non-Formulary Item 1 EA (Nifedipine [Nifedipine Er] 60 MG) PO SCH (09:00)
[2018-08-24] MEDS ORDERED: LACTOBACILLUS ACIDOPHILUS PO SCH (09:00)
[2018-08-24] MEDS ORDERED: PROTEIN SUPPLEMENT PO SCH (09:00)
[2018-08-24] MEDS: Hydrocodone/APAP 10 mg/325 mg Tab PO PRN (09:34)
[2018-08-24] MEDS: Polyvinyl Alcohol Ophth Soln 15 mL Bottle EACH EYE SCH ×3 (09:37→22:23)
[2018-08-24] MEDS: HYDROmorphone 1 mg/mL 1mL Syr IVP PRN (12:47)
--- NOTE | 2018-08-24 19:13 | History & Physical ---
ADMIT DATE: 08/24/2018 ADMITTING CHIEF COMPLAINT: Right hip pain/fracture. HISTORY OF PRESENT ILLNESS: The patient is a very pleasant 73-year-old -[place] gentleman who resides at [facility] with a history of essential hypertension, type 2 diabetes with neuropathy, end-stage renal disease, on hemodialysis Mondays, Wednesdays, and Fridays, history of PAD status post right BKA and also in the past has had left heel debridement, history of anxiety, COPD, nicotine dependence who apparently was in his usual state of health until yesterday when he was reaching for his senior care provider and had fell on the floor. He fell from his wheelchair, landing on his right side with immediate complaints of severe right hip pain. An x-ray done at the facility showed a subcapital fracture and therefore, the patient was transferred to our facility where in the ER, an x-ray of the hip did confirm a right-sided mildly displaced femoral neck fracture. There was also extensive atherosclerotic vascular disease and some osteopenia noted as well. The patient has been admitted to a telemetry anguiano for further management and care. Further questioning, the patient denies any syncope, any chest pain, palpitations, fever or chills. PAST MEDICAL HISTORY: As noted above. Hypercholesterolemia. PAST SURGERIES: He has a left upper extremity AV shunt. He underwent a right BKA and he also had left heel debridement. FAMILY HISTORY: Likely noncontributory to this admission. SOCIAL HISTORY: Previous drinker, currently smoking about 5-6 cigarettes on a daily basis. ALLERGIES: CLONIDINE, CODEINE. OUTPATIENT MEDICATIONS: Plavix 75 every day, insulin sliding scale, acetaminophen 325 every 12 hours p.r.n. for mild pain, atorvastatin 10 every day, Dulcolax 10 mg per rectum every day, Coreg 6.25 b.i.d., Sensipar 30 mg daily, Restasis eyedrops one drop every 12 hours, docusate sodium 100 every day, folic acid with vitamin B complex every day, gabapentin 600 every 8 hours, hydralazine 25 b.i.d., [place] 5/325 1 tab every 8 hours p.r.n. for mild to moderate pain, [place] 10/325 tab every 6 hours for severe pain, Atrovent nebulizer 1 vial every 6 hours p.r.n. for SOB, lactobacillus 1 cap every day, lactulose 30 mL every day, lisinopril 20 b.i.d., nifedipine 60 mg ER p.o. b.i.d., artificial tears 1 drop t.i.d. protein supplements 1 scoop every day, Renvela 1600 mg t.i.d. REVIEW OF SYSTEMS: GENERAL: Reports no fever or chills. No recent weight loss. CARDIOVASCULAR: Denies any chest pain or palpitations. PULMONARY: No cough, no shortness of breath, no phlegm production. GASTROINTESTINAL: No bowel habit changes. GENITOURINARY: No bladder habit changes. NEUROLOGIC: Denies any syncope. Denies any dizziness, any vertigo-like symptoms. Denies any headaches or any blurry vision. PHYSICAL EXAMINATION: VITAL SIGNS: Temperature 98.2, pulse 82-92, blood pressure 148/46, respirations 18-20, satting 93-94% on room air. GENERAL: He is a well-developed, well-nourished male, currently lying in bed, complaining of right-sided hip pain, but overall appears to be comfortable, in no acute distress, nontoxic appearing. HEAD AND NECK: Normocephalic, atraumatic. His pupils are currently somewhat dry, full exam was not able to be done. NECK: There is no thyromegaly, no JVD or LAD. CARDIAC: Regular rate and rhythm without any murmurs audible, rubs or gallops as well. LUNGS: Clear to auscultation bilaterally, somewhat decreased at the bases. ABDOMEN: Soft, supple, nontender, nondistended, normoactive bowel sounds. EXTREMITIES: Lower extremities, the right BKA stump looks clean, dry and intact. There is some tenderness to palpation on the right hip area, but no bruising, redness or open wounds are noted. On the left lower extremity, there is no edema. NEUROLOGIC: Appears to be nonfocal. Cranial nerves 2-12 are within normal limits. Full exam currently was unable to be done given patient's condition. LABORATORY DATA: On admission, white count 10.1, H and H 12/37, platelet count of 254. INR 1.02. Sodium 139, potassium 5.6, chloride 99, CO2 27, BUN 52, creatinine 11.9, glucose 186, calcium 9.6. LFTs were essentially within normal limits. DIAGNOSTICIS: Please refer to HPI. 1. Chest, there was an x-ray done at the ER showing no acute focal pulmonary processes. 2. Cardiomegaly with atherosclerotic vascular changes. EKG shows sinus rhythm at a rate of 84 with criteria for left axis deviation. ASSESSMENT: 1. Right subcapital femoral fracture secondary to mechanical fall. 2. History of end-stage renal disease, on hemodialysis. 3. History of peripheral artery disease with a right BKA. 4. Essential hypertension. 5. Generalized muscle weakness. 6. Type 2 diabetes with neuropathy. 7. History of anxiety. PLAN: The patient has been admitted to the tele anguiano given his comorbidities and has been placed on Lovenox 30 mg subcutaneously every day for DVT prophylaxis as well as pain management (Dilaudid p.r.n.). The patient will be kept on his other medications as scheduled and renal as well as an orthopedic surgery consult has been placed respectively for hemodialysis management and for assessment of right subcapital fracture. I have asked for a 2D echo to be done in anticipation for possible surgery and a Cardiology consult will also eventually replaced if patient is deemed surgical candidate. JOB# [id number] MTDD
[2018-08-24] MEDS: Atorvastatin Calcium 10 MG TAB PO SCH (22:09)
[2018-08-24] MEDS: Maxitrol Ophth Susp 5 mL Bottle LEFT EYE SCH (22:13)
[2018-08-24] MEDS: Insulin Detemir 100 units/mL 10mL Vial SUBQ SCH (22:23)
[2018-08-25] MEDS: Ipratropium Neb 0.5 mg/2.5 mL UD HHN SCH ×4 (00:30→19:35)
[2018-08-25] MEDS: Hydrocodone/APAP 10 mg/325 mg Tab PO PRN (05:23)
[2018-08-25] MEDS: INSULIN ASPART SLIDING SCALE 100 UNITS/ML UNIT SUBQ SCH ×4 (06:37→22:01)
[2018-08-25] MEDS: Maxitrol Ophth Susp 5 mL Bottle LEFT EYE SCH ×2 (08:58→22:01)
[2018-08-25] MEDS: Vitamin B Complex w/Vitamin C Tab PO SCH (08:58)
[2018-08-25] MEDS: Polyvinyl Alcohol Ophth Soln 15 mL Bottle EACH EYE SCH ×3 (08:58→22:01)
[2018-08-25] MEDS: NIFEdipine 30 mg ER Tab PO SCH ×2 (08:59→21:59)
[2018-08-25] MEDS: Lactobacillus Rhamnosus GG 15 Billion CFU CAP.SPRINK PO SCH (09:00)
[2018-08-25] MEDS: Enoxaparin 30 mg/0.3 mL 0.3mL Syr SUBQ SCH (09:02)
[2018-08-25] MEDS: HYDROmorphone 1 mg/mL 1mL Syr IVP PRN (14:26)
--- NOTE | 2018-08-25 17:10 | Consultation ---
DATE OF CONSULTATION: 08/24/2018 REASON FOR ADMISSION: The patient apparently fell down and injured his right hip and thus was brought into the hospital. The patient went through an x-ray evaluation earlier and was showed a subcapital fracture of the right femur as I understand. The patient was also noted to be having a high potassium this morning and was dialyzed on a low potassium bath. The patient was also given some Kayexalate. The patient also has multiple other problems which include but not limited to his diabetes mellitus with neuropathy, end-stage renal disease, on hemodialysis Monday, Monday, Monday; history of right below knee amputation secondary to vascular disease, COPD and nicotine dependence, who apparently was in his usual state of health until he fell down. The patient denies any chest pain, but the patient has a pain in that area. There was also extensive atherosclerotic vascular disease. The patient has AV shunt on examination in the left arm, which was used for dialysis this morning. Chest examination reveals reasonable air entry. The patient had been recently given some Dilaudid for pain. Patient in the past was a drinker and currently smokes 5-6 cigarettes as per the history obtained by Dr. Sampson. MEDICATIONS: The patient has multiple medications takes including Plavix 75 mg daily, insulin sliding scale, acetaminophen for pain, atorvastatin 10 mg every day. The patient also takes Coreg 6.25 mg, Sensipar 30 mg p.o. daily. Also docusate sodium 100 mg every day, folic acid and vitamin B complex every day, gabapentin 600 mg every 8 hours, hydralazine 25 mg ____ b.i.d. and [place] 5/325 mg 1 tablet every 8 hours p.r.n. for mild to moderate pain and [place] 10/325 mg for severe pain. The patient is also on hand-held nebulizer and lactobacillus 1 cap every day. Also, the patient takes lactulose 30 mL every day. The patient's lungs had few rhonchi, but difficult to say the patient is not able to take deep breaths. The patient does have some calluses and ulcers look like to be on the heels of the feet. LABORATORY DATA: Reveal hemoglobin of 11.9 gram percent, WBC count of 8.5 thousand, platelet count of 246. There are no chemistries from today, was 5.9 so patient was dialyzed this morning and was also given Kayexalate. ASSESSMENT: The patient's diagnosis remains a right subcapital femoral fracture secondary to mechanical fall, history of end-stage renal disease, on hemodialysis; history of peripheral artery disease with right below knee amputation, essential hypertension, COPD, generalized muscle weakness and history of anxiety. PLAN: Patient had been already dialyzed for today, awaiting orthopedic consultation so that, that can be treated accordingly. [facility]# [id number]
[2018-08-25] MEDS: Atorvastatin Calcium 10 MG TAB PO SCH (22:00)
[2018-08-25] MEDS: Insulin Detemir 100 units/mL 10mL Vial SUBQ SCH (22:02)
[2018-08-25] MEDS: cefTRIAXone 1 GM in Sodium Chloride 0.9% 50 ML IV SCH (22:23)
[2018-08-26] MEDS: Ipratropium Neb 0.5 mg/2.5 mL UD HHN SCH ×4 (02:19→18:55)
[2018-08-26 05:20] LABS: % BASOPHILS 0.5 % (0.0-2.0); % EOSINOPHILS 1.1 % (0.0-5.0); % LYMPHOCYTES 22.3 % (20.0-50.0); % MONOCYTES 8.9 % (2.0-10.0); % NEUTROPHILS 67.2 % (40.0-80.0); EOSINOPHILE ABSOLUTE 0.1 Th/cmm (0.1-0.4); HEMOGLOBIN 11.4 gm/dL (12-16); MEAN CELL VOLUME 96.5 fl (80-99); MEAN CORPUSCULAR HEMOGLOBIN 32.5 pg (27.0-31.0); MEAN CORPUSCULAR HGB CONC 33.7 pg (28.0-36.0); MEAN PLATELET VOLUME 8.1 fl; MONOCYTE ABSOLUTE 0.8 Th/cmm (0.3-1.0); NEUTROPHILE ABSOLUTE 6.2 Th/cmm (1.8-8.0); PLATELET COUNT 214 Th/cmm (150-400); RED BLOOD COUNT 3.52 Mil/cmm (3.80-5.80); RED CELL DISTRIBUTION WIDTH 13.4 % (11.5-20.0); WHITE BLOOD COUNT 9.1 Th/cmm (4.8-10.8)
[2018-08-26 05:25] LABS: ANION GAP 16.5 (7.0-16.0); BUN - UREA NITROGEN 52 mg/dL (7-25); CARBON DIOXIDE 29.1 mEq/L (21.0-31.0); CHLORIDE 97 mEq/L (98-107); GLUCOSE 86 mg/dL (70-105); POTASSIUM SERUM 5.6 mEq/L (3.5-5.1); SODIUM SERUM 137 mEq/L (136-145)
[2018-08-26 05:57] LABS: CREATININE - SERUM 12.3 mg/dL (0.7-1.3)
[2018-08-26] MEDS: INSULIN ASPART SLIDING SCALE 100 UNITS/ML UNIT SUBQ SCH ×4 (07:20→20:50)
[2018-08-26] MEDS: Enoxaparin 30 mg/0.3 mL 0.3mL Syr SUBQ SCH (09:10)
[2018-08-26] MEDS: Lactobacillus Rhamnosus GG 15 Billion CFU CAP.SPRINK PO SCH (09:15)
[2018-08-26] MEDS: Vitamin B Complex w/Vitamin C Tab PO SCH (09:15)
[2018-08-26] MEDS: NIFEdipine 30 mg ER Tab PO SCH ×2 (09:17→20:49)
[2018-08-26] MEDS: Maxitrol Ophth Susp 5 mL Bottle LEFT EYE SCH ×2 (09:17→20:47)
[2018-08-26] MEDS: Polyvinyl Alcohol Ophth Soln 15 mL Bottle EACH EYE SCH ×3 (09:17→20:47)
[2018-08-26] MEDS: HYDROmorphone 1 mg/mL 1mL Syr IVP PRN (11:01)
--- NOTE | 2018-08-26 18:41 | Consultation ---
DATE OF CONSULTATION: 08/26/2018 HISTORY OF PRESENT ILLNESS: The patient is a 73-year-old gentleman, admitted to [facility] on 08/23/2018 because of an injury to his right hip. I attempted to interview the patient and establish some type of communication with him, but he did not want to talk or give me much information. What I learned from the medical file is that he is wheelchair-bound and lives at a care home. He was in his wheelchair and leaned too far and tipped and fell, injuring his right hip. X-rays were ordered at the facility and a fracture was seen. He was then brought to the Emergency Room at [facility] and imaging studies confirmed fracture of the proximal right femur and he was admitted. Additional past history of diabetes type 2, diabetic neuropathy, end-stage renal disease on dialysis 3 days a week, history of PAD, hypertension, anxiety, COPD, tobacco use/nicotine dependence, arteriosclerotic vascular disease. He has a history of right below-knee amputation several years ago. He has had treatment for diabetic ulcers on his left foot/heel. PAST HISTORY, FAMILY HISTORY, SOCIAL HISTORY: Per the chart. PHYSICAL EXAMINATION: The patient was examined in his hospital room at [facility]. He stated he was comfortable and not having any pain unless he was moved about. The upper extremities are unremarkable. There is an AV shunt on the left arm. Lower extremities, left side is unremarkable. There are scars on the foot and heel. Motion of the left hip and knee is somewhat restricted. No pain. He has 1+ ankle edema on the left. Right side, there is a high below-knee amputation. The stump is well healed. Motion of the knee is quite restricted. Any attempt at movement of the right hip causes pain, so he was not further moved about regarding his right hip. IMAGING STUDIES: I viewed images in the PACS, pelvis and right hip. There is a subcapital/upper neck fracture with slight impaction. ORTHOPEDIC DIAGNOSES: 1. Subcapital fracture of right hip, closed. 2. Status post right below-knee amputation. DISCUSSION: I attempted to establish some type of rapport or communication with the patient and I was not able to do that. I advised him of his situation, i.e., a hip fracture that would do well with surgery - replacement (hemiarthroplasty) which would facilitate his care and allow him to get back to bed to chair routine and his pain would go away sooner and better. I could not get clear for him whether he would want surgery. The other option is to just let the fracture heal, and as much as he does not walk, there would not be any great problems, he would have pain for 2 weeks until things settle down and then he could be on a bed to chair program and eventually the pain would disappear. Thank you for this interesting referral. I will stand by for treatment if it is desired. JOB# [id number]
[2018-08-26] MEDS: cefTRIAXone 1 GM in Sodium Chloride 0.9% 50 ML IV SCH (20:47)
[2018-08-26] MEDS: Atorvastatin Calcium 10 MG TAB PO SCH (20:48)
[2018-08-26] MEDS: Insulin Detemir 100 units/mL 10mL Vial SUBQ SCH (20:50)
--- NOTE | 2018-08-26 20:59 | Consultation ---
DATE OF CONSULTATION: 08/26/[address] Sampson HISTORY OF PRESENT ILLNESS: This is a 73-year-old -[place] male patient, who was at [facility]. The patient was trying to reach for something, the patient had a fall and developed right hip fracture and hence, the patient is brought to the Emergency Room and admitted and preop clearance is requested. PAST MEDICAL HISTORY: Diabetes mellitus type 2, diabetic peripheral neuropathy, diabetic peripheral vascular disease with right BKA, COPD, and iron deficiency anemia. FAMILY HISTORY: Unremarkable. SOCIAL HISTORY: No history of smoking, alcohol abuse. ALLERGIES: None. PHYSICAL EXAMINATION: VITAL SIGNS: Blood pressure 130/82, pulse 70, and respirations 20. HEAD: Normocephalic. No lumps or bumps. EYES: Pupils equal, reactive to light. Fundi show AV nicking, sclerae white, conjunctivae pink. NECK: Carotid 2+. Normal upstroke. JVD flat. Thyroid not palpable. Lymph nodes not palpable. CHEST: Shows increased AP diameter. No kyphosis, scoliosis. LUNGS: Bilateral bronchovesicular breath sounds. HEART: PMI fifth intercostal space with lateral to midclavicular line. S1, S2. No S3. Soft S4. ABDOMEN: Soft. Liver, spleen not palpable. No organomegaly. Bowel sounds active. NEUROLOGIC: Unremarkable. EXTREMITIES: Peripheral pulses 2+. No pedal edema. CLINICAL IMPRESSION: 1. Right hip fracture. 2. Diabetes mellitus type 2. 3. Diabetic peripheral neuropathy. 4. Hypertension. 5. Diabetic chronic kidney disease, stage V. 6. End-stage renal disease, on dialysis. 7. Diabetic peripheral vascular disease with right below knee amputation. 8. Chronic obstructive pulmonary disease. PLAN: The patient to have dialysis today and the patient is cleared for surgery. JOB# [id number]
[2018-08-27] MEDS: Ipratropium Neb 0.5 mg/2.5 mL UD HHN SCH ×2 (01:28→06:38)
[2018-08-27] MEDS: INSULIN ASPART SLIDING SCALE 100 UNITS/ML UNIT SUBQ SCH ×4 (08:24→21:08)
[2018-08-27] MEDS: Lactobacillus Rhamnosus GG 15 Billion CFU CAP.SPRINK PO SCH (09:14)
[2018-08-27] MEDS: Maxitrol Ophth Susp 5 mL Bottle LEFT EYE SCH ×2 (09:14→21:13)
[2018-08-27] MEDS: Polyvinyl Alcohol Ophth Soln 15 mL Bottle EACH EYE SCH ×3 (09:14→21:04)
[2018-08-27] MEDS: Vitamin B Complex w/Vitamin C Tab PO SCH (09:14)
[2018-08-27] MEDS: Enoxaparin 30 mg/0.3 mL 0.3mL Syr SUBQ SCH (09:15)
[2018-08-27] MEDS: NIFEdipine 30 mg ER Tab PO SCH ×2 (09:16→21:22)
[2018-08-27 10:22] LABS: % BASOPHILS 0.5 % (0.0-2.0); % EOSINOPHILS 1.7 % (0.0-5.0); % LYMPHOCYTES 17.2 % (20.0-50.0); % MONOCYTES 11.5 % (2.0-10.0); % NEUTROPHILS 69.1 % (40.0-80.0); EOSINOPHILE ABSOLUTE 0.2 Th/cmm (0.1-0.4); HEMATOCRIT 33.8 % (41.0-60); HEMOGLOBIN 11.3 gm/dL (12-16); LYMPHOCYTE ABSOLUTE 1.6 Th/cmm (1.5-3.0); MEAN CELL VOLUME 97.3 fl (80-99); MEAN CORPUSCULAR HEMOGLOBIN 32.5 pg (27.0-31.0); MEAN CORPUSCULAR HGB CONC 33.4 pg (28.0-36.0); MEAN PLATELET VOLUME 8.4 fl; MONOCYTE ABSOLUTE 1.1 Th/cmm (0.3-1.0); NEUTROPHILE ABSOLUTE 6.4 Th/cmm (1.8-8.0); PLATELET COUNT 235 Th/cmm (150-400); RED BLOOD COUNT 3.48 Mil/cmm (3.80-5.80); WHITE BLOOD COUNT 9.3 Th/cmm (4.8-10.8)
[2018-08-27] MEDS: Albuterol/Ipratropium Neb 3 ML AERS HHN SCH ×4 (10:36→23:04)
[2018-08-27 10:45] LABS: ANION GAP 14.7 (7.0-16.0); BUN - UREA NITROGEN 35 mg/dL (7-25); CALCIUM SERUM 8.3 mg/dL (8.6-10.3); CARBON DIOXIDE 31.3 mEq/L (21.0-31.0); CHLORIDE 96 mEq/L (98-107); GLUCOSE 197 mg/dL (70-105); SODIUM SERUM 138 mEq/L (136-145)
[2018-08-27 10:50] LABS: CREATININE - SERUM 8.7 mg/dL (0.7-1.3)
[2018-08-27] MEDS: Hydrocodone/APAP 10 mg/325 mg Tab PO PRN (13:33)
[2018-08-27] MEDS: Atorvastatin Calcium 10 MG TAB PO SCH (21:05)
[2018-08-27] MEDS: cefTRIAXone 1 GM in Sodium Chloride 0.9% 50 ML IV SCH (21:12)
[2018-08-27] MEDS: Insulin Detemir 100 units/mL 10mL Vial SUBQ SCH (21:23)
[2018-08-28] MEDS: Albuterol/Ipratropium Neb 3 ML AERS HHN SCH ×6 (02:37→22:39)
[2018-08-28] MEDS: Hydrocodone/APAP 10 mg/325 mg Tab PO PRN (06:05)
[2018-08-28] MEDS: INSULIN ASPART SLIDING SCALE 100 UNITS/ML UNIT SUBQ SCH ×4 (06:47→21:33)
[2018-08-28] MEDS: Polyvinyl Alcohol Ophth Soln 15 mL Bottle EACH EYE SCH ×3 (09:01→21:48)
[2018-08-28] MEDS: Lactobacillus Rhamnosus GG 15 Billion CFU CAP.SPRINK PO SCH (09:01)
[2018-08-28] MEDS: Maxitrol Ophth Susp 5 mL Bottle LEFT EYE SCH ×2 (09:01→21:47)
[2018-08-28] MEDS: NIFEdipine 30 mg ER Tab PO SCH ×2 (09:01→21:32)
[2018-08-28] MEDS: Vitamin B Complex w/Vitamin C Tab PO SCH (09:01)
[2018-08-28] MEDS: Enoxaparin 30 mg/0.3 mL 0.3mL Syr SUBQ SCH (09:02)
--- NOTE | 2018-08-28 10:19 | General Progress Note ---
Subjective - Review of Systems Service Date: 08/28/18 Subjective: I am fine Objective - Results Result Diagrams: 08/27/18 09:35 08/27/18 09:35 Recent Labs: Laboratory Last Values WBC 9.3 Th/cmm (4.8-10.8) 08/27/18 09:35 RBC 3.48 Mil/cmm (3.80-5.80) L 08/27/18 09:35 Hgb 11.3 gm/dL (12-16) L 08/27/18 09:35 Hct 33.8 % (41.0-60) L 08/27/18 09:35 MCV 97.3 fl (80-99) 08/27/18 09:35 MCH 32.5 pg (27.0-31.0) H 08/27/18 09:35 MCHC Differential 33.4 pg (28.0-36.0) 08/27/18 09:35 RDW 13.0 % (11.5-20.0) 08/27/18 09:35 Plt Count 235 Th/cmm (150-400) 08/27/18 09:35 MPV 8.4 fl 08/27/18 09:35 Neutrophils % 69.1 % (40.0-80.0) 08/27/18 09:35 Lymphocytes % 17.2 % (20.0-50.0) L 08/27/18 09:35 Monocytes % 11.5 % (2.0-10.0) H 08/27/18 09:35 Eosinophils % 1.7 % (0.0-5.0) 08/27/18 09:35 Basophils % 0.5 % (0.0-2.0) 08/27/18 09:35 PT 9.9 SECONDS (9.5-11.5) 08/24/18 05:00 INR 0.95 (0.5-1.4) 08/24/18 05:00 PTT (Actin FS) 27.6 SECONDS (26.0-38.0) 08/23/18 16:00 Sodium 138 mEq/L (136-145) 08/27/18 09:35 Potassium 4.0 mEq/L (3.5-5.1) 08/27/18 09:35 Chloride 96 mEq/L (98-107) L 08/27/18 09:35 Carbon Dioxide 31.3 mEq/L (21.0-31.0) H 08/27/18 09:35 Anion Gap 14.7 (7.0-16.0) 08/27/18 09:35 BUN 35 mg/dL (7-25) H 08/27/18 09:35 Creatinine 8.7 mg/dL (0.7-1.3) H* 08/27/18 09:35 Est GFR ( Amer) TNP 08/27/18 09:35 Est GFR (Non-Af Amer) TNP 08/27/18 09:35 BUN/Creatinine Ratio 4.0 08/27/18 09:35 Glucose 197 mg/dL (70-105) H 08/27/18 09:35 POC Glucose 75 MG/DL (70 - 105) 08/28/18 06:42 Calcium 8.3 mg/dL (8.6-10.3) L 08/27/18 09:35 Magnesium 2.8 mg/dL (1.9-2.7) H 08/24/18 05:00 Total Bilirubin 0.5 mg/dL (0.3-1.0) 08/24/18 05:00 AST 17 U/L (13-39) 08/24/18 05:00 ALT 20 U/L (7-52) 08/24/18 05:00 Alkaline Phosphatase 95 U/L (34-104) 08/24/18 05:00 Total Protein 7.2 gm/dL (6.0-8.3) 08/24/18 05:00 Albumin 3.7 gm/dL (4.2-5.5) L 08/24/18 05:00 Globulin 3.5 gm/dL 08/24/18 05:00 Albumin/Globulin Ratio 1.1 (1.0-1.8) 08/24/18 05:00 Triglycerides 112 mg/dL (<150) 08/24/18 05:00 Cholesterol 95 mg/dL (<200) 08/24/18 05:00 LDL Cholesterol Direct 37 mg/dL (75-193) L 08/24/18 05:00 HDL Cholesterol 34 mg/dL (23-92) 08/24/18 05:00 TSH 4.33 uIU/ml (0.34-5.60) 08/24/18 05:00 - Physical Exam Vitals and I&O: Vital Signs Temp 99.2 F 08/27/18 23:55 Pulse 85 08/28/18 06:42 Resp 20 08/28/18 06:42 BP 97/45 08/27/18 23:55 Pulse Ox 92 08/28/18 06:42 Intake & Output 08/27/18 08/28/18 08/28/18 18:59 06:59 18:59 Intake Total 100 500 Balance 100 500 Weight (lbs) 102.512 kg 102.512 kg Intake: Oral 100 500 Other: # Voids 2 0 # Bowel Movements 1 1 Weight Source Bedscale Bedscale Active Medications: Current Medications Acetaminophen (Tylenol) 325 mg PO Q12HR PRN PRN Reason: Breakthrough Pain Stop: 10/22/18 21:47 Last Admin: 08/26/18 09:14 Dose: 325 mg Acetaminophen/Hydrocodone Bitart (Kathryn 10 Mg/325 Mg) 1 tab PO Q6HR PRN PRN Reason: Moderate Pain Stop: 10/22/18 21:47 Last Admin: 08/28/18 06:05 Dose: 1 tab Acetaminophen/Hydrocodone Bitart (Kathryn 5mg/325mg) 1 tab PO Q8HR PRN PRN Reason: Pain (MILD) Stop: 10/22/18 21:47 Acetylcysteine (Mucomyst 20%) 3 ml HHN Q8HRT [facility] Stop: 10/26/18 14:59 Last Admin: 08/28/18 06:42 Dose: 3 ml Albuterol/Ipratropium (Duoneb Neb) 3 ml HHN Q4HRT [facility] Stop: 10/26/18 10:59 Last Admin: 08/28/18 06:42 Dose: 3 ml Artificial Tears (Artificial Tears Ophth Soln) 1 drop EACH EYE TID [facility] Stop: 10/23/18 08:59 Last Admin: 08/28/18 09:01 Dose: 1 drop Atorvastatin Calcium (Lipitor) 10 mg PO HS [facility]; Protocol Stop: 10/23/18 20:59 Last Admin: 08/27/18 21:05 Dose: 10 mg Atropine Sulfate (Isopto Atropine 1% Ophth Soln) 1 drop LEFT EYE Q12HR [facility] Stop: 10/23/18 20:59 Last Admin: 08/28/18 09:01 Dose: 1 drop Bisacodyl (Dulcolax 10 Mg Supp) 10 mg RC DAILY PRN PRN Reason: Constipation Stop: 10/22/18 21:47 Carvedilol (Coreg) 6.25 mg PO BIDWM [facility] Stop: 10/24/18 07:59 Last Admin: 08/27/18 08:24 Dose: Not Given Cinacalcet (Sensipar) 30 mg PO DAILY [facility] Stop: 10/23/18 08:59 Last Admin: 08/28/18 09:01 Dose: 30 mg Docusate Sodium (Colace) 100 mg PO DAILY PRN PRN Reason: Constipation Stop: 10/22/18 21:47 Last Admin: 08/27/18 17:34 Dose: 100 mg Enoxaparin Sodium (Lovenox) 30 mg SUBQ DAILY [facility] Stop: 10/23/18 08:59 Last Admin: 08/28/18 09:02 Dose: 30 mg Gabapentin (Neurontin) 100 mg PO DAILY [facility] Stop: 10/22/18 23:29 Last Admin: 08/28/18 09:01 Dose: 100 mg Hydralazine HCl (Apresoline) 25 mg PO TID [facility] Stop: 10/25/18 13:59 Last Admin: 08/28/18 09:02 Dose: Not Given Hydromorphone HCl (Dilaudid) 1 mg IVP Q3H PRN PRN Reason: Pain (Severe) Stop: 10/22/18 17:44 Last Admin: 08/26/18 11:01 Dose: 1 mg Ceftriaxone Sodium 1 gm/ (Sodium Chloride) 50 mls @ 100 mls/hr IV Q24HR [facility] Stop: 10/24/18 20:59 Last Admin: 08/27/18 21:12 Dose: 100 mls/hr Insulin Aspart (Novolog Insulin Sliding Scale) 0 units SUBQ ACHS [facility]; Protocol Stop: 10/22/18 20:59 Last Admin: 08/28/18 06:47 Dose: Not Given Insulin Detemir (Levemir Insulin) 43 units SUBQ HS [facility] Stop: 10/23/18 20:59 Last Admin: 08/27/18 21:23 Dose: 43 ud Lactobacillus Rhamnosus (Culturelle 15b) 1 each PO DAILY [facility] Stop: 10/23/18 08:59 Last Admin: 08/28/18 09:01 Dose: 1 each Lactulose (Cephulac) 20 gm PO DAILY PRN PRN Reason: CONSTIPATION Stop: 10/23/18 00:10 Lisinopril (Zestril) 20 mg PO SuTuTh@0900 [facility] Stop: 10/25/18 08:59 Last Admin: 08/28/18 09:01 Dose: Not Given Lisinopril (Zestril) 20 mg PO HS [facility] Stop: 10/23/18 20:59 Last Admin: 08/27/18 21:05 Dose: Not Given Neomycin/Polymyxin/Dexamethasone (Maxitrol Ophth Susp) 1 drop LEFT EYE Q12HR [facility] Stop: 10/23/18 20:59 Last Admin: 08/28/18 09:01 Dose: 1 drop Nifedipine (Procardia Xl) 60 mg PO HS [facility] Stop: 10/23/18 20:59 Last Admin: 08/27/18 21:22 Dose: Not Given Nifedipine (Procardia Xl) 60 mg PO DAILY [facility] Stop: 10/23/18 08:59 Last Admin: 08/28/18 09:01 Dose: Not Given Sevelamer Carbonate (Renvela) 1,600 mg PO TIDWM [facility] Stop: 10/23/18 08:59 Last Admin: 08/28/18 09:00 Dose: 1,600 mg Vitamin B Complex/Vit C/Folic Acid (Vitamin B Complex W/Vitamin C) 1 tab PO DAILY [facility] Stop: 10/23/18 08:59 Last Admin: 08/28/18 09:01 Dose: 1 tab General: Alert, No acute distress HEENT: Atraumatic, PERRLA Neck: Supple Cardiovascular: Regular rate Lungs: Clear to auscultation Abdomen: Bowel sounds, Soft Extremities: Other (BK amputation right leg, Gracture of right hip) Neurological: Other (Non ambulatory) Skin: Other (Pressure ulcer left heel) Psych/Mental Status: Mental status NL - Procedures Procedures: Procedures Procedure Code Date AMPUTATION FOLLOW-UP SURGERY 34896 10/31/16 AMPUTATION OF FOOT AT ANKLE 76504 09/15/16 AMPUTATION THRU METATARSAL 49666 07/22/16 BYPASS L AXILLA VEIN TO UP VEIN W SYNTH SUB, OPEN [id number] 07/22/16 LAITH SUBQ TISSUE 20 SQ CM/< 70024 01/05/17 DETACHMENT AT RIGHT FOOT, COMPLETE, OPEN APPROACH [id number] 09/15/16 DETACHMENT AT RIGHT FOOT, PARTIAL 2ND RAY, OPEN APPROACH [id number] 07/22/16 DETACHMENT AT RIGHT FOOT, PARTIAL 3RD RAY, OPEN APPROACH [id number] 07/22/16 DETACHMENT AT RIGHT FOOT, PARTIAL 4TH RAY, OPEN APPROACH [id number] 07/22/16 DETACHMENT AT RIGHT FOOT, PARTIAL 5TH RAY, OPEN APPROACH [id number] 07/22/16 DETACHMENT AT RIGHT LOWER LEG, HIGH, OPEN APPROACH [id number] 10/31/16 EXCISION OF L FOOT SUBCU/FASCIA, OPEN APPROACH [id number] 01/05/17 EXTIRPATION OF MATTER FROM LEFT AXILLARY VEIN, OPEN APPROACH [id number] 07/22/16 HEMODIALYSIS 39.95 07/31/12 HEMODIALYSIS REPEATED EVAL 71169 07/22/16 INSERT TUNNELED CV CATH [id number] 07/22/16 INSERTION OF INFUSION DEV INTO R SUBCLAV VEIN, PERC APPROACH [id number] 07/22/16 INSERTION OF INFUSION DEV INTO SUP VENA CAVA, PERC APPROACH [id number] 07/22/16 OPEN THROMBECT AV FISTULA 05048 07/22/16 PERFORMANCE OF URINARY FILTRATION, MULTIPLE [id number] 01/05/17 TRANSFUSE NONAUT RED BLOOD CELLS IN PERIPH VEIN, PERC [id number] 10/31/16 ULTRASONOGRAPHY OF RIGHT SUBCLAVIAN VEIN, GUIDANCE [id number] 07/22/16 ULTRASONOGRAPHY OF SUPERIOR VENA CAVA, GUIDANCE [id number] 07/22/16 US GUIDE VASCULAR ACCESS [id number] 07/22/16 Assessment/Plan - Assessment Assessment: Patient is awake, alert, calm, in no acute distress. Dx: Subcapitate fracture of right hip, ESRD on HD, HTN, DM, PVD, S/P right BKA. - Plan Plan: Surgery of right hip is discuss with patient but he refused. Will continue to monitor. Nutritional Asmnt/Malnutr-PDOC - Dietary Evaluation Malnutrition Findings (Please click <Entered> for more info): Nutritional Asmnt/Malnutrition Start: 08/24/18 13: 53 Text: Status: Complete Freq: Protocol: Document 08/24/18 13:53 [email or web address] (Rec: 08/24/18 14:16 [email or web address]) Nutritional Asmnt/Malnutrition Patient General Information Nutritional Screening High Risk Diagnosis right side femur fracture Pertinent Medical Hx/Surgical Hx ESRD, HTN, COPD, nicotene dependence, severe PAD Subjective Information Pt was in bed undergoing hemodialysis treatment at time of visit. Pt was awake but appeared week, slow to respond to questions. Per EMR, PO intake 25% of breakfast today. Intake 480ml, output 0 per EMR Current Diet Order/ Nutrition Support renal, low sodium Pertinent Medications lipitor, sensipar, colace, novolog, levemir, culturelle, lactulose, renvela, vit B complex with vit C Pertinent Labs 08/24 potassium 5.9, BUN 57, Cr 12.1, Alb 3.7, LDL 37, glucose 75, POC 79-82 08/23 potassium 5.6, BUN 52, Cr 11.9, glucose 186, POC 140 Nutritional Hx/Data Height 1.73 m Height (Calculated Centimeters) 172.7 Current Weight (lbs) 104.326 kg Weight (Calculated Kilograms) 104.3 Weight (Calculated Grams) 481158.2 [place] Body Weight 154 Body Mass Index (BMI) 34.9 Weight Status Obese GI Symptoms GI Symptoms None Last BM not indicated Difficult in: None Food Allergies No Skin Integrity/Comment: right BKA, abrasion lower left foot and right foot, reddened scar left upper arm Marco 13 Current %PO Poor (25-49%) Estimated Nutritional Goals BEE in Kcals: Adj wt of IBW Calories/Kcals/Kg 25-30 Kcals Calculated 7795-2161 Protein: Adj wt of IBW Protein g/k-1.2 Protein Calculated 78-94 Fluid: ml per MD Nutritional Problem 1. Problem Problem altered nutrition related labs Etiology diabetes and renal dysfunction Signs/Symptoms: glucose 186, potassium 5.9, BUN 57, Cr 12.1, Alb 3.7 Malnutrition Alert Is there a minimum of two criteria No selected? Query Text:Check all the applicable criteria. A minimum of two criteria are recommended for diagnosis of either severe or non-severe malnutrition. Malnutrition Related to Morbid Obesity Malnutrition related to morbid obesity No Intervention/Recommendation Comments 1. Continue with renal, low sodium diet as ordered, modify to 80g protein 2. Recommend adding CCHO-60 diet due to elevated glucose levels, RN notified 3. Add Nepro supplement BID for extra calorie and protein 4. Monitor PO intake, wt, labs and skin integrity 5. F/U as high risk in 2-3 days, 08/26-08/27 Expected Outcomes/Goals Expected Outcomes/Goals Goal: PO intake to meet at least 75% of nutritional needs . Wounds and skin integrity to improve, and labs to be stable . Reviewed by Glendy Ramon RD
--- NOTE | 2018-08-28 17:34 | Cardiology ---
08/24/2018 PATIENT OF: Dr. Sampson. M-MODE ECHOCARDIOGRAM: Mitral valve, anterior leaflet of mitral valve shows normal excursion, EF velocity. Posterior leaflet of the mitral valve shows normal excursion. Left ventricular posterior wall shows increased thickness, normal excursion. Interventricular septum shows increased thickness, normal excursion. There is minimal hypertrophy of the left ventricle, ejection fraction 60%. Left atrium normal. Aortic root shows normal dimension, normal excursion of aortic leaflets. CONCLUSION: Minimal hypertrophy of the left ventricle, ejection fraction 60%. 2D ECHO: Long axis view showed normal sized left ventricle with minimal hypertrophy of the left ventricle. Left atrium normal. Aortic root shows normal dimension, normal excursion of aortic leaflets. Short axis view of mitral valve normal. Short axis view of aortic valve normal. Apical four chamber view showed normal sized left ventricle with minimal hypertrophy of the left ventricle. Left atrium normal. Right ventricular cavity, right atrium normal, no pericardial effusion. CONCLUSION: Minimal hypertrophy of the left ventricle, ejection fraction 60%. Doppler study showed trace mitral regurgitation, mild tricuspid regurgitation, right ventricular systolic pressure 47 mmHg with mild pulmonary hypertension. JOB# [id number]
[2018-08-28] MEDS: cefTRIAXone 1 GM in Sodium Chloride 0.9% 50 ML IV SCH (21:12)
[2018-08-28] MEDS: Atorvastatin Calcium 10 MG TAB PO SCH (21:19)
[2018-08-28] MEDS: Insulin Detemir 100 units/mL 10mL Vial SUBQ SCH (21:34)
[2018-08-29] MEDS: Albuterol/Ipratropium Neb 3 ML AERS HHN SCH ×3 (02:35→12:14)
[2018-08-29 06:01] LABS: % BASOPHILS 0.8 % (0.0-2.0); % EOSINOPHILS 3.2 % (0.0-5.0); % LYMPHOCYTES 26.2 % (20.0-50.0); % MONOCYTES 10.6 % (2.0-10.0); % NEUTROPHILS 59.2 % (40.0-80.0); BASOPHILE ABSOLUTE 0.1 Th/cumm (0-0.2); EOSINOPHILE ABSOLUTE 0.2 Th/cmm (0.1-0.4); HEMATOCRIT 31.1 % (41.0-60); HEMOGLOBIN 10.3 gm/dL (12-16); LYMPHOCYTE ABSOLUTE 1.9 Th/cmm (1.5-3.0); MEAN CELL VOLUME 97.7 fl (80-99); MEAN CORPUSCULAR HEMOGLOBIN 32.4 pg (27.0-31.0); MEAN CORPUSCULAR HGB CONC 33.2 pg (28.0-36.0); MEAN PLATELET VOLUME 7.7 fl; MONOCYTE ABSOLUTE 0.8 Th/cmm (0.3-1.0); NEUTROPHILE ABSOLUTE 4.3 Th/cmm (1.8-8.0); PLATELET COUNT 282 Th/cmm (150-400); RED BLOOD COUNT 3.19 Mil/cmm (3.80-5.80); RED CELL DISTRIBUTION WIDTH 12.8 % (11.5-20.0); WHITE BLOOD COUNT 7.3 Th/cmm (4.8-10.8)
[2018-08-29 06:49] LABS: ALB/GLOB RATIO 0.9 (1.0-1.8); ALBUMIN 2.9 gm/dL (4.2-5.5); ALKALINE PHOSPHATASE 65 U/L (34-104); ANION GAP 16.4 (7.0-16.0); BILIRUBIN,TOTAL 0.3 mg/dL (0.3-1.0); BUN - UREA NITROGEN 56 mg/dL (7-25); CALCIUM SERUM 7.8 mg/dL (8.6-10.3); CARBON DIOXIDE 30.1 mEq/L (21.0-31.0); CHLORIDE 93 mEq/L (98-107); GLUCOSE 73 mg/dL (70-105); PHOSPHOROUS 5.9 mg/dL (2.5-5.0); POTASSIUM SERUM 3.5 mEq/L (3.5-5.1); SGOT 14 U/L (13-39); SGPT/ALT 12 U/L (7-52); SODIUM SERUM 136 mEq/L (136-145); TOTAL PROTEIN,SERUM 6.3 gm/dL (6.0-8.3)
[2018-08-29] MEDS: INSULIN ASPART SLIDING SCALE 100 UNITS/ML UNIT SUBQ SCH ×2 (07:30→11:45)
[2018-08-29 08:17] LABS: CREATININE - SERUM 12.8 mg/dL (0.7-1.3)
[2018-08-29] MEDS: Lactobacillus Rhamnosus GG 15 Billion CFU CAP.SPRINK PO SCH (09:37)
[2018-08-29] MEDS: Vitamin B Complex w/Vitamin C Tab PO SCH (09:37)
[2018-08-29] MEDS: Enoxaparin 30 mg/0.3 mL 0.3mL Syr SUBQ SCH (09:38)
[2018-08-29] MEDS: NIFEdipine 30 mg ER Tab PO SCH (09:38)
[2018-08-29] MEDS: Polyvinyl Alcohol Ophth Soln 15 mL Bottle EACH EYE SCH ×2 (09:38→13:13)
[2018-08-29] MEDS: Maxitrol Ophth Susp 5 mL Bottle LEFT EYE SCH (09:38)
--- NOTE | 2018-08-29 21:46 | Discharge Summary ---
DATE OF DISCHARGE: 08/29/2018 ADMITTING DIAGNOSIS: Right hip pain/fracture. SECONDARY DIAGNOSES: History of end-stage renal disease on hemodialysis; history of peripheral arterial disease, status post right BKA, essential hypertension, generalized muscle weakness, type 2 diabetes with neuropathy, history of anxiety. DISCHARGE DIAGNOSIS: Right hip pain/fracture. CONSULTANTS: Dr. Ruby Mims, Ortho; Dr. Ike Watkins, Nephrology; Narinder Holt, Cardiology. MAJOR FINDINGS: On 08/23/2018, the patient underwent a right hip 2-view x-ray showing 1. Mildly displaced right femoral neck fracture. 2. Extensive atherosclerotic vascular changes. A 2D echo was done on 08/28 showing minimal hypertrophy of the left ventricle with an EF of 60%. Doppler study showed trace mitral regurg, mild tricuspid regurg, right ventricular systolic pressure of 47 with mild pulmonary hypertension. BRIEF HOSPITAL COURSE: The patient is a 73-year-old -[place] gentleman, who resides at [facility] with history of essential hypertension, type 2 diabetes with neuropathy, end-stage renal disease on hemodialysis Mondays, Wednesdays, and Fridays, history of PAD status post right BKA, and also in the past has had left heel debridement. Other history includes anxiety, COPD, and nicotine dependence. 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 He landed on his right side and immediately complained of severe right hip pain. An x-ray done at the facility showed a subcapital fracture and therefore, the patient was transferred to this facility where a repeat x-ray did confirm a right-sided mildly displaced femoral neck fracture. The patient was admitted to the [facility] and was placed on pain management. Lovenox for DVT prophylaxis and was kept on his regular medications. Orthopedic consult was asked for as well as a Nephrology eval given his hemodialysis. The patient apparently refused to have procedure and given that the fracture was not severely displaced, it was decided that he would not proceed with Orthopedic Surgery. Nevertheless, he was also seen by Cardiology for preop eval and overall the patient has remained stable except for occasional bouts of pain. MEDICATIONS ON DISCHARGE: Insulin sliding scale per protocol, Tylenol 325 mg q. 12 hours, atorvastatin 10 mg q. day, Dulcolax 10 mg q. day, Coreg 6.25 mg b.i.d., Sensipar 30 mg q. day, Restasis 1 drop q. 12 hours, docusate sodium 100 mg q. day, Ashley-Micah 1 tab q. day, gabapentin 600 mg q. 8 hours, hydralazine 25 mg b.i.d., [place] 5/325 mg q. 8 hours p.r.n. for moderate pain and 10/325 mg q. 6 hours p.r.n. for severe pain, glargine insulin 43 units at bedtime, DuoNeb q. 6 hours p.r.n. for shortness of breath, lactobacillus daily, lactulose 30 mL q. day, lisinopril 20 mg b.i.d., nifedipine 60 mg b.i.d., artificial tears as needed, protein supplements daily, Renvela 1600 mg t.i.d. DISPOSITION: The patient will be transferred back to [facility] and will have a followup appointment with Orthopedic Surgery. JOB# [id number]
== END 2018-08-29 15:27 | DRG 535 ==
LOC: ER 15:35 → TELE 17:25
PROVIDERS: ADMIT Internal Medicine; ATTEND Internal Medicine
PROC: 5A1D70Z Performance of Urinary Filtration, Intermittent, Less than 6 Hours Per Day (ICD-10-PCS; principal; 2018-08-24)
PROC: 5A1D70Z Performance of Urinary Filtration, Intermittent, Less than 6 Hours Per Day (ICD-10-PCS; 2018-08-26)
PROC: 5A1D70Z Performance of Urinary Filtration, Intermittent, Less than 6 Hours Per Day (ICD-10-PCS; 2018-08-29)
DX: S72.011A Unspecified intracapsular fracture of right femur, initial encounter for closed fracture (principal); N18.6 End stage renal disease; I12.0 Hypertensive chronic kidney disease with stage 5 chronic kidney disease or end stage renal disease; F41.9 Anxiety disorder, unspecified; F17.210 Nicotine dependence, cigarettes, uncomplicated; E87.5 Hyperkalemia; E11.319 Type 2 diabetes mellitus with unspecified diabetic retinopathy without macular edema; E11.22 Type 2 diabetes mellitus with diabetic chronic kidney disease; J44.9 Chronic obstructive pulmonary disease, unspecified; E78.00 Pure hypercholesterolemia, unspecified; E11.42 Type 2 diabetes mellitus with diabetic polyneuropathy; E11.51 Type 2 diabetes mellitus with diabetic peripheral angiopathy without gangrene; W05.0XXA Fall from non-moving wheelchair, initial encounter; Z89.511 Acquired absence of right leg below knee; Z99.2 Dependence on renal dialysis; Z88.5 Allergy status to narcotic agent; Y93.89 Activity, other specified; Y92.89 Other specified places as the place of occurrence of the external cause; Y99.8 Other external cause status
CPT/HCPCS: 36415-UA; 71045-TC; 73501; 80048-TC; 80053-TC; 80061-TC; 82948-90; 83036-90; 83735-TC; 84100-TC; 84443-TC; 85025-TC; 85610-TC; 85730-TC; 87070; 90779; 90937; 93005; 94640; 94760; 96374; J0696; J1170; J1650; J1815; J7030; Z7610